=== PATIENT | female | born 1935 | race Caucasian/White ===

== ENCOUNTER 2018-01-31 10:30 | Outpatient (RCR) | payer MEDICARE, OTHER, SELFPAY ==
--- NOTE | 2018-01-24 15:07 | PT.OTN ---
On January 24, 2018 our therapy services consisting of Speech, Occupational, and Physical therapy transitioned from [employer] electronic documentation system to a new [employer] electronic system. All documentation prior to January 24 can be found under [employer] saved data. From January 24 forward, all medical record documentation will be in [employer] 6.1.
--- NOTE | 2018-01-24 16:30 | PT.OTN ---
Physical Therapy Treatment Note PT-OP-C Subjective Start: 01/24/18 16:13 Freq: Status: Active Protocol: Activity Type Activity Date Activity User E-Sign Co-Sign Detail Recorded Client Recorded Date Recorded By Document 01/24/18 16:13 [facility] [email or web address] 01/24/18 16:29 [facility] 01/24/18 16:13 OP-PT Subjective [Patient Comments] -Patient Comments Tae's is present for her treatment today due to her dementia. He reports she is doing much better with her walking and he feels her balance is much improved. She has been also able to ambulate on uneven surfaces with greater ease -Patient Reported Progress Improving PT-OP-Q Treatments Start: 01/24/18 16:13 Freq: Status: Active Protocol: Activity Type Activity Date Activity User E-Sign Co-Sign Detail Recorded Client Recorded Date Recorded By Document 01/24/18 16:13 [facility] [email or web address] 01/24/18 16:29 [facility] 01/24/18 16:13 Therapeutic Exercises [Standing Exercises] 4 -Standing Exercise Name standing rows -Side bilateral -Resistance level 1 theraband -Reps/Minutes 3 sets of 10 reps 3 -Standing Exercise Name standing toe raises -Side bilateral -Reps/Minutes 20 2 -Standing Exercise Name standing marches -Side bilateral -Reps/Minutes 20 1 -Standing Exercise Name standing calf raises -Side bilateral -Reps/Minutes 20 Gait Training [Gait Activity] 2 -Description heel toe gait 1 -Description gait with head turns and change of directions -Comments focus on posture and ablility to change directions Neuro Re-Education Treatment [Balance Activities] 4 -Details balance board standing weight shifts forward /back, side/ side 3 -Details standing single leg balance eyes open 2 -Details tandem stance eyes open/eyes closed -Surface firm and foam 1 -Details standing balance feet together eyes open/eyes closed, added head turns -Surface firm and foam Self-Care/Home Management Treatment [Education] -Patient Education Home Exercise Program -Caregiver Education long term care administrator info on adding in theraband for postural exercises PT-OP-T Assessment and Plan Start: 01/24/18 16:13 Freq: Status: Active Protocol: Activity Type Activity Date Activity User E-Sign Co-Sign Detail Recorded Client Recorded Date Recorded By Document 01/24/18 16:13 [facility] [email or web address] 01/24/18 16:29 [facility] 01/24/18 16:13 Physical Therapy Assessment [Impairments] -Impairments Balance Gait [Assessment Summary] -Assessment Tae is making steady progress with PT and her balance is showing improvement. She is able to balance single let stance for greater than 10 seconds now B. Her pain is not as wide and her feet are no longer turned out. I want to work on posture with her as she tends to ambulate with a forward position Physical Therapy Plan [Frequency and Duration] -Frequency of Treatment 1x/Week [Therapeutic Interventions] -Therapeutic Interventions Balance Training Gait Training Home Exercise Program Neuromuscular Re-education Therapeutic Exercises [Next Visit Focus/Plan] -Next Visit Plan focus on postural exercises and continue focusing on balance and dynamic gait activities Current Diagnoses Other abnormalities of gait and mobility (01/24/18)
--- NOTE | 2018-01-31 11:29 | PT.OTN ---
Current Diagnoses Other abnormalities of gait and mobility (01/31/18) Physical Therapy Treatment Note PT-OP-A Visit Information Start: 01/31/18 11:26 Freq: Status: Active Protocol: Activity Type Activity Date Activity User E-Sign Co-Sign Detail Recorded Client Recorded Date Recorded By Document 01/31/18 11:26 [facility] [email or web address] 01/31/18 11:28 [facility] 01/31/18 11:26 Out-Patient Physical Therapy Visit Information [Visit Information] -Visit Type Treatment Note -Visit Start Time 10:30 -Visit Stop Time 11:15 -Total Visit Minutes 45 -Visit Number 4 -Number of SENIOR CLINICAL RESEARCH SCIENTIST Visits 0 PT-OP-C Subjective Start: 01/24/18 16:13 Freq: Status: Active Protocol: Activity Type Activity Date Activity User E-Sign Co-Sign Detail Recorded Client Recorded Date Recorded By Document 01/31/18 11:26 [facility] [email or web address] 01/31/18 11:28 [facility] 01/31/18 11:26 OP-PT Subjective [Patient Comments] -Patient Comments THe patient reports she has had no loss of balance and has been working on her home balance program. Her comments that her gait continues to improve PT-OP-Q Treatments Start: 01/24/18 16:13 Freq: Status: Active Protocol: Activity Type Activity Date Activity User E-Sign Co-Sign Detail Recorded Client Recorded Date Recorded By Document 01/31/18 11:17 [facility] [email or web address] 01/31/18 11:26 [facility] 01/31/18 11:17 Gym Equipment [Sport Cord] 1 -Exercise Details standing marching with resistance -Cord/Resistance level 1 -Reps/Duration 2 minutes Therapeutic Exercises [Standing Exercises] 4 -Standing Exercise Name standing rows and lat pull down -Resistance level 1 theraband -Reps/Minutes 3 sets of 10 reps each 3 -Standing Exercise Name standing toe raises -Side bilateral -Reps/Minutes 20 2 -Standing Exercise Name standing marches -Side bilateral -Reps/Minutes 20 1 -Standing Exercise Name standing calf raises -Side bilateral -Reps/Minutes 20 Gait Training [Gait Activity] 3 -Description walking over green hurdles -Treatment Focus working on 1 legged balance exercises 2 -Description heel toe gait -Device Used in parallel bars -Distance/Duration 2 min -Treatment Focus narrow base of support stability exercise 1 -Description gait with head turns and change of directions -Comments focus on posture and ablility to change directions Neuro Re-Education Treatment [Balance Activities] 4 -Details balance board standing weight shifts forward /back, side/ side 3 -Details standing single leg balance eyes open 2 -Details tandem stance eyes open/eyes closed -Surface firm and foam 1 -Details standing balance feet together eyes open/eyes closed, added head turns -Surface firm and foam PT-OP-T Assessment and Plan Start: 01/24/18 16:13 Freq: Status: Active Protocol: Activity Type Activity Date Activity User E-Sign Co-Sign Detail Recorded Client Recorded Date Recorded By Document 01/31/18 11:17 [facility] [email or web address] 01/31/18 11:26 [facility] 01/31/18 11:17 Physical Therapy Assessment [Rehab Potential] -Rehabilitation Potential Excellent [Impairments] -Impairments Balance Gait [Assessment Summary] -Assessment Tae was able to balance today in SLS without hand support for 15 seconds, she is standing in tandem with ability to bring hands up over her head. Continue working on posture and dynamic balance activities. Physical Therapy Plan [Frequency and Duration] -Frequency of Treatment 1x/Week [Therapeutic Interventions] -Therapeutic Interventions Balance Training Gait Training Home Exercise Program Neuromuscular Re-education Therapeutic Exercises [Next Visit Focus/Plan] -Next Visit Plan focus on postural exercises and continue focusing on balance and dynamic gait activities
--- NOTE | 2018-04-18 13:30 | PT.OPDS ---
Current Diagnoses Other abnormalities of gait and mobility (01/31/18) Provider Visit Care Team Role Provider Type Doyle Byrd MD Attending Provider Physician Family Provider Primary Care Provider Specialty: Family Practice Address: [address] [place] [address], [facility] Email: Visit Number Visit Number 4 Discharge Summary PT-OP-C Subjective Start: 01/24/18 16:13 Freq: Status: Active Protocol: Document 01/31/18 11:26 [facility] (Rec: 01/31/18 11:28 [facility] [email or web address]) OP-PT Subjective Patient Comments Patient Comments THe patient reports she has had no loss of balance and has been working on her home balance program. Her comments that her gait continues to improve PT-OP-T Assessment and Plan Start: 01/24/18 16:13 Freq: Status: Active Protocol: Document 04/18/18 13:28 [facility] (Rec: 04/18/18 13:30 [facility] [email or web address]) Physical Therapy Assessment Assessment Summary Assessment Jaleel has not been sieen since 01/30/18. As of her last visit she was doing much better overall. Her reported she was walking with improved speed and had decreased log turner or wide base of support. She was doing all her exercises at home with her . She will be discharged to a Independent home program at this time. Physical Therapy Plan Discharge Physical Therapy Discharge Reasons No Longer Attending PT Discharge Comments Good overall progress with PT
== END 2018-06-14 10:46 ==
LOC: PHYS 10:30
PROVIDERS: Family Provider Family Medicine; PCP Family Medicine; Visit Provider Family Medicine
DX: R26.89 Other abnormalities of gait and mobility (principal)
CPT/HCPCS: 97110; 97112; 97116

== ENCOUNTER → 2018-03-17 14:53 | Outpatient (CLI) | payer MEDICARE, OTHER, SELFPAY ==
--- NOTE | 2018-03-17 | DI.MG.S_ITS ---
BILATERAL DIGITAL SCREENING MAMMOGRAM 3D/2D WITH CAD: 03/17/2018 CLINICAL: Routine screening. Comparison is made to exams dated: 01/18/2017 mammogram, 01/14/2016 mammogram, and 01/10/2015 mammogram - [facility]. There are scattered fibroglandular elements in both breasts. Current study was also evaluated with a Computer Aided Detection (CAD) system. There are benign calcifications in the right breast. No significant masses, calcifications, or other findings are seen in either breast. There has been no significant interval change. IMPRESSION: BENIGN There is no mammographic evidence of malignancy. A 1 year screening mammogram is recommended. This exam was interpreted at Station ID: [id number]. NOTE: For mammograms, a report in lay terms will be sent to the patient. Approximately 15% of breast malignancies will not be visualized mammographically. In the management of a palpable breast mass, a negative mammogram must not discourage biopsy of a clinically suspicious lesion. Electronically Signed By: Duncan grossman/abhijit:03/17/2018 16:03:28 letter sent: Normal Exam ACR BI-RADS Category 2: Benign Finding(s) 3342F
== END ==
PROVIDERS: Family Provider Family Medicine; PCP Family Medicine; Visit Provider Family Medicine
DX: Z12.31 Encounter for screening mammogram for malignant neoplasm of breast (principal)
CPT/HCPCS: 77063; 77067

== ENCOUNTER → 2018-03-21 07:48 | Outpatient (CLI) | payer MEDICARE, OTHER, SELFPAY ==
[2018-03-21 09:09] LABS: Add Manual Diff / Slide Review NO; Basophils Percent Auto 1.1 % (0-2); Eosinophils Percent Auto 1.9 % (2-4); Hematocrit 43.1 % (36-46); Hemoglobin 14.4 g/dL (12.0-16.0); Lymphocytes Percent Auto 29.9 % (25-40); Mean Corpuscular HGB Conc 33.3 % (30-36); Mean Corpuscular Hemoglobin 30.8 PG (26-34); Mean Corpuscular Volume 92.4 fL (80-100); Monocytes Percent Auto 7.1 % (3-14); Neutrophils Absolute Auto 2900 /uL (3000-5900); Platelet Count 222 X10^3/uL (150-400); Red Blood Cell Count 4.67 X10^6/uL (4.0-5.2); White Blood Cell Count 4.8 X10^3/uL (4.5-11.0)
[2018-03-21 09:44] LABS: Alanine Aminotransferase 21 IU/L (9-52); Albumin 4.1 g/dL (3.5-5.0); Albumin Globulin Ratio 1.2 (1.0-2.8); Alkaline Phosphatase 77 U/L (38-126); Aspartate Aminotransferase 26 IU/L (14-36); BUN Creatinine Ratio 28.6 (6-22); Bilirubin Total 0.5 mg/dL (0.2-1.3); Blood Urea Nitrogen 20 mg/dL (7-17); Calcium 8.9 mg/dL (8.4-10.2); Carbon Dioxide 31 mmol/L (22-32); Chloride 102 mmol/L (98-107); Cholesterol 187 mg/dL (140-199); Estimated Glomerular Filt Rate > 60.0 mL/min (>60); Globulin 3.4 g/dL (1.7-4.1); Glucose 86 mg/dL (80-110); HDL Cholesterol 58 mg/dL (40-60); HEMOLYSIS 35 (0-50); LDL Cholesterol Calculated 103 mg/dL (<100); Potassium 3.9 mmol/L (3.4-5.1); Sodium 140 mmol/L (137-145); Total Protein 7.5 g/dL (6.3-8.2); Triglycerides 131 mg/dL (35-150)
== END ==
PROVIDERS: PCP Internal Medicine; Visit Provider Internal Medicine
DX: F32.9 Major depressive disorder, single episode, unspecified (principal); E78.5 Hyperlipidemia, unspecified
CPT/HCPCS: 36415; 80053; 80061; 84443; 85025

== ENCOUNTER → 2019-03-12 07:47 | Outpatient (CLI) | payer MEDICARE, OTHER, SELFPAY ==
[2019-03-12 08:21] LABS: Hematocrit 41.8 % (36-46); Hemoglobin 13.7 g/dL (12.0-16.0); Mean Corpuscular HGB Conc 32.9 % (30-36); Mean Corpuscular Hemoglobin 30.6 PG (26-34); Mean Corpuscular Volume 93.2 fL (80-100); Platelet Count 187 X10^3/uL (150-400); Red Blood Cell Count 4.49 X10^6/uL (4.0-5.2); Red Cell Distribution Width 13.6 % (11.6-14.8); White Blood Cell Count 5.8 X10^3/uL (4.5-11.0)
[2019-03-12 08:38] LABS: Alanine Aminotransferase 21 IU/L (9-52); Albumin 4.1 g/dL (3.5-5.0); Albumin Globulin Ratio 1.4 (1.0-2.8); Alkaline Phosphatase 74 U/L (38-126); Aspartate Aminotransferase 27 IU/L (14-36); BUN Creatinine Ratio 27.5 (6-22); Bilirubin Total 0.3 mg/dL (0.2-1.3); Blood Urea Nitrogen 22 mg/dL (7-17); Calcium 9.4 mg/dL (8.4-10.2); Carbon Dioxide 31 mmol/L (22-32); Chloride 104 mmol/L (98-107); Estimated Glomerular Filt Rate > 60.0 mL/min (>60); Globulin 2.9 g/dL (1.7-4.1); Glucose 86 mg/dL (80-110); HEMOLYSIS < 15 (0-50); Sodium 141 mmol/L (137-145)
[2019-03-16 15:39] LABS: Cholesterol 194 mg/dL (140-199); HDL Cholesterol 59 mg/dL (40-60); LDL Cholesterol Calculated 116 mg/dL (<100); Triglycerides 93 mg/dL (35-150)
== END ==
PROVIDERS: PCP Student in an Organized Health Care Education/Training Program; Visit Provider Student in an Organized Health Care Education/Training Program
DX: E78.2 Mixed hyperlipidemia (principal); F02.80 Dementia in other diseases classified elsewhere, unspecified severity, without behavioral disturbance, psychotic disturbance, mood disturbance, and anxiety; G30.9 Alzheimer's disease, unspecified; G89.29 Other chronic pain; H81.09 Meniere's disease, unspecified ear; R10.9 Unspecified abdominal pain
CPT/HCPCS: 36415; 80053; 80061; 85027

== ENCOUNTER → 2019-03-20 09:55 | Outpatient (CLI) | payer MEDICARE, OTHER, SELFPAY ==
--- NOTE | 2019-03-20 | DI.MG.S_ITS ---
BILATERAL DIGITAL SCREENING MAMMOGRAM 3D/2D WITH CAD: 03/20/2019 CLINICAL: Routine screening. Comparison is made to exams dated: 03/17/2018 mammogram, 01/18/2017 mammogram, and 01/14/2016 mammogram - [facility]. There are scattered fibroglandular elements in both breasts. Current study was also evaluated with a Computer Aided Detection (CAD) system. No significant masses, calcifications, or other findings are seen in either breast. IMPRESSION: NEGATIVE There is no mammographic evidence of malignancy. A 1 year screening mammogram is recommended. This exam was interpreted at Station ID: [id number]. NOTE: For mammograms, a report in lay terms will be sent to the patient. Approximately 15% of breast malignancies will not be visualized mammographically. In the management of a palpable breast mass, a negative mammogram must not discourage biopsy of a clinically suspicious lesion. Electronically Signed By: Tara mays/abhijit:03/20/2019 11:50:11 letter sent: Normal Exam ACR BI-RADS Category 1: Negative 3341F
== END ==
PROVIDERS: PCP Student in an Organized Health Care Education/Training Program; Visit Provider Student in an Organized Health Care Education/Training Program
DX: Z12.31 Encounter for screening mammogram for malignant neoplasm of breast (principal); Z13.820 Encounter for screening for osteoporosis; Z78.0 Asymptomatic menopausal state; M85.88 Other specified disorders of bone density and structure, other site
CPT/HCPCS: 77063; 77067; 77080

== ENCOUNTER → 2019-07-12 07:45 | Outpatient (CLI) | payer MEDICARE, OTHER, SELFPAY ==
--- NOTE | 2019-07-12 07:47 | DI.US.S_ITS ---
PROCEDURE: US ARTERIAL DUPLEX LE LT INDICATIONS: FOLLOW UP DIMINISHED ANKLE BRACHIAL INDEX TECHNIQUE: Color and pulse Doppler interrogation was performed of the left lower extremity arterial system, with image documentation. COMPARISON: None. FINDINGS: Common femoral artery: 178 cm/sec, with biphasic flow. Deep femoral artery: 102 cm/sec, with triphasic flow. Proximal superficial femoral artery: 127 cm/sec, with biphasic flow. Mid superficial femoral artery: 123 cm/sec, with biphasic flow. Distal superficial femoral artery: 115 cm/sec, with biphasic flow. Popliteal artery: 65 cm/sec, with biphasic flow. Posterior tibial artery: 58, 62, 55 cm/sec, with biphasic flow. Anterior tibial artery/dorsalis pedis: 63, 62, 64, 65 cm/sec, with biphasic flow. Brown-scale imaging description: Widely patent vessels, at least 2 vessel runoff. IMPRESSION: 1. No evidence of inflow disease. Widely patent left lower extremity arterial vessels with at least two-vessel runoff. Dictated by: Gopal Gay M.D. on 07/13/2019 at 17:50 Approved by: Gopal Gya M.D. on 07/13/2019 at 17:52
== END ==
PROVIDERS: PCP Student in an Organized Health Care Education/Training Program; Visit Provider Student in an Organized Health Care Education/Training Program
DX: I73.9 Peripheral vascular disease, unspecified (principal)
CPT/HCPCS: 93926

== ENCOUNTER → 2019-08-27 09:57 | Outpatient (CLI) | payer MEDICARE, OTHER, SELFPAY | PROVIDERS: PCP Student in an Organized Health Care Education/Training Program | DX: R35.0 Frequency of micturition (principal) | CPT/HCPCS: 87086 ==

== ENCOUNTER 2019-10-19 02:32 | Emergency (ER) | payer MEDICARE, OTHER, SELFPAY ==
[2019-10-19 02:42] VITALS: BP 108/61; PULSE 60; RESP 15; TEMP 36.8; O2SAT 93; BMI 23.0
--- NOTE | 2019-10-19 03:59 | PC.NURSE ---
DR Tesfaye ambulated her,her was in the room also.Her gait was steady,her stated she appeared pain free and in her normal state of health.
--- NOTE | 2019-10-19 04:03 | ED_ITS ---
HPI - Back Pain/Injury General Chief Complaint: Back Pain/Injury Stated Complaint: Pain and weakness Time Seen by Provider: 10/19/19 03:52 Source: family and EMS History of Present Illness HPI Narrative: 84-year-old woman with a history of Alzheimer's type dementia presents via EMS after awaking this evening around 1 in the morning with increased agitation and acting out and behavior that suggested back pain. Her attempted to get her out of bed and due to pain this was challenging. He did get her some Tylenol and was trying to help her down the stairs but she was having difficulty walking. At that point he called 911 for help with transporting her to the emergency room. By the time she arrives in the emergency room she is close to her baseline, having absolutely no pain and cooperating with exam. Related Data Home Medications Medication Instructions Recorded Confirmed CA PANTOTHENATE/FOLIC ACID/VIT 1 tab PO Q DAY #0 05/11/11 09/28/19 (MULTIVITAMIN) Calcium Carbonate/Vitamin D 1 cap PO QDAY #0 05/11/11 09/28/19 (#CALCIUM) Fish Oil 1,000 mg PO QDAY #0 10/24/12 09/28/19 CHOLECALCIFEROL (VITAMIN D) 2,000 units PO QDAY #0 tab 06/13/13 09/28/19 ginkgo biloba 60 mg PO BID #0 06/11/16 09/28/19 Previous Rx's Medication Instructions Recorded citalopram 40 mg tablet 40 mg PO Q DAY #90 tab 08/24/18 citalopram 10 mg tablet 10 mg PO QDAY #90 tab 11/25/18 atorvastatin 20 mg tablet 20 mg PO HS #90 tab 01/03/19 tolterodine 4 mg capsule,extended 4 mg PO QDAY #90 tab 05/15/19 release 24 hr donepezil 10 mg tablet 10 mg PO QDAY #90 tab 08/09/19 estradiol 10 mcg vaginal tablet See Rx Instructions .ROUTE 08/09/19 .COMPLEX #14 tab memantine 10 mg tablet 5 mg PO BID #90 tab 08/09/19 tolterodine 4 mg capsule,extended 4 mg PO DAILY #30 cap 08/30/19 release 24 hr Allergies Allergy/AdvReac Type Severity Reaction Status Date / Time No Known Drug Allergies Allergy Verified 09/28/19 08:08 Review of Systems Review of Systems Narrative: Denies ? fever ? cough ? cold ? chills ? chest pain ? dyspnea ? orthopnea ? wheezing ? abdominal pain ? change to bowel or bladder habits ? nausea vomiting ? skin changes ? rashes Patient History Medical History Alzheimer's type dementia (Chronic 2013) Closed fracture of left distal radius (Resolved 03/15/14) Cognitive dysfunction (Chronic 2009) Colon polyps (Resolved) Depression (Chronic) Gastritis (Chronic) Heart murmur (Chronic) Hyperlipidemia (Chronic) IBS (irritable bowel syndrome) (Chronic) Meniere's disease (Chronic) Urinary incontinence, mixed (Chronic) Surgical History History of bilateral salpingo-oophorectomy (Resolved) History of surgery on arm (Resolved 03/16/14) Normal colonoscopy (Resolved 2012) Status post appendectomy (Resolved 2003) Status post colectomy (Resolved 2003) Status post epidural steroid injection (Resolved 03/06/10) Family History Father Colorectal cancer Mother Dementia Social History Smoking Status: Never smoker Smoking Status: Never smoker Exam Narrative Exam Narrative: General: Frail, in no acute distress. Able to cooperate with exam. Well-nourished well-developed HEENT: Moist mucous membranes, normal sclera with reactive pupils, Neck: No JVD, supple Respiratory: Lungs are clear to auscultation, no wheezing no rales no rhonchi. Full and symmetrical air movement Cardiac: Regular rate and rhythm no murmurs no bruits Abdomen: Soft nontender good bowel tones, no flank pain Skin: Warm and dry, no rashes Neurologic: Grossly neurologically intact with no obvious asymmetries or abnormalities. She is able to get out of bed and walk with a slightly wide- based shuffling walk with no pain behaviors or complaints Extremities: No trauma, well perfused Psych: Cooperative, appropriate insight and affect Initial Vital Signs Initial Vital Signs: Vital Signs Temperature 98.3 F 10/19/19 02:42 Pulse Rate 60 10/19/19 02:42 Respiratory Rate 15 10/19/19 02:42 Blood Pressure 108/61 10/19/19 02:42 Pulse Oximetry 93 10/19/19 02:42 Course Vital Signs Vital signs: Vital Signs - 8 hr 10/19/19 02:42 Temperature 98.3 F Pulse Rate 60 Respiratory Rate 15 Blood Pressure 108/61 Pulse Oximetry 93 MDM - Back Pain/Injury MDM Narrative Medical decision making narrative: Battling presentation in an 84-year-old woman with progressive Alzheimer's type dementia. I'm wondering if this was simply an episode of sundowning where she woke confused disoriented and perhaps experiencing some pain. The Tylenol has obviously been effective. There's no evidence of infection, trauma, respiratory or cardiac distress at this time. We shared decision making her and I agreed that additional workup at this time was probably not warranted and it was safe to be discharged home. I did encourage them to return to the emergency department if she develops additional signs or symptoms suggesting pain or infection. I suggested that they follow-up with her primary care physician. I believe she is safe for home discharge at this time Discharge Plan Departure Patient Disposition: Home Clinical Impression: Agitation Alzheimer's type dementia Qualifiers: Alzheimer's disease onset: unspecified onset Dementia behavioral disturbance: without behavioral disturbance Qualified Code(s): G30.9 - Alzheimer's disease, unspecified Activity Restrictions/Additional Instructions: Thank you for coming in today. I am reassured that you seem to be close to her baseline by the time you have arrived in the emergency department. It seems that the Tylenol that you had prior to arrival is helping with whatever was causing the pain that awoke you from sleep. After examination in the emergency department we decided not to do any additional imaging studies or testing. I think it is safe for you to go home, get a bit of sleep and see how your feeling in the morning. If you have recurrence pain, develop a fever, have any other localizing symptoms or new findings it would be very appropriate to follow-up with your primary care physician or return to the emergency room for a more complete evaluation. I hope that you feel better Prescriptions: No Action CA PANTOTHENATE/FOLIC ACID/VIT (MULTIVITAMIN) 1 tab PO Q DAY Qty: 0 RF: 0 Calcium Carbonate/Vitamin D (#CALCIUM) 1 cap PO QDAY Qty: 0 RF: 0 Fish Oil 1,000 mg PO QDAY Qty: 0 RF: 0 CHOLECALCIFEROL (VITAMIN D) 2,000 units PO QDAY Qty: 0 RF: 0 ginkgo biloba 60 MG capsule 60 mg PO BID Qty: 0 RF: 0 citalopram 40 mg tablet 40 mg PO Q DAY Qty: 90 RF: 3 citalopram 10 mg tablet 10 mg PO QDAY Qty: 90 RF: 3 atorvastatin [Lipitor] 20 mg tablet 20 mg PO HS Qty: 90 RF: 3 tolterodine [Detrol LA] 4 mg capsule,extended release 24hr 4 mg PO QDAY Qty: 90 RF: 1 estradiol 10 mcg tablet See Rx Instructions .ROUTE .COMPLEX Qty: 14 RF: 0 memantine [Namenda] 10 mg tablet 5 mg PO BID Qty: 90 RF: 3 donepezil [Aricept] 10 mg tablet 10 mg PO QDAY Qty: 90 RF: 3 tolterodine [Detrol LA] 4 mg capsule,extended release 24hr 4 mg PO DAILY Qty: 30 RF: 3 Referrals: Kolby Ayala, [Primary Care Provider] -
[2019-10-19 04:21] VITALS: BP 105/76; PULSE 64; RESP 18; O2SAT 96
== END 2019-10-19 04:23 | disposition home or self-care (01) ==
PROVIDERS: Emergency Provider Emergency Medicine; PCP Family Medicine
DX: R45.1 Restlessness and agitation (principal); G30.9 Alzheimer's disease, unspecified
CPT/HCPCS: 99281

== ENCOUNTER → 2020-01-25 15:50 | Outpatient (CLI) | payer MEDICARE, OTHER, SELFPAY ==
[2020-01-25 16:40] LABS: Add Manual Diff / Slide Review NO; Basophils Absolute Auto 0 /uL (0-100); Basophils Percent Auto 0.9 % (0-2); Eosinophils Absolute Auto 0 /uL (0-450); Eosinophils Percent Auto 0.7 % (2-4); Hematocrit 43.2 % (36-46); Hemoglobin 14.7 g/dL (12.0-16.0); Lymphocytes Absolute Auto 1500 /uL (1100-4500); Lymphocytes Percent Auto 28.2 % (25-40); Mean Corpuscular HGB Conc 33.9 % (30-36); Mean Corpuscular Hemoglobin 31.5 PG (26-34); Mean Corpuscular Volume 92.8 fL (80-100); Monocytes Absolute Auto 400 /uL (0-900); Monocytes Percent Auto 8.5 % (3-14); Neutrophils Absolute Auto 3200 /uL (1500-7000); Neutrophils Percent Auto 61.7 % (50-75); Platelet Count 197 X10^3/uL (150-400); Red Blood Cell Count 4.66 X10^6/uL (4.0-5.2); Red Cell Distribution Width 13.4 % (11.6-14.8); White Blood Cell Count 5.2 X10^3/uL (4.5-11.0)
[2020-01-25 16:50] LABS: Alanine Aminotransferase 21 IU/L (<35); Albumin 4.5 g/dL (3.5-5.0); Albumin Globulin Ratio 1.3 (1.0-2.8); Alkaline Phosphatase 71 U/L (38-126); Aspartate Aminotransferase 33 IU/L (14-36); Bilirubin Total 0.2 mg/dL (0.2-1.3); Blood Urea Nitrogen 22 mg/dL (7-17); Carbon Dioxide 33 mmol/L (22-32); Chloride 99 mmol/L (98-107); Estimated Glomerular Filt Rate > 60.0 mL/min (>60); Globulin 3.4 g/dL (1.7-4.1); Glucose 87 mg/dL (80-110); HEMOLYSIS < 15 (0-50); Potassium 4.3 mmol/L (3.4-5.1); Sodium 136 mmol/L (137-145); Total Protein 7.9 g/dL (6.3-8.2)
[2020-01-25 17:02] LABS: Hemoglobin A1C% w Est Avg Glu 5.7 % (4.0-6.0)
[2020-01-25 17:36] LABS: Thyroid Stimulating Hormone 2.77 uIU/mL (0.47-4.68)
[2020-01-28 08:33] LABS: RBC Urine None Seen (0-5/HPF)
[2020-01-28 08:44] LABS: Bilirubin Urine UA NEGATIVE (NEGATIVE); Color Urine UA YELLOW; Glucose Urine UA NEGATIVE (Negative); Ketones Urine UA NEGATIVE (NEGATIVE); Leukocyte Esterase Urine UA 3+ (NEGATIVE); Nitrite Urine UA NEGATIVE (Negative); Occult Blood Urine UA NEGATIVE (Negative); Protein Urine UA NEGATIVE (Negative); Specific Gravity Urine UA 1.015 (1.000-1.035); Urobilinogen Urine UA 0.2 E.U./dL (0.2)
[2020-01-28 08:52] LABS: Appearance Urine UA Slightly Cloudy
[2020-01-28 09:16] LABS: Bacteria Urine Moderate (10-30); Squamous Epithelial Cell Urine 10-30 /HPF (0-5/HPF); WBC Urine 30-100/HPF (0-5/HPF)
== END ==
PROVIDERS: PCP Family Medicine; Referring Provider Family Medicine; Visit Provider Family Medicine
DX: G30.9 Alzheimer's disease, unspecified (principal); F02.80 Dementia in other diseases classified elsewhere, unspecified severity, without behavioral disturbance, psychotic disturbance, mood disturbance, and anxiety
CPT/HCPCS: 36415; 80053; 81001; 83036; 84443; 85025

== ENCOUNTER → 2020-02-20 14:33 | Outpatient (ROUT) | payer MEDICARE, OTHER, SELFPAY ==
[2020-02-20 14:34] LABS: Bacteria Urine None Seen; RBC Urine None Seen (0-5/HPF); WBC Urine None Seen (0-5/HPF)
[2020-02-20 14:56] LABS: Appearance Urine UA CLEAR; Bilirubin Urine UA NEGATIVE (NEGATIVE); Color Urine UA YELLOW; Glucose Urine UA NEGATIVE (Negative); Ketones Urine UA NEGATIVE (NEGATIVE); Leukocyte Esterase Urine UA NEGATIVE (NEGATIVE); Nitrite Urine UA NEGATIVE (Negative); Occult Blood Urine UA NEGATIVE (Negative); Protein Urine UA NEGATIVE (Negative); Specific Gravity Urine UA <=1.005 (1.000-1.035); Urobilinogen Urine UA 0.2 E.U./dL (0.2)
[2020-02-20 14:57] LABS: pH Urine UA 6.5 (4.5-8.0)
[2020-02-20 15:03] LABS: Culture Indicated Urine Cult Not Indicated; Urine Comments Microscopic Normal
== END ==
PROVIDERS: PCP Family Medicine; Visit Provider Family Medicine
DX: N39.0 Urinary tract infection, site not specified (principal)
CPT/HCPCS: 81001

== ENCOUNTER → 2020-04-11 08:40 | Outpatient (CLI) | payer MEDICARE, OTHER, SELFPAY ==
[2020-04-11 11:03] LABS: Cholesterol 309 mg/dL (140-199); HDL Cholesterol 68 mg/dL (40-60); LDL Cholesterol Calculated 209 mg/dL (<100); Triglycerides 159 mg/dL (35-150)
== END ==
PROVIDERS: PCP Family Medicine; Referring Provider Family Medicine; Visit Provider Family Medicine
DX: E78.2 Mixed hyperlipidemia (principal)
CPT/HCPCS: 36415; 80061

== ENCOUNTER → 2020-04-16 10:07 | Outpatient (CLI) | payer MEDICARE, OTHER, SELFPAY ==
--- NOTE | 2020-04-16 | DI.MG.S_ITS ---
BILATERAL DIGITAL SCREENING MAMMOGRAM 3D/2D WITH CAD: 04/16/2020 CLINICAL: Routine screening. Comparison is made to exams dated: 03/20/2019 mammogram, 03/17/2018 mammogram, and 01/18/2017 mammogram - [facility]. There are scattered fibroglandular elements in both breasts. Current study was also evaluated with a Computer Aided Detection (CAD) system. No significant masses, calcifications, or other findings are seen in either breast. There has been no significant interval change. IMPRESSION: NEGATIVE There is no mammographic evidence of malignancy. A 1 year screening mammogram is recommended. This exam was interpreted at Station ID: [id number]. NOTE: For mammograms, a report in lay terms will be sent to the patient. Approximately 15% of breast malignancies will not be visualized mammographically. In the management of a palpable breast mass, a negative mammogram must not discourage biopsy of a clinically suspicious lesion. Electronically Signed By: Erwin valle/abhijit:04/16/2020 12:48:14 letter sent: Normal Exam ACR BI-RADS Category 1: Negative 3341F
== END ==
PROVIDERS: PCP Family Medicine; Referring Provider Family Medicine; Visit Provider Family Medicine
DX: Z12.31 Encounter for screening mammogram for malignant neoplasm of breast (principal)
CPT/HCPCS: 77063; 77067

== ENCOUNTER → 2020-04-28 08:15 | Outpatient (CLI) | payer MEDICARE, OTHER, SELFPAY ==
[2020-04-28 10:22] LABS: Add Manual Diff / Slide Review NO; Basophils Absolute Auto 100 /uL (0-100); Basophils Percent Auto 1.2 % (0-2); Eosinophils Absolute Auto 0 /uL (0-450); Hematocrit 42.9 % (36-46); Hemoglobin 14.3 g/dL (12.0-16.0); Lymphocytes Absolute Auto 1300 /uL (1100-4500); Lymphocytes Percent Auto 30.8 % (25-40); Mean Corpuscular HGB Conc 33.3 % (30-36); Mean Corpuscular Hemoglobin 30.8 PG (26-34); Mean Corpuscular Volume 92.5 fL (80-100); Monocytes Absolute Auto 300 /uL (0-900); Monocytes Percent Auto 7.5 % (3-14); Neutrophils Absolute Auto 2500 /uL (1500-7000); Neutrophils Percent Auto 59.5 % (50-75); Platelet Count 177 X10^3/uL (150-400); Red Blood Cell Count 4.64 X10^6/uL (4.0-5.2); Red Cell Distribution Width 13.6 % (11.6-14.8); White Blood Cell Count 4.2 X10^3/uL (4.5-11.0)
[2020-04-28 10:40] LABS: Alanine Aminotransferase 24 IU/L (<35); Albumin 4.4 g/dL (3.5-5.0); Albumin Globulin Ratio 1.4 (1.0-2.8); Alkaline Phosphatase 74 U/L (38-126); Aspartate Aminotransferase 37 IU/L (14-36); BUN Creatinine Ratio 25.9 (6-22); Bilirubin Total 0.5 mg/dL (0.2-1.3); Blood Urea Nitrogen 22 mg/dL (7-17); Calcium 10.4 mg/dL (8.4-10.2); Carbon Dioxide 33 mmol/L (22-32); Chloride 102 mmol/L (98-107); Cholesterol 207 mg/dL (140-199); Estimated Glomerular Filt Rate > 60.0 mL/min (>60); Globulin 3.1 g/dL (1.7-4.1); Glucose 84 mg/dL (80-110); HDL Cholesterol 63 mg/dL (40-60); HEMOLYSIS < 15 (0-50); LDL Cholesterol Calculated 122 mg/dL (<100); Potassium 4.4 mmol/L (3.4-5.1); Sodium 139 mmol/L (137-145); Total Protein 7.5 g/dL (6.3-8.2); Triglycerides 110 mg/dL (35-150)
== END ==
PROVIDERS: PCP Family Medicine; Referring Provider Psychiatry & Neurology Neurology; Visit Provider Psychiatry & Neurology Neurology
DX: Z51.81 Encounter for therapeutic drug level monitoring (principal); E78.5 Hyperlipidemia, unspecified
CPT/HCPCS: 36415; 80053; 80061; 85025

== ENCOUNTER → 2020-05-19 09:11 | Outpatient (CLI) | payer MEDICARE, OTHER, SELFPAY ==
--- NOTE | 2020-05-19 | DI.MRI.S_ITS ---
PROCEDURE: MR HEAD/BRAIN WO CON INDICATIONS: ALZHEIMERS, ATAXIA TECHNIQUE: Non-contrast axial T1 spin echo, axial T2 fast spin echo, sagittal and axial FLAIR, coronal T2 fast spin echo, axial gradient echo, axial diffusion and ADC through the brain. COMPARISON: [facility], MR, BRAIN WITHOUT CONTRAST, 04/11/2009, 8:24. FINDINGS: Image quality: Excellent. CSF spaces: Ventricles appear symmetric in size and shape. Basal cisterns are patent. No extra-axial fluid collections. Brain: No intracranial bleeds or mass effects. There is cerebral volume loss for age. There are periventricular and deep white matter chronic small vessel ischemic changes. Brainstem appears normal. Diffusion-weighted images show no acute ischemic insults. No chronic ischemic insults. Normal intravascular flow voids are present. Skull and face: Calvarial bone marrow is normal in signal. Orbits are normal. Sinuses: Sinuses and mastoids are clear. IMPRESSION: Diffuse small white matter changes, probably represent chronic microvascular ischemic disease, versus statistically less likely demyelination or other infectious, inflammatory, neurodegenerative etiology, technically nonspecific. These findings appear progressed since 04/11/09. Dictated by: Karan Tucker M.D. on 05/19/2020 at 13:17 Approved by: Karan Tucker M.D. on 05/19/2020 at 13:19
== END ==
PROVIDERS: PCP Family Medicine; Referring Provider Psychiatry & Neurology Neurology; Visit Provider Psychiatry & Neurology Neurology
DX: G30.9 Alzheimer's disease, unspecified (principal); R27.0 Ataxia, unspecified
CPT/HCPCS: 70551

== ENCOUNTER → 2020-09-22 07:56 | Outpatient (CLI) | payer MEDICARE, OTHER, SELFPAY ==
--- NOTE | 2020-09-22 07:57 | DI.ECHO.S_ITS ---
[facility] +---------+ : : [address] : [place] : : : : [id number] : : : : Phone: [phone]---------+ Echocardiogram Report + + :Name: SISSY SANTIAGO Study Date: 09/22/2020 Height: 63 in : :[facility] Weight: 120 lb : : Gender: Female BSA: 1.6 m2 : :: 1935 Age: 85 yrs BP: 130/84 mmHg: :Reason For Study: CHANGE IN COGNITION AND PROGRESSIVE FATIGUE : :Ordering Physician: KWAME, : :TIANNA Performed By: Nieves Trimble : :Referring: TIANNA PUENTE : + + Interpretation Summary The ejection fraction is estimated to be 55-60%. There is mild mitral regurgitation. There is mild aortic regurgitation. There is mild tricuspid regurgitation. The right ventricular systolic pressure is estimated to be at least 29 mmHg based on an estimated right atrial pressure of 3 mm Hg. Procedure: A two-dimensional transthoracic echocardiogram with color flow and Doppler was performed. The study quality was technically adequate. There is no prior echocardiogram noted for this patient. The patient was in sinus bradycardia with heart rates between 55-64 bpm during the exam. Left Ventricle: The left ventricle is normal in size and wall thickness. The ejection fraction is estimated to be 55-60%. Left ventricular wall motion is normal. Diastolic parameters suggest a pseudonormalization pattern, consistent with probable elevated filling pressures. Right Ventricle: The right ventricle is normal in size and function. Atria: The left atrium is mildly dilated. Right atrial size is normal. There is no Doppler evidence for an interatrial shunt. Mitral Valve: The mitral valve is normal in structure and function. There is mild mitral regurgitation. Aortic Valve: The aortic valve is trileaflet. The aortic valve opens well. There is no aortic valve stenosis. There is mild aortic regurgitation. Tricuspid Valve: The tricuspid valve is normal in structure and function. There is mild tricuspid regurgitation. The right ventricular systolic pressure is estimated to be at least 29 mmHg based on an estimated right atrial pressure of 3 mm Hg. Pulmonic Valve: The pulmonic valve is not well visualized. There is mild pulmonic regurgitation. Great Vessels: The aortic root is normal size. The ascending aorta is mildly enlarged. The IVC is of normal diameter and collapses greater than 50% with a sniff. This suggests a low right atrial pressure of 3 mm Hg. Pericardium/ Pleura There is no pericardial effusion. There is no pleural effusion. MMode/2D Measurements & Calculations LVIDd: 4.0 cm LVOT diam: 1.9 cm LVIDs: 2.9 cm Ao root diam: 3.2 cm FS: 27.0 % asc Aorta Diam: 3.9 cm EPSS: 0.34 cm IVSd: 0.85 cm LVPWd: 0.91 cm LV duarte. diameter/BSA (cm/m^2): 2.6 LV sys. diameter/BSA (cm/m^2): 1.9 LA A2 area: 19.0 cm2 RA long axis: 4.7 cm LA A4 area: 18.0 cm2 RA area: 11.9 cm2 LA length (vol): 4.8 cm RA vol: 25.3 ml LA vol: 59.7 ml RA : 16.3 ml/m2 LA vol index: 38.4 ml/m2 IVC diam: 1.1 cm RVD1 (basal): 2.6 cm TAPSE: 1.8 cm Doppler Measurements & Calculations Ao V2 max: 141.6 cm/sec LVOT Max Marcell: 136.8 cm/sec Ao V2 mean: 91.4 cm/sec LV V1 max P.5 mmHg Ao max P.0 mmHg LV V1 VTI: 31.6 cm Ao mean P.8 mmHg JACKIE(I,D): 3.0 cm2 Ao V2 VTI: 29.6 cm JACKIE(V,D): 2.7 cm2 sev ratio: 1.1 JACKIE indexed to BSA (cm^2/m^2): 1.9 AI P1/2t: 708.1 msec AI dec slope: 191.2 cm/sec2 MV E max marcell: 75.5 cm/sec TR max marcell: 255.3 cm/sec MV A max marcell: 91.2 cm/sec TR max P.2 mmHg MV E/A: 0.83 PA V2 max: 55.2 cm/sec Med Peak E' Marcell: 5.4 cm/sec PA V2 mean: 35.3 cm/sec E/E' med: 14.1 PA mean P.59 mmHg Lat Peak E' Marcell: 5.4 cm/sec PA pr(Accel): 13.9 mmHg E/E' lat: 14.0 E/e' average: 14.0 MV dec time: 0.18 sec SVLVOT): 88.2 ml Reading Physician:02:28 PM
== END ==
PROVIDERS: PCP Family Medicine; Referring Provider Family Medicine; Visit Provider Family Medicine
DX: I08.3 Combined rheumatic disorders of mitral, aortic and tricuspid valves (principal); I77.89 Other specified disorders of arteries and arterioles; R53.83 Other fatigue; G30.9 Alzheimer's disease, unspecified; F02.80 Dementia in other diseases classified elsewhere, unspecified severity, without behavioral disturbance, psychotic disturbance, mood disturbance, and anxiety; E78.2 Mixed hyperlipidemia
CPT/HCPCS: 93306

== ENCOUNTER → 2020-10-30 07:22 | Outpatient (CLI) | payer MEDICARE, OTHER, SELFPAY ==
[2020-10-30 08:35] LABS: Alanine Aminotransferase 22 IU/L (<35); Albumin Globulin Ratio 1.3 (1.0-2.8); Alkaline Phosphatase 73 U/L (38-126); Aspartate Aminotransferase 30 IU/L (14-36); BUN Creatinine Ratio 25.3 (6-22); Bilirubin Total 0.3 mg/dL (0.2-1.3); Blood Urea Nitrogen 21 mg/dL (7-17); Calcium 9.8 mg/dL (8.4-10.2); Carbon Dioxide 34 mmol/L (22-32); Chloride 101 mmol/L (98-107); Cholesterol 185 mg/dL (140-199); Estimated Glomerular Filt Rate > 60.0 mL/min (>60); Glucose 88 mg/dL (80-110); HDL Cholesterol 72 mg/dL (40-60); HEMOLYSIS < 15 (0-50); LDL Cholesterol Calculated 98 mg/dL (<100); Potassium 4.1 mmol/L (3.4-5.1); Sodium 137 mmol/L (137-145); Triglycerides 77 mg/dL (35-150)
== END ==
PROVIDERS: PCP Family Medicine; Referring Provider Family Medicine; Visit Provider Family Medicine
DX: E78.2 Mixed hyperlipidemia (principal); M81.0 Age-related osteoporosis without current pathological fracture
CPT/HCPCS: 36415; 80053; 80061

== ENCOUNTER 2020-11-28 06:39 | Inpatient (IN) | payer MEDICARE, OTHER, SELFPAY ==
[2020-11-28] VITALS (18 sets, daily range): BP systolic 111–147; BP diastolic 56–79; PULSE 66–84; RESP 15–18; TEMP 36.6–37.3; O2SAT 86–100; BMI 31.1
--- NOTE | 2020-11-28 06:47 | ED_ITS ---
HPI - General Adult <Sania Tesfaye MD - Last Filed: 12/01/20 02:17> General Chief complaint: Weakness Stated complaint: Fever Time Seen by Provider: 11/28/20 06:41 History of Present Illness HPI narrative: 85-year-old woman with a history of dementia and hyperlipidemia presents with global weakness. Her notes that she had her 2nd COVID vaccination yesterday. She was needing assistance going to the bathroom in the middle of the night and the 2nd time she got up in the middle of the night she was unable to stand and her was unable to get her completely to the bathroom. Aside from the COVID vaccine yesterday she has not had fevers, cough, chest pain, dyspnea, lower extremity edema, UTI symptoms, abdominal pain, diarrhea or constipation. On presentation she is globally weak but able to move all extremities. helps considerably with history. Related Data Home Medications Medication Instructions Recorded Confirmed CA PANTOTHENATE/FOLIC ACID/VIT 1 tab PO Q DAY #0 05/11/11 11/28/20 (MULTIVITAMIN) Calcium Carbonate/Vitamin D 1 cap PO QDAY #0 05/11/11 11/28/20 (#CALCIUM) Fish Oil 1,000 mg PO QDAY #0 10/24/12 11/28/20 CHOLECALCIFEROL (VITAMIN D) 2,000 units PO QDAY #0 tab 06/13/13 11/28/20 ginkgo biloba 60 mg PO BID #0 06/11/16 11/28/20 Previous Rx's Medication Instructions Recorded tolterodine 4 mg capsule,extended 4 mg PO DAILY #30 cap 04/14/20 release 24 hr atorvastatin 20 mg tablet 20 mg PO BEDTIME #90 tab 05/01/20 donepezil 10 mg tablet 10 mg PO QDAY #90 tab 07/18/20 memantine 10 mg tablet 5 mg PO BID #90 tab 07/18/20 estradiol 10 mcg vaginal tablet See Rx Instructions .ROUTE 08/18/20 .COMPLEX #36 tab citalopram 40 mg tablet 40 mg PO Q DAY #90 tab MDD 40MG 10/17/20 Allergies Allergy/AdvReac Type Severity Reaction Status Date / Time No Known Drug Allergies Allergy Verified 04/28/20 10:34 Review of Systems <Sania Tesfaye MD - Last Filed: 12/01/20 02:17> Review of Systems ROS Unobtainable: All systems reviewed & are unremarkable except as noted in HPI and below Patient History <Sania Tesfaye MD - Last Filed: 12/01/20 02:17> Medical History (Updated 11/28/20 @ 10:22 by Deven Alan DO) Alzheimer's type dementia (2013) Closed fracture of left distal radius (03/15/14) Cognitive dysfunction (2009) Colon polyps Depression Gastritis Heart murmur Hyperlipidemia IBS (irritable bowel syndrome) Meniere's disease Urinary incontinence, mixed Surgical History History of bilateral salpingo-oophorectomy History of surgery on arm (03/16/14) Normal colonoscopy (2012) Status post appendectomy (2003) Status post colectomy (2003) Status post epidural steroid injection (03/06/10) Family History Father Colorectal cancer Mother Dementia Social History household members: spouse Smoking Status: Never smoker alcohol intake: never Smoking Status: Never smoker Exam <Sania Tesfaye MD - Last Filed: 12/01/20 02:17> Initial Vital Signs Initial Vital Signs: Vital Signs Temperature 98.9 F 11/28/20 06:47 Pulse Rate 84 11/28/20 06:47 Respiratory Rate 18 11/28/20 06:47 Blood Pressure 113/58 L 11/28/20 06:47 Pulse Oximetry 93 11/28/20 06:47 <Deven Alan DO - Last Filed: 11/28/20 10:36> Initial Vital Signs Initial Vital Signs: Vital Signs Temperature 98.9 F 11/28/20 06:47 Pulse Rate 84 11/28/20 06:47 Respiratory Rate 18 11/28/20 06:47 Blood Pressure 113/58 L 11/28/20 06:47 Pulse Oximetry 93 11/28/20 06:47 Course <Sania Tesfyae MD - Last Filed: 12/01/20 02:17> Orders Ordered: Discontinued Medications Acetaminophen (Acetaminophen 325 Mg Tablet) 975 mg PO NOW ONE Stop: 11/28/20 06:50 Last Admin: 11/28/20 07:39 Dose: 975 mg Documented by: OWEN Acetaminophen (Acetaminophen 325 Mg Tablet) 650 mg PO Q6HR PRN PRN Reason: Fever/Mild Pain (1-3) Last Admin: 11/28/20 17:27 Dose: 650 mg Documented by: RUBIA Atorvastatin Calcium (Atorvastatin 20 Mg Tablet) 20 mg PO BEDTIME [facility] Last Admin: 11/29/20 20:51 Dose: 20 mg Documented by: ISRAEL Bisacodyl (Bisacodyl 5 Mg Tablet) 10 mg PO DAILY PRN PRN Reason: Constipation Calcium Carbonate (Calcium Carbonate 500 Mg Tab) 1,000 mg PO Q4HR PRN PRN Reason: Dyspepsia Citalopram Hydrobromide (Citalopram 10 Mg Tablet) 40 mg PO DAILY [facility] Last Admin: 11/30/20 09:09 Dose: 40 mg Documented by: Admin: 11/29/20 08:05 Dose: 40 mg Documented by: MAUREEN Docusate Sodium (Docusate 100 Mg Capsule) 100 mg PO BID [facility] Last Admin: 11/30/20 09:08 Dose: 100 mg Documented by: Admin: 11/29/20 20:51 Dose: 100 mg Documented by: Admin: 11/29/20 08:05 Dose: 100 mg Documented by: Admin: 11/28/20 20:59 Dose: 100 mg Documented by: RUBIA Donepezil HCl (Donepezil 5 Mg Tablet) 10 mg PO DAILY [facility] Last Admin: 11/30/20 09:08 Dose: 10 mg Documented by: Admin: 11/29/20 08:05 Dose: 10 mg Documented by: Admin: 11/29/20 03:59 Dose: Not Given Documented by: ROLO Heparin Sodium (Porcine) (Heparin 5,000 Unit/Ml Vial) 5,000 unit SUBCUT BID [facility] Last Admin: 11/30/20 09:08 Dose: 5,000 unit Documented by: Admin: 11/29/20 20:51 Dose: 5,000 unit Documented by: Admin: 11/29/20 08:06 Dose: 5,000 unit Documented by: Admin: 11/28/20 20:59 Dose: 5,000 unit Documented by: RUBIA Ceftriaxone Sodium/Dextrose (Rocephin) 1 gm in 50 mls @ 100 mls/hr IV NOW ONE Stop: 11/28/20 10:45 Last Infusion: 11/28/20 10:39 Dose: 100 mls/hr Documented by: Admin: 11/28/20 10:31 Dose: 100 mls/hr Documented by: KUMAR Sodium Chloride (Normal Saline 0.9%) 1,000 mls @ 75 mls/hr IV CONT [facility] Last Infusion: 11/30/20 06:18 Dose: 75 mls/hr Documented by: Admin: 11/29/20 18:30 Dose: 75 mls/hr Documented by: Infusion: 11/29/20 18:30 Dose: 75 mls/hr Documented by: Admin: 11/29/20 02:41 Dose: 75 mls/hr Documented by: Infusion: 11/29/20 00:26 Dose: 75 mls/hr Documented by: Admin: 11/28/20 11:06 Dose: 75 mls/hr Documented by: CALLY Ceftriaxone Sodium/Dextrose (Rocephin) 2 gm in 50 mls @ 100 mls/hr IV Q24H [facility] Ceftriaxone Sodium/Dextrose (Rocephin) 2 gm in 50 mls @ 100 mls/hr IV Q24H [facility] Last Admin: 11/30/20 09:18 Dose: Not Given Documented by: Infusion: 11/29/20 11:00 Dose: 0 mls/hr Documented by: Admin: 11/29/20 09:58 Dose: 100 mls/hr Documented by: WILL Memantine (Memantine Hcl 5 Mg Tablet) 5 mg PO BID [facility] Last Admin: 11/30/20 09:09 Dose: 5 mg Documented by: Admin: 11/29/20 20:51 Dose: 5 mg Documented by: Admin: 11/29/20 08:06 Dose: 5 mg Documented by: MAUREEN Naloxone HCl (Naloxone 0.4 Mg/Ml Vial) 0.2 mg IV Q2MIN PRN PRN Reason: Opiate Reversal Promethazine HCl (Promethazine 12.5 Mg Supp) 12.5 mg AR Q6HR PRN PRN Reason: Nausea And Vomiting Vital Signs Vital signs: Vital Signs - 8 hr 11/28/20 06:47 11/28/20 07:12 11/28/20 07:19 Temperature 98.9 F Pulse Rate 84 80 78 Respiratory Rate 18 Blood Pressure 113/58 L 111/58 L Pulse Oximetry 93 96 97 11/28/20 07:30 11/28/20 07:57 11/28/20 08:00 Temperature Pulse Rate 76 Respiratory Rate 18 Blood Pressure 114/56 L 115/56 L Pulse Oximetry 97 96 11/28/20 08:05 11/28/20 08:30 11/28/20 08:54 Temperature 98.0 F Pulse Rate 78 71 Respiratory Rate Blood Pressure 120/59 L Pulse Oximetry 86 L 94 11/28/20 09:02 11/28/20 09:04 Temperature Pulse Rate 72 70 Respiratory Rate 16 Blood Pressure 121/60 Pulse Oximetry 94 95 <Deven Alan DO - Last Filed: 11/28/20 10:36> Orders Ordered: Discontinued Medications Acetaminophen (Acetaminophen 325 Mg Tablet) 975 mg PO NOW ONE Stop: 11/28/20 06:50 Last Admin: 11/28/20 07:39 Dose: 975 mg Documented by: OWEN Acetaminophen (Acetaminophen 325 Mg Tablet) 650 mg PO Q6HR PRN PRN Reason: Fever/Mild Pain (1-3) Last Admin: 11/28/20 17:27 Dose: 650 mg Documented by: RUBIA Atorvastatin Calcium (Atorvastatin 20 Mg Tablet) 20 mg PO BEDTIME [facility] Last Admin: 11/29/20 20:51 Dose: 20 mg Documented by: ISRAEL Bisacodyl (Bisacodyl 5 Mg Tablet) 10 mg PO DAILY PRN PRN Reason: Constipation Calcium Carbonate (Calcium Carbonate 500 Mg Tab) 1,000 mg PO Q4HR PRN PRN Reason: Dyspepsia Citalopram Hydrobromide (Citalopram 10 Mg Tablet) 40 mg PO DAILY [facility] Last Admin: 11/30/20 09:09 Dose: 40 mg Documented by: Admin: 11/29/20 08:05 Dose: 40 mg Documented by: MAUREEN Docusate Sodium (Docusate 100 Mg Capsule) 100 mg PO BID [facility] Last Admin: 11/30/20 09:08 Dose: 100 mg Documented by: Admin: 11/29/20 20:51 Dose: 100 mg Documented by: Admin: 11/29/20 08:05 Dose: 100 mg Documented by: Admin: 11/28/20 20:59 Dose: 100 mg Documented by: RUBIA Donepezil HCl (Donepezil 5 Mg Tablet) 10 mg PO DAILY [facility] Last Admin: 11/30/20 09:08 Dose: 10 mg Documented by: Admin: 11/29/20 08:05 Dose: 10 mg Documented by: Admin: 11/29/20 03:59 Dose: Not Given Documented by: ROLO Heparin Sodium (Porcine) (Heparin 5,000 Unit/Ml Vial) 5,000 unit SUBCUT BID [facility] Last Admin: 11/30/20 09:08 Dose: 5,000 unit Documented by: Admin: 11/29/20 20:51 Dose: 5,000 unit Documented by: Admin: 11/29/20 08:06 Dose: 5,000 unit Documented by: Admin: 11/28/20 20:59 Dose: 5,000 unit Documented by: RUBIA Ceftriaxone Sodium/Dextrose (Rocephin) 1 gm in 50 mls @ 100 mls/hr IV NOW ONE Stop: 11/28/20 10:45 Last Infusion: 11/28/20 10:39 Dose: 100 mls/hr Documented by: Admin: 11/28/20 10:31 Dose: 100 mls/hr Documented by: KUMAR Sodium Chloride (Normal Saline 0.9%) 1,000 mls @ 75 mls/hr IV CONT [facility] Last Infusion: 11/30/20 06:18 Dose: 75 mls/hr Documented by: Admin: 11/29/20 18:30 Dose: 75 mls/hr Documented by: Infusion: 11/29/20 18:30 Dose: 75 mls/hr Documented by: Admin: 11/29/20 02:41 Dose: 75 mls/hr Documented by: Infusion: 11/29/20 00:26 Dose: 75 mls/hr Documented by: Admin: 11/28/20 11:06 Dose: 75 mls/hr Documented by: CALLY Ceftriaxone Sodium/Dextrose (Rocephin) 2 gm in 50 mls @ 100 mls/hr IV Q24H [facility] Ceftriaxone Sodium/Dextrose (Rocephin) 2 gm in 50 mls @ 100 mls/hr IV Q24H [facility] Last Admin: 11/30/20 09:18 Dose: Not Given Documented by: Infusion: 11/29/20 11:00 Dose: 0 mls/hr Documented by: Admin: 11/29/20 09:58 Dose: 100 mls/hr Documented by: WILL Memantine (Memantine Hcl 5 Mg Tablet) 5 mg PO BID [facility] Last Admin: 11/30/20 09:09 Dose: 5 mg Documented by: Admin: 11/29/20 20:51 Dose: 5 mg Documented by: Admin: 11/29/20 08:06 Dose: 5 mg Documented by: MAUREEN Naloxone HCl (Naloxone 0.4 Mg/Ml Vial) 0.2 mg IV Q2MIN PRN PRN Reason: Opiate Reversal Promethazine HCl (Promethazine 12.5 Mg Supp) 12.5 mg AR Q6HR PRN PRN Reason: Nausea And Vomiting Vital Signs Vital signs: Vital Signs - 8 hr 11/28/20 06:47 11/28/20 07:12 11/28/20 07:19 Temperature 98.9 F Pulse Rate 84 80 78 Respiratory Rate 18 Blood Pressure 113/58 L 111/58 L Pulse Oximetry 93 96 97 11/28/20 07:30 11/28/20 07:57 11/28/20 08:00 Temperature Pulse Rate 76 Respiratory Rate 18 Blood Pressure 114/56 L 115/56 L Pulse Oximetry 97 96 11/28/20 08:05 11/28/20 08:30 11/28/20 08:54 Temperature 98.0 F Pulse Rate 78 71 Respiratory Rate Blood Pressure 120/59 L Pulse Oximetry 86 L 94 11/28/20 09:02 11/28/20 09:04 Temperature Pulse Rate 72 70 Respiratory Rate 16 Blood Pressure 121/60 Pulse Oximetry 94 95 Medical Decision Making <Sania Tesfaye MD - Last Filed: 12/01/20 02:17> Lab Data Result diagrams: 11/30/20 06:05 11/30/20 06:05 Labs: Lab Results 11/28/20 11/28/20 11/28/20 Range/Units 07:30 07:30 07:30 WBC 7.3 (4.5-11.0) X10^3/uL RBC 4.46 (4.0-5.2) X10^6/uL Hgb 13.7 (12.0-16.0) g/dL Hct 40.8 (36-46) % MCV 91.5 (80-100) fL MCH 30.8 (26-34) PG MCHC 33.7 (30-36) % RDW 13.8 (11.6-14.8) % Plt Count 154 (150-400) X10^3/uL Neut % (Auto) 87.8 H (50-75) % Lymph % (Auto) 5.2 L (25-40) % Dillon % (Auto) 6.3 (3-14) % Eos % (Auto) 0.3 L (2-4) % Baso % (Auto) 0.4 (0-2) % Neut # (Auto) 6400 (0010-1046) /uL Lymph # (Auto) 400 L (4543-9435) /uL Dillon # (Auto) 500 (0-900) /uL Eos # (Auto) 0 (0-450) /uL Baso # (Auto) 0 (0-100) /uL Sodium 134 L (137-145) mmol/L Potassium 4.2 (3.4-5.1) mmol/L Chloride 101 (98-107) mmol/L Carbon Dioxide 33 H (22-32) mmol/L BUN 23 H (7-17) mg/dL Creatinine 0.99 (0.52-1.04) mg/dL Estimated GFR 53.3 L (>60) mL/min BUN/Creatinine Ratio 23.2 H (6-22) Glucose 126 H (80-110) mg/dL Calcium 9.5 (8.4-10.2) mg/dL Total Bilirubin 0.4 (0.2-1.3) mg/dL AST 35 (14-36) IU/L ALT 27 (<35) IU/L Alkaline Phosphatase 71 (38-126) U/L Troponin I < 0.012 (0.01-0.034) ng/mL NT-Pro-B Natriuret Pep 215 (<450) pg/mL Total Protein 7.1 (6.3-8.2) g/dL Albumin 4.2 (3.5-5.0) g/dL Globulin 2.9 (1.7-4.1) g/dL Albumin/Globulin Ratio 1.4 (1.0-2.8) Urine Color Urine Appearance Urine pH (4.5-8.0) Ur Specific [place] (1.000-1.035) Urine Protein (Negative) Urine Glucose (UA) (Negative) g/dL Urine Ketones (NEGATIVE) Urine Occult Blood (Negative) Urine Nitrate (Negative) Urine Bilirubin (NEGATIVE) Urine Urobilinogen (0.2) E.U./dL Ur Leukocyte Esterase (NEGATIVE) Urine RBC (0-5/HPF) Urine WBC (0-5/HPF) Ur Squamous Epith Cells (0-5/HPF) Amorphous Sediment Urine Bacteria (None) Ur Culture Indicated? SARS-CoV-2 (PCR) (Negative) 11/28/20 11/28/20 Range/Units 08:11 09:49 WBC (4.5-11.0) X10^3/uL RBC (4.0-5.2) X10^6/uL Hgb (12.0-16.0) g/dL Hct (36-46) % MCV (80-100) fL MCH (26-34) PG MCHC (30-36) % RDW (11.6-14.8) % Plt Count (150-400) X10^3/uL Neut % (Auto) (50-75) % Lymph % (Auto) (25-40) % Dillon % (Auto) (3-14) % Eos % (Auto) (2-4) % Baso % (Auto) (0-2) % Neut # (Auto) (1971-7505) /uL Lymph # (Auto) (6701-0612) /uL Dillon # (Auto) (0-900) /uL Eos # (Auto) (0-450) /uL Baso # (Auto) (0-100) /uL Sodium (137-145) mmol/L Potassium (3.4-5.1) mmol/L Chloride (98-107) mmol/L Carbon Dioxide (22-32) mmol/L BUN (7-17) mg/dL Creatinine (0.52-1.04) mg/dL Estimated GFR (>60) mL/min BUN/Creatinine Ratio (6-22) Glucose (80-110) mg/dL Calcium (8.4-10.2) mg/dL Total Bilirubin (0.2-1.3) mg/dL AST (14-36) IU/L ALT (<35) IU/L Alkaline Phosphatase (38-126) U/L Troponin I (0.01-0.034) ng/mL NT-Pro-B Natriuret Pep (<450) pg/mL Total Protein (6.3-8.2) g/dL Albumin (3.5-5.0) g/dL Globulin (1.7-4.1) g/dL Albumin/Globulin Ratio (1.0-2.8) Urine Color Yellow Urine Appearance Clear Urine pH 7.5 (4.5-8.0) Ur Specific [place] 1.015 (1.000-1.035) Urine Protein Negative (Negative) Urine Glucose (UA) Negative (Negative) g/dL Urine Ketones Negative (NEGATIVE) Urine Occult Blood Trace-lysed (Negative) Urine Nitrate Negative (Negative) Urine Bilirubin Negative (NEGATIVE) Urine Urobilinogen 0.2 (0.2) E.U./dL Ur Leukocyte Esterase Negative (NEGATIVE) Urine RBC 0-1/hpf (0-5/HPF) Urine WBC 0-1/hpf (0-5/HPF) Ur Squamous Epith Cells None seen D (0-5/HPF) Amorphous Sediment 2+ Urine Bacteria Many (>30) H (None) Ur Culture Indicated? Cult not indicated SARS-CoV-2 (PCR) Negative (Negative) <Deven Alan DO - Last Filed: 11/28/20 10:36> Lab Data Lab results reviewed: Yes I reviewed the patient's lab results. Labs: Lab Results 11/28/20 11/28/20 11/28/20 Range/Units 07:30 07:30 07:30 WBC 7.3 (4.5-11.0) X10^3/uL RBC 4.46 (4.0-5.2) X10^6/uL Hgb 13.7 (12.0-16.0) g/dL Hct 40.8 (36-46) % MCV 91.5 (80-100) fL MCH 30.8 (26-34) PG MCHC 33.7 (30-36) % RDW 13.8 (11.6-14.8) % Plt Count 154 (150-400) X10^3/uL Neut % (Auto) 87.8 H (50-75) % Lymph % (Auto) 5.2 L (25-40) % Dillon % (Auto) 6.3 (3-14) % Eos % (Auto) 0.3 L (2-4) % Baso % (Auto) 0.4 (0-2) % Neut # (Auto) 6400 (8072-2972) /uL Lymph # (Auto) 400 L (8418-0038) /uL Dillon # (Auto) 500 (0-900) /uL Eos # (Auto) 0 (0-450) /uL Baso # (Auto) 0 (0-100) /uL Sodium 134 L (137-145) mmol/L Potassium 4.2 (3.4-5.1) mmol/L Chloride 101 (98-107) mmol/L Carbon Dioxide 33 H (22-32) mmol/L BUN 23 H (7-17) mg/dL Creatinine 0.99 (0.52-1.04) mg/dL Estimated GFR 53.3 L (>60) mL/min BUN/Creatinine Ratio 23.2 H (6-22) Glucose 126 H (80-110) mg/dL Calcium 9.5 (8.4-10.2) mg/dL Total Bilirubin 0.4 (0.2-1.3) mg/dL AST 35 (14-36) IU/L ALT 27 (<35) IU/L Alkaline Phosphatase 71 (38-126) U/L Troponin I < 0.012 (0.01-0.034) ng/mL NT-Pro-B Natriuret Pep 215 (<450) pg/mL Total Protein 7.1 (6.3-8.2) g/dL Albumin 4.2 (3.5-5.0) g/dL Globulin 2.9 (1.7-4.1) g/dL Albumin/Globulin Ratio 1.4 (1.0-2.8) Urine Color Urine Appearance Urine pH (4.5-8.0) Ur Specific [place] (1.000-1.035) Urine Protein (Negative) Urine Glucose (UA) (Negative) g/dL Urine Ketones (NEGATIVE) Urine Occult Blood (Negative) Urine Nitrate (Negative) Urine Bilirubin (NEGATIVE) Urine Urobilinogen (0.2) E.U./dL Ur Leukocyte Esterase (NEGATIVE) Urine RBC (0-5/HPF) Urine WBC (0-5/HPF) Ur Squamous Epith Cells (0-5/HPF) Amorphous Sediment Urine Bacteria (None) Ur Culture Indicated? SARS-CoV-2 (PCR) (Negative) 11/28/20 11/28/20 Range/Units 08:11 09:49 WBC (4.5-11.0) X10^3/uL RBC (4.0-5.2) X10^6/uL Hgb (12.0-16.0) g/dL Hct (36-46) % MCV (80-100) fL MCH (26-34) PG MCHC (30-36) % RDW (11.6-14.8) % Plt Count (150-400) X10^3/uL Neut % (Auto) (50-75) % Lymph % (Auto) (25-40) % [place] % (Auto) (3-14) % Eos % (Auto) (2-4) % Baso % (Auto) (0-2) % Neut # (Auto) (1120-2615) /uL Lymph # (Auto) (6115-3611) /uL Dillon # (Auto) (0-900) /uL Eos # (Auto) (0-450) /uL Baso # (Auto) (0-100) /uL Sodium (137-145) mmol/L Potassium (3.4-5.1) mmol/L Chloride (98-107) mmol/L Carbon Dioxide (22-32) mmol/L BUN (7-17) mg/dL Creatinine (0.52-1.04) mg/dL Estimated GFR (>60) mL/min BUN/Creatinine Ratio (6-22) Glucose (80-110) mg/dL Calcium (8.4-10.2) mg/dL Total Bilirubin (0.2-1.3) mg/dL AST (14-36) IU/L ALT (<35) IU/L Alkaline Phosphatase (38-126) U/L Troponin I (0.01-0.034) ng/mL NT-Pro-B Natriuret Pep (<450) pg/mL Total Protein (6.3-8.2) g/dL Albumin (3.5-5.0) g/dL Globulin (1.7-4.1) g/dL Albumin/Globulin Ratio (1.0-2.8) Urine Color Yellow Urine Appearance Clear Urine pH 7.5 (4.5-8.0) Ur Specific [place] 1.015 (1.000-1.035) Urine Protein Negative (Negative) Urine Glucose (UA) Negative (Negative) g/dL Urine Ketones Negative (NEGATIVE) Urine Occult Blood Trace-lysed (Negative) Urine Nitrate Negative (Negative) Urine Bilirubin Negative (NEGATIVE) Urine Urobilinogen 0.2 (0.2) E.U./dL Ur Leukocyte Esterase Negative (NEGATIVE) Urine RBC 0-1/hpf (0-5/HPF) Urine WBC 0-1/hpf (0-5/HPF) Ur Squamous Epith Cells None seen D (0-5/HPF) Amorphous Sediment 2+ Urine Bacteria Many (>30) H (None) Ur Culture Indicated? Cult not indicated SARS-CoV-2 (PCR) Negative (Negative) Imaging Data Chest x-ray: Radiologist's Impression: [address] [id number] ReportSigned Patient: Tae Izaguirre LMR#: [id number]: 5Acct:[id number]/Sex: 85 / FDate of Service: 11/28/20Loc: EDAccession Number: [id number] Procedure: XR chest 1V Ordering Provider: Sania Tesfaye MD PROCEDURE: XR CHEST 1V INDICATIONS: Global weakness, near-syncope TECHNIQUE: One view of the chest was acquired. COMPARISON: [facility], CT, ABDOMEN/PELVIS WITH CONTRAST, 05/06/2017, 0:46. [facility], CR, CHEST 2 VIEW, 12/21/2016, 12:21. [facility], CR, CHEST 1 VIEW, 01/20/2016, 10:00. FINDINGS: Surgical changes and devices: None. Lungs and pleura: Minimal perihilar patchy opacity. Low lung volumes. No pl eural effusions or pneumothorax. Mediastinum: Mediastinal contours appear normal. Heart size is prominent. Bones and chest wall: No suspicious bony lesions. Overlying soft tissues appear unremarkable. IMPRESSION: Minimal perihilar patchy opacity. This could be seen in atypical infection versus pulmonary edema. Cardiomegaly. This report is concordant with the overnight preliminary interpretation. Dictated by: Chadwick Ortega M.D. on 11/28/2020 at 8:04 Approved by: Chadwick Ortega M.D. on 11/28/2020 at 8:07 CT scan - head: Radiologist's Impression: [address] [id number] Scan ReportSigned Patient: Tae Izaguirre LMR#: [id number]: 5Acct:[id number]/Sex: 85 / FDate of Service: 11/28/20Loc: EDAccession Number: [id number] Procedure: CT head/brain wo con Ordering Provider: Deven Alan D.O. PROCEDURE: CT HEAD/BRAIN WO CON INDICATIONS: Altered mental status, weakness, balance issues TECHNIQUE: Noncontrast 4.5 mm thick angled axial sections acquired from the foramen magnum to the vertex, with coronal and sagittal reformats. For radiation dose reduction, the following was used: automated exposure control, adjustment of mA and/or kV according to patient size. COMPARISON: [facility], CT, HEAD WITHOUT CONTRAST, 01/12/2017, 9:12. FINDINGS: Image quality: Excellent. CSF spaces: Basal cisterns are patent. No extra-axial fluid collections. The ventricles are symmetric in size and shape. Brain: No intracranial bleeds or masses. There is cerebral volume loss for age, with resultant ventricular and sulcal prominence. There are periventricular and deep white matter chronic small vessel ischemic changes. There is intracranial internal carotid artery atherosclerosis. Skull and face: Calvarium and visualized facial bones appear intact, without suspicious lesions. Sinuses: Visualized sinuses and mastoids are clear. IMPRESSION: 1. No CT evidence of acute intracranial pathology. 2. Diffuse atrophy and moderate white matter chronic small vessel ischemic changes not significantly changed from prior study. Dictated by: Erick Colin M.D. on 11/28/2020 at 9:30 Approved by: Erick Colin M.D. on 11/28/2020 at 9:31 ECG Data Attestation: I personally reviewed and interpreted this ECG as follows: Prior ECG tracings: not available for review Interpretation: Sinus rhythm Ventricular rate is 77 Normal axis Normal QRS Normal QTC No ST T wave changes MDM Narrative Medical decision making narrative: Dr. Alan: Received turned over from night provider. Reviewed patient's history and physical performed my own independent examination. Patient is unable to provide any information. She did receive her COVID vaccine yesterday. Her labs are reassuring except that she does have bacteria in her catheterized urine. Urine culture was ordered. The patient was unable to stand at bedside. Her head CT shows no acute pathology. Will start on antibiotics. Given her age, her altered mental status, potential urinary tract infection, weakness, feel admission to the hospital is necessary in due to concern for safety at home. Discussed the case with Dr. Michel with Medicine who will admit for further evaluation treatment. Discussed this with the patient's who expressed understanding and agreement. Discharge Plan Departure Patient Disposition: Admitted as Observation Clinical Impression: Weakness, Acute UTI Admit Date/Time: 11/28/20 10:32 Admit Provider: Joni Michel
--- NOTE | 2020-11-28 06:50 | DI.RAD.S_ITS ---
PROCEDURE: XR CHEST 1V INDICATIONS: Global weakness, near-syncope TECHNIQUE: One view of the chest was acquired. COMPARISON: [facility], CT, ABDOMEN/PELVIS WITH CONTRAST, 05/06/2017, 0:46. [facility], CR, CHEST 2 VIEW, 12/21/2016, 12:21. [facility], CR, CHEST 1 VIEW, 01/20/2016, 10:00. FINDINGS: Surgical changes and devices: None. Lungs and pleura: Minimal perihilar patchy opacity. Low lung volumes. No pleural effusions or pneumothorax. Mediastinum: Mediastinal contours appear normal. Heart size is prominent. Bones and chest wall: No suspicious bony lesions. Overlying soft tissues appear unremarkable. IMPRESSION: Minimal perihilar patchy opacity. This could be seen in atypical infection versus pulmonary edema. Cardiomegaly. This report is concordant with the overnight preliminary interpretation. Dictated by: Chadwick Ortega M.D. on 11/28/2020 at 8:04 Approved by: Chadwick Ortega M.D. on 11/28/2020 at 8:07
[2020-11-28 07:39] LABS: Add Manual Diff / Slide Review NO; Basophils Absolute Auto 0 /uL (0-100); Basophils Percent Auto 0.4 % (0-2); Eosinophils Absolute Auto 0 /uL (0-450); Eosinophils Percent Auto 0.3 % (2-4); Hematocrit 40.8 % (36-46); Hemoglobin 13.7 g/dL (12.0-16.0); Lymphocytes Absolute Auto 400 /uL (1100-4500); Lymphocytes Percent Auto 5.2 % (25-40); Mean Corpuscular HGB Conc 33.7 % (30-36); Mean Corpuscular Hemoglobin 30.8 PG (26-34); Mean Corpuscular Volume 91.5 fL (80-100); Monocytes Absolute Auto 500 /uL (0-900); Monocytes Percent Auto 6.3 % (3-14); Neutrophils Absolute Auto 6400 /uL (1500-7000); Neutrophils Percent Auto 87.8 % (50-75); Platelet Count 154 X10^3/uL (150-400); Red Blood Cell Count 4.46 X10^6/uL (4.0-5.2); Red Cell Distribution Width 13.8 % (11.6-14.8); White Blood Cell Count 7.3 X10^3/uL (4.5-11.0)
[2020-11-28] MEDS: ACETAMINOPHEN 325 MG TABLET 975 MG PO (07:39)
[2020-11-28 07:50] LABS: Alanine Aminotransferase 27 IU/L (<35); Albumin 4.2 g/dL (3.5-5.0); Albumin Globulin Ratio 1.4 (1.0-2.8); Alkaline Phosphatase 71 U/L (38-126); Aspartate Aminotransferase 35 IU/L (14-36); BUN Creatinine Ratio 23.2 (6-22); Bilirubin Total 0.4 mg/dL (0.2-1.3); Blood Urea Nitrogen 23 mg/dL (7-17); Calcium 9.5 mg/dL (8.4-10.2); Carbon Dioxide 33 mmol/L (22-32); Chloride 101 mmol/L (98-107); Estimated Glomerular Filt Rate 53.3 mL/min (>60); Globulin 2.9 g/dL (1.7-4.1); Glucose 126 mg/dL (80-110); HEMOLYSIS < 15 (0-50); Potassium 4.2 mmol/L (3.4-5.1); Sodium 134 mmol/L (137-145); Total Protein 7.1 g/dL (6.3-8.2)
[2020-11-28 08:02] LABS: NT-proBNP (BNP-Adult 18+) 215 pg/mL (<450); Troponin I < 0.012 ng/mL (0.01-0.034)
[2020-11-28 08:20] LABS: Appearance Urine UA CLEAR; Bilirubin Urine UA NEGATIVE (NEGATIVE); Color Urine UA YELLOW; Glucose Urine UA NEGATIVE (Negative); Ketones Urine UA NEGATIVE (NEGATIVE); Leukocyte Esterase Urine UA NEGATIVE (NEGATIVE); Nitrite Urine UA NEGATIVE (Negative); Occult Blood Urine UA TRACE-LYSED (Negative); Protein Urine UA NEGATIVE (Negative); Specific Gravity Urine UA 1.015 (1.000-1.035); Urobilinogen Urine UA 0.2 E.U./dL (0.2)
[2020-11-28 08:24] LABS: pH Urine UA 7.5 (4.5-8.0)
[2020-11-28 08:28] LABS: Amorphous Sediment Urine 2+; Bacteria Urine Many (>30); Culture Indicated Urine Cult Not Indicated; RBC Urine 0-1/HPF (0-5/HPF); Squamous Epithelial Cell Urine None Seen (0-5/HPF); WBC Urine 0-1/HPF (0-5/HPF)
--- NOTE | 2020-11-28 09:21 | DI.CT.S_ITS ---
PROCEDURE: CT HEAD/BRAIN WO CON INDICATIONS: Altered mental status, weakness, balance issues TECHNIQUE: Noncontrast 4.5 mm thick angled axial sections acquired from the foramen magnum to the vertex, with coronal and sagittal reformats. For radiation dose reduction, the following was used: automated exposure control, adjustment of mA and/or kV according to patient size. COMPARISON: [facility], CT, HEAD WITHOUT CONTRAST, 01/12/2017, 9:12. FINDINGS: Image quality: Excellent. CSF spaces: Basal cisterns are patent. No extra-axial fluid collections. The ventricles are symmetric in size and shape. Brain: No intracranial bleeds or masses. There is cerebral volume loss for age, with resultant ventricular and sulcal prominence. There are periventricular and deep white matter chronic small vessel ischemic changes. There is intracranial internal carotid artery atherosclerosis. Skull and face: Calvarium and visualized facial bones appear intact, without suspicious lesions. Sinuses: Visualized sinuses and mastoids are clear. IMPRESSION: 1. No CT evidence of acute intracranial pathology. 2. Diffuse atrophy and moderate white matter chronic small vessel ischemic changes not significantly changed from prior study. Dictated by: Erick Colin M.D. on 11/28/2020 at 9:30 Approved by: Erick Colin M.D. on 11/28/2020 at 9:31
--- NOTE | 2020-11-28 09:36 | PC.NURSE ---
Patient was able to stand at bedside with walker and assistance sitting up, couldnt walk safely. 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 I got her safely back into bed and updated nursing staff.
[2020-11-28 10:07] LABS: COVID19 -Nasal RAPID Negative (Negative)
[2020-11-28] MEDS: CEFTRIAXONE 1 GM/50 ML FROZ.PIGGY IV (10:31)
[2020-11-28] MEDS: SODIUM CHLORIDE 0.9% 1,000 ML 75 ML IV (11:06)
--- NOTE | 2020-11-28 15:14 | PT.IIE ---
Current Diagnoses Urinary tract infection, site not specified (11/28/20) Other symptoms and signs involving the musculoskeletal system (11/28/20) Frequency of micturition (11/28/20) Weakness (11/28/20) Surgical History (Last Reviewed 11/28/20 @ 06:49 by Sania Tesfaye MD) History of bilateral salpingo-oophorectomy History of surgery on arm (03/16/14) Normal colonoscopy (2012) Status post appendectomy (2003) Status post colectomy (2003) Status post epidural steroid injection (03/06/10) Medical History (Last Reviewed 11/28/20 @ 06:49 by Sania Tesfaye MD) Alzheimer's type dementia (2013) Closed fracture of left distal radius (03/15/14) Cognitive dysfunction (2009) Colon polyps Depression Gastritis Heart murmur Hyperlipidemia IBS (irritable bowel syndrome) Meniere's disease Urinary incontinence, mixed Physical Therapy Inpatient Evaluation/Re-Eval M1 PT/OT-IP Prior Functional Status Start: 11/28/20 13:28 Freq: NEEDED Status: Active Protocol: Document 11/28/20 14:51 (Rec: 11/28/20 15:14 [id number]) Medical Review Prior Functional Status Medical History Reviewed Yes Diet/Fluid Consistency Regular Communication dementia at baseline. stated pt can follow 1 step command and only able to recognize him only but not other family members. Mobility and Gait IND within home without AD. Pt does furniture cruise sometimes. Activities of Daily Living and IADL's able to get to bathroom without assistance. Pt has a CG comes in 3-4 mornings a week for meal preparation and showering pt. Otherwise, assists her. Prior Functional Level (Other details) 2 falls within the past 4 months Social History Household Members spouse,caregiver Living Arrangements House Number of Floors (Floors) Two Floors Number of Stairs To Enter/Railing? 1 [place]. Pt and spouse live on second floor. 14STE with R rail up, landing in between. Pt normally can get to 2nd floor independently with step to/ step over pattern. Home Environment Standard Height Toilet,Walk in Shower Home Equipment Straight Cane,Hand Held Shower ,Grab Bars In Shower Employment Status Retired Additional Social History Comment Pt lives with at home. Son and dtr in law live in [place] who usually come to visit every month. M2 PT-IP Current Condition Start: 11/28/20 13:28 Freq: NEEDED Status: Active Protocol: Document 11/28/20 14:51 HH (Rec: 11/28/20 15:14 [id number]) Physical Therapy Current Condition Current Condition Evaluation Date 11/28/20 Treatment Diagnosis UTI, confusion, generalized weakness s/p 2nd COVID vaccination shot Onset Date 11/27/20 Weight Bearing Status Weight Bearing Status Full Weight Bearing M3 PT-IP Subjective Start: 11/28/20 13:28 Freq: NEEDED Status: Active Protocol: Document 11/28/20 14:51 HH (Rec: 11/28/20 15:14 [id number]) Subjective Physical Therapy Visit Type Type Initial Evaluation Visit Start Time 14:15 Visit Stop Time 14:41 Total Visit Minutes 21 Notes at bedside Number of SPECIAL AGENT IN CHARGE Visits 0 Physical Therapy Visit Comments Patient Comments Pt was asked if shes doing okay today. She stated fair Patient Goals unable to assess Therapy Pain Assessment Pain Present Pain Present Denied Pain M4 PT-IP Mobility and Gait Start: 11/28/20 13:28 Freq: NEEDED Status: Active Protocol: Document 11/28/20 14:51 HH (Rec: 11/28/20 15:14 [id number]) PT-Bed Mobility Assessment Supine to Sit Supine to Sit Minimal Assistance,1 Person Assistance,Head of Bed Elevated,Bedrails Scooting Scooting to Edge of Bed Moderate Assistance PT-Transfer Assessment Sit to and From Stand Sit to and from Stand Moderate Assistance,1 Person Assistance,Use of Upper Extremities Equipment Transfer Assistive Device Front Wheeled Walker Orthotic/Prosthetic Devices or Brace: No Transfers Transfer Destination Bed,Chair Transfer Technique Stand Pivot Transfer Ability Level of Assist Maximum Assistance,1 Person Assistance,Use of Upper Extremities Comments Mobility Comments Pt was in bed upon PT arrival. at bedside assisted in answering questions regarding PLOF and home setup. Pt was very confused and unable to answer questions appropriately. She was also very sleepy and needed constant verbal stimulus to keep her awake. She was then agreed to get up. She needed 1 BOAT DECKHAND to pull from supine to long followed by mod A to scoot towards R side EOB while pt was pulling through bed rail. Pt needed step by step command and mod A for sit to stand with FWW. She then needed max A to use walker continuously, along with steps sequence and directional guidance. Pt often wanted to reach for wall support and disregard her walker. She needed constant reorientation for her current task and she was able to walk to sink counter. She did fall asleep while standing but was able to be reoriented and continue to walk towards bedside chair with max A. Pt was safely transferred with max A cues and she sat there comfortably afterwards. Call light placed within reach. Rec RN to activite chair alarm. Gait Assessment Gait Gait Assistance Required: Maximum Assistance,1 Person Assist Distance (Feet) 15 Able to Maintain Weight Bearing Status Yes During Gait Assistive Devices Assistive Device Gait Belt,Front Wheeled Walker Orthotic/Prosthetic Devices or Brace: No Gait Deviations General Gait Pattern Decreased Stride Length, Decreased Feet Clearance, Festinating,Flexed Trunk,Step- to Gait Factors Limiting Gait Function Factors Limiting Gait Function Decreased Activity Tolerance, Decreased Strength,Limited Range of Motion,Pain,Poor Balance,Poor Safety Awareness, Respiratory Distress Comments Gait Comments see mobility comments. Stair Climbing Assessment Comments Stair Climbing Comments unable to assess PT-Balance Assessment Sitting Balance and Reactions Static Sitting Balance Ability Good Dynamic Sitting Balance Ability Good Standing Balance and Reactions Static Standing Balance Ability Poor Dynamic Standing Balance Ability Poor Device Used FWW M5 PT-IP Objective Assessments Start: 11/28/20 13:28 Freq: NEEDED Status: Active Protocol: Document 11/28/20 14:51 (Rec: 11/28/20 15:14 [id number]) Orientation Orientation/Cognition Level of Alertness Confusional State Orientation Name Language Function Ability Word Finding Difficulties,Hard of Hearing Safety Awareness Understands Safety Issues, Decreased Safety Awareness Memory Description Short Term Impaired,Senior Care Impaired Comments see mobility comments. pt can only follow 1 step command and needs constant reorientation for her current motor task. Gross Range of Motion Upper Extremity ROM Assessment Within Functional Limits Lower Extremity ROM Assessment Within Functional Limits Strength Upper Extremity Strength Assessment Within Functional Limits Lower Extremity Strength Assessment Within Functional Limits Coordination Assessment Gross Coordination Gross Coordination WNL M6 PT-IP Treatment Start: 11/28/20 13:28 Freq: NEEDED Status: Active Protocol: Document 11/28/20 14:51 (Rec: 11/28/20 15:14 [id number]) Physical Therapy Treatment Education Education Provided Safety M7 PT-IP Assessment and Plan Start: 11/28/20 13:28 Freq: NEEDED Status: Active Protocol: Document 11/28/20 14:51 HH (Rec: 11/28/20 15:14 [id number]) PT Summary Assessment and Plan Potential Rehabilitation Potential Good Status of Condition at Evaluation Evolving Summary Impairments Pain,ROM,Strength,Balance, Cognition,Bed Mobility, Transfers,Gait,Activity Tolerance Assessment Summary This is a 85yo female admitted to d/t UTI, confusion and generalized weakness s/p her 2nd COVID vaccination. Pt has dementia at baseline and was able to follow simple command from . She was able to amb and use bathroom at home without AD but she does have a CG 3-4 times a week to assist her in bathing and meal preparation. Upon assessment, pt was very confused and significant weakness. Pt needed max A for amb with FWW and constant reorientation for her current motor task. At this point, pt needs extensive care for her current needs therefore skilled rehab would be ideal for her. However, pt might benefit from home health with and CG assistance once she is medically stable. Goals Bed Mobility Goal Contact Guard Assistance Transfer Goal Contact Guard Assistance,Front Wheeled Walker Gait Goal Contact Guard Assistance,Front Wheel Walker Gait Distance 50 Days to Meet Goals 5 Frequency of Treatment Frequency Of Treatment Once a Day Treatment Plan Physical Therapy Treatment Plan Bed Mobility Training,Transfer Training,Gait Training, Therapeutic Exercise,Balance Retraining,Discharge Planning Other Recommendations and Next Treatment mobility as noe Focus Recommendations To Nursing Amount of Assist Needed 1 Person Assist Discharge Recommendations PT Discharge Recommendations Home with 18/04 Assist Available,Home Health,SNF Rehab Equipment Needed for Home Before FWW, BSC, shower chair if DC Discharge home Transportation Needs at Discharge Private Vehicle,Wheelchair/ Cabulance
--- NOTE | 2020-11-28 16:16 | PC.NURSE ---
Addendum entered by Nemo Rodriguez R.N. 11/28/20 22:57: Pt wakens and becomes restless. Took own scd's off. Offered toileting and two staff members assisted pt to commode for void. Requires a great deal of verbal cueing to use walker and return to bed. Offered sips water when awake and upright in bed. Pt remains globally confused. Addendum entered by Nemo Rodriguez R.N. 11/28/20 18:36: Pt's spouse leaves for the evening. Pt expresses disapproval. Is easily consoled and redirected by staff. Pt assisted into bed with two staff members. Pt says, ow, ow, ow with all movement, but unable to state specific complaint. Administered tylenol as per emar for generalized discomfort. Dr. Michel in to see patient and pt does not participate in conversation with MD. Spouse's phone number provided to MD. 22 gauge iv started in pt's right wrist without difficulty. IV fluids resumed. Bed alarm in place. Addendum entered by Nemo Rodriguez R.N. 11/28/20 16:40: Pt's iv to right ac leaking blood with infusion. Attempted to change dressing and troubleshoot leak, but pt does not follow commands well to remain still and keep right arm straight. Lost site. Will reapproach pt and attempt iv restart. Covered pt in warm blankets as pt c/o feeling cold and pulling existing blankets up around shoulders. Has legs BL pulled up to core and when this machine sign writer attempts to straighten pt's legs pt declares, Ouch. Spouse quickly attends and asks pt if in pain and pt denies. Spouse touches pt's legs and pt denies any pain. Pt is oriented to person and date of only. Original Note: Pt is up in recliner with chair alarm in place. Pt's spouse is present, attentive and involved in pt's care. Spouse orders pt's evening meal.
[2020-11-28] MEDS: ACETAMINOPHEN 325 MG TABLET 650 MG PO (17:27)
--- NOTE | 2020-11-28 19:24 | PM.EVENT ---
Event Note Date Patient Seen: 11/28/20 Time Patient Seen: 19:25 Event Note: Full H&P to follow Patient is a 85-year-old female who presented to the ED with altered mental status, fever, myalgias 1 day after her 2nd COVID vaccination. In the ED she was afebrile vital signs were stable. CBC Chem panel essentially unremarkable. Urinalysis was remarkable for bacteriuria but was otherwise benign. She was therefore admitted to the hospital for concern for post vaccination reaction plus or minus UTI. Plan Inpatient admit IV fluids Blood and urine cultures Empiric antibiotics with Rocephin
--- NOTE | 2020-11-28 19:30 | P.PN_ITS ---
Subjective Subjective Date Patient Seen: 11/28/20 Time Patient Seen: 19:30 Interval history: Patient is a 85-year-old female who presented to the ED with altered mental status, fever, myalgias 1 day after her 2nd COVID vaccination. In the ED she was afebrile vital signs were stable. CBC Chem panel essentially unremarkable. Urinalysis was remarkable for bacteriuria but was otherwise benign. She was therefore admitted to the hospital for concern for post vacci nation reaction plus or minus UTI. Exam Vital Signs (past 8 hours): - 11/28/20 14:34 11/28/20 15:00 11/28/20 18:00 Temperature 97.8 F Pulse Rate 78 Respiratory Rate 16 Blood Pressure 147/79 H Pulse Oximetry 100 96 96 Oxygen Delivery Method Room Air Oxygen Flow Rate 0 Objective Labs Result Diagrams: 11/28/20 07:30 11/28/20 07:30 Labs: Laboratory Results - last 24 hr 11/28/20 11/28/20 11/28/20 07:30 07:30 07:30 WBC 7.3 RBC 4.46 Hgb 13.7 Hct 40.8 MCV 91.5 MCH 30.8 MCHC 33.7 RDW 13.8 Plt Count 154 Neut % (Auto) 87.8 H Lymph % (Auto) 5.2 L [place] % (Auto) 6.3 Eos % (Auto) 0.3 L Baso % (Auto) 0.4 Neut # (Auto) 6400 Lymph # (Auto) 400 L [place] # (Auto) 500 Eos # (Auto) 0 Baso # (Auto) 0 Sodium 134 L Potassium 4.2 Chloride 101 Carbon Dioxide 33 H BUN 23 H Creatinine 0.99 Estimated GFR 53.3 L BUN/Creatinine Ratio 23.2 H Glucose 126 H Calcium 9.5 Total Bilirubin 0.4 AST 35 ALT 27 Alkaline Phosphatase 71 Troponin I < 0.012 NT-Pro-B Natriuret Pep 215 Total Protein 7.1 Albumin 4.2 Globulin 2.9 Albumin/Globulin Ratio 1.4 Urine Color Urine Appearance Urine pH Ur Specific [place] Urine Protein Urine Glucose (UA) Urine Ketones Urine Occult Blood Urine Nitrate Urine Bilirubin Urine Urobilinogen Ur Leukocyte Esterase Urine RBC Urine WBC Ur Squamous Epith Cells Amorphous Sediment Urine Bacteria Ur Culture Indicated? SARS-CoV-2 (PCR) 11/28/20 11/28/20 08:11 09:49 WBC RBC Hgb Hct MCV MCH MCHC RDW Plt Count Neut % (Auto) Lymph % (Auto) [place] % (Auto) Eos % (Auto) Baso % (Auto) Neut # (Auto) Lymph # (Auto) [place] # (Auto) Eos # (Auto) Baso # (Auto) Sodium Potassium Chloride Carbon Dioxide BUN Creatinine Estimated GFR BUN/Creatinine Ratio Glucose Calcium Total Bilirubin AST ALT Alkaline Phosphatase Troponin I NT-Pro-B Natriuret Pep Total Protein Albumin Globulin Albumin/Globulin Ratio Urine Color Yellow Urine Appearance Clear Urine pH 7.5 Ur Specific [place] 1.015 Urine Protein Negative Urine Glucose (UA) Negative Urine Ketones Negative Urine Occult Blood Trace-lysed Urine Nitrate Negative Urine Bilirubin Negative Urine Urobilinogen 0.2 Ur Leukocyte Esterase Negative Urine RBC 0-1/hpf Urine WBC 0-1/hpf Ur Squamous Epith Cells None seen D Amorphous Sediment 2+ Urine Bacteria Many (>30) H Ur Culture Indicated? Cult not indicated SARS-CoV-2 (PCR) Negative PFSH Medical History (Updated 11/28/20 @ 10:22 by Deven Alan DO) Alzheimer's type dementia (2013) Closed fracture of left distal radius (03/15/14) Cognitive dysfunction (2009) Colon polyps Depression Gastritis Heart murmur Hyperlipidemia IBS (irritable bowel syndrome) Meniere's disease Urinary incontinence, mixed Surgical History History of bilateral salpingo-oophorectomy History of surgery on arm (03/16/14) Normal colonoscopy (2012) Status post appendectomy (2003) Status post colectomy (2003) Status post epidural steroid injection (03/06/10) Family History Father Colorectal cancer Mother Dementia Social History household members: spouse and caregiver Smoking Status: Never smoker alcohol intake: never
--- NOTE | 2020-11-28 19:38 | P.HP_ITS ---
History of Present Illness History of Present Illness Date Patient Seen: 11/28/20 Chief complaint: Fever Narrative: Patient is an 85-year-old female dementia who presented on admission 1 day after receiving her 2nd COVID vaccination with a history of weakness and increase mental status change and was found in the ED to have bacteriuria. She is being admitted to the hospital for sepsis secondary to presumed UTI Patient History Medical History (Updated 11/28/20 @ 10:22 by Deven Alan DO) Alzheimer's type dementia (2013) Closed fracture of left distal radius (03/15/14) Cognitive dysfunction (2009) Colon polyps Depression Gastritis Heart murmur Hyperlipidemia IBS (irritable bowel syndrome) Meniere's disease Urinary incontinence, mixed Surgical History History of bilateral salpingo-oophorectomy History of surgery on arm (03/16/14) Normal colonoscopy (2012) Status post appendectomy (2003) Status post colectomy (2003) Status post epidural steroid injection (03/06/10) Family & Social History Family History Father Colorectal cancer Mother Dementia Social History: household members spouse,caregiver Prior Living Arrangements House Safety & Behavioral: Feels Safe in Current Yes Environment Tobacco & Substance use: Smoking Status Never smoker alcohol intake never Substance Use Type does not use Meds Home Medications and Allergies Home Medications Medication Instructions Recorded Confirmed Type CA PANTOTHENATE/FOLIC ACID/VIT 1 tab PO Q DAY #0 05/11/11 11/28/20 History (MULTIVITAMIN) Calcium Carbonate/Vitamin D 1 cap PO QDAY #0 05/11/11 11/28/20 History (#CALCIUM) Fish Oil 1,000 mg PO QDAY #0 10/24/12 11/28/20 History CHOLECALCIFEROL (VITAMIN D) 2,000 units PO QDAY #0 tab 06/13/13 11/28/20 History ginkgo biloba 60 mg PO BID #0 06/11/16 11/28/20 History tolterodine 4 mg capsule,extended 4 mg PO DAILY #30 cap 04/14/20 11/28/20 Rx release 24 hr atorvastatin 20 mg tablet 20 mg PO BEDTIME #90 tab 05/01/20 11/28/20 Rx donepezil 10 mg tablet 10 mg PO QDAY #90 tab 07/18/20 11/28/20 Rx memantine 10 mg tablet 5 mg PO BID #90 tab 07/18/20 11/28/20 Rx estradiol 10 mcg vaginal tablet See Rx Instructions .ROUTE 08/18/20 11/28/20 Rx .COMPLEX #36 tab citalopram 40 mg tablet 40 mg PO Q DAY #90 tab MDD 40MG 10/17/20 11/28/20 Rx Allergies Allergy/AdvReac Type Severity Reaction Status Date / Time No Known Drug Allergies Allergy Verified 04/28/20 10:34 Review of Systems Review of Systems ROS: Yes unobtainable due to mental status Exam Vital Signs (past 8 hours): - 11/28/20 14:34 11/28/20 15:00 11/28/20 18:00 Temperature 97.8 F Pulse Rate 78 Respiratory Rate 16 Blood Pressure 147/79 H Pulse Oximetry 100 96 96 Oxygen Delivery Method Room Air Oxygen Flow Rate 0 Narrative Exam Narrative: Patient laying in bed. NAD HEENT: Normocephalic atraumatic. extraocular movement intact. pupils equal round reactive. Funduscopic exam not done. Sclera and conjunctiva clear. Oropharynx clear. Neck: Supple without thyromegaly bruits or jugular venous distention Thorax: Symmetrical with good lateral expansion Respiratory: Lungs clear to auscultation on anterior exam Cardiovascular: Regular rhythm. S1S2 normal. There were no lifts he has rubs gallops murmurs present. GI: Benign, bowel sounds present : No Nova present Skin: Atrophic Neuro: Cranial nerves 2-12 grossly intact. Motor intact and equal active. Sensory modality a crude touch intact. Psychological: Awake alert follows commands. She was disorder and to place year month her age where she lives. Her mentation was slowed as it took a while for her to answer questions Objective Labs Result Diagrams: 11/30/20 06:05 11/30/20 06:05 Labs: Laboratory Results - last 24 hr 11/28/20 11/28/20 11/28/20 07:30 07:30 07:30 WBC 7.3 RBC 4.46 Hgb 13.7 Hct 40.8 MCV 91.5 MCH 30.8 MCHC 33.7 RDW 13.8 Plt Count 154 Neut % (Auto) 87.8 H Lymph % (Auto) 5.[address] [place] % (Auto) 6.3 Eos % (Auto) 0.3 L Baso % (Auto) 0.4 Neut # (Auto) 6400 Lymph # (Auto) [address] [place] # (Auto) 500 Eos # (Auto) 0 Baso # (Auto) 0 Sodium 134 L Potassium 4.2 Chloride 101 Carbon Dioxide 33 H BUN 23 H Creatinine 0.99 Estimated GFR 53.3 L BUN/Creatinine Ratio 23.2 H Glucose 126 H Calcium 9.5 Total Bilirubin 0.4 AST 35 ALT 27 Alkaline Phosphatase 71 Troponin I < 0.012 NT-Pro-B Natriuret Pep 215 Total Protein 7.1 Albumin 4.2 Globulin 2.9 Albumin/Globulin Ratio 1.4 Urine Color Urine Appearance Urine pH Ur Specific [place] Urine Protein Urine Glucose (UA) Urine Ketones Urine Occult Blood Urine Nitrate Urine Bilirubin Urine Urobilinogen Ur Leukocyte Esterase Urine RBC Urine WBC Ur Squamous Epith Cells Amorphous Sediment Urine Bacteria Ur Culture Indicated? SARS-CoV-2 (PCR) 11/28/20 11/28/20 08:11 09:49 WBC RBC Hgb Hct MCV MCH MCHC RDW Plt Count Neut % (Auto) Lymph % (Auto) [place] % (Auto) Eos % (Auto) Baso % (Auto) Neut # (Auto) Lymph # (Auto) [place] # (Auto) Eos # (Auto) Baso # (Auto) Sodium Potassium Chloride Carbon Dioxide BUN Creatinine Estimated GFR BUN/Creatinine Ratio Glucose Calcium Total Bilirubin AST ALT Alkaline Phosphatase Troponin I NT-Pro-B Natriuret Pep Total Protein Albumin Globulin Albumin/Globulin Ratio Urine Color Yellow Urine Appearance Clear Urine pH 7.5 Ur Specific [place] 1.015 Urine Protein Negative Urine Glucose (UA) Negative Urine Ketones Negative Urine Occult Blood Trace-lysed Urine Nitrate Negative Urine Bilirubin Negative Urine Urobilinogen 0.2 Ur Leukocyte Esterase Negative Urine RBC 0-1/hpf Urine WBC 0-1/hpf Ur Squamous Epith Cells None seen D Amorphous Sediment 2+ Urine Bacteria Many (>30) H Ur Culture Indicated? Cult not indicated SARS-CoV-2 (PCR) Negative PROCEDURE: XR CHEST 1V FINDINGS: Surgical changes and devices: None. Lungs and pleura: Minimal perihilar patchy opacity. Low lung volumes. No pleural effusions or pneumothorax. Mediastinum: Mediastinal contours appear normal. Heart size is prominent. Bones and chest wall: No suspicious bony lesions. Overlying soft tissues appear unremarkable. IMPRESSION: Minimal perihilar patchy opacity. This could be seen in atypical infection versus pulmonary edema. Cardiomegaly. This report is concordant with the overnight preliminary interpretation. Dictated by: Chadwick Ortega M.D. on 11/28/2020 at 8:04 Approved by: Chadwick Ortega M.D. on 11/28/2020 at 8:07 PROCEDURE: CT HEAD/BRAIN WO CON COMPARISON: [facility], CT, HEAD WITHOUT CONTRAST, 01/12/2017, 9:12. FINDINGS: Image quality: Excellent. CSF spaces: Basal cisterns are patent. No extra-axial fluid collections. The ventricles are symmetric in size and shape. Brain: No intracranial bleeds or masses. There is cerebral volume loss for age, with resultant ventricular and sulcal prominence. There are periventricular and deep white matter chronic small vessel ischemic changes. There is intracranial internal carotid artery atherosclerosis. Skull and face: Calvarium and visualized facial bones appear intact, without suspicious lesions. Sinuses: Visualized sinuses and mastoids are clear. IMPRESSION: 1. No CT evidence of acute intracranial pathology. 2. Diffuse atrophy and moderate white matter chronic small vessel ischemic changes not significantly changed from prior study. Dictated by: Erick Colin M.D. on 11/28/2020 at 9:30 Approved by: Erick Colin M.D. on 11/28/2020 at 9:31 ECG Data Attestation: I personally reviewed and interpreted this ECG as follows: Prior ECG tracings: not available for review Interpretation: Sinus rhythm normal axis no acute ST T wave changes Assessment & Plan Assessment & Plan narrative: Patient is an 85-year-old female dementia who presented on admission 1 day after receiving her 2nd COVID vaccination with a history of weakness and increase mental status change and was found in the ED to have bacteriuria 1. Sepsis Patient with altered mental status and and weakness with urinalysis with greater than 30 bacteria per high-power field. This felt that the sepsis is most likely related to the urinary tract infection in light of her positive urine for bacteriuria 2. Presumed UTI This is based on her urinalysis with 30 bacteria per high-power field. Urine and blood cultures remain have been ordered The patient will be on Rocephin IV empirically for the possibility of the infection. Follow blood and urine cultures 3. Questionable adverse reaction to COVID-19 vaccination Because of the timing of symptoms and her COVID-19 vaccination must consider an adverse reaction to this. 3. Dementia Per , she has not had any problems with agitation or delirium. She will be maintained on her Namenda and Aricept. 4. Debility Because of her weakness will have PT OT see
[2020-11-28] MEDS: DOCUSATE 100 MG CAPSULE PO (20:59)
[2020-11-28] MEDS: HEPARIN 5,000 UNIT/ML VIAL 5000 UNIT SUBCUT (20:59)
[2020-11-29] VITALS (9 sets, daily range): BP systolic 121–147; BP diastolic 58–89; PULSE 62–70; RESP 16–23; TEMP 36.3–37.1; O2SAT 94–95
[2020-11-29] MEDS: SODIUM CHLORIDE 0.9% 1,000 ML 75 ML IV ×2 (02:41→18:30)
--- NOTE | 2020-11-29 02:45 | PC.NURSE ---
pt sleeping comfortable in bed. SCDs off because pt removed them herself previous shift. pt allowed to sleep, Nurse spoke with Linus and was told ok to hold meds if pt is sleeping, 0100 order for Donepezil held per provider Linus request.
[2020-11-29 06:35] LABS: Add Manual Diff / Slide Review NO; Basophils Absolute Auto 0 /uL (0-100); Eosinophils Absolute Auto 0 /uL (0-450); Eosinophils Percent Auto 1.2 % (2-4); Hematocrit 37.8 % (36-46); Hemoglobin 12.7 g/dL (12.0-16.0); Lymphocytes Absolute Auto 1000 /uL (1100-4500); Lymphocytes Percent Auto 25.4 % (25-40); Mean Corpuscular HGB Conc 33.5 % (30-36); Mean Corpuscular Hemoglobin 30.6 PG (26-34); Mean Corpuscular Volume 91.3 fL (80-100); Monocytes Absolute Auto 500 /uL (0-900); Monocytes Percent Auto 12.3 % (3-14); Neutrophils Absolute Auto 2400 /uL (1500-7000); Neutrophils Percent Auto 60.1 % (50-75); Platelet Count 154 X10^3/uL (150-400); Red Blood Cell Count 4.13 X10^6/uL (4.0-5.2); Red Cell Distribution Width 14.1 % (11.6-14.8)
[2020-11-29 06:48] LABS: Alanine Aminotransferase 55 IU/L (<35); Albumin 3.3 g/dL (3.5-5.0); Albumin Globulin Ratio 1.2 (1.0-2.8); Alkaline Phosphatase 58 U/L (38-126); Aspartate Aminotransferase 123 IU/L (14-36); BUN Creatinine Ratio 27.9 (6-22); Bilirubin Total 0.1 mg/dL (0.2-1.3); Blood Urea Nitrogen 17 mg/dL (7-17); Calcium 8.4 mg/dL (8.4-10.2); Carbon Dioxide 28 mmol/L (22-32); Chloride 108 mmol/L (98-107); Estimated Glomerular Filt Rate > 60.0 mL/min (>60); Globulin 2.8 g/dL (1.7-4.1); Glucose 97 mg/dL (80-110); HEMOLYSIS 25 (0-50); Potassium 3.8 mmol/L (3.4-5.1); Sodium 136 mmol/L (137-145); Total Protein 6.1 g/dL (6.3-8.2)
[2020-11-29 06:51] LABS: Lactate (Lactic Acid) 0.6 mmol/L (0.7-2.1)
[2020-11-29] MEDS: CITALOPRAM 10 MG TABLET 40 MG PO (08:05)
[2020-11-29] MEDS: DONEPEZIL 5 MG TABLET 10 MG PO (08:05)
[2020-11-29] MEDS: DOCUSATE 100 MG CAPSULE PO ×2 (08:05→20:51)
[2020-11-29] MEDS: HEPARIN 5,000 UNIT/ML VIAL 5000 UNIT SUBCUT ×2 (08:06→20:51)
[2020-11-29] MEDS: MEMANTINE HCL 5 MG TABLET PO ×2 (08:06→20:51)
[2020-11-29] MEDS: CEFTRIAXONE 2 GM/50 ML FROZ.PIGGY IV (09:58)
--- NOTE | 2020-11-29 12:17 | CM.DANOTE ---
Discharge Planning/Care Management DCP: assessment: case received, EMR reviewed and met with pt and her Josue. Introduced self and role. Pt is found up in reclining bedside chair, daysi. Pt is an 85 year old female who admitted yesterday to care of hospitalist team. PCP: Kolby Ayala Payer: Medicare and [employer] Pt is admitted for probable covid vaccine #2 (Moderna) reaction with question also of UTI. Pt carries a diagnosis of Alzheimer's dementia. At this time her says she is not at her baseline in terms for functional abilities and cognition. Pt is cared for by her and needs ongoing close supervision and assist. Josue reports that he has a private caregiver coming in 3-4 mornings a week to assist with meal prep, housekeeping, showers and prn assist. They have never used home health but are open to consideration. Josue says that a custodial is not an option for her and that he is very able to care for her as long as she can get up and walk again. She uses no AD at baseline. He says he has been trying to help her use a cane but she has not been able to manage this. PT and OT are seeing pt today. P: At this point: preference from Josue is home setting. Would encourage HH services..PT/OT/DIETETIC AIDE to see about any support services pt and her may benefit from and to offer help in longer term planning. Josue says they do have some family support: son lives in [place]. daughter Terri Welsh lives in [facility]. He also says current caregiver does not have any extra time available if more care giving is needed. Will make sure Josue has the 2020 [employer] Resource Guide prior to d/c. Will be checking in again tomorrow. Admission status: currently in review: per HANY Roe. ' CM Discharge Assessment Start: 11/29/20 12:15 Freq: Status: Active Protocol: Document 11/29/20 12:15 ITV (Rec: 11/29/20 12:17 ITV [id number]) Discharge Planning Assessment Advance Directives? Yes History Provided By Family Member,Medical Record Prior Living Arrangements House Household Members spouse Independent with ADL's No Is patient alert and oriented? No Patient/Family Preference Home Comment Review Status In Process
--- NOTE | 2020-11-29 12:57 | P.PN_ITS ---
Subjective Subjective Date Patient Seen: 11/29/20 Time Patient Seen: 12:57 Interval history: is at bedside. States that the patient still remained confused. She has had no agitation. There has been no complaints of nausea vomiting, abdominal pain, shortness of breath, chest pain. did state that she had complained of some right hip pain. When asked about hip pain the patient denied any pain Exam Vital Signs (past 8 hours): - 11/29/20 05:30 11/29/20 07:43 11/29/20 10:00 Temperature 98.0 F 97.3 F L Pulse Rate 67 62 Respiratory Rate 18 16 Blood Pressure 147/78 H 135/74 Pulse Oximetry 95 95 11/29/20 11:28 Temperature 97.6 F Pulse Rate 70 Respiratory Rate 16 Blood Pressure 138/78 Pulse Oximetry 94 Oxygen Delivery Method Room Air Oxygen Flow Rate 0 Narrative Exam Narrative: Constitutional: Patient laying in bed. NAD HEENT: Normocephalic atraumatic. extraocular movement intact. pupils equal round reactive. Funduscopic exam not done. Sclera and conjunctiva clear. Oropharynx clear. Neck: Supple without thyromegaly bruits or jugular venous distention Thorax: Symmetrical with good lateral expansion Respiratory: Lungs clear to auscultation on anterior exam Cardiovascular: Regular rhythm. S1S2 normal. There were no lifts he has rubs gallops murmurs present. GI: Benign, bowel sounds present : No Nova present Skin: Atrophic Neuro: Cranial nerves 2-12 grossly intact. Motor intact and equal active. Sensory modality a crude touch intact. Psychological: Awake alert follows commands. When asked to name the person in the chair she was able to do so. She stated that person was Josue. That was correct she was then asked to say how that person was related to her and she said she did not know. She was also unable to give the year, month, where she lives, or that she was in the hospital Objective Labs Result Diagrams: 11/29/20 06:11 11/29/20 06:11 Labs: Laboratory Results - last 24 hr 11/29/20 11/29/20 11/29/20 06:11 06:11 06:11 WBC 4.0 L RBC 4.13 Hgb 12.7 Hct 37.8 MCV 91.3 MCH 30.6 MCHC 33.5 RDW 14.1 Plt Count 154 Neut % (Auto) 60.1 D Lymph % (Auto) 25.4 D [place] % (Auto) 12.3 Eos % (Auto) 1.2 L Baso % (Auto) 1.0 Neut # (Auto) 2400 Lymph # (Auto) 1000 L [place] # (Auto) 500 Eos # (Auto) 0 Baso # (Auto) 0 Sodium 136 L Potassium 3.8 Chloride 108 H Carbon Dioxide 28 BUN 17 Creatinine 0.61 Estimated GFR > 60.0 BUN/Creatinine Ratio 27.9 H Glucose 97 Lactate 0.6 L Calcium 8.4 Total Bilirubin 0.1 L AST 123 H ALT 55 H Alkaline Phosphatase 58 Total Protein 6.1 L Albumin 3.3 L Globulin 2.8 Albumin/Globulin Ratio 1.2 ON LICENSE OF [facility] Medical History (Updated 11/28/20 @ 10:22 by Deven Alan DO) Alzheimer's type dementia (2013) Closed fracture of left distal radius (03/15/14) Cognitive dysfunction (2009) Colon polyps Depression Gastritis Heart murmur Hyperlipidemia IBS (irritable bowel syndrome) Meniere's disease Urinary incontinence, mixed Surgical History History of bilateral salpingo-oophorectomy History of surgery on arm (03/16/14) Normal colonoscopy (2012) Status post appendectomy (2003) Status post colectomy (2003) Status post epidural steroid injection (03/06/10) Family History Father Colorectal cancer Mother Dementia Social History household members: spouse Smoking Status: Never smoker alcohol intake: never Assessment & Plan Assessment & Plan narrative: Patient is an 85-year-old female dementia who presented on admission 1 day after receiving her 2nd COVID vaccination with a history of weakness and increase mental status change and was found in the ED to have bacteriuria 1. Sepsis Patient with altered mental status and and weakness with urinalysis with greater than 30 bacteria per high-power field. This felt that the sepsis is most likely related to the urinary tract infection in light of her positive urine for bacteriuria 2. Presumed UTI This is based on her urinalysis with 30 bacteria per high-power field. Urine and blood cultures remain no growth to date The patient is on Rocephin IV empirically for the possibility of the infection. Follow blood and urine cultures 3. Questionable adverse reaction to COVID-19 vaccination Because of the timing of symptoms and her COVID-19 vaccination must consider an adverse reaction to this. 3. Dementia She is on any dementia medications During the hospitalization she has not had any problems with agitation or delirium. 4. Debility Because of her weakness will have PT OT see COVID-19 COVID-19 status: Negative Result date/Date tested (Pos, Neg/Pending): 11/28/20
--- NOTE | 2020-11-29 14:15 | OT.IP.EVAL ---
Current Diagnoses Urinary tract infection, site not specified (11/28/20) Other symptoms and signs involving the musculoskeletal system (11/28/20) Frequency of micturition (11/28/20) Weakness (11/28/20) Past Medical History (Last Reviewed 11/28/20 @ 06:49 by Sania Tesfaye MD) Alzheimer's type dementia (2013) Closed fracture of left distal radius (03/15/14) Cognitive dysfunction (2009) Colon polyps Depression Gastritis Heart murmur Hyperlipidemia IBS (irritable bowel syndrome) Meniere's disease Urinary incontinence, mixed Surgical History (Last Reviewed 11/28/20 @ 06:49 by Sania Tesfaye MD) History of bilateral salpingo-oophorectomy History of surgery on arm (03/16/14) Normal colonoscopy (2012) Status post appendectomy (2003) Status post colectomy (2003) Status post epidural steroid injection (03/06/10) Occupational Therapy Inpatient Evaluation/Re-Eval M1 PT/OT-IP Prior Functional Status Start: 11/28/20 13:28 Freq: NEEDED Status: Active Protocol: Document 11/29/20 14:23 CGR (Rec: 11/29/20 14:35 CGR [id number]) Medical Review Prior Functional Status Medical History Reviewed Yes Diet/Fluid Consistency Regular Communication dementia at baseline. stated pt can follow 1 step command and only able to recognize him only but not other family members. Mobility and Gait IND within home without AD. Pt does furniture cruise sometimes. Activities of Daily Living and IADL's able to get to bathroom without assistance. Pt has a CG comes in 3-4 mornings a week for meal preparation and showering pt. Otherwise, assists her. Pt is able to perform most dressing without assist but needs cues to perform other ADLs. Prior Functional Level (Other details) 2 falls within the past 4 months Social History Household Members spouse Living Arrangements House Number of Floors (Floors) Two Floors Number of Stairs To Enter/Railing? Pt has 1 step to enter then 14 steps with R railing assending to second floor with landing. Home Environment Standard Height Toilet,Walk in Shower Home Equipment Straight Cane,Grab Bars Near Toilet,Grab Bars In Shower Employment Status Retired Additional Social History Comment Pt has a small animal caretaker that comes in for 3 hours 3-4 times a week for meal prep, showering pt, and assist with exercises. Pt follows 1 step commands and only recognizes her . M2 OT-IP Current Condition Start: 11/29/20 14:23 Freq: Status: Active Protocol: Document 11/29/20 14:23 CGR (Rec: 11/29/20 14:35 CGR [id number]) Occupational Therapy Current Condition Current Condition Evaluation Date 11/29/20 Treatment Diagnosis dementia, global weakness, UTI Diagnosis Onset Date 11/28/20 M3 OT- IP Subjective and Pain Start: 11/29/20 14:23 Freq: Status: Active Protocol: Document 11/29/20 14:23 CGR (Rec: 11/29/20 14:35 CGR [id number]) OT- Subjective Occupational Therapy Visit Type Type Initial Evaluation Visit Start Time 13:57 Visit Stop Time 14:15 Total Visit Minutes 18 Notes Co-treat with PT OT Pain Assessment Pain When Pain Assessed At Rest Pain Present Pain Present Denied Pain M4 OT- IP ADL's Start: 11/29/20 14:23 Freq: Status: Active Protocol: Document 11/29/20 14:23 CGR (Rec: 11/29/20 14:35 CGR [id number]) OT [id number] Comments OT Self-Feeding Comments Not meal time OT ADL-Grooming Comments OT Grooming Comments Not performed OT ADL-Oral Care Comments Oral Care Comments Not performed OT ADL-Dressing Comments OT Dressing Comments Not performed OT ADL-Toileting General Evaluation Toileting Ability Maximum Assistance Areas Needing Assistance Manage Clothing,Perform Perineal Hygiene Comments OT Toileting Comments Pt sat on toilet for urination but needed vc then assist for pulling down briefs. Pt needed assist with pericare and with pulling brief up. OT ADL-Bathing Comments OT Bathing Comments Not performed M5 OT- IP IADL's Start: 11/29/20 14:23 Freq: Status: Active Protocol: Document 11/29/20 14:23 CGR (Rec: 11/29/20 14:35 CGR [id number]) OT-Instrumental Activities of Daily Living Deficits IADL Deficits Identified Deficits Home Safety Awareness Awareness of Need for Assistance at Home Decreased Awareness Ability to Problem Solve Emergency Unable to Problem Solve Situations Medication Management Medication Management Caregiver Administers Money Management Money Management Caregiver Provides Assistance Meal Preparation Meal Preparation Caregiver Provides Assist Urologist Md Urologist Md Caregiver Provides Assist Driving Driving Comments Pt does not drive M6 OT- IP Functional Cognition Start: 11/29/20 14:23 Freq: Status: Active Protocol: Document 11/29/20 14:23 CGR (Rec: 11/29/20 14:35 R [id number]) Cognitive Factors Limiting Selfcare Function Cognitive Ability Level of Alertness Alert Patient Orientation Name,Place Attention Span Ability Unable to Focus,Unable to Sustain Attention Ability to Follow Commands Able to Follow One Step Commands with Increased Time, Able to Follow One Step Commands with Repetition Cognitive Comments Cognitive Assessment Comments Pt with advanced dementia at baseline. OT- Vision and Hearing OT- Hearing Assessment OT- Hearing Assessment WFL OT- Vision Assessment Visual Acuity WFL Visual Attentiveness WFL Occular Pursuits WFL Visual Convergence Impaired Vision Assessment Comments Pt has reading glasses but no longer reads. Pt without smooth persuits. M7 OT- IP Mobility and Balance Start: 11/29/20 14:23 Freq: Status: Active Protocol: Document 11/29/20 14:23 CGR (Rec: 11/29/20 14:35 R [id number]) OT-Transfer Assessment Sit to and From Stand Sit to and from Stand Minimal Assistance Transfers Transfer Ability Minimal Assistance Technique Transfer Destination Chair,Toilet Transfer Technique Stand Step Pivot Devices Transfer Assistive Devices Gait Belt Comments Mobility Comments Initially pt ambulated with walker but then trialed without walker. Pt ambulated with hand held assist into the bathroom and back to chair. OT- Balance Assessment Sitting Balance and Reactions Static Sitting Balance Ability Good Dynamic Sitting Balance Ability Fair M8 OT- IP Objective Assessments Start: 11/29/20 14:23 Freq: Status: Active Protocol: Document 11/29/20 14:23 CGR (Rec: 11/29/20 14:35 R [id number]) OT Gross Range of Motion Upper Extremity Range of Motion Assessment Within Functional Limits OT Strength Upper Extremity Strength Assessment Within Functional Limits Comments Strength Comments grossly 4-/5 OT- Coordination Assessment Upper Extremity Finger to Nose Test Within Functional Limits Finger Tapping Test Within Functional Limits OT-Muscle Tone Assessment Muscle Tone WNL Yes OT Sensation Assessment Edema Edema Absent M9 OT- IP Assessment and Plan Start: 11/29/20 14:23 Freq: Status: Active Protocol: Document 11/29/20 14:23 CGR (Rec: 11/29/20 14:35 CGR [id number]) OT Summary Assessment and Plan Potential Rehabilitation Potential Good Analytic Complexity at Evaluation Low Summary OT Impairments Balance,Functional Cognition, Functional Mobility,Grooming, Dressing,Toileting,Bathing, Toilet Transfers,Shower Transfers,Activity Tolerance Progress Towards Goals Slow Progress due to Medical Issues,Slow Progress due to Cognition Assessment Summary Pt presents as a low complexity evaluation s/p admit fro global weakness. Pt with UTI and just received second covid vaccine. Pt needs to be able to manage stairs prior to discharge home and currently is requiring more assist for mobility and ADLs. Pt is likely to do best in her home environment and her is able to assist with all of her needs if she is mobile. Plan is for discharge home with husbands assist. Goals Grooming Goal Independent Dressing Goal Independent Toileting Goal Independent Bathing Goal Minimal Assistance Toilet Transfer Goal Independent Shower Transfer Goal Minimal Assistance Days to Meet Goals 5 Frequency of Treatment Frequency Of Treatment Once a Day Treatment Plan OT Treatment Plan ADL Training,Functional Cognition Training,Functional Mobility,Patient/Family Education,Discharge Planning Other Treatment Recommendations and Next shower, LB ADLs Treatment Focus Discharge Recommendations OT Discharge Recommendations Home with 18/04 Assist Available Other Discharge Recommendations Pt is likely to do best discharging to her home environment with her husbands assist. Home Equipment Needs TBD Transportation Needs at Discharge Private Vehicle
--- NOTE | 2020-11-29 14:18 | PT.IPTN ---
Current Diagnoses Urinary tract infection, site not specified (11/28/20) Other symptoms and signs involving the musculoskeletal system (11/28/20) Frequency of micturition (11/28/20) Weakness (11/28/20) Physical Therapy Treatment Note M2 PT-IP Current Condition Start: 11/28/20 13:28 Freq: NEEDED Status: Active Protocol: Document 11/28/20 14:51 HH (Rec: 11/28/20 15:14 HH [id number]) Physical Therapy Current Condition Current Condition Evaluation Date 11/28/20 Treatment Diagnosis UTI, confusion, generalized weakness s/p 2nd COVID vaccination shot Onset Date 11/27/20 Weight Bearing Status Weight Bearing Status Full Weight Bearing M3 PT-IP Subjective Start: 11/28/20 13:28 Freq: NEEDED Status: Active Protocol: Document 11/29/20 13:46 CLB (Rec: 11/29/20 15:09 CLB [id number]) Subjective Physical Therapy Visit Type Type Treatment Note Visit Start Time 13:46 Visit Stop Time 14:18 Total Visit Minutes 32 Notes at bedside Physical Therapy Visit Comments Patient Comments Pt able to state her full name and birthdate. Therapy Pain Assessment Pain Present Pain Present Denied Pain M4 PT-IP Mobility and Gait Start: 11/28/20 13:28 Freq: NEEDED Status: Active Protocol: Document 11/29/20 13:46 CLB (Rec: 11/29/20 15:09 CLB [id number]) PT-Transfer Assessment Sit to and From Stand Sit to and from Stand Minimal Assistance,1 Person Assistance,Use of Upper Extremities Equipment Transfer Assistive Device Gait Belt,Front Wheeled Walker Orthotic/Prosthetic Devices or Brace: No Transfers Transfer Destination Chair,Toilet Transfer Technique Stand Pivot Transfer Ability Level of Assist Minimal Assistance,1 Person Assistance,Use of Upper Extremities Comments Mobility Comments Pt stood from chair Min A and ambulated with FWW ~10ft with chair follow. Pt then sat in chair with good reach back for arms of chair. After resting pt stood from chair Min A with SCISSORS GRINDER and ambulated Min A x2 ~ 20ft w/SCISSORS GRINDER. Pt then sat in chair before standing to ambulate Min A x1 with SCISSORS GRINDER, pt ambulated into BR but required cues for positioning safely in front of toilet and pulling down brief, OT assisted pt with toilet care. Pt returned to chair. Pt left reclined in chair with all needs within reach and present/ Gait Assessment Gait Gait Assistance Required: Minimum Assistance,1 Person Assist,2 Person Assist Distance (Feet) 30 Assistive Devices Assistive Device Gait Belt,Front Wheeled Walker Gait Deviations General Gait Pattern Decreased Stride Length, Decreased Feet Clearance, Flexed Trunk,Wide Based Gait Factors Limiting Gait Function Factors Limiting Gait Function Decreased Activity Tolerance, Decreased Strength,Limited Range of Motion,Pain,Poor Balance,Poor Safety Awareness Comments Gait Comments Pt ambulates best with SCISSORS GRINDER/Min A. Pt has flexed trunk and uses wide shuffled steps. Stair Climbing Assessment Comments Stair Climbing Comments unable to assess M5 PT-IP Objective Assessments Start: 11/28/20 13:28 Freq: NEEDED Status: Active Protocol: Document 11/28/20 14:51 HH (Rec: 11/28/20 15:14 HH [id number]) Orientation Orientation/Cognition Level of Alertness Confusional State Orientation Name Language Function Ability Word Finding Difficulties,Hard of Hearing Safety Awareness Understands Safety Issues, Decreased Safety Awareness Memory Description Short Term Impaired,Group Home Impaired Comments see mobility comments. pt can only follow 1 step command and needs constant reorientation for her current motor task. Gross Range of Motion Upper Extremity ROM Assessment Within Functional Limits Lower Extremity ROM Assessment Within Functional Limits Strength Upper Extremity Strength Assessment Within Functional Limits Lower Extremity Strength Assessment Within Functional Limits Coordination Assessment Gross Coordination Gross Coordination WNL M6 PT-IP Treatment Start: 11/28/20 13:28 Freq: NEEDED Status: Active Protocol: Document 11/29/20 13:46 CLB (Rec: 11/29/20 15:09 CLB [id number]) Physical Therapy Treatment Exercises Exercises Seated Knee Flexion/Extension M7 PT-IP Assessment and Plan Start: 11/28/20 13:28 Freq: NEEDED Status: Active Protocol: Document 11/29/20 13:46 CLB (Rec: 11/29/20 15:09 CLB [id number]) PT Summary Assessment and Plan Potential Rehabilitation Potential Good Status of Condition at Evaluation Evolving Summary Impairments Pain,ROM,Strength,Balance, Cognition,Bed Mobility, Transfers,Gait,Activity Tolerance Assessment Summary Pt improving with mobility. Pt able to stand from chair Min A and ambulate ~30ft with Min A of one person. Pt follows one step commands given by therapist. Pt will need to climb stairs to assure safety at home. Pt has 14 steps to get to second level in home. Depending on progress pt may need SNF rehab before returning home. Goals Bed Mobility Goal Contact Guard Assistance Transfer Goal Contact Guard Assistance,Front Wheeled Walker Gait Goal Contact Guard Assistance,Front Wheel Walker Gait Distance 50 Days to Meet Goals 5 Frequency of Treatment Frequency Of Treatment Once a Day Treatment Plan Physical Therapy Treatment Plan Bed Mobility Training,Transfer Training,Gait Training, Therapeutic Exercise,Balance Retraining,Discharge Planning Other Recommendations and Next Treatment ambulation, stair training if Focus able. Recommendations To Nursing Amount of Assist Needed 1 Person Assist Discharge Recommendations PT Discharge Recommendations Home with 24/ Assist Available,Home Health,SNF Rehab Equipment Needed for Home Before FWW, BSC, shower chair if DC Discharge home Transportation Needs at Discharge Private Vehicle,Wheelchair/ Cabulance
[2020-11-29] MEDS: ATORVASTATIN 20 MG TABLET PO (20:51)
[2020-11-30 04:13] VITALS: BP 145/84; PULSE 72; RESP 16; TEMP 35.9
[2020-11-30 04:54] VITALS: O2SAT 94
--- NOTE | 2020-11-30 06:24 | PC.NURSE ---
pt is confused and pulled out her line around 0330 this morning, per hospitalist ok to d/c fluids. pt was able to drink about 300cc of water in the night and vitals are stable.
[2020-11-30 06:40] LABS: Add Manual Diff / Slide Review NO; Basophils Absolute Auto 100 /uL (0-100); Basophils Percent Auto 1.3 % (0-2); Eosinophils Absolute Auto 100 /uL (0-450); Eosinophils Percent Auto 1.8 % (2-4); Hematocrit 38.3 % (36-46); Hemoglobin 12.8 g/dL (12.0-16.0); Lymphocytes Absolute Auto 1500 /uL (1100-4500); Lymphocytes Percent Auto 30.4 % (25-40); Mean Corpuscular HGB Conc 33.3 % (30-36); Mean Corpuscular Hemoglobin 30.4 PG (26-34); Mean Corpuscular Volume 91.1 fL (80-100); Monocytes Absolute Auto 600 /uL (0-900); Monocytes Percent Auto 12.4 % (3-14); Neutrophils Absolute Auto 2600 /uL (1500-7000); Neutrophils Percent Auto 54.1 % (50-75); Platelet Count 159 X10^3/uL (150-400); Red Blood Cell Count 4.21 X10^6/uL (4.0-5.2); Red Cell Distribution Width 14.2 % (11.6-14.8); White Blood Cell Count 4.8 X10^3/uL (4.5-11.0)
[2020-11-30 06:42] LABS: Alanine Aminotransferase 82 IU/L (<35); Albumin 3.5 g/dL (3.5-5.0); Albumin Globulin Ratio 1.3 (1.0-2.8); Alkaline Phosphatase 66 U/L (38-126); Aspartate Aminotransferase 132 IU/L (14-36); Blood Urea Nitrogen 11 mg/dL (7-17); Calcium 8.8 mg/dL (8.4-10.2); Carbon Dioxide 31 mmol/L (22-32); Chloride 106 mmol/L (98-107); Estimated Glomerular Filt Rate > 60.0 mL/min (>60); Globulin 2.8 g/dL (1.7-4.1); Glucose 95 mg/dL (80-110); HEMOLYSIS < 15 (0-50); Potassium 3.5 mmol/L (3.4-5.1); Sodium 139 mmol/L (137-145); Total Protein 6.3 g/dL (6.3-8.2)
[2020-11-30 07:04] LABS: Bilirubin Total < 0.1 mg/dL (0.2-1.3)
[2020-11-30 07:33] VITALS: BP 166/83; PULSE 72; RESP 16; TEMP 36.6; O2SAT 96
[2020-11-30 08:00] VITALS: O2SAT 96
[2020-11-30] MEDS: HEPARIN 5,000 UNIT/ML VIAL 5000 UNIT SUBCUT (09:08)
[2020-11-30] MEDS: DOCUSATE 100 MG CAPSULE PO (09:08)
[2020-11-30] MEDS: DONEPEZIL 5 MG TABLET 10 MG PO (09:08)
[2020-11-30] MEDS: CITALOPRAM 10 MG TABLET 40 MG PO (09:09)
[2020-11-30] MEDS: MEMANTINE HCL 5 MG TABLET PO (09:09)
--- NOTE | 2020-11-30 10:18 | OT.IP.TRT ---
Current Diagnoses Urinary tract infection, site not specified (11/28/20) Other symptoms and signs involving the musculoskeletal system (11/28/20) Frequency of micturition (11/28/20) Weakness (11/28/20) Occupational Therapy Treatment Note M2 OT-IP Current Condition Start: 11/29/20 14:23 Freq: Status: Active Protocol: Document 11/29/20 14:23 CGR (Rec: 11/29/20 14:35 CGR [id number]) Occupational Therapy Current Condition Current Condition Evaluation Date 11/29/20 Treatment Diagnosis dementia, global weakness, UTI Diagnosis Onset Date 11/28/20 M3 OT- IP Subjective and Pain Start: 11/29/20 14:23 Freq: Status: Active Protocol: Document 11/30/20 11:14 CGR (Rec: 11/30/20 11:24 CGR [id number]) OT- Subjective Occupational Therapy Visit Type Type Progress Note Visit Start Time 09:55 Visit Stop Time 10:18 Total Visit Minutes 23 Occupational Therapy Visit Comments Patient Comments I am cold OT Pain Assessment Pain When Pain Assessed At Rest Pain Present Pain Present Denied Pain M4 OT- IP ADL's Start: 11/29/20 14:23 Freq: Status: Active Protocol: Document 11/30/20 11:14 CGR (Rec: 11/30/20 11:24 CGR [id number]) OT EON-Fgcs-[id number] General Evaluation Self-Feeding Ability Moderate Assistance Areas Needing Assistance Loading Utensil Comments OT Self-Feeding Comments Pt eating pudding when OT entered. Pt states she is hungry but does not initiate feeding self with pudding on tray. Nusing was in the room assisting with feeding when OT entered. Pt was able to get spoon to mouth once spoon was loaded and put into her hand. OT ADL-Grooming Comments OT Grooming Comments not performed OT ADL-Oral Care Comments Oral Care Comments not performed OT ADL-Dressing General Eval Upper Body Dressing Ability Maximum Assistance Lower Body Dressing Ability Contact Guard Assistance, Moderate Assistance Areas Needing Assistance Underpants/Brief,Socks Comments OT Dressing Comments Pt donned clean gown with max a and needed mod a for threading feet through brief but she was able to don socks with CGA. Pt needs verbal cues to perform each action. OT ADL-Toileting Comments OT Toileting Comments not performed OT ADL-Bathing Bathing Type Bathing Type Shower General Evaluation Bathing Ability Moderate Assistance,Maximal Assistance Areas Needing Assistance Retrieving/Setting Up Items Devices Bathing Equipment Hand Held Shower Sprayer, Shower Chair with Arms,Grab Bars Comments OT Bathing Comments Pt was able to bathe all areas of her body with VC to perform each task. M5 OT- IP IADL's Start: 11/29/20 14:23 Freq: Status: Active Protocol: Document 11/29/20 14:23 CGR (Rec: 11/29/20 14:35 CGR [id number]) OT-Instrumental Activities of Daily Living Deficits IADL Deficits Identified Deficits Home Safety Awareness Awareness of Need for Assistance at Home Decreased Awareness Ability to Problem Solve Emergency Unable to Problem Solve Situations Medication Management Medication Management Caregiver Administers Money Management Money Management Caregiver Provides Assistance Meal Preparation Meal Preparation Caregiver Provides Assist Computer Security Specialist Computer Security Specialist Caregiver Provides Assist Driving Driving Comments Pt does not drive M6 OT- IP Functional Cognition Start: 11/29/20 14:23 Freq: Status: Active Protocol: Document 11/29/20 14:23 CGR (Rec: 11/29/20 14:35 CGR [id number]) Cognitive Factors Limiting Selfcare Function Cognitive Ability Level of Alertness Alert Patient Orientation Name,Place Attention Span Ability Unable to Focus,Unable to Sustain Attention Ability to Follow Commands Able to Follow One Step Commands with Increased Time, Able to Follow One Step Commands with Repetition Cognitive Comments Cognitive Assessment Comments Pt with advanced dementia at baseline. OT- Vision and Hearing OT- Hearing Assessment OT- Hearing Assessment WFL OT- Vision Assessment Visual Acuity WFL Visual Attentiveness WFL Occular Pursuits WFL Visual Convergence Impaired Vision Assessment Comments Pt has reading glasses but no longer reads. Pt without smooth persuits. M7 OT- IP Mobility and Balance Start: 11/29/20 14:23 Freq: Status: Active Protocol: Document 11/30/20 11:14 CGR (Rec: 11/30/20 11:24 CGR [id number]) OT-Transfer Assessment Sit to and From Stand Sit to and from Stand Contact Guard Assistance, Minimal Assistance Transfers Transfer Ability Contact Guard Assistance, Minimal Assistance Technique Transfer Destination Chair,Shower Stall Transfer Technique Stand Step Pivot Devices Transfer Assistive Devices Gait Belt Comments Mobility Comments All mobility with hand held assist. OT- Balance Assessment Sitting Balance and Reactions Static Sitting Balance Ability Good Dynamic Sitting Balance Ability Fair M8 OT- IP Objective Assessments Start: 11/29/20 14:23 Freq: Status: Active Protocol: Document 11/29/20 14:23 CGR (Rec: 11/29/20 14:35 CGR [id number]) OT Gross Range of Motion Upper Extremity Range of Motion Assessment Within Functional Limits OT Strength Upper Extremity Strength Assessment Within Functional Limits Comments Strength Comments grossly 4-/5 OT- Coordination Assessment Upper Extremity Finger to Nose Test Within Functional Limits Finger Tapping Test Within Functional Limits OT-Muscle Tone Assessment Muscle Tone WNL Yes OT Sensation Assessment Edema Edema Absent M9 OT- IP Assessment and Plan Start: 11/29/20 14:23 Freq: Status: Active Protocol: Document 11/30/20 11:14 CGR (Rec: 11/30/20 11:24 CGR [id number]) OT Summary Assessment and Plan Potential Rehabilitation Potential Good Analytic Complexity at Evaluation Low Summary OT Impairments Balance,Functional Cognition, Functional Mobility,Grooming, Dressing,Toileting,Bathing, Toilet Transfers,Shower Transfers,Activity Tolerance Progress Towards Goals Slow Progress due to Medical Issues,Slow Progress due to Cognition Assessment Summary Pt presents as a low complexity evaluation s/p admit for global weakness. Pt with UTI and just received second covid vaccine. Pt needs to be able to manage stairs prior to discharge home. Pt appears to be at or close to her baseline at this time. Pt is likely to do best in her home environment and her is able to assist with all of her needs if she is mobile. Plan is for discharge home with husbands assist. Goals Grooming Goal Independent Dressing Goal Independent Toileting Goal Independent Bathing Goal Minimal Assistance Toilet Transfer Goal Independent Shower Transfer Goal Minimal Assistance Days to Meet Goals 5 Frequency of Treatment Frequency Of Treatment Once a Day Treatment Plan OT Treatment Plan ADL Training,Functional Cognition Training,Functional Mobility,Patient/Family Education,Discharge Planning Other Treatment Recommendations and Next shower, LB ADLs Treatment Focus Discharge Recommendations OT Discharge Recommendations Home with 18/04 Assist Available Other Discharge Recommendations Pt is likely to do best discharging to her home environment with her husbands assist. Home Equipment Needs none Transportation Needs at Discharge Private Vehicle
--- NOTE | 2020-11-30 11:32 | PT.IPTN ---
Current Diagnoses Urinary tract infection, site not specified (11/28/20) Other symptoms and signs involving the musculoskeletal system (11/28/20) Frequency of micturition (11/28/20) Weakness (11/28/20) Physical Therapy Treatment Note M2 PT-IP Current Condition Start: 11/28/20 13:28 Freq: NEEDED Status: Active Protocol: Document 11/28/20 14:51 HH (Rec: 11/28/20 15:14 HH [id number]) Physical Therapy Current Condition Current Condition Evaluation Date 11/28/20 Treatment Diagnosis UTI, confusion, generalized weakness s/p 2nd COVID vaccination shot Onset Date 11/27/20 Weight Bearing Status Weight Bearing Status Full Weight Bearing M3 PT-IP Subjective Start: 11/28/20 13:28 Freq: NEEDED Status: Active Protocol: Document 11/30/20 11:20 AW (Rec: 11/30/20 11:32 AW [id number]) Subjective Physical Therapy Visit Type Type Treatment Note Visit Start Time 11:03 Visit Stop Time 11:15 Total Visit Minutes 12 Number of RN MEDICAL SURGICAL Visits 0 Physical Therapy Visit Comments Patient Comments Pt states she is doing fair, not middling though. M4 PT-IP Mobility and Gait Start: 11/28/20 13:28 Freq: NEEDED Status: Active Protocol: Document 11/30/20 11:20 AW (Rec: 11/30/20 11:32 AW [id number]) PT-Transfer Assessment Sit to and From Stand Sit to and from Stand Minimal Assistance Equipment Transfer Assistive Device Gait Belt Orthotic/Prosthetic Devices or Brace: No Transfers Transfer Destination Chair Transfer Technique Stand Step Pivot Transfer Ability Level of Assist Minimal Assistance,1 Person Assistance,Use of Upper Extremities Comments Mobility Comments Pt stood from the chair min A x 1 and used INTERNET MARKETING MANAGER to initiate gait in the room. She was able to don a face mask with assist and then walked into the hallway with INTERNET MARKETING MANAGER/CGA. After ~20 feet, pt followed instruction to let go of handhold and ambulated CGA to the stairs on the piercy nurse station. After stair assessment, pt walked all the way back to her room CGA and transferred to her chair min A x 1 with cues to contact the chair arms prior to sitting. Pt was left with call light and all needs in reach. Chair alarm was armed for safety. Gait Assessment Gait Gait Assistance Required: Minimum Assistance,1 Person Assist Distance (Feet) 120 Assistive Devices Assistive Device None,Gait Belt Gait Deviations General Gait Pattern Decreased Stride Length, Decreased Feet Clearance, Flexed Trunk,Wide Based Gait Factors Limiting Gait Function Factors Limiting Gait Function Decreased Activity Tolerance, Decreased Strength,Limited Range of Motion,Pain,Poor Balance,Poor Safety Awareness Comments Gait Comments Pt ambulates best with INTERNET MARKETING MANAGER/Min A. Pt has flexed trunk and uses wide shuffled steps. No LOB observed. Stair Climbing Assessment Evaluation Level of Assist On Stairs Contact Guard Assistance, Minimal Assistance Devices Stair Climbing Assistive Devices Right Railing Technique/Endurance Stair Climbing Direction Ascend and Descend Stair Climbing Technique Step Over Step,Step to Step Number of Steps Climbed 13 Stair Climbing Set # Repetitions (reps) 1 Comments Stair Climbing Comments Pt descended 13 steps using L rail down min A x 1 step-to. She then ascended CGA using R rail up and step over step patterning. M5 PT-IP Objective Assessments Start: 11/28/20 13:28 Freq: NEEDED Status: Active Protocol: Document 11/28/20 14:51 HH (Rec: 11/28/20 15:14 HH [id number]) Orientation Orientation/Cognition Level of Alertness Confusional State Orientation Name Language Function Ability Word Finding Difficulties,Hard of Hearing Safety Awareness Understands Safety Issues, Decreased Safety Awareness Memory Description Short Term Impaired,Director Transportation Impaired Comments see mobility comments. pt can only follow 1 step command and needs constant reorientation for her current motor task. Gross Range of Motion Upper Extremity ROM Assessment Within Functional Limits Lower Extremity ROM Assessment Within Functional Limits Strength Upper Extremity Strength Assessment Within Functional Limits Lower Extremity Strength Assessment Within Functional Limits Coordination Assessment Gross Coordination Gross Coordination WNL M6 PT-IP Treatment Start: 11/28/20 13:28 Freq: NEEDED Status: Active Protocol: Document 11/30/20 11:20 AW (Rec: 11/30/20 11:32 AW [id number]) Physical Therapy Treatment Education Education Provided Safety M7 PT-IP Assessment and Plan Start: 11/28/20 13:28 Freq: NEEDED Status: Active Protocol: Document 11/30/20 11:20 AW (Rec: 11/30/20 11:32 AW [id number]) PT Summary Assessment and Plan Potential Rehabilitation Potential Good Status of Condition at Evaluation Stable Summary Impairments Pain,ROM,Strength,Balance, Cognition,Bed Mobility, Transfers,Gait,Activity Tolerance Progress Towards Goals Progressing Toward Goals Assessment Summary Pt tolerated significant increase in activity today, ambulating in the halls with INTERNET MARKETING MANAGER/min assist and completing a set of 13 steps with CGA/min assist. Pt has assist at home . In the context of advanced dementia, pt will likely be safest and progress best at home with 24/7 assist available and home health therapy to address strength and mobility deficits. Goals Bed Mobility Goal Contact Guard Assistance Transfer Goal Contact Guard Assistance,Front Wheeled Walker Gait Goal Contact Guard Assistance,Front Wheel Walker Gait Distance 50 Days to Meet Goals 5 Frequency of Treatment Frequency Of Treatment Once a Day Treatment Plan Physical Therapy Treatment Plan Bed Mobility Training,Transfer Training,Gait Training, Therapeutic Exercise,Balance Retraining,Discharge Planning Other Recommendations and Next Treatment ambulation, stair training if Focus able. Recommendations To Nursing Amount of Assist Needed 1 Person Assist Discharge Recommendations PT Discharge Recommendations Home with 24/7 Assist Available,Home Health Equipment Needed for Home Before BSC, shower chair if DC home Discharge Transportation Needs at Discharge Private Vehicle,Wheelchair/ Cabulance
--- NOTE | 2020-11-30 11:58 | CM.DPC ---
Addendum entered by Leslie Perez LPN 11/30/20 13:13: Spouse Josue arrived and d/c order was in place. Went over the HH again with Josue and gave his the updated Resource Book. Today he is less sure he needs HH. Is encouraged to accept this at least for a short time and he agrees. He does say that if something happens to him he has left specific instructions for his son on how to proceed (in the event he is suddenly hospitalized etc). He also has been in touch with [facility] and is familiar with [facility] caregiver agency as his private caregiver also works with them. P: home today. DC summary is faxed now to [facility] as well as these notes. Original Note: DCP: continued: Case discussed in Team Rounds with Dr. Loera stating pt was improving and he wished for update from PT once she had worked with pt on stairs. PT Roseline reports now that pt did well, is still a bit less that baseline but at a point where spouse can assist. HH is recommended. Had discussed HH with pt's spouse Josue yesterday and he was open to same. Vendor choice list: no preference: used vendor calendar as per protocol and referral given to [facility]: accepted. Face to Face document completed, HH orders for RN/OT/PT/DRAGGER obtained. DC is anticipated for today but no d/c orders are yet in place. Will follow prn. Checked in with pt, should was here earlier and is expected to return later.
[2020-11-30 12:18] VITALS: BP 164/86; PULSE 68; RESP 20; TEMP 36.9; O2SAT 96
--- NOTE | 2020-11-30 12:58 | P.DS_ITS ---
History of Present Illness History of Present Illness Chief complaint: Fever Narrative: Patient is an 85-year-old female dementia who presented on admission 1 day after receiving her 2nd COVID vaccination with a history of weakness and increase mental status change and was found in the ED to have bacteriuria. She was admitted to the hospital for sepsis secondary to presumed UTI Discharge Providers Provider Date of admission: 11/28/20 10:32 Discharge Date: 11/30/20 Primary care physician: Kolby Ayala DO Consults: 11/28/20 09:48 Consult to WIRE LOOP MACHINE OPERATOR - Manager Laundry Stat Comment: WIRE LOOP MACHINE OPERATOR Consult: Behavioral Health Assess 11/28/20 10:39 Consult to Discharge Planning Routine Comment: Consult to Occupational Therapy Evaluate & Treat Comment: Physician Instructions: Evaluate and treat Consult to Physical Therapy Evaluate & Treat Comment: Physician Instructions: Evaluate and Treat 11/30/20 11:37 Consult to Home Health Routine Comment: [facility] accepts the referral. Reason For Exam: HH RN/PT/OT/WIRE LOOP MACHINE OPERATOR at d/c Discharge provider: Joni Michel MD Summary Hospital Course Discharge Diagnosis: Sepsis/UTI Adverse reaction to COVID-19 vaccination Dementia Debility Hospital Course: Patient is an 85-year-old female dementia who presented on admission 1 day after receiving her 2nd COVID vaccination with a history of weakness and increase mental status change and was found in the ED to have bacteriuria 1. Sepsis Patient with altered mental status and and weakness with urinalysis with greater than 30 bacteria per high-power field. This felt that the sepsis is most likely related to the urinary tract infection in light of her positive urine for bacte riuria. However her urine culture returned no growth. It would therefore seem that sepsis was not present. During her hospitalization she remained afebrile and her white count remained unremarkable Because of her increased mental status change she did have CT of the head which revealed no acute pathology. 2. Presumed UTI This is based on her urinalysis with 30 bacteria per high-power field. Urine and blood cultures remain no growth to date The patient is on Rocephin IV empirically for the possibility of the infection. As her urine culture was no growth Rocephin was discontinued. Also her blood cultures have been no growth Follow blood and urine cultures 3. Questionable adverse reaction to COVID-19 vaccination Because of the timing of symptoms and her COVID-19 vaccination and her symptoms feel that this is most likely the case IG that she had adverse reaction to the COVID-19 vaccination. In this adverse reaction most likely explains her symptomatology. 3. Dementia She is on remained on her Namenda and Aricept during the hospitalization. She has did not have any problems with agitation or delirium. 4. Debility Because of her weakness will have PT OT saw the patient during admission. They advised home health PT OT and this has been set up Status at Discharge Cognitive/behavioral status at discharge: at baseline, confused and calm Functional status at discharge: uses cane/walker Overall status at discharge: patient is progressing back to baseline Time Spent with Patient Time spent: Greater than 30 minutes Exam Vital Signs (past 8 hours): - 11/30/20 07:33 11/30/20 08:00 11/30/20 12:18 Temperature 97.9 F 98.4 F Pulse Rate 72 68 Respiratory Rate 16 20 Blood Pressure 166/83 H 164/86 H Pulse Oximetry 96 96 96 Oxygen Delivery Method Room Air Oxygen Flow Rate 0 Narrative Exam Narrative: Constitutional: Patient laying in bed. NAD HEENT: Normocephalic atraumatic. extraocular movement intact. pupils equal round reactive. Funduscopic exam not done. Sclera and conjunctiva clear. Oropharynx clear. Neck: Supple without thyromegaly bruits or jugular venous distention Thorax: Symmetrical with good lateral expansion Respiratory: Lungs clear to auscultation on anterior exam Cardiovascular: Regular rhythm. S1S2 normal. There were no lifts he has rubs gallops murmurs present. GI: Benign, bowel sounds present : No Nova present Skin: Atrophic Neuro: Cranial nerves 2-12 grossly intact. Motor intact and equal active. S ensory modality a crude touch intact. Psychological: Awake alert follows commands. Mood is appropriate. She does have disorientation. However she is able to answer questions but is unable to answer place, time, year. Speech is fluent Objective Labs Result Diagrams: 11/30/20 06:05 11/30/20 06:05 Labs: Laboratory Results - last 24 hr 11/30/20 11/30/20 06:05 06:05 WBC 4.8 RBC 4.21 Hgb 12.8 Hct 38.3 MCV 91.1 MCH 30.4 MCHC 33.3 RDW 14.2 Plt Count 159 Neut % (Auto) 54.1 Lymph % (Auto) 30.4 [place] % (Auto) 12.4 Eos % (Auto) 1.8 L Baso % (Auto) 1.3 Neut # (Auto) 2600 Lymph # (Auto) 1500 [place] # (Auto) 600 Eos # (Auto) 100 Baso # (Auto) 100 Sodium 139 Potassium 3.5 Chloride 106 Carbon Dioxide 31 BUN 11 Creatinine 0.58 Estimated GFR > 60.0 BUN/Creatinine Ratio 19.0 Glucose 95 Calcium 8.8 Total Bilirubin < 0.1 L AST 132 H ALT 82 H Alkaline Phosphatase 66 Total Protein 6.3 Albumin 3.5 Globulin 2.8 Albumin/Globulin Ratio 1.3 PROCEDURE: XR CHEST 1V FINDINGS: Surgical changes and devices: None. Lungs and pleura: Minimal perihilar patchy opacity. Low lung volumes. No pleural effusions or pneumothorax. Mediastinum: Mediastinal contours appear normal. Heart size is prominent. Bones and chest wall: No suspicious bony lesions. Overlying soft tissues appear unremarkable. IMPRESSION: Minimal perihilar patchy opacity. This could be seen in atypical infection versus pulmonary edema. Cardiomegaly. This report is concordant with the overnight preliminary interpretation. Dictated by: Chadwick Ortega M.D. on 11/28/2020 at 8:04 Approved by: Chadwick Ortega M.D. on 11/28/2020 at 8:07 PROCEDURE: CT HEAD/BRAIN WO CON COMPARISON: [facility], CT, HEAD WITHOUT CONTRAST, 01/12/2017, 9:12. FINDINGS: Image quality: Excellent. CSF spaces: Basal cisterns are patent. No extra-axial fluid collections. The ventricles are symmetric in size and shape. Brain: No intracranial bleeds or masses. There is cerebral volume loss for age, with resultant ventricular and sulcal prominence. There are periventricular and deep white matter chronic small vessel ischemic changes. There is intracranial internal carotid artery atherosclerosis. Skull and face: Calvarium and visualized facial bones appear intact, without suspicious lesions. Sinuses: Visualized sinuses and mastoids are clear. IMPRESSION: 1. No CT evidence of acute intracranial pathology. 2. Diffuse atrophy and moderate white matter chronic small vessel ischemic changes not significantly changed from prior study. Dictated by: Erick Colin M.D. on 11/28/2020 at 9:30 Approved by: Erick Colin M.D. on 11/28/2020 at 9:31 ECG Data Attestation: I personally reviewed and interpreted this ECG as follows: Prior ECG tracings: not available for review Interpretation: Sinus rhythm normal axis no acute ST T wave changes [facility] Medical History (Updated 11/28/20 @ 10:22 by Deven Alan DO) Alzheimer's type dementia (2013) Closed fracture of left distal radius (03/15/14) Cognitive dysfunction (2009) Colon polyps Depression Gastritis Heart murmur Hyperlipidemia IBS (irritable bowel syndrome) Meniere's disease Urinary incontinence, mixed Surgical History History of bilateral salpingo-oophorectomy History of surgery on arm (03/16/14) Normal colonoscopy (2012) Status post appendectomy (2003) Status post colectomy (2003) Status post epidural steroid injection (03/06/10) Family History Father Colorectal cancer Mother Dementia Social History household members: spouse Smoking Status: Never smoker alcohol intake: never Discharge Plan Discharge Plan Patient Disposition: Home Discharge orders & Medications Prescriptions: Continued CA PANTOTHENATE/FOLIC ACID/VIT (MULTIVITAMIN) 1 tab PO Q DAY Qty: 0 RF: 0 Calcium Carbonate/Vitamin D (#CALCIUM) 1 cap PO QDAY Qty: 0 RF: 0 Fish Oil 1,000 mg PO QDAY Qty: 0 RF: 0 CHOLECALCIFEROL (VITAMIN D) 2,000 units PO QDAY Qty: 0 RF: 0 ginkgo biloba 60 MG capsule 60 mg PO BID Qty: 0 RF: 0 tolterodine [Detrol LA] 4 mg capsule,extended release 24hr 4 mg PO DAILY Qty: 30 RF: 11 atorvastatin 20 mg tablet 20 mg PO BEDTIME Qty: 90 RF: 3 memantine [Namenda] 10 mg tablet 5 mg PO BID Qty: 90 RF: 3 donepezil [Aricept] 10 mg tablet 10 mg PO QDAY Qty: 90 RF: 3 estradiol 10 mcg tablet See Rx Instructions .ROUTE .COMPLEX Qty: 36 RF: 2 citalopram 40 mg tablet 40 mg PO Q DAY MDD 40MG Qty: 90 RF: 3 Follow up/Referrals: Kolby Ayala, [Primary Care Provider] - Diet/Activity/Treatments Diet: Diet as Tolerated and Regular Visit Report/Discharge Packet Instructions: DI for Muscle Weakness Discharge Data Primary Care Provider: Kolby Ayala
--- NOTE | 2020-11-30 13:53 | PC.NURSE ---
Discharge education given to pt and spouse, discussed- home safety, medications, f/u appts, s/s of stroke, reasons to seek medical attention. Pt and expressed understanding. No IV in place. Dressed with assistance. All belongings sent with spouse to POV. Pt left via w/c accompanied by AGENCY LEGAL COUNSEL.
== END 2020-11-30 13:54 | disposition home or self-care (01) | DRG 948 ==
LOC: ED 10:22 → AC 14:23
PROVIDERS: Emergency Medicine; Nurse Practitioner Family; Admitting Provider Internal Medicine; Emergency Provider Emergency Medicine; PCP Family Medicine; Referring Provider Emergency Medicine; Visit Provider Internal Medicine
DX: R41.82 Altered mental status, unspecified (principal); T88.1XXA Other complications following immunization, not elsewhere classified, initial encounter; G30.9 Alzheimer's disease, unspecified; F02.80 Dementia in other diseases classified elsewhere, unspecified severity, without behavioral disturbance, psychotic disturbance, mood disturbance, and anxiety; R50.9 Fever, unspecified; M79.10 Myalgia, unspecified site; E78.5 Hyperlipidemia, unspecified; R53.1 Weakness; Z20.822 Contact with and (suspected) exposure to COVID-19
CPT/HCPCS: 36415; 70450; 71045; 80053; 81001; 83605; 83880; 84484; 85025; 87040; 87086; 87635; 93005; 96374; 97116; 97162; 97165; 97530; 97535; 99284; C9803; J0696; J1644

== ENCOUNTER → 2020-12-10 08:43 | Outpatient (CLI) | payer MEDICARE, OTHER, SELFPAY ==
[2020-11-28 10:50] VITALS: BMI 31.1
[2020-12-10 08:49] LABS: Bacteria Urine None Seen; RBC Urine None Seen (0-5/HPF)
[2020-12-10 10:25] LABS: Add Manual Diff / Slide Review NO; Basophils Absolute Auto 100 /uL (0-100); Basophils Percent Auto 0.9 % (0-2); Eosinophils Absolute Auto 100 /uL (0-450); Eosinophils Percent Auto 1.1 % (2-4); Hematocrit 42.8 % (36-46); Hemoglobin 14.3 g/dL (12.0-16.0); Lymphocytes Absolute Auto 1300 /uL (1100-4500); Lymphocytes Percent Auto 21.2 % (25-40); Mean Corpuscular HGB Conc 33.4 % (30-36); Mean Corpuscular Hemoglobin 30.6 PG (26-34); Mean Corpuscular Volume 91.4 fL (80-100); Monocytes Absolute Auto 500 /uL (0-900); Monocytes Percent Auto 7.5 % (3-14); Neutrophils Absolute Auto 4200 /uL (1500-7000); Neutrophils Percent Auto 69.3 % (50-75); Platelet Count 224 X10^3/uL (150-400); Red Blood Cell Count 4.68 X10^6/uL (4.0-5.2); White Blood Cell Count 6.1 X10^3/uL (4.5-11.0)
[2020-12-10 10:53] LABS: Alanine Aminotransferase 46 IU/L (<35); Albumin 4.4 g/dL (3.5-5.0); Albumin Globulin Ratio 1.4 (1.0-2.8); Alkaline Phosphatase 80 U/L (38-126); Aspartate Aminotransferase 32 IU/L (14-36); Bilirubin Total 0.3 mg/dL (0.2-1.3); Blood Urea Nitrogen 20 mg/dL (7-17); Calcium 10.4 mg/dL (8.4-10.2); Carbon Dioxide 34 mmol/L (22-32); Chloride 101 mmol/L (98-107); Estimated Glomerular Filt Rate 58.8 mL/min (>60); Globulin 3.2 g/dL (1.7-4.1); Glucose 90 mg/dL (80-110); HEMOLYSIS < 15 (0-50); Potassium 4.1 mmol/L (3.4-5.1); Sodium 137 mmol/L (137-145); Total Protein 7.6 g/dL (6.3-8.2)
[2020-12-10 11:15] LABS: Thyroid Stimulating Hormone 1.95 uIU/mL (0.47-4.68)
[2020-12-10 13:34] LABS: Appearance Urine UA CLEAR; Bilirubin Urine UA NEGATIVE (NEGATIVE); Color Urine UA YELLOW; Glucose Urine UA NEGATIVE (Negative); Ketones Urine UA NEGATIVE (NEGATIVE); Leukocyte Esterase Urine UA TRACE (NEGATIVE); Nitrite Urine UA NEGATIVE (Negative); Occult Blood Urine UA NEGATIVE (Negative); Protein Urine UA NEGATIVE (Negative); Urobilinogen Urine UA 0.2 E.U./dL (0.2)
[2020-12-10 13:46] LABS: Culture Indicated Urine Cult Not Indicated; Renal Epithelial Cells Urine 5-10/HPF (0-1/HPF); Squamous Epithelial Cell Urine 5-10 /HPF (0-5/HPF); WBC Urine 10-30/HPF (0-5/HPF)
== END ==
PROVIDERS: PCP Family Medicine; Referring Provider Family Medicine; Visit Provider Family Medicine
DX: G30.9 Alzheimer's disease, unspecified (principal); F02.80 Dementia in other diseases classified elsewhere, unspecified severity, without behavioral disturbance, psychotic disturbance, mood disturbance, and anxiety; E78.2 Mixed hyperlipidemia; N39.0 Urinary tract infection, site not specified
CPT/HCPCS: 36415; 80053; 81001; 84443; 85025

== ENCOUNTER 2021-03-23 20:37 | Emergency (ER) | payer MEDICARE, OTHER, SELFPAY ==
[2020-11-28 10:50] VITALS: BMI 31.1
[2021-03-23 20:40] VITALS: BP 108/63; PULSE 72; RESP 18; TEMP 36.5; O2SAT 93; BMI 23.6
--- NOTE | 2021-03-23 22:45 | DI.RAD.S_ITS ---
PROCEDURE: XR CHEST 1V INDICATIONS: chest pain TECHNIQUE: One view of the chest was acquired. COMPARISON: [facility], , CHEST 2 VIEW, 12/21/2016, 12:21. [facility], , XR CHEST 1V, 11/28/2020, 6:58. FINDINGS: Surgical changes and devices: None. Lungs and pleura: Probable small left pleural effusion. Left basilar opacity may be infiltrate, scar or atelectasis. No pneumothorax. Mediastinum: Mediastinal contours appear normal. Heart size is normal. Bones and chest wall: No suspicious bony lesions. Overlying soft tissues appear unremarkable. IMPRESSION: 1. Small left pleural effusion with left basilar infiltrate, scar or atelectasis. No significant discrepancy with the shift production supervisor radiology preliminary report. Dictated by: Esthela See M.D. on 03/24/2021 at 9:03 Approved by: Esthela See M.D. on 03/24/2021 at 9:04
--- NOTE | 2021-03-23 22:50 | DI.CT.S_ITS ---
PROCEDURE: CT HEAD/BRAIN WO CON INDICATIONS: altered mental status TECHNIQUE: Noncontrast 4.5 mm thick angled axial sections acquired from the foramen magnum to the vertex, with coronal and sagittal reformats. For radiation dose reduction, the following was used: automated exposure control, adjustment of mA and/or kV according to patient size. COMPARISON: [facility], CT, CT HEAD/BRAIN WO CON, 11/28/2020, 9:16. FINDINGS: Image quality: Excellent. CSF spaces: Basal cisterns are patent. No extra-axial fluid collections. The ventricles are symmetric in size and shape. Brain: No intracranial bleeds or masses. There is severe cerebral volume loss for age, with resultant ventricular and sulcal prominence. There are severe periventricular and deep white matter chronic small vessel ischemic changes. There is intracranial internal carotid artery atherosclerosis. Skull and face: Calvarium and visualized facial bones appear intact, without suspicious lesions. Sinuses: Visualized sinuses and mastoids are clear. IMPRESSION: 1. No acute intracranial abnormalities. 2. Cerebral volume loss and chronic microvascular ischemic changes. No significant discrepancy with the production shift supervisor radiology preliminary report. Dictated by: Esthela See M.D. on 03/24/2021 at 7:33 Approved by: Esthela See M.D. on 03/24/2021 at 7:34
[2021-03-23 23:08] VITALS: BP 110/54; PULSE 68; RESP 16; O2SAT 95
[2021-03-23 23:08] LABS: Basophils Absolute Auto 100 /uL (0-100); Basophils Percent Auto 0.7 % (0-2); Eosinophils Absolute Auto 100 /uL (0-450); Eosinophils Percent Auto 0.5 % (2-4); Hematocrit 39.2 % (36-46); Lymphocytes Absolute Auto 1300 /uL (1100-4500); Lymphocytes Percent Auto 13.1 % (25-40); Mean Corpuscular HGB Conc 33.2 % (30-36); Mean Corpuscular Hemoglobin 30.2 PG (26-34); Mean Corpuscular Volume 90.9 fL (80-100); Monocytes Absolute Auto 700 /uL (0-900); Monocytes Percent Auto 7.1 % (3-14); Neutrophils Absolute Auto 7900 /uL (1500-7000); Neutrophils Percent Auto 78.6 % (50-75); Platelet Count 168 X10^3/uL (150-400); Red Blood Cell Count 4.31 X10^6/uL (4.0-5.2); Red Cell Distribution Width 14.1 % (11.6-14.8)
[2021-03-23 23:09] LABS: Add Manual Diff / Slide Review SLIDE REVIEW
[2021-03-23 23:25] LABS: Alanine Aminotransferase 22 IU/L (<35); Albumin 3.7 g/dL (3.5-5.0); Albumin Globulin Ratio 1.2 (1.0-2.8); Alkaline Phosphatase 87 U/L (38-126); Aspartate Aminotransferase 30 IU/L (14-36); BUN Creatinine Ratio 28.3 (6-22); Bilirubin Total 0.3 mg/dL (0.2-1.3); Blood Urea Nitrogen 26 mg/dL (7-17); Calcium 9.2 mg/dL (8.4-10.2); Carbon Dioxide 27 mmol/L (22-32); Chloride 103 mmol/L (98-107); Creatine Kinase 45 U/L (30-135); Glucose 113 mg/dL (80-110); HEMOLYSIS 17 (0-50); Lipase 104 U/L (23-300); Potassium 4.2 mmol/L (3.4-5.1); Sodium 134 mmol/L (137-145); Total Protein 6.7 g/dL (6.3-8.2)
[2021-03-23 23:35] LABS: RBC Morphology Normal Morphology
[2021-03-23 23:37] LABS: Troponin I < 0.012 ng/mL (0.01-0.034)
--- NOTE | 2021-03-24 00:05 | ED.GENADULT ---
HPI - General Adult General Chief complaint: Weakness Stated complaint: Weakness Time Seen by Provider: 03/23/21 21:11 Source: EMS Mode of arrival: EMS Limitations: altered mental status History of Present Illness HPI narrative: Patient is a 85-year-old female with a history of Alzheimer's disease. She is here with her for evaluation of weakness. The patient's states that with some assistance she normally can walk without much problems. He states that this evening she went into the restroom to brush her teeth. When she came out she stated that she wanted to go to bed. He states that then he tried to help her go up the stairs but she could not make for step. He stated that then she was having problems getting around he actually had to set her down on the ground. She did not fall. That is when he called EMS. The patient is unable to provide any HPI secondary to her history of dementia. She also reports no symptoms. Related Data Home Medications Medication Instructions Recorded Confirmed CA PANTOTHENATE/FOLIC ACID/VIT 1 tab PO Q DAY #0 05/11/11 11/28/20 (MULTIVITAMIN) Calcium Carbonate/Vitamin D 1 cap PO QDAY #0 05/11/11 11/28/20 (#CALCIUM) Fish Oil 1,000 mg PO QDAY #0 10/24/12 11/28/20 CHOLECALCIFEROL (VITAMIN D) 2,000 units PO QDAY #0 tab 06/13/13 11/28/20 ginkgo biloba 60 mg capsule 60 mg PO BID #0 06/11/16 11/28/20 Previous Rx's Medication Instructions Recorded tolterodine 4 mg capsule,extended 4 mg PO DAILY #30 cap 04/14/20 release 24 hr (Detrol LA) atorvastatin 20 mg tablet 20 mg PO BEDTIME #90 tab 05/01/20 donepezil 10 mg tablet (Aricept) 10 mg PO QDAY #90 tab 07/18/20 memantine 10 mg tablet (Namenda) 5 mg PO BID #90 tab 07/18/20 estradiol 10 mcg vaginal tablet See Rx Instructions .ROUTE 08/18/20 .COMPLEX #36 tab citalopram 40 mg tablet 40 mg PO Q DAY #90 tab MDD 40MG 10/17/20 Allergies Allergy/AdvReac Type Severity Reaction Status Date / Time No Known Drug Allergies Allergy Verified 04/28/20 10:34 Review of Systems Review of Systems Narrative: Patient reports no symptoms but this is limited secondary to her history of dementia. Patient History Medical History Alzheimer's type dementia (2013) Closed fracture of left distal radius (03/15/14) Cognitive dysfunction (2009) Colon polyps Depression Gastritis Heart murmur Hyperlipidemia IBS (irritable bowel syndrome) Meniere's disease Urinary incontinence, mixed Surgical History History of bilateral salpingo-oophorectomy History of surgery on arm (03/16/14) Normal colonoscopy (2012) Status post appendectomy (2003) Status post colectomy (2003) Status post epidural steroid injection (03/06/10) Family History Father Colorectal cancer Mother Dementia Social History household members: spouse Smoking Status: Never smoker alcohol intake: never Smoking Status: Never smoker Substance Use Type: does not use Exam Initial Vital Signs Initial Vital Signs: Vital Signs Temperature 97.7 F 03/23/21 20:40 Pulse Rate 72 03/23/21 20:40 Respiratory Rate 18 03/23/21 20:40 Blood Pressure 108/63 03/23/21 20:40 Pulse Oximetry 93 03/23/21 20:40 Const General: cooperative and healthy appearing [facility] Head: normal to inspection and normocephalic Resp Auscultation: clear to auscultation bilaterally Cardio Rate: regular rate Skin General: no rashes or lesions noted Neuro General: patient alert and patient awake Extrem General: capillary refill normal Psych Appearance: grossly normal and well kempt Course Orders Ordered: ED Orders 03/23/21 22:45 XR chest 1V Stat EKG-12 Lead Stat 03/23/21 22:50 CT head/brain wo con Stat 03/23/21 22:55 Complete Blood Count AUTO DIFF Stat Comprehensive Metabolic Panel Stat Lipase Stat Troponin & CK Cardiac Panel Stat Vital Signs Vital signs: Vital Signs - 8 hr 03/23/21 20:40 03/23/21 23:08 03/24/21 00:35 Temperature 97.7 F Pulse Rate 72 68 72 Respiratory Rate 18 16 16 Blood Pressure 108/63 110/54 L 153/67 H Pulse Oximetry 93 95 95 Medical Decision Making Medical Records Medical records reviewed: Yes I reviewed the patient's medical records. Lab Data Lab results reviewed: Yes I reviewed the patient's lab results. Result diagrams: 03/23/21 22:55 03/23/21 22:55 Labs: Lab Results 03/23/21 03/23/21 Range/Units 22:55 22:55 WBC 10.0 (4.5-11.0) X10^3/uL RBC 4.31 (4.0-5.2) X10^6/uL Hgb 13.0 (12.0-16.0) g/dL Hct 39.2 (36-46) % MCV 90.9 (80-100) fL MCH 30.2 (26-34) PG MCHC 33.2 (30-36) % RDW 14.1 (11.6-14.8) % Plt Count 168 (150-400) X10^3/uL Neut % (Auto) 78.6 H (50-75) % Lymph % (Auto) 13.1 L (25-40) % [place] % (Auto) 7.1 (3-14) % Eos % (Auto) 0.5 L (2-4) % Baso % (Auto) 0.7 (0-2) % Neut # (Auto) 7900 H (0316-2778) /uL Lymph # (Auto) 1300 (6496-4217) /uL [place] # (Auto) 700 (0-900) /uL Eos # (Auto) 100 (0-450) /uL Baso # (Auto) 100 (0-100) /uL Plt Morphology Comment - RBC Morphology Normal morphology Sodium 134 L (137-145) mmol/L Potassium 4.2 (3.4-5.1) mmol/L Chloride 103 (98-107) mmol/L Carbon Dioxide 27 (22-32) mmol/L BUN 26 H (7-17) mg/dL Creatinine 0.92 (0.52-1.04) mg/dL Estimated GFR 58.0 L (>60) mL/min BUN/Creatinine Ratio 28.3 H (6-22) Glucose 113 H (80-110) mg/dL Calcium 9.2 (8.4-10.2) mg/dL Total Bilirubin 0.3 (0.2-1.3) mg/dL AST 30 (14-36) IU/L ALT 22 (<35) IU/L Alkaline Phosphatase 87 (38-126) U/L Total Creatine Kinase 45 (30-135) U/L CK-MB (CK-2) TNP CK-MB (CK-2) Rel Index TNP Troponin I < 0.012 (0.01-0.034) ng/mL Total Protein 6.7 (6.3-8.2) g/dL Albumin 3.7 (3.5-5.0) g/dL Globulin 3.0 (1.7-4.1) g/dL Albumin/Globulin Ratio 1.2 (1.0-2.8) Lipase 104 (23-300) U/L Imaging Data Chest x-ray: Radiologist's Impression: Left basilar infiltrate A tiny left pleural effusion is questioned CT scan - head: Radiologist's Impression: No acute disease ECG Data Interpretation: Sinus rhythm Ventricular rate is 68 Normal axis Normal QRS Normal QTC No ST T wave changes MDM Narrative Medical decision making narrative: Patient is at baseline mental status per her who is at bedside. Head CT is unremarkable. I do have low suspicion for pneumonia despite the finding on the chest x-ray. Patient was able to walk at baseline to the bathroom here in the emergency department. I feel that we can hold on further workup for now. was given return precautions. He expressed understanding and agreement. Discharge Plan Departure Patient Disposition: Home Clinical Impression: Weakness, Alzheimer's disease Instructions: Exercises to Help Prevent Falls Activity Restrictions/Additional Instructions: Recommend that you continue all of her medications and try to keep her hydrated as possible. Contact her primary doctor for follow-up. Return to the emergency department for any new or worsening symptoms Prescriptions: No Action CA PANTOTHENATE/FOLIC ACID/VIT (MULTIVITAMIN) 1 tab PO Q DAY Qty: 0 RF: 0 Calcium Carbonate/Vitamin D (#CALCIUM) 1 cap PO QDAY Qty: 0 RF: 0 Fish Oil 1,000 mg PO QDAY Qty: 0 RF: 0 CHOLECALCIFEROL (VITAMIN D) 2,000 units PO QDAY Qty: 0 RF: 0 ginkgo biloba 60 MG capsule 60 mg PO BID Qty: 0 RF: 0 tolterodine [Detrol LA] 4 mg capsule,extended release 24hr 4 mg PO DAILY Qty: 30 RF: 11 atorvastatin 20 mg tablet 20 mg PO BEDTIME Qty: 90 RF: 3 memantine [Namenda] 10 mg tablet 5 mg PO BID Qty: 90 RF: 3 donepezil [Aricept] 10 mg tablet 10 mg PO QDAY Qty: 90 RF: 3 estradiol 10 mcg tablet See Rx Instructions .ROUTE .COMPLEX Qty: 36 RF: 2 citalopram 40 mg tablet 40 mg PO Q DAY MDD 40MG Qty: 90 RF: 3 Referrals: Kolby Ayala, [Primary Care Provider] -
[2021-03-24 00:35] VITALS: BP 153/67; PULSE 72; RESP 16; O2SAT 95
== END 2021-03-24 00:35 | disposition home or self-care (01) ==
PROVIDERS: Emergency Provider Emergency Medicine; PCP Family Medicine
DX: R53.1 Weakness (principal); G30.9 Alzheimer's disease, unspecified; R07.9 Chest pain, unspecified; R41.82 Altered mental status, unspecified
CPT/HCPCS: 36415; 70450; 71045; 80053; 82550; 82553; 83690; 84484; 85025; 99284

== ENCOUNTER 2021-07-03 12:00 | Outpatient (RCR) | payer MEDICARE, OTHER, SELFPAY ==
[2020-11-28 10:50] VITALS: BMI 31.1
--- NOTE | 2021-06-23 17:44 | PT.OIE ---
Current Diagnoses Dementia in other diseases classified elsewhere without behavioral disturbance (06/23/21) Alzheimer's disease with late onset (06/23/21) Ataxic gait (06/23/21) Other abnormalities of gait and mobility (06/23/21) Ataxia, unspecified (06/23/21) Unspecified lack of coordination (06/23/21) Past Medical History (Last Reviewed 03/24/21 @ 04:24 by Deven Alan DO) Alzheimer's type dementia (2013) Closed fracture of left distal radius (03/15/14) Cognitive dysfunction (2009) Colon polyps Depression Gastritis Heart murmur History of bilateral salpingo-oophorectomy History of surgery on arm (03/16/14) Hyperlipidemia IBS (irritable bowel syndrome) Meniere's disease Status post appendectomy (2003) Status post epidural steroid injection (03/06/10) Urinary incontinence, mixed Past Surgical History (Last Reviewed 11/28/20 @ 06:49 by Sania Tesfaye MD) History of bilateral salpingo-oophorectomy History of surgery on arm (03/16/14) Normal colonoscopy (2012) Status post appendectomy (2003) Status post colectomy (2003) Status post epidural steroid injection (03/06/10) Visit Care Team Role Provider Type Kolby Ayala DO Family Provider Physician Primary Care Provider Specialty: Family Practice Address: [address] [place] [address], [id number] Email: [email or web address] Attending Provider Non-Staff Referring Provider Specialty: Neurology Address: [address] [place] [address], [phone] Email: Physical Therapy Initial Evaluation PT-OP-A Visit Information Start: 06/23/21 14:13 Freq: Status: Active Protocol: Document 06/23/21 12:00 DCW (Rec: 06/23/21 14:25 DCW [id number]) Out-Patient Physical Therapy Visit Information Visit Information Visit Type Initial Evaluation Visit Start Time 12:00 Visit Stop Time 12:45 Total Visit Minutes 45 Visit Number 1 Number of CRYOLITE RECOVERY OPERATOR Visits 0 Evaluation Information Evaluation Date 06/23/21 PT-OP-B Current Condition Start: 06/23/21 14:13 Freq: Status: Active Protocol: Document 06/23/21 12:00 DCW (Rec: 06/23/21 14:25 DCW [id number]) Current Condition History of Current Condition Onset Date ~14 month history Current Complaints Difficulty with gait, balance History of Current Condition Pt attends todays evaluation with her . Pt has fairly severe Alzheimer's disease, and her is the main historian. Pt presents with concerns regarding her gait and balance , and her is curious about different assistive devices. notes that there has been a slow, gradual decline in pt's function over the past 14 months, and her cognition has declined in that time as well. has been resistant thus far to using a walker, he feels that if you use it for two days, then you're stuck with it the rest of your life. Notes she has not had an actual fall, but feels her strange gait is due to a fear of falling. notes that he has tried a cane, but she just carries it at her side. PT-OP-C Subjective Start: 06/23/21 14:13 Freq: Status: Active Protocol: Document 06/23/21 12:00 DCW (Rec: 06/23/21 14:25 DCW [id number]) OP-PT Subjective Patient Comments Patient Comments Pt notes that just trying different assistive devices sounds like way too much work. Patient Reported Progress Worse Patient Questionnaires Lower Extremity Functional Scale LEFS Score 20/80 = 25% LEFS Impairment 60 to 79% Impaired (Score 17- 31) OP-PT Pain Assessment Pain Assessment Grid Paper Pain Assessment Grid Completed Yes: No pain PT-OP-G Mobility & Gait Start: 06/23/21 14:13 Freq: Status: Active Protocol: Document 06/23/21 12:00 DCW (Rec: 06/23/21 14:28 DCW [id number]) OP Gait Assessment Gait Gait Assistance Required: Minimum Assistance Distance (Feet) 100 Assistive Devices Assistive Device None,Gait Belt,Straight Cane, Front Wheeled Walker,4 Wheeled Walker Gait Deviations General Gait Pattern Ataxic,Decreased Stride Length ,Decreased Feet Clearance, Flexed Trunk,Narrow Based Gait ,Step-to Gait Factors Limiting Gait Function Factors Limiting Gait Function Abnormal Tonal Influences, Decreased Activity Tolerance, Difficulty Following Directions,Incoordination, Limited Range of Motion,Poor Balance,Poor Safety Awareness Comments Gait Comments Pt requires supporting herself on her to ambulate any distance, taking very small, shuffling steps, despite 's verbal cues for longer steps. Pt ambulates with both a forward trunk flexion and knee flexion. Pt unable to follow direction using SPC, carries it at her side, will only place it down once in a while even with verbal cues, fatigued quickly. FWW and 4WW resulted in immediate improved stride length, stability, confidence, and pt's tolerance to activity, as well as improved knee extension in standing. PT-OP-M Strength Start: 06/23/21 14:13 Freq: Status: Active Protocol: Document 06/23/21 12:00 DCW (Rec: 06/23/21 17:27 [facility] [id number]) Hip Strength Hip Manual Muscle Testing Bilateral Flexion (L2) 4- Good- Abduction 4- Good- Adduction 4- Good- Comments At least 4-/5, pt had difficulty following instructions Knee Strength Knee Manual Muscle Testing Bilateral Flexion (S2) 4- Good- Extension (L3) 4- Good- Comments At least 4-/5, pt had difficulty following instructions PT-OP-Q Treatments Start: 06/23/21 14:13 Freq: Status: Active Protocol: Document 06/23/21 12:00 DCW (Rec: 06/23/21 17:27 [facility] [id number]) Gait Training Gait Activity 1 Description Trial of assistive devices Device Used Cane, FWW, 4WW Level of Assistance SBA -> Min A PT-OP-T Assessment and Plan Start: 06/23/21 14:13 Freq: Status: Active Protocol: Document 06/23/21 12:00 DCW (Rec: 06/23/21 17:44 [facility] [id number]) Physical Therapy Assessment Rehab Potential Rehabilitation Potential Fair Evaluation Complexity Number of Personal Factors/Comorbidities 3 or More Number of Body Systems Impaired 4 or More Clinical Presentation at Evaluation Unstable Impairments Impairments Balance,Gait,Transfers Goals One Impairment Pt amb with shuffling gait, poor balance, and decreased safety awareness Short Term Goal (STG) Pt to ambulate 80% of the time using a FWW to improve gait pattern and decrease burden of care STG Duration 07/23/21 Assessment Summary Assessment Pt presents with a very poor, unsafe gait pattern, causing her to rely on holding on to her at any time she is up and walking. Pt takes short, shuffling steps, walks with a forward flexed trunk, walks with her knees flexed, has minimal foot clearance, and displays an ataxic gait. Trial with a cane went very poorly, pt unable to sequence or even keep cane on the floor secondary to Alzheimer's. Pt actually looked much better when using either the FWW or 4WW, even verbalized this is easy. Pt immediately increased stride length, decreased sway and trunk flexion, and improved gait tolerance. Pt's went from reporting he was hesitant about getting a walker, because she'll rely on it too much, to I'm sold, I 'm going to check and see if [facility] has one. There was some confusion about what pt's expected from skilled therapy. Discussed if they just wanted AD recommendations , or if they wanted more intensive balance and gait training. unsure if pt would be able to participate in actual therapy. Pt fell asleep sitting EOB almost immediately every single time she was not being directly spoken to. agrees that getting her up and around and driving in and walking into the clinic wears her out a lot , and any additional workout would likely be too much at this point. Decision for now is that pt's is going to try to obtain a walker, and they will then attend one more appointment to make sure everything is sized correctly and pt can use appropriately, and then may discharge following that appointment. Therapist did recommend that if getting to the clinic was too much work, pt may benefit from home health PT, which may also be beneficial to allow pt to remain in a familiar location in order to decrease confusion. will consider this. Physical Therapy Plan Frequency and Duration Frequency of Treatment 1x/Week Duration of Treatment One month Plan of Care Start Date 06/23/21 Plan of Care End Date 07/23/21 Therapeutic Interventions Therapeutic Interventions Balance Training,Coordination Training,Gait Training,Home Exercise Program,Patient/ Caregiver Education,Self-Care/ Home Management,Therapeutic Exercises Next Visit Focus/Plan Next Note Type Treatment Note Next Visit Plan Walker management
--- NOTE | 2021-06-23 17:44 | PT.OPPOC ---
Physical, Occupational & Speech Therapy At [facility] Current Diagnoses Dementia in other diseases classified elsewhere without behavioral disturbance (06/23/21) Alzheimer's disease with late onset (06/23/21) Ataxic gait (06/23/21) Other abnormalities of gait and mobility (06/23/21) Ataxia, unspecified (06/23/21) Unspecified lack of coordination (06/23/21) Visit Care Team Role Provider Type Kolby Ayala DO Family Provider Physician Primary Care Provider Specialty: Family Practice Address: [address] [place] [address], [id number] Email: [email or web address] Attending Provider Non-Staff Referring Provider Specialty: Neurology Address: [address] [place] [address], [phone] Email: Plan Of Care PT-OP-T Assessment and Plan Start: 06/23/21 14:13 Freq: Status: Active Protocol: Document 06/23/21 12:00 DCW (Rec: 06/23/21 17:44 DCW [id number]) Physical Therapy Assessment Rehab Potential Rehabilitation Potential Fair Evaluation Complexity Number of Personal Factors/Comorbidities 3 or More Number of Body Systems Impaired 4 or More Clinical Presentation at Evaluation Unstable Impairments Impairments Balance,Gait,Transfers Goals One Impairment Pt amb with shuffling gait, poor balance, and decreased safety awareness Short Term Goal (STG) Pt to ambulate 80% of the time using a FWW to improve gait pattern and decrease burden of care STG Duration 07/23/21 Assessment Summary Assessment Pt presents with a very poor, unsafe gait pattern, causing her to rely on holding on to her at any time she is up and walking. Pt takes short, shuffling steps, walks with a forward flexed trunk, walks with her knees flexed, has minimal foot clearance, and displays an ataxic gait. Trial with a cane went very poorly, pt unable to sequence or even keep cane on the floor secondary to Alzheimers. Pt actually looked much better when using either the FWW or 4WW, even verbalized this is easy. Pt immediately increased stride length, decreased sway and trunk flexion, and improved gait tolerance. Pt's went from reporting he was hesitant about getting a walker, because she'll rely on it too much, to I'm sold, I 'm going to check and see if [facility] has one. There was some confusion about what pt's expected from skilled therapy. Discussed if they just wanted AD recommendations , or if they wanted more intensive balance and gait training. unsure if pt would be able to participate in actual therapy. Pt fell asleep sitting EOB almost immediately every single time she was not being directly spoken to. agrees that getting her up and around and driving in and walking into the clinic wears her out a lot , and any additional workout would likely be too much at this point. Decision for now is that pt's is going to try to obtain a walker, and they will then attend one more appointment to make sure everything is sized correctly and pt can use appropriately, and then may discharge following that appointment. Therapist did recommend that if getting to the clinic was too much work, pt may benefit from home health PT, which may also be beneficial to allow pt to remain in a familiar location in order to decrease confusion. will consider this. Physical Therapy Plan Frequency and Duration Frequency of Treatment 1x/Week Duration of Treatment One month Plan of Care Start Date 06/23/21 Plan of Care End Date 07/23/21 Therapeutic Interventions Therapeutic Interventions Balance Training,Coordination Training,Gait Training,Home Exercise Program,Patient/ Caregiver Education,Self-Care/ Home Management,Therapeutic Exercises Next Visit Focus/Plan Next Note Type Treatment Note Next Visit Plan Walker management Plan of Care Dates Plan of Care Start Date 06/23/21 Plan of Care End Date 07/23/21 Electronically Signed by: William Ojeda, PT 06/23/21 [id number] Please Sign and Return: I have reviewed this Plan of Care and certify that the skilled therapy services above are required to meet the patient?s needs. Physician Signature Date Printed Name and Credentials Clinical Instructor Signature Printed Name and Credentials
--- NOTE | 2021-07-03 12:22 | PT.OTN ---
Current Diagnoses Dementia in other diseases classified elsewhere without behavioral disturbance (07/03/21) Alzheimer's disease with late onset (07/03/21) Ataxic gait (07/03/21) Other abnormalities of gait and mobility (07/03/21) Ataxia, unspecified (07/03/21) Unspecified lack of coordination (07/03/21) Physical Therapy Treatment Note PT-OP-A Visit Information Start: 06/23/21 14:13 Freq: Status: Active Protocol: Document 07/03/21 12:00 DCW (Rec: 07/03/21 12:22 DCW [id number]) Out-Patient Physical Therapy Visit Information Visit Information Visit Type Discharge Summary Visit Start Time 12:00 Visit Stop Time 12:15 Total Visit Minutes 15 Visit Number 2 Number of RAP ARTIST Visits 0 PT-OP-B Current Condition Start: 06/23/21 14:13 Freq: Status: Active Protocol: Document 06/23/21 12:00 DCW (Rec: 06/23/21 14:25 DCW [id number]) Current Condition History of Current Condition Onset Date ~14 month history Current Complaints Difficulty with gait, balance History of Current Condition Pt attends todays evaluation with her . Pt has fairly severe Alzheimer's disease, and her is the main historian. Pt presents with concerns regarding her gait and balance , and her is curious about different assistive devices. notes that there has been a slow, gradual decline in pt's function over the past 14 months, and her cognition has declined in that time as well. has been resistant thus far to using a walker, he feels that if you use it for two days, then you're stuck with it the rest of your life. Notes she has not had an actual fall, but feels her strange gait is due to a fear of falling. notes that he has tried a cane, but she just carries it at her side. PT-OP-C Subjective Start: 06/23/21 14:13 Freq: Status: Active Protocol: Document 07/03/21 12:00 DCW (Rec: 07/03/21 12:22 DCW [id number]) OP-PT Subjective Patient Comments Patient Comments Per : The walker has been great, it's really met our expectations. PT-OP-G Mobility & Gait Start: 06/23/21 14:13 Freq: Status: Active Protocol: Document 06/23/21 12:00 DCW (Rec: 06/23/21 14:28 DCW [id number]) OP Gait Assessment Gait Gait Assistance Required: Minimum Assistance Distance (Feet) 100 Assistive Devices Assistive Device None,Gait Belt,Straight Cane, Front Wheeled Walker,4 Wheeled Walker Gait Deviations General Gait Pattern Ataxic,Decreased Stride Length ,Decreased Feet Clearance, Flexed Trunk,Narrow Based Gait ,Step-to Gait Factors Limiting Gait Function Factors Limiting Gait Function Abnormal Tonal Influences, Decreased Activity Tolerance, Difficulty Following Directions,Incoordination, Limited Range of Motion,Poor Balance,Poor Safety Awareness Comments Gait Comments Pt requires supporting herself on her to ambulate any distance, taking very small, shuffling steps, despite 's verbal cues for longer steps. Pt ambulates with both a forward trunk flexion and knee flexion. Pt unable to follow direction using SPC, carries it at her side, will only place it down once in a while even with verbal cues, fatigued quickly. FWW and 4WW resulted in immediate improved stride length, stability, confidence, and pt's tolerance to activity, as well as improved knee extension in standing. PT-OP-M Strength Start: 06/23/21 14:13 Freq: Status: Active Protocol: Document 06/23/21 12:00 DCW (Rec: 06/23/21 17:27 DCW [id number]) Hip Strength Hip Manual Muscle Testing Bilateral Flexion (L2) 4- Good- Abduction 4- Good- Adduction 4- Good- Comments At least 4-/5, pt had difficulty following instructions Knee Strength Knee Manual Muscle Testing Bilateral Flexion (S2) 4- Good- Extension (L3) 4- Good- Comments At least 4-/5, pt had difficulty following instructions PT-OP-Q Treatments Start: 06/23/21 14:13 Freq: Status: Active Protocol: Document 07/03/21 12:00 DCW (Rec: 07/03/21 12:22 DCW [id number]) Self-Care/Home Management Treatment Activities Self-Care/Home Management Activities Adjustment of walker, walker training, gait evaluation with walker PT-OP-T Assessment and Plan Start: 06/23/21 14:13 Freq: Status: Active Protocol: Document 07/03/21 12:00 DCW (Rec: 07/03/21 12:22 DCW [id number]) Physical Therapy Assessment Goals One Impairment Pt amb with shuffling gait, poor balance, and decreased safety awareness Short Term Goal (STG) Pt to ambulate 80% of the time using a FWW to improve gait pattern and decrease burden of care STG Duration Met Assessment Summary Assessment Pt ambulates substantially better using new FWW. Both pt and are very happy with her increased independence, have no questions or concerns. Pt will be discharged from out patient PT at this time. Physical Therapy Plan Frequency and Duration Frequency of Treatment 1x/Week Duration of Treatment One month Plan of Care Start Date 06/23/21 Plan of Care End Date 07/23/21 Therapeutic Interventions Therapeutic Interventions Balance Training,Coordination Training,Gait Training,Home Exercise Program,Patient/ Caregiver Education,Self-Care/ Home Management,Therapeutic Exercises Discharge Physical Therapy Discharge Reasons No Longer Attending PT Next Visit Focus/Plan Next Note Type Discharge Summary
== END 2021-07-14 10:35 ==
LOC: PHYS 12:00
PROVIDERS: Family Provider Family Medicine; PCP Family Medicine; Referring Provider Psychiatry & Neurology Neurology; Visit Provider Psychiatry & Neurology Neurology
DX: G30.1 Alzheimer's disease with late onset (principal); F02.80 Dementia in other diseases classified elsewhere, unspecified severity, without behavioral disturbance, psychotic disturbance, mood disturbance, and anxiety; R26.0 Ataxic gait; R26.89 Other abnormalities of gait and mobility
CPT/HCPCS: 97116; 97163; 97535

== ENCOUNTER 2021-12-24 08:19 | Observation (INO) | payer MEDICARE, OTHER, SELFPAY ==
[2020-11-28 10:50] VITALS: BMI 31.1
[2021-12-24] VITALS (19 sets, daily range): BP systolic 129–211; BP diastolic 59–89; PULSE 60–70; RESP 10–30; TEMP 36.2–37.2; O2SAT 93–99; BMI 24.1
--- NOTE | 2021-12-24 08:30 | DI.CT.S_ITS ---
PROCEDURE: CT ANGIO HEAD AND NECK INDICATIONS: dizzy/vomiting TECHNIQUE: Pre-contrast 4.5 mm thick sections acquired from the foramen magnum to the vertex. After the administration of intravenous contrast, 1 mm thick sections acquired from the aortic arch through the [place]. Post-contrast 4.5 mm thick sections then re-acquired from the foramen magnum to the vertex. 3-dimensional nofkgmw-jrifzdiyx-wfsxridmmh (MIP) and/or volume rendering reformats were acquired of the central intracranial vasculature and neck separately. COMPARISON: [facility], CT, CT CHEST ABD PEL W CON, 12/24/2021, 8:54. [facility], MR, MR HEAD/BRAIN WO CON, 05/19/2020, 9:31. [facility], CT, CT HEAD/BRAIN WO CON, 11/28/2020, 9:16. [facility], CT, CT HEAD/BRAIN WO CON, 03/23/2021, 23:12. FINDINGS: Image quality: Excellent. BRAIN: CSF spaces: Ventricles are normal in size and shape. Basal cisterns are patent. No extra-axial fluid collections. Brain: No midline shift. No intracranial bleeds or masses. Brown-white matter interface appears intact. Note is made of age-appropriate brain parenchymal volume loss and chronic small vessel ischemic changes. Skull and face: Calvarium and facial bones appear intact, without suspicious lesions. Orbits appear normal. Sinuses: Sinuses and mastoids are clear. HEAD CT ANGIOGRAPHY: Anterior circulation: Intracranial internal carotid arteries are normal in size and flow. There is a diminutive right A1 segment, with a corresponding robust left A1 segment. This is considered to be a normal developmental variant of the [place], of typically no clinical consequence. The flow within the paired anterior cerebral arteries is otherwise normal and symmetric. The flow within the middle cerebral arteries is normal and symmetric. The anterior communicating artery is seen. No aneurysms are seen. Posterior circulation: Note is made of bilateral type origins of the posterior cerebral arteries, with an associated diminutive basilar artery. The flow within the posterior cerebral arteries is normal and symmetric. The distal vertebral arteries are overall small in size, yet otherwise unremarkable. No aneurysms are seen. NECK CT ANGIOGRAPHY: Carotid system: The great vessels demonstrate a conventional anatomy as they arise from the aortic arch. The origins of the common carotid arteries appear patent. The common carotid arteries demonstrate normal caliber and courses. The bifurcation regions demonstrate atherosclerotic irregularity and calcification. There is 40-50% narrowing seen on the right and approximately 20% narrowing seen on left. The more distal internal carotid arteries demonstrate normal course and caliber. Posterior circulation: Focal calcification can be seen at the origin of the right vertebral artery, with approximately 50% narrowing. The left vertebral artery origin is unremarkable. The more superior extracranial portions of both vertebral arteries also demonstrate normal courses and calibers. The right vertebral artery is dominant to the left. Soft tissues: Visualized neck soft tissues demonstrate no suspicious abnormalities. Thyroid irregularity can be seen. Bones: No suspicious bony lesions. Visualized cervical spine appears normally aligned. Generalized bony degenerative changes are seen, which are worst involving the C1-C2 interface anteriorly and the C6-C7 level. IMPRESSION: No imaging explanation is found for this patient's presenting symptoms. There is 40-50% narrowing seen involving the right proximal internal carotid artery. There is approximately 50% narrowing seen involving the origin of the right vertebral artery. Incidental note is made of: Naterz-hc-Pjehvc developmental anomalies Bony degenerative change Any quantitative measurements of stenosis were performed using NASCET criteria. Dictated by: Franki Logan M.D. on 12/24/2021 at 8:43 Approved by: Franki Logan M.D. on 12/24/2021 at 8:48
--- NOTE | 2021-12-24 08:31 | ED_ITS ---
HPI - General Adult General Chief complaint: Dizziness Stated complaint: Vertigo Time Seen by Provider: 12/24/21 08:28 History of Present Illness HPI narrative: Patient brought in by ambulance from home. Lives with . Patient has advance Alzheimer's. Only able to state her name and date of . Patient at baseline according to . As far as cognition. Patient uses a walker to ambulate. Patient according to has had a lot of belching and vomiting in the past 2 nights. Was dizzy yesterday and fell on her bed. No known injuries. states she has not expressed any chest pain back pain. No changes in urination. Has a home health care that comes to house in the mornings. Blood pressure noted here. Patient did express abdominal discomfort during transport by EMS. No known sick contacts. states she has not been herself in the past 3 days. Not her usual behavior. Related Data Home Medications Medication Instructions Recorded Confirmed CA PANTOTHENATE/FOLIC ACID/VIT 1 tab PO Q DAY #0 05/11/11 10/19/21 (MULTIVITAMIN) Calcium Carbonate/Vitamin D 1 cap PO QDAY #0 05/11/11 10/19/21 (#CALCIUM) Fish Oil 1,000 mg PO QDAY #0 10/24/12 10/19/21 CHOLECALCIFEROL (VITAMIN D) 2,000 units PO QDAY #0 tab 06/13/13 10/19/21 Previous Rx's Medication Instructions Recorded atorvastatin 20 mg tablet 20 mg PO BEDTIME #90 tab 10/19/21 donepezil 10 mg tablet (Aricept) 10 mg PO QDAY #90 tab 10/19/21 estradiol 10 mcg vaginal tablet See Rx Instructions .ROUTE 10/19/21 .COMPLEX #36 tab memantine 5 mg tablet 5 mg PO BID #180 tab 10/19/21 sertraline 100 mg tablet 100 mg PO DAILY #90 tab 10/19/21 tolterodine 4 mg capsule,extended 4 mg PO DAILY #90 cap 10/19/21 release 24 hr (Detrol [place]) Allergies Allergy/AdvReac Type Severity Reaction Status Date / Time No Known Drug Allergies Allergy Verified 10/19/21 14:15 Review of Systems Review of Systems Narrative: GENERAL: Denies chills, fatigue, malaise, fever, sweats. HEENT: Denies sinus pain, ear pain, sore throat RESPIRATORY: Denies dyspnea, cough CARDIOVASCULAR: Denies chest pain, palpitations GASTROINTESTINAL: Positive for nausea, vomiting, abdominal pain : Denies dysuria, frequency, hematuria MUSCULOSKELETAL: denies muscle or bony pain SKIN: Denies rash, skin lesions NEUROLOGIC: Denies weakness, numbness ROS Unobtainable: All systems reviewed & are unremarkable except as noted in HPI and below Patient History Medical History (Updated 12/24/21 @ 12:17 by Jamie Romo MD) Alzheimer's type dementia (2013) Closed fracture of left distal radius (03/15/14) Cognitive dysfunction (2009) Colon polyps Depression Gastritis Heart murmur Hyperlipidemia IBS (irritable bowel syndrome) Meniere's disease Urinary incontinence, mixed Surgical History History of bilateral salpingo-oophorectomy History of surgery on arm (03/16/14) Normal colonoscopy (2012) Status post appendectomy (2003) Status post colectomy (2003) Status post epidural steroid injection (03/06/10) Family History Father Colorectal cancer Mother Dementia Social History household members: spouse Smoking Status: Never smoker alcohol intake: never Smoking Status: Never smoker Substance Use Type: does not use Exam Narrative Exam Narrative: GENERAL: in no distress, not toxic not dyspneic HEAD: Normocephalic. EYES: Pupils equal round No scleral icterus. ENT: Mucous membranes moist. NECK: Trachea midline. CARDIOVASCULAR: Regular rate and rhythm without murmurs RESPIRATORY: Clear to auscultation. Breath sounds equal bilaterally. No wheezes, rales, or rhonchi. GASTROINTESTINAL: Abdomen soft, non-tender, no peritoneal signs, bowel sounds present. EXTREMITIES: No gross deformities. BACK: No flank tenderness. NEURO: Patient is clear speech no facial droop light touch intact to bilateral face hands and feet strong equal rubber down. Elevate each leg off the bed independently. Actively. Denies any dizziness at this time. SKIN: Warm and dry PSYCH: Not anxious, is cooperative Initial Vital Signs Initial Vital Signs: Vital Signs Temperature 97.2 F L 12/24/21 08:30 Pulse Rate 61 03/31/22 08:30 Respiratory Rate 10 L 12/24/21 08:30 Blood Pressure 181/79 H 12/24/21 08:30 Pulse Oximetry 93 12/24/21 08:30 Course Course Course Narrative: No new issues during course of stay Decision to Admit Date: 12/24/21 Decision to Admit time: 12:11 Orders Ordered: ED Orders 12/24/21 08:24 Complete Blood Count AUTO DIFF Stat Comprehensive Metabolic Panel Stat Lipase Stat Troponin & CK Cardiac Panel Stat 12/24/21 08:30 CT angio head and neck Stat 12/24/21 08:35 EKG-12 Lead Stat 12/24/21 09:31 CT chest abd pel w con Stat 12/24/21 12:42 COVID19 -Nasal swab/Pre-Proc Stat Discontinued Medications Sodium Chloride (Normal Saline 0.9%) 500 mls @ 1,000 mls/hr IV BOLUS ONE Stop: 12/24/21 08:57 Last Admin: 12/24/21 09:23 Dose: Not Given Documented by: KUMAR Sodium Chloride (Normal Saline 0.9%) 1,000 mls @ 1,000 mls/hr IV BOLUS ONE Stop: 12/24/21 10:21 Last Infusion: 12/24/21 10:50 Dose: 0 mls/hr Documented by: Admin: 12/24/21 09:23 Dose: 1,000 mls/hr Documented by: KUMAR Memantine (Memantine Hcl 5 Mg Tablet) 5 mg PO NOW ONE Stop: 12/24/21 12:11 Last Admin: 12/24/21 12:24 Dose: 5 mg Documented by: MADI Ondansetron HCl (Ondansetron 4 Mg/2 Ml Inj) 4 mg IV NOW ONE Stop: 12/24/21 08:29 Last Admin: 12/24/21 09:22 Dose: 4 mg Documented by: KUMAR Reevaluation(s) Reevaluation #1: Patient required staff for movement, needs total care in assisting patient in and out of bed. This is not her baseline. Did have a bowel movement here. Reviewed results with , agrees for admit. May need custodial placement for [facility] facility or rehabilitation Time: 12:11 Consultations Consultation #1: Spoke with hospitalist, dr weaver, we will admit and get PT OT possible MRI. May need placement for rehabilitation Time: 12:12 Vital Signs Vital signs: Vital Signs - 8 hr 12/24/21 08:30 12/24/21 09:37 12/24/21 10:00 Temperature 97.2 F L Pulse Rate 61 60 65 Respiratory Rate 10 L 23 24 Blood Pressure 181/79 H 146/89 H Pulse Oximetry 93 99 97 12/24/21 10:30 12/24/21 10:31 12/24/21 11:00 Temperature Pulse Rate 62 61 62 Respiratory Rate 25 H 30 H 20 Blood Pressure 139/62 150/68 H Pulse Oximetry 96 96 97 12/24/21 11:30 12/24/21 11:32 12/24/21 12:00 Temperature Pulse Rate 66 67 69 Respiratory Rate 17 14 24 Blood Pressure 211/84 H Pulse Oximetry 97 97 97 12/24/21 12:01 12/24/21 12:30 Temperature Pulse Rate 67 60 Respiratory Rate 19 25 H Blood Pressure 168/73 H Pulse Oximetry 97 95 Medical Decision Making Differential Diagnosis Differential Diagnosis: NM/non-STEMI/angina/pancreatitis/abdominal pain/gastritis/pancreatitis/UTI/ Lab Data Result diagrams: 12/24/21 08:24 12/24/21 08:24 Labs: Lab Results 12/24/21 12/24/21 12/24/21 Range/Units 08:24 08:24 12:42 WBC 6.0 (4.5-11.0) X10^3/uL RBC 4.62 (4.0-5.2) X10^6/uL Hgb 14.0 (12.0-16.0) g/dL Hct 41.8 (36-46) % MCV 90.5 (80-100) fL MCH 30.3 (26-34) PG MCHC 33.4 (30-36) % RDW 14.3 (11.6-14.8) % Plt Count 189 (150-400) X10^3/uL Neut % (Auto) 47.4 L (50-75) % Lymph % (Auto) 42.5 H (25-40) % [place] % (Auto) 8.2 (3-14) % Eos % (Auto) 1.1 L (2-4) % Baso % (Auto) 0.8 (0-2) % Neut # (Auto) 2900 (1777-6008) /uL Lymph # (Auto) 2600 (9690-4257) /uL [place] # (Auto) 500 (0-900) /uL Eos # (Auto) 100 (0-450) /uL Baso # (Auto) 0 (0-100) /uL Sodium 137 (137-145) mmol/L Potassium 3.6 (3.4-5.1) mmol/L Chloride 103 (98-107) mmol/L Carbon Dioxide 26 (22-32) mmol/L BUN 20 H (7-17) mg/dL Creatinine 0.83 (0.52-1.04) mg/dL Estimated GFR > 60.0 (>60) mL/min BUN/Creatinine Ratio 24.1 H (6-22) Glucose 138 H (80-110) mg/dL Calcium 9.6 (8.4-10.2) mg/dL Total Bilirubin 0.5 (0.2-1.3) mg/dL AST 35 (14-36) IU/L ALT 23 (<35) IU/L Alkaline Phosphatase 77 (38-126) U/L Total Creatine Kinase 63 (30-135) U/L CK-MB (CK-2) TNP CK-MB (CK-2) Rel Index TNP Troponin I < 0.012 (0.01-0.034) ng/mL Total Protein 7.8 (6.3-8.2) g/dL Albumin 4.5 (3.5-5.0) g/dL Globulin 3.3 (1.7-4.1) g/dL Albumin/Globulin Ratio 1.4 (1.0-2.8) Lipase 107 (23-300) U/L SARS-CoV-2 (PCR) Negative (Negative) Urine Dip Bedside Urine Glucose Negative Bedside Urine Bilirubin - Negative Bedside Urine Ketone - Negative Urine Specific [place] 1.010 Bedside Urine Occult Blood - Negative Bedside Urine pH 7.0 Bedside Urine Protein - Negative Bedside Urine Urobilinogen - Negative Bedside Urine Nitrite - Negative Bedside Urine Leukocytes - Negative Esterase Point of care testing: Urine Dip Bedside Urine Glucose Negative Bedside Urine Bilirubin - Negative Bedside Urine Ketone - Negative Urine Specific [place] 1.010 Bedside Urine Occult Blood - Negative Bedside Urine pH 7.0 Bedside Urine Protein - Negative Bedside Urine Urobilinogen - Negative Bedside Urine Nitrite - Negative Bedside Urine Leukocytes - Negative Esterase Imaging Data CTA - brain/neck: Radiologist's Impression: [address] [id number] [address] Scan Report Signed Patient: Tae Izaguirre MR#: [id number] : 1935 Acct:[id number] Age/Sex: 86 / F Date of Service: 12/24/21 Loc: ED Accession Number: [id number] ?? Procedure: CT angio head and neck Ordering Provider: Jamie Romo MD PROCEDURE:? CT ANGIO HEAD AND NECK ? INDICATIONS:? dizzy/vomiting ? TECHNIQUE:? Pre-contrast 4.5 mm thick sections acquired from the foramen magnum to the vertex.? After the administration of intravenous contrast, 1 mm thick sections acquired from the aortic arch through the [place] of [place].? Post-contrast 4.5 mm thick sections then re- acquired from the foramen magnum to the vertex.? 3-dimensional fodyhqk-hirgdqeil-yuacuw tion (MIP) and/or volume rendering reformats were acquired of the central intracranial vasculature and neck separately. ? COMPARISON:? [facility], CT, CT CHEST ABD PEL W CON, 12/24/2021, 8:54.? [facility], MR, MR HEAD/BRAIN WO CON, 05/19/2020, 9:31.? [facility], CT, CT HEAD/BRAIN WO CON, 11/28/2020, 9:16.? [facility], CT, CT HEAD/BRAIN WO CON, 03/23/2021, 23:12. ? FINDINGS:? Image quality:? Excellent.? ? BRAIN:? CSF spaces:? Ventricles are normal in size and shape.? Basal cisterns are patent.? No extra-axial fluid collections.? ? Brain:? No midline shift.? No intracranial bleeds or masses.? Brown-white matter interface appears intact.? Note is made of age-appropriate brain parenchymal volume loss and chronic small vessel ischemic changes. ? Skull and face:? Calvarium and facial bones appear intact, without suspicious lesions.? Orbits appear normal.? ? Sinuses:? Sinuses and mastoids are clear.? ? HEAD CT ANGIOGRAPHY:? Anterior circulation:? Intracranial internal carotid arteries are normal in size and flow.? There is a diminutive right A1 segment, with a corresponding robust left A1 segment.? This is considered to be a normal developmental variant of the [place] of [place], of typically no clinical consequence.? The flow within the paired anterior cerebral arteries is otherwise normal and symmetric.? The flow within the middle cerebral arteries is normal and symmetric.? The anterior communicating artery is seen.? No aneurysms are seen.? ? Posterior circulation:? Note is made of bilateral type origins of the posterior cerebral arteries, with an associated diminutive basilar artery.? The flow within the posterior cerebral arteries is normal and symmetric.? The distal vertebral arteries are overall small in size, yet otherwise unremarkable.? No aneurysms are seen.? ? NECK CT ANGIOGRAPHY:? Carotid system:? The great vessels demonstrate a conventional anatomy as they arise from the aortic arch.? The origins of the common carotid arteries appear patent.? The common carotid arteries demonstrate normal caliber and courses.? The bifurcation regions demonstrate atherosclerotic irregularity and calcification.? There is 40-50% narrowing seen on the right and approximately 20% narrowing seen on left. The more distal internal carotid arteries demonstrate normal course and caliber.? ? Posterior circulation:? Focal calcification can be seen at the origin of the right vertebral artery, with approximately 50% narrowing.? The left vertebral artery origin is unremarkable.? The more superior extracranial portions of both vertebral arteries also demonstrate normal courses and calibers.? The right vertebral artery is dominant to the left. ? Soft tissues:? Visualized neck soft tissues demonstrate no suspicious abnormalities.? Thyroid irregularity can be seen. ? Bones:? No suspicious bony lesions.? Visualized cervical spine appears normally aligned.? Generalized bony degenerative changes are seen, which are worst involving the C1-C2 interface anteriorly and the C6-C7 level. ? ? IMPRESSION:? ? No imaging explanation is found for this patient's presenting symptoms.? ? There is 40-50% narrowing seen involving the right proximal internal carotid artery. ? There is approximately 50% narrowing seen involving the origin of the right vertebral artery. ? Incidental note is made of: Csgymc-te-Dqfnzr developmental anomalies Bony degenerative change ? Any quantitative measurements of stenosis were performed using NASCET criteria.? ? ? Dictated by: Franki Logan M.D. on 12/24/2021 at 8:43 ? ? Approved by: Franki Logan M.D. on 12/24/2021 at 8:48 ? CT chest abdomen pelvis: Radiologist's Impression: [place] [id number] CT Scan Report Signed Patient: Tae Izaguirre MR#: [id number] : 1935 Acct:[id number] Age/Sex: 86 / F Date of Service: 12/24/21 Loc: ED Accession Number: [id number] ?? Procedure: CT chest abd pel w con Ordering Provider: Jamie Romo MD PROCEDURE:? CT CHEST ABD PEL W CON ? INDICATIONS:? Chest pain abdominal pain vomiting ? TECHNIQUE:? After the administration of intravenous contrast, 5 mm thick sections acquired from the lung apices to the symphysis.? 5 mm coronal and sagittal reformats were performed, with additional 7 mm MIP reformats through the lungs.? For radiation dose reduction, the following was used:? automated exposure control, adjustment of mA and/or kV according to patient size.? ? COMPARISON:? None. ? FINDINGS:? Image quality:? Excellent.? ? CHEST:? Lungs and pleura:? Scattered scarring/atelectasis in periphery of bilateral lung madsen more prominent in posterior lateral aspect of left lower lobe and lingular segment near left lung base.? No pleural effusions or pneumothorax.? Central and peripheral airways appear patent and normal in caliber.? ? Mediastinum:? Heart size is normal.? No pericardial effusion.? No mediastinal or hilar adenopathy by size criteria.? Mild ascending thoracic aortic aneurysm is seen measures up to 4.1 cm in largest AP diameter.? No thoracic aortic dissection.? Pulmonary arteries are normal in size.? No gross filling defects are seen in pulmonary arteries to suggest pulmonary emboli.? Esophagus is normal in caliber.? No hiatal hernia.? ? Chest wall:? No axillary or supraclavicular adenopathy by size criteria.? Thyroid gland is mildly enlarged with multiple hypodense nodule seen in bilateral thyroid lobes measures up to 5 mm in size series 4, image 9. ? ? ABDOMEN:? Solid organs:? Liver is normal in size.? Tiny hypodensities are seen scattered in liver parenchyma measures up to 3 mm in size, and are too small to adequately characterize.? Tiny stones are seen in dependent portion of gallbladder lumen without gallbladder wall thickening or pericholecystic fluid.? Biliary system is non dilated.? Pancreas enhances normally.? Spleen is normal in size and enhancement.? Mildly thickened bilateral adrenal glands is seen without discrete adrenal nodule.? Kidneys demonstrate normal size and enhancement, without hydronephrosis.? ? Peritoneum and bowel:? There is significant fecal stasis throughout the colon.? Postsurgical changes in right colon are seen with grossly intact surgical anastomosis.? Extensive colonic diverticulosis is seen without colonic wall thickening or pericolonic fat stranding.? No evidence of bowel obstruction.? No gastric or small bowel wall thickening.? No abscess collection.? No free fluid or free air. ? Nodes and vessels:? No retroperitoneal or mesenteric adenopathy by size criteria.? Aorta and inferior vena cava are normal in size.? Cqmf-[id number] atherosclerotic disease in abdominal aorta is seen. ? Miscellaneous:? No ventral hernias.? ? ? PELVIS:? Genitourinary:? Bladder wall thickness is normal.? Small calcified uterine fibroids are seen. ? Miscellaneous:? No inguinal hernias or adenopathy.? ? Bones:? No suspicious bony lesions.? No vertebral body compression fractures.? There is scoliosis of lumbar spine centered at L3-4 level.? Degenerative disc disease throughout thoracic and lumbar spine is seen.? ? IMPRESSION:? 1. Scattered scarring/atelectasis in bilateral lung madsen more prominent at left lung base.? No definite focal infiltrate.? No pleural effusion or pneumothorax.? Airway is patent. 2. Mild ascending thoracic aortic aneurysm measures up to 4.1 cm in largest AP diameter.? No thoracic or abdominal aortic dissection.? No abdominal aortic aneurysm.? Cahh-pq-ckfvkyhx atherosclerotic disease.? No gross pulmonary emboli. 3. Moderate constipation.? No abnormal bowel wall thickening.? No free fluid or free air. ?Postsurgical changes in right colon.? Colonic diverticulosis without CT evidence of acute diverticulitis.? 4. Numerous tiny hypodensities scattered in liver parenchyma and are too small to characterize likely represent tiny hepatic cysts. 5. Mild thickening of bilateral adrenal gland without discrete adrenal nodule seen. 6. Mildly enlarged thyroid gland with subcentimeter hypodense thyroid nodules which may indicate thyroid goiter. 7. Cholelithiasis without CT evidence of acute cholecystitis.? ? Dictated by: Erick Colin M.D. on 12/24/2021 at 9:42 ? ? Approved by: Erick Colin M.D. on 12/24/2021 at 9:51 ? ECG Data Interpretation: Normal sinus rhythm rate [address] elevation or depression. MDM Narrative Medical decision making narrative: Appropriate for admission. Patient will need PT OT evaluation/MRI. Possible custodial placement. Discharge Plan Departure Patient Disposition: Admitted As Inpatient Clinical Impression: Altered mental status Admit Date/Time: 12/24/21 12:59 Admit Provider: Rey Weaver
[2021-12-24 08:35] LABS: Add Manual Diff / Slide Review NO; Basophils Absolute Auto 0 /uL (0-100); Basophils Percent Auto 0.8 % (0-2); Eosinophils Absolute Auto 100 /uL (0-450); Eosinophils Percent Auto 1.1 % (2-4); Hematocrit 41.8 % (36-46); Lymphocytes Absolute Auto 2600 /uL (1100-4500); Lymphocytes Percent Auto 42.5 % (25-40); Mean Corpuscular HGB Conc 33.4 % (30-36); Mean Corpuscular Hemoglobin 30.3 PG (26-34); Mean Corpuscular Volume 90.5 fL (80-100); Monocytes Absolute Auto 500 /uL (0-900); Monocytes Percent Auto 8.2 % (3-14); Neutrophils Absolute Auto 2900 /uL (1500-7000); Neutrophils Percent Auto 47.4 % (50-75); Platelet Count 189 X10^3/uL (150-400); Red Blood Cell Count 4.62 X10^6/uL (4.0-5.2); Red Cell Distribution Width 14.3 % (11.6-14.8)
[2021-12-24 08:45] LABS: Alanine Aminotransferase 23 IU/L (<35); Albumin 4.5 g/dL (3.5-5.0); Albumin Globulin Ratio 1.4 (1.0-2.8); Alkaline Phosphatase 77 U/L (38-126); Aspartate Aminotransferase 35 IU/L (14-36); BUN Creatinine Ratio 24.1 (6-22); Bilirubin Total 0.5 mg/dL (0.2-1.3); Blood Urea Nitrogen 20 mg/dL (7-17); Calcium 9.6 mg/dL (8.4-10.2); Carbon Dioxide 26 mmol/L (22-32); Chloride 103 mmol/L (98-107); Creatine Kinase 63 U/L (30-135); Estimated Glomerular Filt Rate > 60.0 mL/min (>60); Globulin 3.3 g/dL (1.7-4.1); Glucose 138 mg/dL (80-110); HEMOLYSIS 45 (0-50); Lipase 107 U/L (23-300); Potassium 3.6 mmol/L (3.4-5.1); Sodium 137 mmol/L (137-145); Total Protein 7.8 g/dL (6.3-8.2)
[2021-12-24 08:57] LABS: Troponin I < 0.012 ng/mL (0.01-0.034)
[2021-12-24] MEDS: ONDANSETRON 4 MG/2 ML INJ IV (09:22)
[2021-12-24] MEDS: SODIUM CHLORIDE 0.9% 1,000 ML 1000 ML IV (09:23)
--- NOTE | 2021-12-24 09:31 | DI.CT.S_ITS ---
PROCEDURE: CT CHEST ABD PEL W CON INDICATIONS: Chest pain abdominal pain vomiting TECHNIQUE: After the administration of intravenous contrast, 5 mm thick sections acquired from the lung apices to the symphysis. 5 mm coronal and sagittal reformats were performed, with additional 7 mm MIP reformats through the lungs. For radiation dose reduction, the following was used: automated exposure control, adjustment of mA and/or kV according to patient size. COMPARISON: None. FINDINGS: Image quality: Excellent. CHEST: Lungs and pleura: Scattered scarring/atelectasis in periphery of bilateral lung madsen more prominent in posterior lateral aspect of left lower lobe and lingular segment near left lung base. No pleural effusions or pneumothorax. Central and peripheral airways appear patent and normal in caliber. Mediastinum: Heart size is normal. No pericardial effusion. No mediastinal or hilar adenopathy by size criteria. Mild ascending thoracic aortic aneurysm is seen measures up to 4.1 cm in largest AP diameter. No thoracic aortic dissection. Pulmonary arteries are normal in size. No gross filling defects are seen in pulmonary arteries to suggest pulmonary emboli. Esophagus is normal in caliber. No hiatal hernia. Chest wall: No axillary or supraclavicular adenopathy by size criteria. Thyroid gland is mildly enlarged with multiple hypodense nodule seen in bilateral thyroid lobes measures up to 5 mm in size series 4, image 9. ABDOMEN: Solid organs: Liver is normal in size. Tiny hypodensities are seen scattered in liver parenchyma measures up to 3 mm in size, and are too small to adequately characterize. Tiny stones are seen in dependent portion of gallbladder lumen without gallbladder wall thickening or pericholecystic fluid. Biliary system is non dilated. Pancreas enhances normally. Spleen is normal in size and enhancement. Mildly thickened bilateral adrenal glands is seen without discrete adrenal nodule. Kidneys demonstrate normal size and enhancement, without hydronephrosis. Peritoneum and bowel: There is significant fecal stasis throughout the colon. Postsurgical changes in right colon are seen with grossly intact surgical anastomosis. Extensive colonic diverticulosis is seen without colonic wall thickening or pericolonic fat stranding. No evidence of bowel obstruction. No gastric or small bowel wall thickening. No abscess collection. No free fluid or free air. Nodes and vessels: No retroperitoneal or mesenteric adenopathy by size criteria. Aorta and inferior vena cava are normal in size. Ivil-jy-ppybafvh atherosclerotic disease in abdominal aorta is seen. Miscellaneous: No ventral hernias. PELVIS: Genitourinary: Bladder wall thickness is normal. Small calcified uterine fibroids are seen. Miscellaneous: No inguinal hernias or adenopathy. Bones: No suspicious bony lesions. No vertebral body compression fractures. There is scoliosis of lumbar spine centered at L3-4 level. Degenerative disc disease throughout thoracic and lumbar spine is seen. IMPRESSION: 1. Scattered scarring/atelectasis in bilateral lung madsen more prominent at left lung base. No definite focal infiltrate. No pleural effusion or pneumothorax. Airway is patent. 2. Mild ascending thoracic aortic aneurysm measures up to 4.1 cm in largest AP diameter. No thoracic or abdominal aortic dissection. No abdominal aortic aneurysm. Ytrx-ex-xawoklkt atherosclerotic disease. No gross pulmonary emboli. 3. Moderate constipation. No abnormal bowel wall thickening. No free fluid or free air. Postsurgical changes in right colon. Colonic diverticulosis without CT evidence of acute diverticulitis. 4. Numerous tiny hypodensities scattered in liver parenchyma and are too small to characterize likely represent tiny hepatic cysts. 5. Mild thickening of bilateral adrenal gland without discrete adrenal nodule seen. 6. Mildly enlarged thyroid gland with subcentimeter hypodense thyroid nodules which may indicate thyroid goiter. 7. Cholelithiasis without CT evidence of acute cholecystitis. Dictated by: Erick Colin M.D. on 12/24/2021 at 9:42 Approved by: Erick Colin M.D. on 12/24/2021 at 9:51
[2021-12-24] MEDS: MEMANTINE HCL 5 MG TABLET PO ×2 (12:24→21:37)
[2021-12-24 13:04] LABS: COVID19 -Nasal RAPID Negative (Negative)
--- NOTE | 2021-12-24 14:52 | PC.NURSE ---
Pt arrived at 1420, AxO to self and birthday, reminded of location, date and reason for being in the hospital. Pt agitated but re-directable when reminded that her will be returning to her bedside after feeding the dogs. ED nurse placed IV at bedside, pt tolerated moderately well. BP elevated but vital signs otherwise stable. No c/o nausea, no c/o pain. CMS intact throughout. Lungs CTA. Pt oriented to call light, bed alarm set on most sensitive setting. Will continue to monitor closely.
--- NOTE | 2021-12-24 15:32 | PM.HP.1 ---
History of Present Illness History of Present Illness Chief complaint: Vertigo Narrative: 86yo female with a hx of depression and Alzheimer's dementia for at least 8 years that presents with dizziness and belching. The patient has advanced dementia, and is unable to meaningfully participate in history acquisition. Therefore, history acquired mostly from at bedside. He reports that last night, patient was having belching that concerned him. He states it sounded like a roar. The patient has never had this before. He denies that she ate anything different that might've caused this. He endorses that she has a hx of part of her colon being surgically removed years ago but he cannot recall the reason why. The belching appears to have self-resolved. He was also concerned about dizziness. He states the patient described it as more of a vertigo type sensation. That has self-resolved without intervention, too. The denies that he's having difficulty caring for the patient at home. He states it's sometimes hard, but he's able to manage. He denies any recent sick contacts, travel, URI sxs, fever/chills, SOB, CP, that the patient's expressed. The patient is a never smoker. 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 PSH includes appendectomy. Family history is unremarkable. Patient History Medical History (Updated 12/24/21 @ 12:17 by Jamie Romo MD) Alzheimer's type dementia (2013) Closed fracture of left distal radius (03/15/14) Cognitive dysfunction (2009) Colon polyps Depression Gastritis Heart murmur Hyperlipidemia IBS (irritable bowel syndrome) Meniere's disease Urinary incontinence, mixed Surgical History History of bilateral salpingo-oophorectomy History of surgery on arm (03/16/14) Normal colonoscopy (2012) Status post appendectomy (2003) Status post colectomy (2003) Status post epidural steroid injection (03/06/10) Family & Social History Family History Father Colorectal cancer Mother Dementia Social History: household members spouse Safety & Behavioral: Feels Safe in Current Yes Environment Been Physically Hurt or No Threatened By a Person Tobacco & Substance use: Smoking Status Never smoker alcohol intake never Substance Use Type does not use Meds Home Medications and Allergies Home Medications Medication Instructions Recorded Confirmed Type CA PANTOTHENATE/FOLIC ACID/VIT 1 tab PO Q DAY #0 05/11/11 10/19/21 History (MULTIVITAMIN) Calcium Carbonate/Vitamin D 1 cap PO QDAY #0 05/11/11 10/19/21 History (#CALCIUM) Fish Oil 1,000 mg PO QDAY #0 10/24/12 10/19/21 History CHOLECALCIFEROL (VITAMIN D) 2,000 units PO QDAY #0 tab 06/13/13 10/19/21 History atorvastatin 20 mg tablet 20 mg PO BEDTIME #90 tab 10/19/21 10/19/21 Rx donepezil 10 mg tablet (Aricept) 10 mg PO QDAY #90 tab 10/19/21 10/19/21 Rx estradiol 10 mcg vaginal tablet See Rx Instructions .ROUTE 10/19/21 10/19/21 Rx .COMPLEX #36 tab memantine 5 mg tablet 5 mg PO BID #180 tab 10/19/21 10/19/21 Rx sertraline 100 mg tablet 100 mg PO DAILY #90 tab 10/19/21 10/19/21 Rx tolterodine 4 mg capsule,extended 4 mg PO DAILY #90 cap 10/19/21 10/19/21 Rx release 24 hr (Detrol LA) Allergies Allergy/AdvReac Type Severity Reaction Status Date / Time No Known Drug Allergies Allergy Verified 10/19/21 14:15 Review of Systems Review of Systems Narrative: Unable to obtain ROS secondary to advanced Alzheimer's dementia. Exam Vital Signs (past 8 hours): - 12/24/21 08:30 12/24/21 09:37 12/24/21 10:00 Temperature 97.2 F L Pulse Rate 61 60 65 Respiratory Rate 10 L 23 24 Blood Pressure 181/79 H 146/89 H Pulse Oximetry 93 99 97 12/24/21 10:30 12/24/21 10:31 12/24/21 11:00 Temperature Pulse Rate 62 61 62 Respiratory Rate 25 H 30 H 20 Blood Pressure 139/62 150/68 H Pulse Oximetry 96 96 97 12/24/21 11:30 12/24/21 11:32 12/24/21 12:00 Temperature Pulse Rate 66 67 69 Respiratory Rate 17 14 24 Blood Pressure 211/84 H Pulse Oximetry 97 97 97 12/24/21 12:01 12/24/21 12:30 12/24/21 13:00 Temperature Pulse Rate 67 60 61 Respiratory Rate 19 25 H 27 H Blood Pressure 168/73 H Pulse Oximetry 97 95 96 12/24/21 13:01 12/24/21 13:30 12/24/21 14:00 Temperature Pulse Rate 60 62 67 Respiratory Rate 24 25 H 24 Blood Pressure 129/72 Pulse Oximetry 97 96 96 12/24/21 14:51 Temperature 98.7 F Pulse Rate 65 Respiratory Rate 16 Blood Pressure 165/71 H Pulse Oximetry 98 Oxygen Delivery Method Room Air Const Other: The patient is sitting in bed comfortably upon my entering the room, in no apparent acute distress Eyes Other: No scleral icterus appreciated Neck Other: No carotid bruits noted Resp Other: Lungs clear to auscultation bilaterally Cardio Other: RRR, S1 and S2 heart sounds normal, with no extra heart sounds auscultated, and grade III/ systolic ejection murmur heard best over the left upper sternal border GI Other: Soft, non-distended, non-tender, bowel sounds present Skin Other: No grossly abnormal skin lesions noted Extrem Other: Palpable dorsalis pedis pulses Psych Other: Oriented to person, but not to place, time or situation Objective Labs Result Diagrams: 12/24/21 08:24 12/24/21 08:24 Labs: Laboratory Results - last 24 hr 12/24/21 12/24/21 12/24/21 08:24 08:24 12:42 WBC 6.0 RBC 4.62 Hgb 14.0 Hct 41.8 MCV 90.5 MCH 30.3 MCHC 33.4 RDW 14.3 Plt Count 189 Neut % (Auto) 47.4 L Lymph % (Auto) 42.5 H [place] % (Auto) 8.2 Eos % (Auto) 1.1 L Baso % (Auto) 0.8 Neut # (Auto) 2900 Lymph # (Auto) 2600 [place] # (Auto) 500 Eos # (Auto) 100 Baso # (Auto) 0 Sodium 137 Potassium 3.6 Chloride 103 Carbon Dioxide 26 BUN 20 H Creatinine 0.83 Estimated GFR > 60.0 BUN/Creatinine Ratio 24.1 H Glucose 138 H Calcium 9.6 Total Bilirubin 0.5 AST 35 ALT 23 Alkaline Phosphatase 77 Total Creatine Kinase 63 CK-MB (CK-2) TNP CK-MB (CK-2) Rel Index TNP Troponin I < 0.012 Total Protein 7.8 Albumin 4.5 Globulin 3.3 Albumin/Globulin Ratio 1.4 Lipase 107 SARS-CoV-2 (PCR) Negative Assessment & Plan Assessment & Plan narrative: Assessment: 1. Belching, unclear etiology, self-resolved 2. Alzheimer's dementia, advanced 3. Hx of Meniere's disease 4. Depression 5. Hyperlipidemia 6. Urinary incontinence Plan: 1. Has not recurred inpatient. Exam unremarkable, with abd imaging unremarkable, too. If occurs here, can attempt simethicone or sucralfate for relief. 2. Naturally progressing, with some component likely attributable to presentation. Will continue home memantine 5 mg bid and donepezil 10 mg daily. 3. This could explain that patient's dizziness/vertigo at home, that the pt's described, along with the 1 episode of emesis that followed. Has not recurred inpatient. 4. Will continue home sertraline 100 mg daily. 5. Will continue home atorvastatin 20 mg daily. 6. Will hold home tolterodine for now, given patient has adult briefs on. VTE prophylaxis: Heparin 5000 units bid Code: DNR Proxy: , Mr. Izaguirre I have utilized all available, immediate resources to obtain, update, or review the patient's current medications. Time Spent With Patient Critical Care time: I spent a total of [] minutes of critical care time on this patient's care today; this time is exclusive of procedural time. Quality MIPS - Admit I confirm the patient?s Advance Care Plan is present, Code status is documented, Surrogate decision maker is in patient?s record [If Yes, STOP here]: Yes
--- NOTE | 2021-12-24 16:00 | PT.IIE ---
Surgical History (Last Reviewed 12/24/21 @ 08:33 by Jamie Romo MD) Normal colonoscopy (2012) Status post colectomy (2003) Medical History (Last Reviewed 12/24/21 @ 08:33 by Jamie Romo MD) Alzheimer's type dementia (2013) Closed fracture of left distal radius (03/15/14) Cognitive dysfunction (2009) Colon polyps Depression Gastritis Heart murmur Hyperlipidemia IBS (irritable bowel syndrome) Meniere's disease Urinary incontinence, mixed Physical Therapy Inpatient Evaluation/Re-Eval M1 PT/OT-IP Prior Functional Status Start: 12/24/21 16:35 Freq: NEEDED Status: Active Protocol: Document 12/24/21 16:00 AB (Rec: 12/24/21 16:58 AB [email or web address]) Medical Review Prior Functional Status Medical History Reviewed Yes Communication able to respond to questions and make needs known but with memory issues/confusion Mobility and Gait spouse in room and provided information stated that pt is modified independent bed mobility, able to ambulate from the bed to the toilet without AD; stated that he has pt use a FWW when she has to get from one room the another and outdoors but able to ambulate short distance in room without AD; stated that he provides SBA when pt has to do the stairs Activities of Daily Living and IADL's stated that caregivers assists pt with dressing, shower needs and meals Prior Functional Level (Other details) spouse stated that pt fell this morning when she got up from the bed and fell backwards Social History Household Members spouse Living Arrangements House Number of Floors (Floors) 3 or More Floors Number of Stairs To Enter/Railing? no steps to enter 14 steps R rail ascending to bedroom level Home Environment Standard Height Toilet,Walk in Shower Home Equipment Front Wheel Walker Additional Social History Comment has caregiver assistance Mon thru Fri in the morning for 3 hours M2 PT-IP Current Condition Start: 12/24/21 16:35 Freq: NEEDED Status: Active Protocol: Document 12/24/21 16:00 AB (Rec: 12/24/21 16:58 AB [email or web address]) Physical Therapy Current Condition Current Condition Evaluation Date 12/24/21 Treatment Diagnosis vertigo; difficulty in walking Onset Date 12/24/21 M3 PT-IP Subjective Start: 12/24/21 16:35 Freq: NEEDED Status: Active Protocol: Document 12/24/21 16:00 AB (Rec: 12/24/21 16:58 AB [id number]) Subjective Physical Therapy Visit Type Type Initial Evaluation Visit Start Time 16:00 Visit Stop Time 16:33 Total Visit Minutes 33 Number of SMOKING PIPES CLEANER Visits 0 Physical Therapy Visit Comments Patient Comments requested to use the toilet Therapy Pain Assessment Pain Present Pain Present Denied Pain M4 PT-IP Mobility and Gait Start: 12/24/21 16:35 Freq: NEEDED Status: Active Protocol: Document 12/24/21 16:00 AB (Rec: 12/24/21 16:58 [id number]) PT-Bed Mobility Assessment Supine to Sit Supine to Sit Standby Assistance,Head of Bed Elevated Sit to Supine Sit to Supine Standby Assistance PT-Transfer Assessment Sit to and From Stand Sit to and from Stand Minimal Assistance,Moderate Assistance,1 Person Assistance ,Use of Upper Extremities Equipment Transfer Assistive Device Gait Belt,Front Wheeled Walker Orthotic/Prosthetic Devices or Brace: No Transfers Transfer Destination Toilet Transfer Technique ambulated Transfer Ability Level of Assist Minimal Assistance,Moderate Assistance,1 Person Assistance ,Use of Upper Extremities Comments Mobility Comments BP: 177/71 IA 69 O2 sat 98%. completed supine to sit SBA with HOB elevated. able to sit on EOB SBA. requested to use the toilet. c/o not feeling too well in sitting. pt has dx Alzheimer's dse and unable to stated what she is feeling but when asked if she is dizzy, stated that she is. attempted to obtain BP but unable due to pt moving her arm and stated that she really needs to use the toilet. completed sit to stand min to mod A and cues. min A for standing balance using FWW. ambulated to the toilet using FWW min to mod with shuffling gait and lean to the L. pt max cues for safety. requires cues to manage brief and for hygiene care. completed sit to stand from the toilet min A and ambulated back to the bed using FWW min A and cues. pt pushed FWW away when she was closer to the bed and took some steps without AD towards the bed min A. completed sit to supine SBA. positioned in bed. call light and table placed within reach. bed alarm on. Left pt with spouse in room. Gait Assessment Gait Gait Assistance Required: Minimum Assistance,Moderate Assistance Distance (Feet) 10 Able to Maintain Weight Bearing Status Yes During Gait Assistive Devices Assistive Device Gait Belt,Front Wheeled Walker Orthotic/Prosthetic Devices or Brace: No Gait Deviations General Gait Pattern Ataxic,Decreased Stride Length ,Decreased Feet Clearance, Lateral Trunk Lean,Step-to Gait Factors Limiting Gait Function Factors Limiting Gait Function Decreased Activity Tolerance, Decreased Strength,Poor Balance,Poor Safety Awareness PT-Balance Assessment Sitting Balance and Reactions Static Sitting Balance Ability Good Dynamic Sitting Balance Ability Fair Standing Balance and Reactions Static Standing Balance Ability Fair Dynamic Standing Balance Ability Poor Device Used FWW M5 PT-IP Objective Assessments Start: 12/24/21 16:35 Freq: NEEDED Status: Active Protocol: Document 12/24/21 16:00 AB (Rec: 12/24/21 16:58 AB [email or web address]) Orientation Orientation/Cognition Level of Alertness Confusional State Orientation Name Language Function Ability Hard of Hearing Safety Awareness Decreased Safety Awareness Memory Description Short Term Impaired,Visiting Professor Impaired Gross Range of Motion Lower Extremity ROM Assessment Within Functional Limits Strength Lower Extremity Strength Assessment Within Functional Limits Muscle Tone Muscle Tone WNL Yes M6 PT-IP Treatment Start: 12/24/21 16:35 Freq: NEEDED Status: Active Protocol: Document 12/24/21 16:00 AB (Rec: 12/24/21 16:58 AB [id number]) Physical Therapy Treatment Education Education Provided Safety M7 PT-IP Assessment and Plan Start: 12/24/21 16:35 Freq: NEEDED Status: Active Protocol: Document 12/24/21 16:00 AB (Rec: 12/24/21 16:58 AB [email or web address]) PT Summary Assessment and Plan Potential Rehabilitation Potential Fair Status of Condition at Evaluation Evolving Summary Impairments Pain,ROM,Strength,Balance, Coordination,Sensation,Tone, Cognition,Bed Mobility, Transfers,Gait,Activity Tolerance Assessment Summary pt requiring min to mod A with transfers and ambulation using FWW. pt with dx of Alzheimer's dementia and also has meniere's dse affecting mobility and steadiness. pt lives with spouse and will assist pt at home. will continue to assess progress. will conduct caregiver training when appropriate and stair climbing training. Goals Bed Mobility Goal Independent Transfer Goal Independent,Front Wheeled Walker Gait Goal Independent,Front Wheel Walker Gait Distance 100 Other Goals ambulation without AD 40 ft SBA up/down 14 step R rail SBA Days to Meet Goals 10 Frequency of Treatment Frequency Of Treatment Once a Day Treatment Plan Physical Therapy Treatment Plan Bed Mobility Training,Transfer Training,Gait Training, Therapeutic Exercise,Balance Retraining,Discharge Planning, Hot or Cold Pack,Neuromuscular Re-ed,Coordination Retraining Precautions Other Precautions falls Recommendations To Nursing Amount of Assist Needed 1 Person Assist Discharge Recommendations PT Discharge Recommendations Home with 24/ Assist Available,Home Health Transportation Needs at Discharge Private Vehicle
--- NOTE | 2021-12-24 17:44 | PC.NURSE ---
Patient's assisted with feeding
[2021-12-24] MEDS: HEPARIN 5,000 UNIT/ML VIAL 5000 UNIT SUBCUT (21:37)
[2021-12-24] MEDS: ATORVASTATIN 20 MG TABLET PO (21:37)
--- NOTE | 2021-12-25 06:17 | PC.NURSE ---
patient was awake all NOC, alternatively calling out help and hey and staff getting her OOB to walk around hallway and sitting in w/c at nurses station to ensure safety. patient is pleasant, however a few times thru the NOC became agitated if left alone for too long. would bang on the bedrail and shake it, and yell and scream. not easily redirected at these times. no s/sx of pain, continent of b/b. bed alarm on.
[2021-12-25 08:30] VITALS: BP 144/73; PULSE 66; RESP 16; TEMP 37; O2SAT 95
[2021-12-25] MEDS: MEMANTINE HCL 5 MG TABLET PO (09:28)
[2021-12-25] MEDS: MULTIVITAMIN 1 TABLET 1 TAB PO (09:28)
[2021-12-25] MEDS: SERTRALINE 50 MG TABLET 100 MG PO (09:28)
[2021-12-25] MEDS: HEPARIN 5,000 UNIT/ML VIAL 5000 UNIT SUBCUT (09:28)
[2021-12-25] MEDS: CHOLECALCIFEROL (VITAMIN D3) 1,000 UNIT TABLET 2000 UNIT PO (09:28)
[2021-12-25] MEDS: DONEPEZIL 5 MG TABLET 10 MG PO (09:28)
[2021-12-25 10:12] VITALS: O2SAT 96
--- NOTE | 2021-12-25 10:56 | CM.DANOTE ---
Addendum entered by TRUNG [place] 12/25/21 14:21: ADD: Pt was medically stable to d/c home today via spouse POV and tolerated PT well and discharge instructions given and spouse transported pt home without any concerns or needs. BF Original Note: Patient is an 86 yo female who was admitted on 12/24/21 for Vertigo. Pt has [employer] and [employer] for insurance and her PCP is Dr. Kolby Ayala. EMR was reviewed. Per MD, pt with his of advanced dementia and admitted for Vertigo type symptoms and gastric upset. Per Rn, pt was awake most of the night with some agitation due to her dementia and new surrounds. Per PT, recommending safe d/c home with spouse assist and HH and will complete stairs and CG training today. SW met bedside with pt and spouse and explained role and pt pleasantly confused and not able to participate in discharge planning. Spouse confirms they live in [place] and he is pt's primary CG and assists her with ADL's and showering, chores and meds. Pt no longer drives. Spouse confirms they have [employer] [employer] CG for the past few years that assist M-F about 3-4 hours a day. Son and DIL also live close by and assist as needed. Pt typically ambulates SBA in the house and uses a walker for longer distances and spouse is pt's DPOA. Pt fully COVID vaccinated. SW inquired about HH and spouse declines at this time as he states our CG is very trained and skilled and helps my with remaining strong and exercises. Spouse feels a new person in the home would be too confusing and not helpful and spouse feels pt has returned to baseline and agreeable with d/c to home today after further PT. SW updated OT on spouse declining HH. Plan: SW to follow for plan of d/c to home later today after further CG/Stairs training with PT and spouse to transport and continue [employer] [employer] hours. TRUNG [place] Discharge Planning/Care Management CM Discharge Assessment Start: 12/25/21 10:52 Freq: Status: Active Protocol: Document 12/25/21 10:52 BF (Rec: 12/25/21 10:56 BF [id number]) Discharge Planning Assessment Assigned Firewall Security Engineer TRUNG Jorgensen DPOA/Assigned Designee Name spouse Josue Contact Information [phone] Advance Directives? Yes Advance Directives on File Yes History Provided By Family Member,Significant Other,Medical Record Has Patient been admitted in last 30 No days? Prior Living Arrangements House Household Members spouse Type of transporation used prior to Relies on Others admit Independent with ADL's No Is patient alert and oriented? No Needs Assistance With Eating,Meal Prep,Managing Medications,Home Chores / Shopping Caregiver for Another No DME Already Rented / Owned FWW / Walker Barriers to Discharge No Discharge Plan Home Transportation Arrangement Spouse bedside and can transport Referrals Initiated None needed Whiteboard Updated in Patient Room with Yes name and ext. # of Firewall Security Engineer Review Status In Process Please Provide Date Initial DC 12/25/21 Assessment Was Performed Next Review Type Continued Stay Review
[2021-12-25 11:23] VITALS: O2SAT 94
--- NOTE | 2021-12-25 12:15 | PT.IPTN ---
Physical Therapy Treatment Note M2 PT-IP Current Condition Start: 12/24/21 16:35 Freq: NEEDED Status: Discharge Protocol: Document 12/25/21 11:20 SP (Rec: 12/25/21 18:20 SP [id number]) Physical Therapy Current Condition Current Condition Evaluation Date 12/24/21 Treatment Diagnosis vertigo; difficulty in walking Onset Date 12/24/21 M3 PT-IP Subjective Start: 12/24/21 16:35 Freq: NEEDED Status: Discharge Protocol: Document 12/25/21 11:20 SP (Rec: 12/25/21 18:20 SP [id number]) Subjective Physical Therapy Visit Type Type Treatment Note Visit Start Time 11:20 Visit Stop Time 12:15 Total Visit Minutes 55 Notes in room when arrived. Completed caregiver training, donned gait belt and provided physical assist required throughout tx. Vitals taken during tx: supine: BP 118/ 58 HR 66, SaO2 96% on RA Seated EOB: 147/77 HR 76 stand w/ FWW: 159/63 HR 71 Pt denied dizziness/ lightheadeness throughout tx. Number of WOOD SAWYER Visits 1 Physical Therapy Visit Comments Patient Comments Pt agreeable to working with therapy. Pt confused, requires 1 step cues, responds appropriate to inquiries. Therapy Pain Assessment Pain Present Pain Present Denied Pain M4 PT-IP Mobility and Gait Start: 12/24/21 16:35 Freq: NEEDED Status: Discharge Protocol: Document 12/25/21 11:20 SP (Rec: 12/25/21 18:20 SP [id number]) PT-Bed Mobility Assessment Supine to Sit Supine to Sit Contact Guard Assistance, Minimal Assistance Scooting Scooting to Edge of Bed Standby Assistance PT-Transfer Assessment Sit to and From Stand Sit to and from Stand Contact Guard Assistance, Minimal Assistance,1 Person Assistance,Use of Upper Extremities Equipment Transfer Assistive Device Gait Belt,Front Wheeled Walker Orthotic/Prosthetic Devices or Brace: No Transfers Transfer Destination Chair,Wheelchair Transfer Technique ambulated using FWW Transfer Ability Level of Assist Contact Guard Assistance, Minimal Assistance,1 Person Assistance,Use of Upper Extremities Comments Mobility Comments Completed supine>sit Min A to pull from for trunk righting due to no bed rail on bed and not adjustable, scoot to EOB self CGA scoot until BLE on floor cues by WOOD SAWYER. donned gait belt, he states she has one all the time at home with him and caregivers for support. Sit> stand CGA- MIn A, cues push from bed and stand tall in FWW for BP assessment, little trunk sway but self recovery, WOOD SAWYER instructed tohusband continue to have CGA on gait belt for safety. Progressed gait to hallway w/c 20 ft w/ FWW, cued body closer to FWW and increase step length and foot clearance by cues . Mod cues step back fully to w/c and reach back to sit CGA inw/c. Wheeled pt to stairs. reported has 1 PF step to enter garage that she usually doesn't use anything to hold onto then most things on main level she uses FWW then 12 stairs to bedroom with RHR only. Pt unable to complete PF step without AD, required [employer] x2 Min A for trunk stability ascend/descend PF step. Educated safest to use FWW, Pt complete ascend/descend 1 PF step w/ FWW Min A for trunk stability and assist for FWW placement on/ off step by WOOD SAWYER instructing . Pt completed 12 stairs R HR with BUE with cues for redirecting LUE on R HR for self support ascend/ descend step to patterning, cued positioning behind ascend and front descend, good use gait belt hand placement and cuing pt LE placement. Pt was able to walk back to room w/ FWW CGA-5%A, cues by WOOD SAWYER and for body closer to FWW and improved stepping foot clearance. Pt returned to chair when back in room, CGA cues for back step full and FWW fully back completed support by . WOOD SAWYER elevated chair leg rests and provided call light and all needs in reach before left. WOOD SAWYER discussed with progress, stated they have a caregiver 8-11 daily and son comes in tomorrow later day to help them, caregiver helps with pt and house work and meal prep for them and pt is back to baseline and is able to assist her tonight himself until caregiver comes tomorrow. Gait Assessment Gait Gait Assistance Required: Minimum Assistance,Moderate Assistance Distance (Feet) 80 Able to Maintain Weight Bearing Status Yes During Gait Assistive Devices Assistive Device Gait Belt,Front Wheeled Walker Orthotic/Prosthetic Devices or Brace: No Gait Deviations General Gait Pattern Antalgic,Decreased Stride Length,Decreased Feet Clearance,Step-to Gait Factors Limiting Gait Function Factors Limiting Gait Function Decreased Activity Tolerance, Decreased Strength,Difficulty Following Directions,Poor Balance,Poor Safety Awareness Comments Gait Comments step to patterning initially, progressed to step over step and foot clearance with body closer to FWW with cues and on straight distance in hallway. Stair Climbing Assessment Evaluation Level of Assist On Stairs Contact Guard Assistance, Minimal Assistance,1 Person Assistance Devices Stair Climbing Assistive Devices Front Wheel Walker,Right Railing Technique/Endurance Stair Climbing Direction Ascend and Descend Stair Climbing Technique Step to Step Number of Steps Climbed 3 Stair Climbing Set # Repetitions (reps) 4 Comments Stair Climbing Comments see mobiltiy details: 12 stairs RHR Min A x1 person max cues for sequencing B UE and BLE cued tall posture, 1st PF step [employer] x2 persons Min- Mod A , 2nd set usign FWW education improved pt self stability support, Min A x1. PT-Balance Assessment Sitting Balance and Reactions Static Sitting Balance Ability Good Dynamic Sitting Balance Ability Fair Standing Balance and Reactions Static Standing Balance Ability Fair Dynamic Standing Balance Ability Fair Device Used FWW M5 PT-IP Objective Assessments Start: 12/24/21 16:35 Freq: NEEDED Status: Discharge Protocol: Document 12/24/21 16:00 AB (Rec: 12/24/21 16:58 AB [id number]) Orientation Orientation/Cognition Level of Alertness Confusional State Orientation Name Language Function Ability Hard of Hearing Safety Awareness Decreased Safety Awareness Memory Description Short Term Impaired,Retirement Impaired Gross Range of Motion Lower Extremity ROM Assessment Within Functional Limits Strength Lower Extremity Strength Assessment Within Functional Limits Muscle Tone Muscle Tone WNL Yes M6 PT-IP Treatment Start: 12/24/21 16:35 Freq: NEEDED Status: Discharge Protocol: Document 12/25/21 11:20 SP (Rec: 12/25/21 18:20 SP [id number]) Physical Therapy Treatment Education Education Provided Safety M7 PT-IP Assessment and Plan Start: 12/24/21 16:35 Freq: NEEDED Status: Discharge Protocol: Document 12/25/21 11:20 SP (Rec: 12/25/21 18:20 SP [id number]) PT Summary Assessment and Plan Potential Rehabilitation Potential Fair Status of Condition at Evaluation Evolving Summary Impairments Pain,ROM,Strength,Balance, Coordination,Sensation,Tone, Cognition,Bed Mobility, Transfers,Gait,Activity Tolerance Progress Towards Goals Progressing Toward Goals,Slow Progress due to Activity Tolerance,Slow Progress - Other Assessment Summary Pt pleasant but confused requires 1 step cues throughout tx using FWW CG-Min A. requires education safe PF mgt using FWW her new baseline entering home, Min A and mod cues for 12 stairs R HR but recommended if available to stay on main level for safety, not have to use stairs but stated no where to sleep. stated has a hired caregiver to assist pt and help with house tasks and son coming in tomorrow. Pt is ok to return home with , caregiver and son to assist pt when medically cleared. WOOD SAWYER recommends HHPT to assist pt progress in strength, balance and functional independence in mobility. Goals Bed Mobility Goal Independent Transfer Goal Independent,Front Wheeled Walker Gait Goal Independent,Front Wheel Walker Gait Distance 100 Other Goals ambulation without AD 40 ft SBA up/down 14 step R rail SBA Days to Meet Goals 10 Frequency of Treatment Frequency Of Treatment Once a Day Treatment Plan Physical Therapy Treatment Plan Bed Mobility Training,Transfer Training,Gait Training, Therapeutic Exercise,Balance Retraining,Discharge Planning, Hot or Cold Pack,Neuromuscular Re-ed,Coordination Retraining Other Recommendations and Next Treatment bed mob, transfers with safety Focus education techniques using FWW, balance activities . Precautions Other Precautions falls Recommendations To Nursing Amount of Assist Needed 1 Person Assist Discharge Recommendations PT Discharge Recommendations Home with 18/04 Assist Available,Home Health Transportation Needs at Discharge Private Vehicle
--- NOTE | 2021-12-25 13:03 | OT.IPNOTE ---
Pt discharged already.
--- NOTE | 2021-12-25 13:04 | PC.NURSE ---
Day shift: Paperwork signed and all questions answered. Discharge done by KRISTA Crow. Pt has all personal belongings. No new MD scripts. Pt did well with OT this afternoon. Taken to car via WC by SHRIMP BOAT CAPTAIN at approx 1300. Pt's spouse in room for teachings and he was present when Pt worked w/ OT.
--- NOTE | 2021-12-25 15:32 | PM.DS.1 ---
History of Present Illness History of Present Illness Chief complaint: Vertigo Narrative: 86yo female with a hx of depression and Alzheimer's dementia for at least 8 years that presents with dizziness and belching. The patient has advanced dementia, and is unable to meaningfully participate in history acquisition. Therefore, history acquired mostly from at bedside. He reports that last night, patient was having belching that concerned him. He states it sounded like a roar. The patient has never had this before. He denies that she ate anything different that might've caused this. He endorses that she has a hx of part of her colon being surgically removed years ago but he cannot recall the reason why. The belching appears to have self-resolved. He was also concerned about dizziness. He states the patient described it as more of a vertigo type sensation. That has self-resolved without intervention, too. The denies that he's having difficulty caring for the patient at home. He states it's sometimes hard, but he's able to manage. He denies any recent sick contacts, travel, URI sxs, fever/chills, SOB, CP, that the patient's expressed. The patient is a never smoker. 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 PSH includes appendectomy. Family history is unremarkable. Discharge Providers Provider Date of admission: 12/24/21 12:59 Discharge Date: 12/25/21 Primary care physician: oKlby Ayala DO Consults: 12/24/21 15:30 Consult to Discharge Planning Routine Comment: Consult to Occupational Therapy Evaluate & Treat Comment: Physician Instructions: Evaluate and treat Consult to Physical Therapy Evaluate & Treat Comment: Physician Instructions: Evaluate and Treat Discharge provider: Bernardo Cast MD Summary Hospital Course Discharge Diagnosis: 1. Acute vertigo 2. Acute eructation 3. Alzheimer's dementia 4. History of Meniere's disease Hospital Course: Patient admitted for overnight observation. Symptoms of vertigo and uncontrolled belching had resolved. There was nothing significant on workup and she is able to return home with spouse. She was evaluated with OT and noted to be able to adequately use her walker and negotiate stairs. Status at Discharge Cognitive/behavioral status at discharge: at baseline, confused Functional status at discharge: uses cane/walker Overall status at discharge: patient is back to baseline Exam Vital Signs (past 8 hours): - 12/25/21 08:30 12/25/21 10:12 12/25/21 11:23 Temperature 98.6 F Pulse Rate 66 Respiratory Rate 16 Blood Pressure 144/73 H Pulse Oximetry 95 96 94 Oxygen Delivery Method Room Air Oxygen Flow Rate 0 Narrative Exam Narrative: General: Alert, NAD Neurological: Baseline confused, no dysarthria Objective Labs Result Diagrams: 12/24/21 08:24 12/24/21 08:24 [facility] Medical History (Updated 12/24/21 @ 12:17 by Jamie Romo MD) Alzheimer's type dementia (2013) Closed fracture of left distal radius (03/15/14) Cognitive dysfunction (2009) Colon polyps Depression Gastritis Heart murmur Hyperlipidemia IBS (irritable bowel syndrome) Meniere's disease Urinary incontinence, mixed Surgical History History of bilateral salpingo-oophorectomy History of surgery on arm (03/16/14) Normal colonoscopy (2012) Status post appendectomy (2003) Status post colectomy (2003) Status post epidural steroid injection (03/06/10) Family History Father Colorectal cancer Mother Dementia Social History household members: spouse Smoking Status: Never smoker alcohol intake: never Discharge Plan Discharge Plan Patient Disposition: Home Provider Discharge Comment: Mrs Izaguirre was admitted for observation due to symptoms of dizziness and belching. There were no serious findings on our evaluation. Follow up with PCP. Discharge orders & Medications Prescriptions: Continued CA PANTOTHENATE/FOLIC ACID/VIT (MULTIVITAMIN) 1 tab PO Q DAY Qty: 0 0RF Calcium Carbonate/Vitamin D (#CALCIUM) 1 cap PO QAM AND QHS Qty: 0 0RF Fish Oil 1,000 mg PO QDAY Qty: 0 0RF CHOLECALCIFEROL (VITAMIN D) 2,000 units PO QDAY Qty: 0 0RF atorvastatin 20 mg tablet 20 mg PO BEDTIME Qty: 90 3RF donepezil [Aricept] 10 mg tablet 10 mg PO QDAY Qty: 90 3RF estradiol 10 mcg tablet See Rx Instructions .ROUTE .COMPLEX Qty: 36 0RF Dose Instruction: INSERT 1 TABLET VAGINALLY 3 NIGHTS PER WEEK Rx Instructions: INSERT 1 TABLET VAGINALLY 2 NIGHTS PER WEEK memantine 5 mg tablet 5 mg PO BID Qty: 180 3RF sertraline 100 mg tablet 100 mg PO DAILY Qty: 90 3RF Rx Instructions: take 1.5 tabs q am tolterodine [Detrol LA] 4 mg capsule,extended release 24hr 4 mg PO DAILY Qty: 90 3RF Rx Instructions: APPOINTMENT DUE FOR FURTHER REFILLS. THANK YOU! atorvastatin 20 mg tablet 20 mg PO BEDTIME 0RF Label Comments: TAKE 1 TABLET BY MOUTH AT BEDTIME Adult Aspirin 81 mg PO DAILY 0RF Follow up/Referrals: Kolby Ayala, [Primary Care Provider] - Diet/Activity/Treatments Diet: Regular Visit Report/Discharge Packet Instructions: How to Prevent Falls, DI for Dizziness-Nonvertigo Discharge Data Primary Care Provider: Kolby Ayala
== END 2021-12-25 13:06 | disposition home or self-care (01) ==
LOC: ED 12:41 → AC 15:30
PROVIDERS: Admitting Provider Student in an Organized Health Care Education/Training Program; Emergency Provider Emergency Medicine; Family Provider Family Medicine; PCP Family Medicine; Referring Provider Emergency Medicine; Visit Provider Student in an Organized Health Care Education/Training Program
DX: R42 Dizziness and giddiness (principal); G30.9 Alzheimer's disease, unspecified; F02.80 Dementia in other diseases classified elsewhere, unspecified severity, without behavioral disturbance, psychotic disturbance, mood disturbance, and anxiety; R14.2 Eructation; Z20.822 Contact with and (suspected) exposure to COVID-19; R32 Unspecified urinary incontinence; E78.5 Hyperlipidemia, unspecified; F32.9 Major depressive disorder, single episode, unspecified; W19.XXXA Unspecified fall, initial encounter; Y92.003 Bedroom of unspecified non-institutional (private) residence as the place of occurrence of the external cause
CPT/HCPCS: 70496; 70498; 71260; 74177; 80053; 81003; 82550; 83690; 84484; 85025; 87635; 93005; 94760; 96372; 96374; 97116; 97162; 97530; 99284; C9803; G0378; J1644; J2405

== ENCOUNTER 2022-03-05 12:01 | Inpatient (IN) | payer MEDICARE, OTHER, SELFPAY ==
[2021-12-24 15:53] VITALS: BMI 24.1
[2022-03-05] VITALS (23 sets, daily range): BP systolic 129–174; BP diastolic 60–88; PULSE 57–76; RESP 16–27; TEMP 36.1–36.6; O2SAT 95–99; BMI 23.4
--- NOTE | 2022-03-05 12:30 | DI.CT.S_ITS ---
PROCEDURE: CT HEAD/BRAIN WO CON INDICATIONS: dizzy TECHNIQUE: Noncontrast 4.5 mm thick angled axial sections acquired from the foramen magnum to the vertex, with coronal and sagittal reformats. For radiation dose reduction, the following was used: automated exposure control, adjustment of mA and/or kV according to patient size. COMPARISON: [facility], CT, CT HEAD/BRAIN WO CON, 11/28/2020, 9:16. [facility], CT, CT HEAD/BRAIN WO CON, 03/23/2021, 23:12. FINDINGS: Image quality: Excellent. CSF spaces: Basal cisterns are patent. No extra-axial fluid collections. The ventricles are symmetric in size and shape. Brain: No intracranial bleeds or masses. There is moderate-to faint severe cerebral volume loss for age, with resultant ventricular and sulcal prominence. There are periventricular and deep white matter chronic small vessel ischemic changes. There is intracranial internal carotid artery atherosclerosis. Skull and face: Calvarium and visualized facial bones appear intact, without suspicious lesions. Sinuses: Visualized sinuses and mastoids are clear. IMPRESSION: 1. No acute intracranial abnormalities. 2. Cerebral volume loss and chronic microvascular ischemic changes. Dictated by: Esthela See M.D. on 03/05/2022 at 12:49 Approved by: Esthela See M.D. on 03/05/2022 at 12:51
--- NOTE | 2022-03-05 12:30 | DI.RAD.S_ITS ---
PROCEDURE: XR CHEST 1V INDICATIONS: dizzy TECHNIQUE: One view of the chest was acquired. COMPARISON: [facility], CR, XR CHEST 1V, 11/28/2020, 6:58. [facility], CT, CT HEAD/BRAIN WO CON, 03/05/2022, 12:36. [facility], CR, XR CHEST 1V, 03/23/2021, 22:51. FINDINGS: Surgical changes and devices: None. Lungs and pleura: Basilar scars and atelectasis. No pleural effusions or pneumothorax. Mediastinum: Mediastinal contours appear normal. Heart size is normal. Bones and chest wall: No suspicious bony lesions. Overlying soft tissues appear unremarkable. IMPRESSION: No acute cardiopulmonary disease. Dictated by: Esthela See M.D. on 03/05/2022 at 12:51 Approved by: Esthela See M.D. on 03/05/2022 at 12:52
--- NOTE | 2022-03-05 12:46 | ED.NAVMDI ---
HPI - Nausea/Vomiting/Diarrhea General Chief complaint: Nausea/Vomiting/Diarrhea Stated complaint: Vomiting Time Seen by Provider: 03/05/22 12:11 Source: family and EMS Mode of arrival: EMS History of Present Illness HPI Narrative: Patient is a 86-year-old female who has history of Alzheimer's dementia, hyperlipidemia, presenting today with dizziness. She apparently has a history of vertigo and dizziness previously. Has been states that this has happened off and on was much worse in November. Today she woke up and was her normal self caregiver took her for breakfast. And then she started vomiting and complaining of dizziness. He says that she was in her normal state of health yesterday. Patient received Phenergan by EMS and is currently arousable but not able to answer questions or follow commands Related Data Home Medications Medication Instructions Recorded Confirmed CA PANTOTHENATE/FOLIC ACID/VIT 1 tab PO Q DAY ##0 05/11/11 03/05/22 (MULTIVITAMIN) Calcium Carbonate/Vitamin D 1 cap PO QAM AND QHS ##0 05/11/11 03/05/22 (#CALCIUM) Fish Oil 1,000 mg PO QDAY ##0 10/24/12 03/05/22 CHOLECALCIFEROL (VITAMIN D) 2,000 units PO QDAY #0 tabs 06/13/13 03/05/22 Adult Aspirin 81 mg PO DAILY 12/24/21 03/05/22 atorvastatin 20 mg tablet 10 mg PO BEDTIME 01/05/22 03/05/22 sertraline 100 mg tablet 150 mg PO DAILY 03/05/22 03/05/22 Previous Rx's Medication Instructions Recorded donepezil 10 mg tablet (Aricept) 10 mg PO QDAY #90 tabs 10/19/21 estradiol 10 mcg vaginal tablet See Rx Instructions .Route 10/19/21 .COMPLEX #36 tabs memantine 5 mg tablet 5 mg PO BID #180 tabs 10/19/21 tolterodine 4 mg capsule,extended 4 mg PO DAILY #90 caps 10/19/21 release 24 hr (Detrol LA) risperidone 0.5 mg tablet 0.5 mg PO BID PRN burping/nausea 01/22/22 (Risperdal) #90 tabs Allergies Allergy/AdvReac Type Severity Reaction Status Date / Time No Known Drug Allergies Allergy Verified 03/05/22 12:23 Review of Systems Review of Systems ROS Unobtainable: Unobtainable due to medical condition Patient History Medical History (Updated 03/05/22 @ 17:23 by Lucía Strong DO) Alzheimer's type dementia (2013) Closed fracture of left distal radius (03/15/14) Cognitive dysfunction (2009) Colon polyps Depression Gastritis Heart murmur Hyperlipidemia IBS (irritable bowel syndrome) Meniere's disease Urinary incontinence, mixed Surgical History History of bilateral salpingo-oophorectomy History of surgery on arm (03/16/14) Normal colonoscopy (2012) Status post appendectomy (2003) Status post colectomy (2003) Status post epidural steroid injection (03/06/10) Family History Father Colorectal cancer Mother Dementia Social History household members: spouse Smoking Status: Never smoker alcohol intake: never Smoking Status: Never smoker Substance Use Type: does not use Exam Initial Vital Signs Initial Vital Signs: Vital Signs Pulse Rate 63 03/05/22 12:07 Blood Pressure 173/88 H 03/05/22 12:07 Pulse Oximetry 96 03/05/22 12:07 GENERAL: Sleepy but arousable 86-year-old female HEENT: Head atraumatic,EOMI, pupils reactive, face symmetric, [moist] mucous membranes CARDIOVASCULAR: Regular rate and rhythm without murmurs, rubs or gallops. RESPIRATORY: Breath sounds equal bilaterally, no wheezes rales or rhonchi. ABDOMEN: Soft, moans in pain with palpation EXTREMITIES: Normal range of motion, no clubbing or edema. Neurovascularly intact NEUROLOGICAL: Moves all extremities SKIN: Warm, dry, no laceration, no petechiae, no rashes or lesions. Course Orders Ordered: ED Orders 03/05/22 12:30 CT head/brain wo con Stat XR chest 1V Stat EKG-12 Lead Stat 03/05/22 14:14 Complete Blood Count AUTO DIFF Stat Comprehensive Metabolic Panel Stat Lipase Stat Troponin & CK Cardiac Panel Stat 03/05/22 15:16 CT abdomen pelvis w con Stat 03/05/22 16:14 COVID19 -Nasal RAPID/Pre-Proc Stat Sodium Chloride (Normal Saline 0.9%) 1,000 mls @ 150 mls/hr IV CONT SUMAYA Last Infusion: 03/05/22 18:18 Dose: 0 mls/hr Documented By: Infusion: 03/05/22 16:07 Dose: 0 mls/hr Documented By: Admin: 03/05/22 13:04 Dose: 150 mls/hr Documented By: AT Discontinued Medications Sodium Chloride (Normal Saline 0.9%) 1,000 mls @ 1,000 mls/hr IV BOLUS ONE Stop: 03/05/22 16:15 Last Infusion: 03/05/22 18:17 Dose: 0 mls/hr Documented By: Admin: 03/05/22 16:08 Dose: 1,000 mls/hr Documented By: AT Vital Signs Vital signs: Vital Signs - 8 hr 03/05/22 12:10 03/05/22 12:07 03/05/22 12:07 Temperature 97.0 F L Pulse Rate 61 63 Respiratory Rate 18 Blood Pressure 173/88 H 173/88 H Pulse Oximetry 96 96 Oxygen Delivery Method Room Air 03/05/22 12:30 03/05/22 12:31 03/05/22 12:31 Temperature Pulse Rate 58 L 58 L Respiratory Rate Blood Pressure 165/67 H Pulse Oximetry 97 97 Oxygen Delivery Method 03/05/22 12:47 03/05/22 12:47 03/05/22 13:00 Temperature Pulse Rate 57 L Respiratory Rate Blood Pressure 138/60 129/62 Pulse Oximetry 99 Oxygen Delivery Method 03/05/22 13:00 03/05/22 13:30 03/05/22 13:31 Temperature Pulse Rate 58 L 57 L Respiratory Rate 21 Blood Pressure 140/65 Pulse Oximetry 96 Oxygen Delivery Method 03/05/22 13:31 03/05/22 14:00 03/05/22 14:30 Temperature Pulse Rate 57 L 57 L 59 L Respiratory Rate 23 20 16 Blood Pressure Pulse Oximetry 97 98 95 Oxygen Delivery Method Room Air 03/05/22 15:00 03/05/22 15:13 03/05/22 15:13 Temperature Pulse Rate 60 63 Respiratory Rate 27 H Blood Pressure 138/82 Pulse Oximetry 97 Oxygen Delivery Method Room Air 03/05/22 15:37 03/05/22 15:38 03/05/22 15:38 Temperature Pulse Rate 68 65 Respiratory Rate 18 Blood Pressure 143/78 H Pulse Oximetry Oxygen Delivery Method 03/05/22 16:00 03/05/22 16:30 03/05/22 16:31 Temperature Pulse Rate 62 64 64 Respiratory Rate 16 27 H 19 Blood Pressure Pulse Oximetry 98 97 98 Oxygen Delivery Method Room Air Room Air 03/05/22 16:31 03/05/22 17:00 Temperature Pulse Rate 61 Respiratory Rate Blood Pressure 139/64 Pulse Oximetry 97 Oxygen Delivery Method Room Air MDM - Nausea/Vomiting/Diarrhea Lab Data Result diagrams: 03/05/22 14:14 03/05/22 14:14 Labs: Lab Results 03/05/22 03/05/22 03/05/22 Range/Units 14:14 14:14 16:14 WBC 6.2 (4.5-11.0) X10^3/uL RBC 4.49 (4.0-5.2) X10^6/uL Hgb 13.6 (12.0-16.0) g/dL Hct 40.8 (36-46) % MCV 90.8 (80-100) fL MCH 30.2 (26-34) PG MCHC 33.3 (30-36) % RDW 14.5 (11.6-14.8) % Plt Count 114 L (150-400) X10^3/uL Neut % (Auto) 76.8 H (50-75) % Lymph % (Auto) 13.6 L (25-40) % Long % (Auto) 8.5 (3-14) % Eos % (Auto) 0.4 L (2-4) % Baso % (Auto) 0.7 (0-2) % Neut # (Auto) 4800 (5476-4230) /uL Lymph # (Auto) 800 L (4720-7606) /uL Long # (Auto) 500 (0-900) /uL Eos # (Auto) 0 (0-450) /uL Baso # (Auto) 0 (0-100) /uL Sodium 138 (137-145) mmol/L Potassium 4.5 (3.4-5.1) mmol/L Chloride 105 (98-107) mmol/L Carbon Dioxide 26 (22-32) mmol/L BUN 20 H (7-17) mg/dL Creatinine 0.85 (0.52-1.04) mg/dL Estimated GFR > 60 (>60) mL/min BUN/Creatinine Ratio 23.5 H (6-22) Glucose 102 (80-110) mg/dL Calcium 9.2 (8.4-10.2) mg/dL Total Bilirubin 0.8 (0.2-1.3) mg/dL AST TNP ALT 22 (<35) IU/L Alkaline Phosphatase 80 (38-126) U/L Total Creatine Kinase 72 (30-135) U/L CK-MB (CK-2) TNP CK-MB (CK-2) Rel Index TNP Troponin I 0.015 (0.01-0.034) ng/mL Total Protein 7.7 (6.3-8.2) g/dL Albumin 4.1 (3.5-5.0) g/dL Globulin 3.6 (1.7-4.1) g/dL Albumin/Globulin Ratio 1.1 (1.0-2.8) Lipase 1281 H (23-300) U/L SARS-CoV-2 (PCR) Negative (Negative) Urine Dip Bedside Urine Glucose Negative Bedside Urine Bilirubin - Negative Bedside Urine Ketone - Negative Urine Specific [place] 1.010 Bedside Urine Occult Blood - Negative Bedside Urine pH 7.0 Bedside Urine Protein - Negative Bedside Urine Urobilinogen - Negative Bedside Urine Nitrite - Negative Bedside Urine Leukocytes - Negative Esterase Imaging Data CT scan - head: Radiologist's Impression: CT Scan Report Signed Patient: Tae Izaguirre MR#: [id number] : 1935 Acct:[id number] Age/Sex: 86 / F Date of Service: 03/05/22 Loc: ED Accession Number: [id number] ?? Procedure: CT head/brain wo con Ordering Provider: Lucía Strong D.O. PROCEDURE:? CT HEAD/BRAIN WO CON ? INDICATIONS:? dizzy ? TECHNIQUE:? Noncontrast 4.5 mm thick angled axial sections acquired from the foramen magnum to the vertex, with coronal and sagittal reformats.? For radiation dose reduction, the following was used:? automated exposure control, adjustment of mA and/or kV according to patient size.? ? COMPARISON:? [facility], CT, CT HEAD/BRAIN WO CON, 11/28/2020, 9:16.? [facility], CT, CT HEAD/BRAIN WO CON, 03/23/2021, 23:12. ? FINDINGS:? Image quality:? Excellent.? ? CSF spaces:? Basal cisterns are patent.? No extra-axial fluid collections.? The ventricles are symmetric in size and shape.? ? Brain:? No intracranial bleeds or masses.? There is moderate-to faint severe cerebral volume loss for age, with resultant ventricular and sulcal prominence.? There are periventricular and deep white matter chronic small vessel ischemic changes.? There is intracranial internal carotid artery atherosclerosis.? ? Skull and face:? Calvarium and visualized facial bones appear intact, without suspicious lesions.? ? Sinuses:? Visualized sinuses and mastoids are clear.? ? IMPRESSION:? ? 1. No acute intracranial abnormalities. ? 2. Cerebral volume loss and chronic microvascular ischemic changes. ? ? ? Dictated by: Esthela See M.D. on 03/05/2022 at 12:49 ? ? Chest x-ray: Radiologist's Impression: XRay Report Signed Patient: Tae Izaguirre MR#: [id number] : 1935 Acct:[id number] Age/Sex: 86 / F Date of Service: 03/05/22 Loc: ED Accession Number: [id number] ?? Procedure: XR chest 1V Ordering Provider: Lucía Strong D.O. PROCEDURE:? XR CHEST 1V ? INDICATIONS:? dizzy ? TECHNIQUE:? One view of the chest was acquired.? ? COMPARISON:? [facility], CR, XR CHEST 1V, 11/28/2020, 6:58.? [facility], CT, CT HEAD/BRAIN WO CON, 03/05/2022, 12:36.? [facility], CR, XR CHEST 1V, 03/23/2021, 22:51. ? FINDINGS:? ? Surgical changes and devices:? None.? ? Lungs and pleura:? Basilar scars and atelectasis.? No pleural effusions or pneumothorax.? ? ? Mediastinum:? Mediastinal contours appear normal.? Heart size is normal.? ? Bones and chest wall:? No suspicious bony lesions.? Overlying soft tissues appear unremarkable.? ? IMPRESSION:? No acute cardiopulmonary disease. ? ? Dictated by: Esthela See M.D. on 03/05/2022 at 12:51 ? ? CT scan - abdomen/pelvis: Radiologist's Impression: CT Scan Report Signed Patient: Tae Izaguirre MR#: [id number] : 1935 Acct:[id number] Age/Sex: 86 / F Date of Service: 03/05/22 Loc: ED Accession Number: [id number] ?? Procedure: CT abdomen pelvis w con Ordering Provider: Lucía Strong D.O. PROCEDURE:? CT ABDOMEN PELVIS W CON ? INDICATIONS:? high lipase ab pain ? TECHNIQUE:? After the administration of intravenous contrast, axial sections acquired from the lung bases to the pubic symphysis.? Coronal and sagittal reformats were performed.? For radiation dose reduction, the following was used:? automated exposure control, adjustment of mA and/or kV according to patient size.? ? COMPARISON:? [facility], CT, CT CHEST ABD PEL W CON, 12/24/2021, 8:54.? [facility], CT, ABDOMEN/PELVIS WITH CONTRAST, 05/06/2017, 0:46. ? FINDINGS:? Image quality:? Excellent.? ? Lung bases:? Bibasilar dependent atelectasis is seen.? No pleural effusion or pneumothorax. Heart:? No significant findings. ? ABDOMEN: Liver:? Liver is normal in size.? Tiny hypodensities are again seen scattered in liver parenchyma unchanged from previous studies and is suggestive of benign process..? ? Gallbladder:? Calcified stones are again seen in dependent portion of gallbladder lumen near fundus without gallbladder wall thickening or pericholecystic fluid. Biliary ducts:? Unremarkable.? ? Pancreas:? No discrete pancreatic lesion.? No gross pancreatic ductal dilatation.? 4 mm cystic structure involving pancreatic body is seen series 2, image 31 and may represent small IPMN.? Spleen:? Unremarkable.? ? Adrenal Glands:? Mild thickening of bilateral adrenal gland is again seen, no discrete adrenal nodule. Kidneys and Ureters:? No stones or hydronephrosis.? Bilateral kidneys are normal in size. ?Tiny left renal cortical cyst is again seen..? ? ? Stomach and Bowel:? There is no bowel obstruction or abnormal bowel wall thickening.? Postsurgical changes in right colon are again seen unchanged from prior study.? Surgical anastomosis is intact.? Fecal stasis throughout the colon is seen.? Extensive colonic diverticulosis is again noted without colonic wall thickening or pericolonic fat stranding.? No abscess collection.? Peritoneum:? No abnormal intraperitoneal fluid.? No free air.? ? Ventral Wall: ? No hernias.? Abdominal Nodes:? No retroperitoneal or mesenteric adenopathy by size criteria.? Vessels:? Aorta and inferior vena cava are normal in size.? ? PELVIS: Pelvic Organs:? Unremarkable.? ? Bladder:? Unremarkable.? ? Pelvic Nodes: No enlarged lymph nodes.? Miscellaneous: No hernias are seen. ? ? ? Bones:? No suspicious bony lesion.? No acute vertebral body compression fracture.? Degenerative endplate changes throughout lower thoracic and lumbar spine is seen. ? ? IMPRESSION:? 1. No discrete pancreatic lesion or peripancreatic inflammatory changes.? No gross pancreatic ductal dilatation.? Tiny 4 mm cystic area involving body of pancreas which could represent a tiny IPMN. 2. Cholelithiasis without CT evidence of acute cholecystitis. 3. Constipation.? Stable postsurgical changes in right abdomen.? No bowel obstruction or abnormal bowel wall thickening.? Colonic diverticulosis without evidence of acute diverticulitis.? No free fluid or free air. 4.? Numerous hypodensities again seen scattered in liver parenchyma unchanged from prior studies likely represent benign process such as hepatic cysts. ? ? Dictated by: Erick Colin M.D. on 03/05/2022 at 15:58 ? ECG Data Interpretation: Sinus rhythm rate 58 CA interval [address] changes MDM Narrative Medical decision making narrative: Patient is sleepy your having altered mental status. Possibly from Phenergan. says that she is complaining of pain whenever she is touch but difficult to tell where. Lipase is elevated at 1200 abdomen seems to be mildly tender consistent with pancreatitis. CT does show cholelithiasis. Attempted to get ultrasound but patient was not cooperating and not able to be redirected. Normal bilirubin and liver enzymes no sign of common bile duct obstruction. Dr. Gomez updated patient's symptoms test results and happily accepted Discharge Plan Departure Patient Disposition: Admitted As Inpatient Clinical Impression: Acute pancreatitis Admit Date/Time: 03/05/22 17:23 Admit Provider: Krysta Gomez
[2022-03-05] MEDS: SODIUM CHLORIDE 0.9% 1,000 ML 150 ML IV (13:04)
--- NOTE | 2022-03-05 13:45 | PC.NURSE ---
Lab attempted blood without success, RN attempted x2, another flower shop laborer/designer called. Dr. Strong updated on delay.
[2022-03-05 14:36] LABS: Add Manual Diff / Slide Review NO; Basophils Absolute Auto 0 /uL (0-100); Basophils Percent Auto 0.7 % (0-2); Eosinophils Absolute Auto 0 /uL (0-450); Eosinophils Percent Auto 0.4 % (2-4); Hematocrit 40.8 % (36-46); Hemoglobin 13.6 g/dL (12.0-16.0); Lymphocytes Absolute Auto 800 /uL (1100-4500); Lymphocytes Percent Auto 13.6 % (25-40); Mean Corpuscular HGB Conc 33.3 % (30-36); Mean Corpuscular Hemoglobin 30.2 PG (26-34); Mean Corpuscular Volume 90.8 fL (80-100); Monocytes Absolute Auto 500 /uL (0-900); Monocytes Percent Auto 8.5 % (3-14); Neutrophils Absolute Auto 4800 /uL (1500-7000); Neutrophils Percent Auto 76.8 % (50-75); Platelet Count 114 X10^3/uL (150-400); Red Blood Cell Count 4.49 X10^6/uL (4.0-5.2); Red Cell Distribution Width 14.5 % (11.6-14.8); White Blood Cell Count 6.2 X10^3/uL (4.5-11.0)
[2022-03-05 14:48] LABS: Alanine Aminotransferase 22 IU/L (<35); Albumin 4.1 g/dL (3.5-5.0); Albumin Globulin Ratio 1.1 (1.0-2.8); Alkaline Phosphatase 80 U/L (38-126); BUN Creatinine Ratio 23.5 (6-22); Bilirubin Total 0.8 mg/dL (0.2-1.3); Blood Urea Nitrogen 20 mg/dL (7-17); Calcium 9.2 mg/dL (8.4-10.2); Carbon Dioxide 26 mmol/L (22-32); Chloride 105 mmol/L (98-107); Creatine Kinase 72 U/L (30-135); Estimated Glomerular Filt Rate > 60 mL/min (>60); Globulin 3.6 g/dL (1.7-4.1); Glucose 102 mg/dL (80-110); Lipase 1281 U/L (23-300); Sodium 138 mmol/L (137-145); Total Protein 7.7 g/dL (6.3-8.2)
[2022-03-05 14:53] LABS: HEMOLYSIS 120 (0-50)
[2022-03-05 14:55] LABS: Potassium 4.5 mmol/L (3.4-5.1)
[2022-03-05 15:00] LABS: Troponin I 0.015 ng/mL (0.01-0.034)
--- NOTE | 2022-03-05 15:09 | PC.NURSE ---
Pt easily arousable, reports some dizziness, denies nausea, does not elaborate.
--- NOTE | 2022-03-05 15:16 | DI.CT.S_ITS ---
PROCEDURE: CT ABDOMEN PELVIS W CON INDICATIONS: high lipase ab pain TECHNIQUE: After the administration of intravenous contrast, axial sections acquired from the lung bases to the pubic symphysis. Coronal and sagittal reformats were performed. For radiation dose reduction, the following was used: automated exposure control, adjustment of mA and/or kV according to patient size. COMPARISON: [facility], CT, CT CHEST ABD PEL W CON, 12/24/2021, 8:54. [facility], CT, ABDOMEN/PELVIS WITH CONTRAST, 05/06/2017, 0:46. FINDINGS: Image quality: Excellent. Lung bases: Bibasilar dependent atelectasis is seen. No pleural effusion or pneumothorax. Heart: No significant findings. ABDOMEN: Liver: Liver is normal in size. Tiny hypodensities are again seen scattered in liver parenchyma unchanged from previous studies and is suggestive of benign process.. Gallbladder: Calcified stones are again seen in dependent portion of gallbladder lumen near fundus without gallbladder wall thickening or pericholecystic fluid. Biliary ducts: Unremarkable. Pancreas: No discrete pancreatic lesion. No gross pancreatic ductal dilatation. 4 mm cystic structure involving pancreatic body is seen series 2, image 31 and may represent small IPMN. Spleen: Unremarkable. Adrenal Glands: Mild thickening of bilateral adrenal gland is again seen, no discrete adrenal nodule. Kidneys and Ureters: No stones or hydronephrosis. Bilateral kidneys are normal in size. Tiny left renal cortical cyst is again seen.. Stomach and Bowel: There is no bowel obstruction or abnormal bowel wall thickening. Postsurgical changes in right colon are again seen unchanged from prior study. Surgical anastomosis is intact. Fecal stasis throughout the colon is seen. Extensive colonic diverticulosis is again noted without colonic wall thickening or pericolonic fat stranding. No abscess collection. Peritoneum: No abnormal intraperitoneal fluid. No free air. Ventral Wall: No hernias. Abdominal Nodes: No retroperitoneal or mesenteric adenopathy by size criteria. Vessels: Aorta and inferior vena cava are normal in size. PELVIS: Pelvic Organs: Unremarkable. Bladder: Unremarkable. Pelvic Nodes: No enlarged lymph nodes. Miscellaneous: No hernias are seen. Bones: No suspicious bony lesion. No acute vertebral body compression fracture. Degenerative endplate changes throughout lower thoracic and lumbar spine is seen. IMPRESSION: 1. No discrete pancreatic lesion or peripancreatic inflammatory changes. No gross pancreatic ductal dilatation. Tiny 4 mm cystic area involving body of pancreas which could represent a tiny IPMN. 2. Cholelithiasis without CT evidence of acute cholecystitis. 3. Constipation. Stable postsurgical changes in right abdomen. No bowel obstruction or abnormal bowel wall thickening. Colonic diverticulosis without evidence of acute diverticulitis. No free fluid or free air. 4. Numerous hypodensities again seen scattered in liver parenchyma unchanged from prior studies likely represent benign process such as hepatic cysts. Dictated by: Erick Colin M.D. on 03/05/2022 at 15:58 Approved by: Erick Colin M.D. on 03/05/2022 at 16:04
[2022-03-05] MEDS: SODIUM CHLORIDE 0.9% 1,000 ML 1000 ML IV (16:08)
[2022-03-05 16:35] LABS: COVID19 -Nasal RAPID Negative (Negative)
--- NOTE | 2022-03-05 18:53 | PC.NURSE ---
Addendum entered by Eugenie Bartlett R.N. 03/05/22 19:02: Notified hospitalist MD Gomez of Pt's arrival and of elevated BP Original Note: Pt arrived from ED this evening at 1815, she is A&O 1, denies pain. SBP elevated in 170's. Changed out of soiled clothes and settled with warm blankets in to bed. Endorsed to oncoming shift, admission assessment. Pt unable to recall any medical information. Her is currently not at patient's bedside.
--- NOTE | 2022-03-05 19:33 | P.HP_ITS ---
History of Present Illness History of Present Illness Date Patient Seen: 03/05/22 Chief complaint: Nausea, Vomiting Narrative: 86-year-old female with significant dementia, hyperlipidemia started having nausea and vomiting this morning during her breakfast. Most of the history obtained from existing medical record. Patient unable to make any reasonable conversation. I tried to call her , unable to reach him, left a voicemail. Discussed with nursing staff at bedside. Further information obtained from ER physician noted the time of admission. She apparently has a history of vertigo and dizziness previously.? Has been states that this has happened off and on was much worse in November.? Today she woke up and was her normal self caregiver took her for breakfast.? And then she started vomiting and complaining of dizziness.? He says that she was in her normal state of health yesterday.? Patient received Phenergan by EMS and improved. On further evaluation patient noted to have increased lipase, admitted for further monitoring for acute pancreatitis as a suspected diagnosis. Patient History Medical History (Updated 03/05/22 @ 20:09 by Leonard Malcolm MD) Alzheimer's type dementia (2013) Closed fracture of left distal radius (03/15/14) Cognitive dysfunction (2009) Colon polyps Depression Gastritis Heart murmur Hyperlipidemia IBS (irritable bowel syndrome) Meniere's disease Urinary incontinence, mixed Surgical History History of bilateral salpingo-oophorectomy History of surgery on arm (03/16/14) Normal colonoscopy (2012) Status post appendectomy (2003) Status post colectomy (2003) Status post epidural steroid injection (03/06/10) Family & Social History Family History Father Colorectal cancer Mother Dementia Social History: household members spouse Prior Living Arrangements House Safety & Behavioral: Feels Safe in Current Unwilling to Answer Environment Been Physically Hurt or Unwilling to Answer Threatened By a Person Tobacco & Substance use: Smoking Status Never smoker alcohol intake never Substance Use Type does not use Meds Home Medications and Allergies Home Medications Medication Instructions Recorded Confirmed Type CA PANTOTHENATE/FOLIC ACID/VIT 1 tab PO Q DAY ##0 05/11/11 03/05/22 History (MULTIVITAMIN) Calcium Carbonate/Vitamin D 1 cap PO QAM AND QHS ##0 05/11/11 03/05/22 History (#CALCIUM) Fish Oil 1,000 mg PO QDAY ##0 10/24/12 03/05/22 History CHOLECALCIFEROL (VITAMIN D) 2,000 units PO QDAY #0 tabs 06/13/13 03/05/22 History donepezil 10 mg tablet (Aricept) 10 mg PO QDAY #90 tabs 10/19/21 03/05/22 Rx estradiol 10 mcg vaginal tablet See Rx Instructions .Route 10/19/21 03/05/22 Rx .COMPLEX #36 tabs memantine 5 mg tablet 5 mg PO BID #180 tabs 10/19/21 03/05/22 Rx tolterodine 4 mg capsule,extended 4 mg PO DAILY #90 caps 10/19/21 03/05/22 Rx release 24 hr ([facility] [place]) Adult Aspirin 81 mg PO DAILY 12/24/21 03/05/22 History atorvastatin 20 mg tablet 10 mg PO BEDTIME 01/05/22 03/05/22 History risperidone 0.5 mg tablet 0.5 mg PO BID PRN burping/nausea 01/22/22 03/05/22 Rx (Risperdal) #90 tabs sertraline 100 mg tablet 150 mg PO DAILY 03/05/22 03/05/22 History Allergies Allergy/AdvReac Type Severity Reaction Status Date / Time No Known Drug Allergies Allergy Verified 03/05/22 12:23 Review of Systems Review of Systems Narrative: Patient denies any pain. Other review of system is not reliable at this time given patient overall status. She does seem to be sleepy. Easily arousable. Did not complain any pain on abdominal palpation. Other details are unreliable because her answer to most of the questions he is a straight NO. All other sys tems reviewed. Exam Vital Signs (past 8 hours): - 03/05/22 12:10 03/05/22 12:07 03/05/22 12:07 Temperature 97.0 F L Pulse Rate 61 63 Respiratory Rate 18 Blood Pressure 173/88 H 173/88 H Pulse Oximetry 96 96 Oxygen Delivery Method Room Air Oxygen Flow Rate 03/05/22 12:30 03/05/22 12:31 03/05/22 12:31 Temperature Pulse Rate 58 L 58 L Respiratory Rate Blood Pressure 165/67 H Pulse Oximetry 97 97 Oxygen Delivery Method Oxygen Flow Rate 03/05/22 12:47 03/05/22 12:47 03/05/22 13:00 Temperature Pulse Rate 57 L Respiratory Rate Blood Pressure 138/60 129/62 Pulse Oximetry 99 Oxygen Delivery Method Oxygen Flow Rate 03/05/22 13:00 03/05/22 13:30 03/05/22 13:31 Temperature Pulse Rate 58 L 57 L Respiratory Rate 21 Blood Pressure 140/65 Pulse Oximetry 96 Oxygen Delivery Method Oxygen Flow Rate 03/05/22 13:31 03/05/22 14:00 03/05/22 14:30 Temperature Pulse Rate 57 L 57 L 59 L Respiratory Rate 23 20 16 Blood Pressure Pulse Oximetry 97 98 95 Oxygen Delivery Method Room Air Oxygen Flow Rate 03/05/22 15:00 03/05/22 15:13 03/05/22 15:13 Temperature Pulse Rate 60 63 Respiratory Rate 27 H Blood Pressure 138/82 Pulse Oximetry 97 Oxygen Delivery Method Room Air Oxygen Flow Rate 03/05/22 15:37 03/05/22 15:38 03/05/22 15:38 Temperature Pulse Rate 68 65 Respiratory Rate 18 Blood Pressure 143/78 H Pulse Oximetry Oxygen Delivery Method Oxygen Flow Rate 03/05/22 16:00 03/05/22 16:30 03/05/22 16:31 Temperature Pulse Rate 62 64 64 Respiratory Rate 16 27 H 19 Blood Pressure Pulse Oximetry 98 97 98 Oxygen Delivery Method Room Air Room Air Oxygen Flow Rate 03/05/22 16:31 03/05/22 17:00 03/05/22 17:30 Temperature Pulse Rate 61 Respiratory Rate Blood Pressure 139/64 144/81 H Pulse Oximetry 97 Oxygen Delivery Method Room Air Oxygen Flow Rate 03/05/22 17:30 03/05/22 18:00 03/05/22 18:13 Temperature 97.8 F Pulse Rate 61 71 63 Respiratory Rate 23 16 16 Blood Pressure 172/71 H Pulse Oximetry 97 97 Oxygen Delivery Method Room Air Oxygen Flow Rate 0 Oxygen Delivery Method Room Air Oxygen Flow Rate 0 Narrative Exam Narrative: Patient lying in the bed. Trying to follow commands nicely. Does not seem to be in distress. Patient does seem to be mildly uncomfortable when I did the deep palpation in epigastric area. Constitutional, eyes, ENT, cardiovascular, respiratory, GI, skin, neuro, psych examination negative other than as mentioned above. She does have significant memory deficits. She is oriented to x1. She is pleasant., following commands nicely. Generalized weakness noted. She is th in built. Objective Labs Result Diagrams: 03/05/22 14:14 03/05/22 14:14 Labs: Laboratory Results - last 24 hr 03/05/22 03/05/22 03/05/22 14:14 14:14 16:14 WBC 6.2 RBC 4.49 Hgb 13.6 Hct 40.8 MCV 90.8 MCH 30.2 MCHC 33.3 RDW 14.5 Plt Count 114 L Neut % (Auto) 76.8 H Lymph % (Auto) 13.6 L Blount % (Auto) 8.5 Eos % (Auto) 0.4 L Baso % (Auto) 0.7 Neut # (Auto) 4800 Lymph # (Auto) 800 L Blount # (Auto) 500 Eos # (Auto) 0 Baso # (Auto) 0 Sodium 138 Potassium 4.5 Chloride 105 Carbon Dioxide 26 BUN 20 H Creatinine 0.85 Estimated GFR > 60 BUN/Creatinine Ratio 23.5 H Glucose 102 Calcium 9.2 Total Bilirubin 0.8 AST TNP ALT 22 Alkaline Phosphatase 80 Total Creatine Kinase 72 CK-MB (CK-2) TNP CK-MB (CK-2) Rel Index TNP Troponin I 0.015 Total Protein 7.7 Albumin 4.1 Globulin 3.6 Albumin/Globulin Ratio 1.1 Lipase 1281 H SARS-CoV-2 (PCR) Negative Assessment & Plan Assessment and plan (1) Acute pancreatitis: Qualifiers: Acute pancreatitis complication: unspecified Pancreatitis type: unspecified pancreatitis type Qualified Code(s): K85.90 - Acute pancreatitis without necrosis or infection, unspecified Status: Acute (2) Hypertensive urgency: Status: Acute (3) Alzheimer's disease: Status: Chronic (4) Mixed hyperlipidemia: Status: Chronic (5) Stress incontinence in female: Status: Chronic (6) Chronic abdominal pain: Status: Chronic Plan Admit patient under observation status for pain control and IV fluids Patient does meet acute pancreatitis criteria for abdominal discomfort, nausea, elevated lipase greater than 3 times from baseline even though no evidence of pancreatitis on imaging study at this time. Continue IV fluids, NPO, appropriate pain control Advanced diet as tolerated starting from morning if patient seems to be comfortable and nausea improved As needed IV hydralazine for blood pressure greater than 160 after pain appropriately controlled Other chronic medical conditions seems to be stable DVT, GI prophylaxis reviewed. I am unable to confirm the code status with the family member at this time. I am unable to discuss the care plan with the , left a voicemail. Will reach out to the family member in case of emergency, son listed as the emergency contact. Overnight note: Patient has difficult IV access, started having some agitation at around 11:00 p.m., added Haldol. If patient continues to have further mental status change or deterioration, we will call her son to update. Time Spent With Patient Critical Care time: I spent a total of [] minutes of critical care time on this patient's care today; this time is exclusive of procedural time. Quality VTE Deep Vein Thrombosis/Pulmonary Embolism Present on Admission: No
[2022-03-05] MEDS: HALOPERIDOL 5 MG/ML VIAL 2.5 MG IM (23:31)
[2022-03-06] VITALS (9 sets, daily range): BP systolic 128–193; BP diastolic 56–90; PULSE 66–78; RESP 17–18; TEMP 36.4–37.3; O2SAT 95–98
[2022-03-06] MEDS: HALOPERIDOL 5 MG/ML VIAL 2.5 MG IM (02:45)
--- NOTE | 2022-03-06 04:25 | PM.EVENT ---
Event Note Event Note (Rapid Response, Code, or fall): Patient lost initial IV access and had difficulty in securing an IV access. I got a call from RN at 4:00 a.m. to evaluate the patient for hematoma formed secondary to complication of midline placement procedure (incomplete placement). Patient moved her arm abruptly during the procedure as per the nursing staff caused the damage probably to the artery - significant swelling noted in the left upper arm (4X5 in cubital area). Band-Aid and compression on the area applied, stopped bleeding. Recommended ice pack and frequent pulse check. When I checked the radial pulse is she is having a good pulse. Peripheral circulation left upper extremity seems to be normal. Swelling and Discoloration of the skin surrounding the area of the IV line placement site noted. I requested nurse to perla the swelling to keep a close eye and monitor it. As of now, patient seems to be hemodynamically stable and comfortable. RN is able to secure a small IV line in right upper extremity (hand) and we will continue IV fluids using that line. We will call family in the morning to update the event. Day team to follow closely the area of swelling and if necessary involve surgery for further recommendations.
[2022-03-06] MEDS: DEXTROSE 5%-0.9% NS 1,000 ML 100 ML IV ×2 (04:34→17:20)
[2022-03-06] MEDS: MORPHINE 2 MG/ML INJ IV (04:54)
--- NOTE | 2022-03-06 05:04 | PC.NURSE ---
IV nurse came to place midline, had a failed attempt when patient jerked her arm and nicked artery in left upper arm, noted significant swelling. Pressure dressing applied for approximately 10 minutes, Dr. Malcolm called to assess. Compression wrap removed and arm marked around swollen area. Ice pack applied and arm elevated. Received order to check pulse every hour. Prior to leaving IV nurse placed IV in right hand. Radial pulses good and equal bilaterally, IV fluids started.
[2022-03-06 05:54] LABS: Hematocrit 39.3 % (36-46); Hemoglobin 13.2 g/dL (12.0-16.0); Mean Corpuscular HGB Conc 33.5 % (30-36); Mean Corpuscular Hemoglobin 30.3 PG (26-34); Mean Corpuscular Volume 90.3 fL (80-100); Platelet Count 166 X10^3/uL (150-400); Red Blood Cell Count 4.35 X10^6/uL (4.0-5.2); Red Cell Distribution Width 14.4 % (11.6-14.8); White Blood Cell Count 5.4 X10^3/uL (4.5-11.0)
[2022-03-06 06:08] LABS: BUN Creatinine Ratio 22.2 (6-22); Blood Urea Nitrogen 16 mg/dL (7-17); Calcium 9.3 mg/dL (8.4-10.2); Carbon Dioxide 28 mmol/L (22-32); Chloride 107 mmol/L (98-107); Estimated Glomerular Filt Rate > 60 mL/min (>60); Glucose 120 mg/dL (80-110); HEMOLYSIS 25 (0-50); Potassium 3.7 mmol/L (3.4-5.1); Sodium 139 mmol/L (137-145)
--- NOTE | 2022-03-06 12:16 | CM.DANOTE ---
Initial Discharge Plan Assessment Case received, EMR reviewed and met with patient and spouse Josue. Introduced self and role. Was able to obtain information from spouse of patient's baseline activity level and care needs at home prior to hospitalization. DCP assessment completed based information currently available. 86 year old patient admitted yesterday evening to care of hospitalist team. PCP: Dr Kolby Ayala Payer: Medicare, [employer] Patient arrived via ambulance to hospital secondary to dizziness and vomiting. Patient has history of Alzheimer's dementi. Patient was diagnosed with acute pancreatitis. She is NPO. She is here for IV fluids and pain control. Entered room, met with supportive spouse Josue who cares for patient in their private home. Additionally, a private caregiver comes in M-F 8am to 11 am. Son En lives in [place] and comes up to assist when he can. Patient able to ambulate with walker and climbs a few stairs with assist. states in order for patient to return home she will need to be able to navigate the stairs. P: Patient to return home under care of spouse with prior arrangements. Will need PT Eval prior to discharge if continues weak. If needed, consider Home Health PT for strengthening. Will continue to follow. 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 Yes Advance Directives on File Yes History Provided By Family Member,Significant Other,Medical Record Has Patient been admitted in last 30 No days? Prior Living Arrangements House Household Members spouse Type of transporation used prior to Relies on Others admit Independent with ADL's No Is patient alert and oriented? Alert to self Needs Assistance With Bathing,Eating,Grooming,Meal Prep,Toileting,Managing Medications,Home Chores / Shopping Comment Spouse assists; private cg M-F 8am to 11am. Caregiver for Another No DME Already Rented / Owned FWW / Walker,Cane Barriers to Discharge No Comment Patient has good supportive spouse and son in [place]. Discharge Plan Home Transportation Arrangement Spouse bedside and can transport Referrals Initiated Other Additional Comment Patient does not currently have PT orders but may need to pursue to be sure she can navigate stairs at home. Whiteboard Updated in Patient Room with Yes name and ext. # of Brushing Machine Operator Review Status In Process Next Review Type Continued Stay Review
[2022-03-06] MEDS: SODIUM CHLORIDE 0.9% 1,000 ML 150 ML IV (13:07)
--- NOTE | 2022-03-06 16:13 | PM.PN.1 ---
Subjective Subjective Date Patient Seen: 03/06/22 Interval history: The patient is an 86-year-old female with severe dementia admitted to the hospital with acute gallstone pancreatitis. Patient did have abdominal pelvic CT, which confirmed cholelithiasis but no evidence of cholecystitis. Her lipase was elevated at 1200 on admission. She is essentially unresponsive today, she is unable to provide any history, she does appear comfortable and does not appear to be in any pain. Exam Vital Signs (past 8 hours): - 03/06/22 09:10 03/06/22 12:00 Temperature 97.5 F L 97.7 F Pulse Rate 67 66 Respiratory Rate 18 18 Blood Pressure 143/58 H 161/85 H Pulse Oximetry 98 96 Oxygen Flow Rate 0 0 Oxygen Delivery Method Room Air Oxygen Flow Rate 0 Narrative Exam Narrative: Ill-appearing non communicative female lying in bed Resp Other: Lungs clear to auscultation Cardio Other: Cardiac exam: Regular rate and rhythm normal S1-S2 GI Other: Abdomen: Soft nontender Extrem Other: Extremities: No edema Objective Labs Result Diagrams: 03/06/22 05:38 03/06/22 05:38 Labs: Laboratory Results - last 24 hr 03/05/22 03/06/22 03/06/22 16:14 05:38 05:38 WBC 5.4 RBC 4.35 Hgb 13.2 Hct 39.3 MCV 90.3 MCH 30.3 MCHC 33.5 RDW 14.4 Plt Count 166 Sodium 139 Potassium 3.7 Chloride 107 Carbon Dioxide 28 BUN 16 Creatinine 0.72 Estimated GFR > 60 BUN/Creatinine Ratio 22.2 H Glucose 120 H Calcium 9.3 SARS-CoV-2 (PCR) Negative [facility] Medical History (Updated 03/05/22 @ 20:09 by Leonard Malcolm MD) Alzheimer's type dementia (2013) Closed fracture of left distal radius (03/15/14) Cognitive dysfunction (2009) Colon polyps Depression Gastritis Heart murmur Hyperlipidemia IBS (irritable bowel syndrome) Meniere's disease Urinary incontinence, mixed Surgical History History of bilateral salpingo-oophorectomy History of surgery on arm (03/16/14) Normal colonoscopy (2012) Status post appendectomy (2003) Status post colectomy (2003) Status post epidural steroid injection (03/06/10) Family History Father Colorectal cancer Mother Dementia Social History household members: spouse Smoking Status: Never smoker alcohol intake: never Assessment & Plan Assessment & Plan narrative: Impression 1. 86-year-old female admitted to the hospital with acute gallstone pancreatitis. She has significant dementia, she does appear to be comfortable. -given her advanced dementia would for surgical treatment at this time, I attempted to discuss with her , he is unclear whether he would want to pursue definitive surgery -at this point would continue IV hydration, pain medications as appropriate, Morales her diet as tolerated -will repeat LFTs and labs in the morning, at this point no evidence of acute cholangitis, or choledocholithiasis -will obtain abdominal ultrasound to characterize her gallbladder further Dementia, severe -no intervention needed -continue memantine, continue risperidone, continue Zoloft, continue donepezil Hyperlipidemia -will resume her statin Will paste patient on DVT prophylaxis I discussed code status with her , her surrogate decision maker, he indicates the patient is a full code, this is been noted in the record. Time Spent With Patient Critical Care time: I spent a total of [] minutes of critical care time on this patient's care today; this time is exclusive of procedural time. Quality VTE Deep Vein Thrombosis/Pulmonary Embolism Present on Admission: No
--- NOTE | 2022-03-06 17:28 | PC.NURSE ---
pt lying comfortable in bed and answers questions appropriately, pt alert to self only, pt needs 1-1 feeding, breifs dry and lung sounds clear, pt refused tylenol denies pain throughout shift.
[2022-03-06] MEDS: SERTRALINE 50 MG TABLET 150 MG PO (21:00)
[2022-03-06] MEDS: ATORVASTATIN 20 MG TABLET PO (21:01)
[2022-03-06] MEDS: DONEPEZIL 5 MG TABLET 10 MG PO (21:01)
[2022-03-06] MEDS: MEMANTINE HCL 5 MG TABLET PO (21:01)
[2022-03-06] MEDS: HYDRALAZINE 20 MG/ML VIAL 10 MG IV (21:45)
[2022-03-07] VITALS (8 sets, daily range): BP systolic 136–212; BP diastolic 70–106; PULSE 74–94; RESP 14–20; TEMP 36.2–37.1; O2SAT 95–97
[2022-03-07] MEDS: DEXTROSE 5%-0.9% NS 1,000 ML 100 ML IV (02:41)
[2022-03-07 06:55] LABS: Add Manual Diff / Slide Review NO; Basophils Absolute Auto 0 /uL (0-100); Basophils Percent Auto 0.9 % (0-2); Eosinophils Absolute Auto 0 /uL (0-450); Eosinophils Percent Auto 0.7 % (2-4); Hematocrit 35.2 % (36-46); Hemoglobin 11.7 g/dL (12.0-16.0); Lymphocytes Absolute Auto 1100 /uL (1100-4500); Lymphocytes Percent Auto 18.7 % (25-40); Mean Corpuscular HGB Conc 33.2 % (30-36); Mean Corpuscular Hemoglobin 30.4 PG (26-34); Mean Corpuscular Volume 91.5 fL (80-100); Monocytes Absolute Auto 400 /uL (0-900); Monocytes Percent Auto 7.6 % (3-14); Neutrophils Absolute Auto 4100 /uL (1500-7000); Neutrophils Percent Auto 72.1 % (50-75); Platelet Count 161 X10^3/uL (150-400); Red Blood Cell Count 3.85 X10^6/uL (4.0-5.2); Red Cell Distribution Width 14.8 % (11.6-14.8); White Blood Cell Count 5.7 X10^3/uL (4.5-11.0)
[2022-03-07 07:29] LABS: Alanine Aminotransferase 16 IU/L (<35); Albumin 3.1 g/dL (3.5-5.0); Albumin Globulin Ratio 1.2 (1.0-2.8); Alkaline Phosphatase 68 U/L (38-126); Aspartate Aminotransferase 27 IU/L (14-36); Bilirubin Total 0.3 mg/dL (0.2-1.3); Blood Urea Nitrogen 11 mg/dL (7-17); Calcium 7.7 mg/dL (8.4-10.2); Carbon Dioxide 23 mmol/L (22-32); Chloride 114 mmol/L (98-107); Estimated Glomerular Filt Rate > 60 mL/min (>60); Globulin 2.5 g/dL (1.7-4.1); Glucose 383 mg/dL (80-110); HEMOLYSIS < 15 (0-50); Potassium 3.2 mmol/L (3.4-5.1); Sodium 140 mmol/L (137-145); Total Protein 5.6 g/dL (6.3-8.2)
[2022-03-07] MEDS: ENOXAPARIN 40 MG/0.4 ML SYRINGE SUBCUT (09:12)
[2022-03-07] MEDS: MEMANTINE HCL 5 MG TABLET PO ×2 (09:12→21:09)
[2022-03-07] MEDS: POTASSIUM CHLORIDE 20 MEQ TAB 40 MEQ PO (12:27)
--- NOTE | 2022-03-07 13:22 | CM.DPC ---
Discharge Planning Note: Met with patient and spouse in her room. Patient has dementia and is not able to engage in conversation and currently she is becoming agitated trying to get out of bed. Spouse Josue is in room reading and had met with him yesterday. Patient lives in their home and he is primary caregiver, additionally they have a private cg M-F 8am to 11am who assists with personal care, meals, chores, etc. Patient is able to ambulate with walker and SBA at home and there are a few stairs to navigate. Had spoken with spouse yesterday regarding requesting physical therapy to make sure she is strong enough to do the stairs. If she is not able to do the stairs, this becomes a barrier to discharge. Day nurse states is tolerating her general diet without abdominal discomfort. Physical therapy order placed. P: Will follow up tomorrow with PT eval results and continue discharge planning. Bianca Herrera RN/DCP
--- NOTE | 2022-03-07 15:23 | PT.IIE ---
Current Diagnoses Mixed hyperlipidemia (03/05/22) Dementia in other diseases classified elsewhere without behavioral disturbance (03/05/22) Alzheimer's disease, unspecified (03/05/22) Other chronic pain (03/05/22) Hypertensive urgency (03/05/22) Acute pancreatitis without necrosis or infection, unspecified (03/05/22) Stress incontinence (female) (male) (03/05/22) Unspecified abdominal pain (03/05/22) Surgical History (Last Reviewed 03/05/22 @ 19:56 by Leonard Malcolm MD) History of bilateral salpingo-oophorectomy History of surgery on arm (03/16/14) Normal colonoscopy (2012) Status post appendectomy (2003) Status post colectomy (2003) Status post epidural steroid injection (03/06/10) Medical History (Last Reviewed 03/05/22 @ 19:56 by Leonard Malcolm MD) Alzheimer's type dementia (2013) Closed fracture of left distal radius (03/15/14) Cognitive dysfunction (2009) Colon polyps Depression Gastritis Heart murmur Hyperlipidemia IBS (irritable bowel syndrome) Meniere's disease Urinary incontinence, mixed Physical Therapy Inpatient Evaluation/Re-Eval M1 PT/OT-IP Prior Functional Status Start: 03/07/22 14:28 Freq: NEEDED Status: Active Protocol: Document 03/07/22 15:23 AW (Rec: 03/07/22 15:49 AW [id number]) Medical Review Prior Functional Status Medical History Reviewed Yes Communication Pt is able to make her needs known but with a great deal of confusion. She is [place]. Mobility and Gait Pt is able to ambulate SBA with FWW. She is able to walk from bed to toilet without AD. Spouse assists with transfers and stairs. Activities of Daily Living and IADL's Caregivers assist with dressing and bathing tasks as well as provide some meals. Pt has private caregivers M-F [phone]. Social History Household Members spouse Living Arrangements House Number of Floors (Floors) 3 or More Floors Number of Stairs To Enter/Railing? Platform step to enter, no rail. 14 steps with R rail ascending to bedroom level. Pt has no need to access basement. Home Environment Standard Height Toilet,Walk in Shower Home Equipment Front Wheel Walker Additional Social History Comment Pt lives with her spouse, Josue, who is her primary caregiver. She has private caregivers M- [phone]. M2 PT-IP Current Condition Start: 03/07/22 14:28 Freq: NEEDED Status: Active Protocol: Document 03/07/22 15:23 AW (Rec: 03/07/22 15:49 AW [id number]) Physical Therapy Current Condition Current Condition Evaluation Date 03/07/22 Treatment Diagnosis acute pancreatitis, generalized weakness, impaired mobility and gait Onset Date 03/05/22 M3 PT-IP Subjective Start: 03/07/22 14:28 Freq: NEEDED Status: Active Protocol: Document 03/07/22 15:23 AW (Rec: 03/07/22 15:49 AW [id number]) Subjective Physical Therapy Visit Type Type Initial Evaluation Visit Start Time 14:48 Visit Stop Time 15:23 Total Visit Minutes 35 Notes Pt's spouse was present. He contributed heavily to history and participated in caregiver training. Number of POLITICAL SCIENCE CHAIR Visits 0 Physical Therapy Visit Comments Patient Comments Pt agrees to get up with physical therapist. Patient Goals Pt's spouse would like pt to return home with him. Therapy Pain Assessment Pain When Pain Assessed During Mobility Pain Present Pain Present Denied Pain M4 PT-IP Mobility and Gait Start: 03/07/22 14:28 Freq: NEEDED Status: Active Protocol: Document 03/07/22 15:23 AW (Rec: 03/07/22 16:06 AW [id number]) PT-Bed Mobility Assessment Supine to Sit Supine to Sit Minimal Assistance,1 Person Assistance Scooting Scooting to Edge of Bed Standby Assistance PT-Transfer Assessment Sit to and From Stand Sit to and from Stand Contact Guard Assistance, Minimal Assistance,1 Person Assistance,Use of Upper Extremities Equipment Transfer Assistive Device Gait Belt,Front Wheeled Walker Orthotic/Prosthetic Devices or Brace: No Transfers Transfer Destination Chair,Toilet,Wheelchair Transfer Technique pt ambulated with FWW Transfer Ability Level of Assist Minimal Assistance,1 Person Assistance,Use of Upper Extremities Comments Mobility Comments Pt was lying in bed as PT arrived. She completed supine to sit with HOB flat min A. She scooted herself toward EOB but could not get her feet flat on the floor due to her short stature. Her spouse donned the gait belt, needing min cues. Pt stood CGA and transferred to the chair without AD CGA/min A. She agreed to ambulate with the FWW, standing from the chair CGA and using FWW to ambulate 20 feet min A to the w/c. Pt needed frequent cues for obstacle navigation and direction of movement. She transferred to the w/c min A and was propelled to the stairs. She stood min A and used FWW to approach the stairs. She was able to ascend with R HR and L DRY CLEANING ATTENDANT min A which her spouse stated was consistent with her baseline. She descended in similar fashion and then ambulated 110 feet back to her room with FWW min/mod A at all times for balance, obstacle clearance, safe use of FWW, and orientation to task. On return to the room, pt sat on the chair and then stated she needed to use the toilet. She stood from the chair CGA and used FWW to walk to the bathroom min/mod A and min A to transfer. Cues were required for briefs management and pericare. Pt needed min A to stand from the toilet and used FWW to walk back to the chair where she agreed to sit up. PT provided warm blankets, call light and tray table were in reach. Pt's spouse agreed to use call light for all mobility needs. Gait Assessment Gait Gait Assistance Required: Minimum Assistance,Moderate Assistance,1 Person Assist Distance (Feet) 110 Assistive Devices Assistive Device Gait Belt,Front Wheeled Walker Orthotic/Prosthetic Devices or Brace: No Gait Deviations General Gait Pattern Decreased Stride Length, Decreased Feet Clearance, Flexed Trunk,Narrow Based Gait Factors Limiting Gait Function Factors Limiting Gait Function Decreased Activity Tolerance, Decreased Strength,Difficulty Following Directions,Poor Balance,Poor Safety Awareness Comments Gait Comments See mobility comments for details. Stair Climbing Assessment Evaluation Level of Assist On Stairs Minimal Assistance,1 Person Assistance Devices Stair Climbing Assistive Devices Right Railing Technique/Endurance Stair Climbing Direction Ascend and Descend Stair Climbing Technique Step Over Step,Step to Step Number of Steps Climbed 3 Query Text: Stair Climbing Set # Repetitions (reps) 1 Comments Stair Climbing Comments Pt ascended step over step and descended step-to with min A left side and handrail right side. PT-Balance Assessment Sitting Balance and Reactions Static Sitting Balance Ability Good Dynamic Sitting Balance Ability Fair Standing Balance and Reactions Static Standing Balance Ability Fair Dynamic Standing Balance Ability Poor Device Used FWW M5 PT-IP Objective Assessments Start: 03/07/22 14:28 Freq: NEEDED Status: Active Protocol: Document 03/07/22 15:23 AW (Rec: 03/07/22 16:06 AW [id number]) Orientation Orientation/Cognition Level of Alertness Confusional State Orientation Name Language Function Ability Hard of Hearing Safety Awareness Decreased Safety Awareness Memory Description Short Term Impaired Gross Range of Motion Lower Extremity ROM Assessment Within Functional Limits Strength Lower Extremity Strength Assessment Within Functional Limits Muscle Tone Muscle Tone WNL Yes M6 PT-IP Treatment Start: 03/07/22 14:28 Freq: NEEDED Status: Active Protocol: Document 03/07/22 15:23 AW (Rec: 03/07/22 16:06 AW [id number]) Physical Therapy Treatment Education Education Provided Safety M7 PT-IP Assessment and Plan Start: 03/07/22 14:28 Freq: NEEDED Status: Active Protocol: Document 03/07/22 15:23 AW (Rec: 03/07/22 16:06 AW [id number]) PT Summary Assessment and Plan Potential Rehabilitation Potential Fair Status of Condition at Evaluation Evolving Summary Impairments Balance,Cognition,Bed Mobility ,Transfers,Gait Assessment Summary Tae Gatica is an 86 yo woman with Alzheimer's dementia admitted with acute pancreatitis. She requires mobility assist at baseline for ambulation with FWW and stairs with handrails. She required min to mod assist with all mobilities at this encounter. Her spouse was able to provide appropriate level of assist and cues for safe mobility with FWW. Pt will be safe to discharge home with spouse and caregivers providing 24/7 assist once medically stable. Goals Bed Mobility Goal Standby Assistance Transfer Goal Standby Assistance,Front Wheeled Walker Gait Goal Standby Assistance,Front Wheel Walker Gait Distance 100 Other Goals - up/down 14 steps with R hand rail CGA Days to Meet Goals 10 Frequency of Treatment Frequency Of Treatment Once a Day Treatment Plan Physical Therapy Treatment Plan Bed Mobility Training,Transfer Training,Gait Training, Therapeutic Exercise,Balance Retraining,Discharge Planning, Hot or Cold Pack,Neuromuscular Re-ed Precautions Other Precautions falls risk Recommendations To Nursing Amount of Assist Needed 1 Person Assist Discharge Recommendations PT Discharge Recommendations Home with 24/7 Assist Available,Home Health Transportation Needs at Discharge Private Vehicle
--- NOTE | 2022-03-07 16:56 | PM.PN.1 ---
Subjective Subjective Date Patient Seen: 03/07/22 Interval history: The patient is an 86-year-old female with severe dementia admitted to the hospital with acute gallstone pancreatitis. She is much improved today, she has intermittent episodes of paranoia. She denies pain today and did eat breakfast without issue. patient did not want me to examine her today Exam Vital Signs (past 8 hours): - 03/07/22 16:00 Temperature 97.9 F Pulse Rate 81 Respiratory Rate 14 Blood Pressure 157/78 H Pulse Oximetry 97 Oxygen Flow Rate 0 Oxygen Delivery Method Room Air Oxygen Flow Rate 0 Narrative Exam Narrative: General:? Confused, anxious, scared appearing elderly female, hiding under blanket cover Lungs:? patient refused Cardio:?patient refused Abdomen: patient refused Objective Labs Result Diagrams: 03/07/22 06:10 03/07/22 06:10 Labs: Laboratory Results - last 24 hr 03/07/22 03/07/22 06:10 06:10 WBC 5.7 RBC 3.85 L Hgb 11.7 L Hct 35.2 L MCV 91.5 MCH 30.4 MCHC 33.2 RDW 14.8 Plt Count 161 Neut % (Auto) 72.1 Lymph % (Auto) 18.7 L [place] % (Auto) 7.6 Eos % (Auto) 0.7 L Baso % (Auto) 0.9 Neut # (Auto) 4100 Lymph # (Auto) 1100 [place] # (Auto) 400 Eos # (Auto) 0 Baso # (Auto) 0 Sodium 140 Potassium 3.2 L Chloride 114 H Carbon Dioxide 23 BUN 11 Creatinine 0.61 Estimated GFR > 60 BUN/Creatinine Ratio 18.0 Glucose 383 H D Calcium 7.7 L Total Bilirubin 0.3 AST 27 ALT 16 Alkaline Phosphatase 68 Total Protein 5.6 L Albumin 3.1 L Globulin 2.5 Albumin/Globulin Ratio 1.2 [facility] Medical History (Updated 03/05/22 @ 20:09 by Leonard Malcolm MD) Alzheimer's type dementia (2013) Closed fracture of left distal radius (03/15/14) Cognitive dysfunction (2009) Colon polyps Depression Gastritis Heart murmur Hyperlipidemia IBS (irritable bowel syndrome) Meniere's disease Urinary incontinence, mixed Surgical History History of bilateral salpingo-oophorectomy History of surgery on arm (03/16/14) Normal colonoscopy (2012) Status post appendectomy (2003) Status post colectomy (2003) Status post epidural steroid injection (03/06/10) Family History Father Colorectal cancer Mother Dementia Social History household members: spouse Smoking Status: Never smoker alcohol intake: never Assessment & Plan Assessment & Plan narrative: Impression 1. 86-year-old female admitted to the hospital with acute gallstone pancreatitis. She has significant dementia, she does appear to be comfortable. -given her advanced dementia would for surgical treatment at this time, I attempted to discuss with her , he is unclear whether he would want to pursue definitive surgery -at this point would continue IV hydration, pain medications as appropriate, advance her diet as tolerated. She is currently tolerating a diet at this time. -will obtain abdominal ultrasound to characterize her gallbladder further, still pending. Dementia, severe -no intervention needed -continue memantine, continue risperidone, continue Zoloft, continue donepezil Hyperlipidemia -will resume her statin Will paste patient on DVT prophylaxis I discussed code status with her , her surrogate decision maker, he indicates the patient is a full code, this is been noted in the record. Will evaluate with PT/OT given improvement for possible discharge home tomorrow. Time Spent With Patient Critical Care time: I spent a total of [] minutes of critical care time on this patient's care today; this time is exclusive of procedural time. Quality VTE Deep Vein Thrombosis/Pulmonary Embolism Present on Admission: No
[2022-03-07] MEDS: DONEPEZIL 5 MG TABLET 10 MG PO (21:08)
[2022-03-07] MEDS: METOPROLOL ER 25 MG TABLET PO (21:08)
[2022-03-07] MEDS: ATORVASTATIN 20 MG TABLET PO (21:09)
[2022-03-07] MEDS: SERTRALINE 50 MG TABLET 150 MG PO (21:09)
[2022-03-07] MEDS: HYDRALAZINE 25 MG TABLET PO (21:10)
[2022-03-07] MEDS: PROMETHAZINE 25 MG TABLET 12.5 MG PO (22:35)
[2022-03-08 00:32] VITALS: BP 164/80; PULSE 74; RESP 19; TEMP 36.3; O2SAT 96
[2022-03-08 06:10] VITALS: BP 149/74; PULSE 64; RESP 19; TEMP 36.3; O2SAT 95
[2022-03-08 06:31] LABS: Add Manual Diff / Slide Review NO; Basophils Absolute Auto 100 /uL (0-100); Basophils Percent Auto 0.8 % (0-2); Eosinophils Absolute Auto 0 /uL (0-450); Eosinophils Percent Auto 0.4 % (2-4); Hematocrit 34.2 % (36-46); Hemoglobin 11.5 g/dL (12.0-16.0); Lymphocytes Absolute Auto 1400 /uL (1100-4500); Lymphocytes Percent Auto 22.5 % (25-40); Mean Corpuscular HGB Conc 33.8 % (30-36); Mean Corpuscular Hemoglobin 30.4 PG (26-34); Monocytes Absolute Auto 400 /uL (0-900); Monocytes Percent Auto 7.4 % (3-14); Neutrophils Absolute Auto 4200 /uL (1500-7000); Neutrophils Percent Auto 68.9 % (50-75); Platelet Count 175 X10^3/uL (150-400); Red Cell Distribution Width 14.3 % (11.6-14.8); White Blood Cell Count 6.1 X10^3/uL (4.5-11.0)
[2022-03-08 06:50] LABS: BUN Creatinine Ratio 16.2 (6-22); Blood Urea Nitrogen 11 mg/dL (7-17); Calcium 8.7 mg/dL (8.4-10.2); Carbon Dioxide 27 mmol/L (22-32); Chloride 109 mmol/L (98-107); Estimated Glomerular Filt Rate > 60 mL/min (>60); Glucose 101 mg/dL (80-110); HEMOLYSIS < 15 (0-50); Potassium 3.7 mmol/L (3.4-5.1); Sodium 141 mmol/L (137-145)
[2022-03-08 08:00] VITALS: BP 123/60; PULSE 57; RESP 17; TEMP 36.4; O2SAT 98
[2022-03-08 08:50] VITALS: BP 123/60; PULSE 60
[2022-03-08] MEDS: METOPROLOL ER 25 MG TABLET PO (08:50)
[2022-03-08] MEDS: MEMANTINE HCL 5 MG TABLET PO (08:50)
[2022-03-08] MEDS: ENOXAPARIN 40 MG/0.4 ML SYRINGE SUBCUT (08:50)
[2022-03-08 10:04] VITALS: BP 131/58; PULSE 65
--- NOTE | 2022-03-08 10:27 | PM.DS.1 ---
History of Present Illness History of Present Illness Date Patient Seen: 03/08/22 Chief complaint: Nausea, Vomiting Narrative: Per Dr. Malcolm, 86-year-old female with significant dementia, hyperlipidemia started having nausea and vomiting this morning during her breakfast. Most of the history obtained from existing medical record. Patient unable to make any reasonable conversation. I tried to call her , unable to reach him, left a voicemail. Discussed with nursing staff at bedside. Further information obtained from ER physician noted the time of admission. She apparently has a history of vertigo and dizziness previously.? Has been states that this has happened off and on was much worse in November.? Today she woke up and was her normal self caregiver took her for breakfast.? And then she started vomiting and complaining of dizziness.? He says that she was in her normal state of health yesterday.? Patient received Phenergan by EMS and improved. On further evaluation patient noted to have increased lipase, admitted for further monitoring for acute pancreatitis as a suspected diagnosis. Discharge Providers Provider Date of admission: 03/05/22 17:23 Discharge Date: 03/08/22 Primary care physician: Kolby Ayala DO Consults: 03/07/22 13:20 Consult to Physical Therapy Evaluate & Treat Comment: Physician Instructions: Evaluate and Treat Discharge provider: Crow Buchanan DO Summary Hospital Course Discharge Diagnosis: acute gallstone pancreatitis.? Dementia, severe Hyperlipidemia Hospital Course: This is an 86-year-old female with a past medical history of hyperlipidemia dementia who was admitted with gallstone pancreatitis. After management discussions with the surrogate decision maker, nonsurgical management was performed. They did not want to seek a cholecystectomy at this time. The patient continued to improve with eventual resumption of a regular diet after a few days. Patient did have paranoid ideations, and would not allow abdominal exam, however she was tolerating a diet at the time of discharge, and had no complaints of pain. Time Spent with Patient Time spent: Less than 30 minutes Exam Vital Signs (past 8 hours): - 03/08/22 06:10 03/08/22 08:50 03/08/22 08:00 Temperature 97.4 F L 97.5 F L Pulse Rate 64 60 57 L Respiratory Rate 19 17 Blood Pressure 149/74 H 123/60 123/60 Pulse Oximetry 95 98 Oxygen Flow Rate 0 03/08/22 10:04 Temperature Pulse Rate 65 Respiratory Rate Blood Pressure 131/58 L Pulse Oximetry Oxygen Flow Rate Oxygen Delivery Method Room Air Oxygen Flow Rate 0 Narrative Exam Narrative: General:? Confused, anxious, slightly paranoid elderly female, though less so than yesterday. Lungs:?CTA b/l without wheezing, rhonchi, or rales Cardio:? Regular rate and rhythm with a 2/6 systolic murmur, no rubs or gallops. Abdomen: patient refused Objective Labs Result Diagrams: 03/08/22 05:40 03/08/22 05:10 Labs: Laboratory Results - last 24 hr 03/08/22 03/08/22 05:10 05:40 WBC 6.1 RBC 3.80 L Hgb 11.5 L Hct 34.2 L MCV 90.0 MCH 30.4 MCHC 33.8 RDW 14.3 Plt Count 175 Neut % (Auto) 68.9 Lymph % (Auto) 22.5 L [place] % (Auto) 7.4 Eos % (Auto) 0.4 L Baso % (Auto) 0.8 Neut # (Auto) 4200 Lymph # (Auto) 1400 [place] # (Auto) 400 Eos # (Auto) 0 Baso # (Auto) 100 Sodium 141 Potassium 3.7 Chloride 109 H Carbon Dioxide 27 BUN 11 Creatinine 0.68 Estimated GFR > 60 BUN/Creatinine Ratio 16.2 Glucose 101 D Calcium 8.7 PFSH Medical History (Updated 03/05/22 @ 20:09 by Leonard Malcolm MD) Alzheimer's type dementia (2013) Closed fracture of left distal radius (03/15/14) Cognitive dysfunction (2009) Colon polyps Depression Gastritis Heart murmur Hyperlipidemia IBS (irritable bowel syndrome) Meniere's disease Urinary incontinence, mixed Surgical History History of bilateral salpingo-oophorectomy History of surgery on arm (03/16/14) Normal colonoscopy (2012) Status post appendectomy (2003) Status post colectomy (2003) Status post epidural steroid injection (03/06/10) Family History Father Colorectal cancer Mother Dementia Social History household members: spouse Smoking Status: Never smoker alcohol intake: never Discharge Plan Discharge Plan Patient Disposition: Home Provider Discharge Comment: Patient was admitted for pancreatitis. Improved with conservative management. Should symptoms recur consider taking out gallbladder though this may be a risky procedure. Would recommend a low fat diet to try and avoid gallbladder stimulation if able. Discharge orders & Medications Prescriptions: Continued CA PANTOTHENATE/FOLIC ACID/VIT (MULTIVITAMIN) 1 tab PO Q DAY Qty: 0 Calcium Carbonate/Vitamin D (#CALCIUM) 1 cap PO QAM AND QHS Qty: 0 Fish Oil 1,000 mg PO QDAY Qty: 0 CHOLECALCIFEROL (VITAMIN D) 2,000 units PO QDAY Qty: 0 risperidone [Risperdal] 0.5 mg tablet 0.5 mg PO BID PRN (Reason: burping/nausea) Qty: 90 1RF donepezil [Aricept] 10 mg tablet 10 mg PO QDAY Qty: 90 3RF estradiol 10 mcg tablet See Rx Instructions .ROUTE .COMPLEX Qty: 36 0RF Dose Instruction: INSERT 1 TABLET VAGINALLY 3 NIGHTS PER WEEK Rx Instructions: INSERT 1 TABLET VAGINALLY 2 NIGHTS PER WEEK THUR AND SUN memantine 5 mg tablet 5 mg PO BID Qty: 180 3RF tolterodine [Detrol LA] 4 mg capsule,extended release 24hr 4 mg PO DAILY Qty: 90 3RF Rx Instructions: APPOINTMENT DUE FOR FURTHER REFILLS. THANK YOU! Adult Aspirin 81 mg PO DAILY atorvastatin 20 mg tablet 10 mg PO BEDTIME Label Comments: TAKE 1 TABLET BY MOUTH AT BEDTIME sertraline 100 mg tablet 150 mg PO DAILY Rx Instructions: take 1.5 tabs q am Follow up/Referrals: Kolby Ayala DO [Primary Care Provider] - Diet/Activity/Treatments Diet: Diet as Tolerated and Low-fat Activity: As tolerated Visit Report/Discharge Packet Instructions: Dementia, DI for Pancreatitis, DI for Malignant Hypertension, How to Prevent Falls Discharge Data Primary Care Provider: Kolby Ayala Quality VTE Deep Vein Thrombosis/Pulmonary Embolism Present on Admission: No
--- NOTE | 2022-03-08 10:44 | CM.DPC ---
Addendum entered by Gladys Herrera R.N. 03/08/22 13:02: Patient has discharge orders and will be transported home by spouse with previous caregiving arrangements. Had spoken with this morning regarding Home Health PT. Spouse is not interested because he states she cannot do much and so does not feel it would benefit. Patient has been able to ambulate and do stairs with PT. SARKIS Original Note: Discharge Planning Note: Met with patient and spouse Josue in room today. Patient is pleasant, non-verbal. Josue is asking if he can walk his in the hallway and checked with nurse. PT will be in today to ambulate and work with patient. Patient medically stable and to discharge today per hospitalist. Bianca Herrera RN/DCP
[2022-03-08 12:00] VITALS: BP 149/68; PULSE 61; RESP 16; TEMP 36.6; O2SAT 97
--- NOTE | 2022-03-08 13:07 | PT.IPTN ---
Current Diagnoses Mixed hyperlipidemia (03/05/22) Dementia in other diseases classified elsewhere without behavioral disturbance (03/05/22) Alzheimer's disease, unspecified (03/05/22) Other chronic pain (03/05/22) Hypertensive urgency (03/05/22) Acute pancreatitis without necrosis or infection, unspecified (03/05/22) Stress incontinence (female) (male) (03/05/22) Unspecified abdominal pain (03/05/22) Physical Therapy Treatment Note M2 PT-IP Current Condition Start: 03/07/22 14:28 Freq: NEEDED Status: Active Protocol: Document 03/07/22 15:23 AW (Rec: 03/07/22 15:49 AW [id number]) Physical Therapy Current Condition Current Condition Evaluation Date 03/07/22 Treatment Diagnosis acute pancreatitis, generalized weakness, impaired mobility and gait Onset Date 03/05/22 M3 PT-IP Subjective Start: 03/07/22 14:28 Freq: NEEDED Status: Active Protocol: Document 03/08/22 13:07 AW (Rec: 03/08/22 13:37 AW [id number]) Subjective Physical Therapy Visit Type Type Treatment Note Visit Start Time 12:42 Visit Stop Time 13:07 Total Visit Minutes 25 Notes Pt's spouse was present. Number of COMMUNITY PROGRAM ASSISTANT Visits 0 Physical Therapy Visit Comments Patient Comments Pt agrees to get up with spouse to assist Patient Goals Pt discharging today with spouse assist Therapy Pain Assessment Pain When Pain Assessed During Mobility Pain Present Pain Present Denied Pain M4 PT-IP Mobility and Gait Start: 03/07/22 14:28 Freq: NEEDED Status: Active Protocol: Document 03/08/22 13:07 AW (Rec: 03/08/22 13:37 AW [id number]) PT-Bed Mobility Assessment Supine to Sit Supine to Sit Minimal Assistance,1 Person Assistance Sit to Supine Sit to Supine Minimal Assistance,1 Person Assistance Scooting Scooting to Edge of Bed Minimal Assistance PT-Transfer Assessment Sit to and From Stand Sit to and from Stand Contact Guard Assistance, Minimal Assistance,1 Person Assistance,Use of Upper Extremities Equipment Transfer Assistive Device Gait Belt,Front Wheeled Walker Orthotic/Prosthetic Devices or Brace: No Transfers Transfer Destination Bed Transfer Technique pt ambulated with FWW Transfer Ability Level of Assist Minimal Assistance,1 Person Assistance,Use of Upper Extremities Comments Mobility Comments Pt was lying in bed as PT arrived. She needed min A and max cues to sit up on the right side of the bed. Her spouse donned the gait belt and pt stood CGA. She ambulated 200 feet with FWW min/mod A with her spouse providing all assist and cues. PT suggested cues for keeping walker closer to trunk, increased step length, and upright posture to improve pt' s navigation. On return to the room, pt needed min A to return to supine. Pt was left with call light in reach and bed alarm on. Gait Assessment Gait Gait Assistance Required: Minimum Assistance,Moderate Assistance,1 Person Assist Distance (Feet) 200 Assistive Devices Assistive Device Gait Belt,Front Wheeled Walker Orthotic/Prosthetic Devices or Brace: No Gait Deviations General Gait Pattern Decreased Stride Length, Decreased Feet Clearance, Flexed Trunk,Narrow Based Gait Factors Limiting Gait Function Factors Limiting Gait Function Decreased Activity Tolerance, Decreased Strength,Difficulty Following Directions,Poor Balance,Poor Safety Awareness Comments Gait Comments See mobility comments for details. M5 PT-IP Objective Assessments Start: 03/07/22 14:28 Freq: NEEDED Status: Active Protocol: Document 03/07/22 15:23 AW (Rec: 03/07/22 16:06 AW [id number]) Orientation Orientation/Cognition Level of Alertness Confusional State Orientation Name Language Function Ability Hard of Hearing Safety Awareness Decreased Safety Awareness Memory Description Short Term Impaired Gross Range of Motion Lower Extremity ROM Assessment Within Functional Limits Strength Lower Extremity Strength Assessment Within Functional Limits Muscle Tone Muscle Tone WNL Yes M6 PT-IP Treatment Start: 03/07/22 14:28 Freq: NEEDED Status: Active Protocol: Document 03/08/22 13:07 AW (Rec: 03/08/22 13:37 AW [id number]) Physical Therapy Treatment Education Education Provided Safety M7 PT-IP Assessment and Plan Start: 03/07/22 14:28 Freq: NEEDED Status: Active Protocol: Document 03/08/22 13:07 AW (Rec: 03/08/22 13:37 AW [id number]) PT Summary Assessment and Plan Summary Assessment Summary Tae Gatica is preparing for discharge with her spouse and caregivers to assist at home. She walked 200 feet today with FWW. Pt's spouse is able to provide appropriate assist and cues to improve safety of pt' s mobility. She is safe to discharge home with / assist and home health PT. Goals Bed Mobility Goal Standby Assistance Transfer Goal Standby Assistance,Front Wheeled Walker Gait Goal Standby Assistance,Front Wheel Walker Gait Distance 100 Other Goals - up/down 14 steps with R hand rail CGA Days to Meet Goals 10 Frequency of Treatment Frequency Of Treatment Once a Day Treatment Plan Physical Therapy Treatment Plan Bed Mobility Training,Transfer Training,Gait Training, Therapeutic Exercise,Balance Retraining,Discharge Planning, Hot or Cold Pack,Neuromuscular Re-ed Precautions Other Precautions falls risk Recommendations To Nursing Amount of Assist Needed 1 Person Assist Discharge Recommendations PT Discharge Recommendations Home with 18/04 Assist Available,Home Health Transportation Needs at Discharge Private Vehicle
--- NOTE | 2022-03-08 14:33 | PC.NURSE ---
Addendum entered by Katherine Renteria R.N. 03/08/22 14:45: 1340 Pt dressed and ready for d/c home with spouse to be transported via pov. No IV and no tele. Discussed d/c instructions and answered questions with pt and pt spouse. Provided education about pancreatitis, medications, stroke signs and symptoms, and fall prevention. Pt had no items in the safe or pharmacy. Pt and spouse sent with all pt belongings, pt taken out by USER ACCEPTANCE TESTER via wheelchair. Original Note: 1140 Pt dressed and ready for d/c home with spouse to be transported via pov. No IV and no tele. Discussed d/c instructions and answered questions with pt and pt spouse. Provided education about pancreatitis, medications, stroke signs and symptoms, and fall prevention. Pt had no items in the safe or pharmacy. Pt and spouse sent with all pt belongings, pt taken out by USER ACCEPTANCE TESTER via wheelchair.
== END 2022-03-08 14:46 | disposition home or self-care (01) | DRG 439 ==
LOC: ED 17:23 → AC 17:24
PROVIDERS: Family Medicine; Internal Medicine; Admitting Provider Internal Medicine; Emergency Provider Emergency Medicine; Family Provider Family Medicine; PCP Family Medicine; Referring Provider Emergency Medicine; Visit Provider Internal Medicine
DX: K85.10 Biliary acute pancreatitis without necrosis or infection (principal); L76.32 Postprocedural hematoma of skin and subcutaneous tissue following other procedure; F02.81 Dementia in other diseases classified elsewhere, unspecified severity, with behavioral disturbance; E78.2 Mixed hyperlipidemia; R32 Unspecified urinary incontinence; R42 Dizziness and giddiness; F32.A Depression, unspecified; G30.9 Alzheimer's disease, unspecified; Z20.822 Contact with and (suspected) exposure to COVID-19
CPT/HCPCS: 36415; 70450; 71045; 74177; 80048; 80053; 81003; 82550; 82962; 83690; 84484; 85025; 85027; 87635; 93005; 93010; 97116; 97162; 97530; 99284; C9803; J0360; J1630; J1650; J2270; Q9967

== ENCOUNTER → 2022-05-03 10:04 | Outpatient (CLI) | payer MEDICARE, OTHER, SELFPAY ==
[2022-03-05 18:15] VITALS: BMI 23.4
[2022-05-03 11:46] LABS: COVID19 -Nasal RAPID Negative (Negative)
== END ==
PROVIDERS: Family Provider Family Medicine; PCP Family Medicine; Visit Provider Surgery
DX: Z20.822 Contact with and (suspected) exposure to COVID-19 (principal); Z01.812 Encounter for preprocedural laboratory examination
CPT/HCPCS: 87635; C9803

== ENCOUNTER 2022-05-05 15:45 | Observation (INO) | payer MEDICARE, OTHER, SELFPAY ==
[2022-03-05 18:15] VITALS: BMI 23.4
[2022-05-03 08:01] VITALS: BMI 23.0
[2022-05-04] VITALS (14 sets, daily range): BP systolic 125–169; BP diastolic 66–97; PULSE 58–76; RESP 12–26; TEMP 35.6–37.3; O2SAT 92–100; BMI 23.0
--- NOTE | 2022-05-04 | PATH_ITS ---
[facility] Accession Number: [id number] . 01 Material submitted: . gallbladder - GALLBLADDER AND CONTENTS . 01 Clinical history: . LAP RUSTY W/LOC . 01 Diagnosis: Gallbladder, Cholecystectomy: Chronic cholecystitis and cholelithiasis. Negative for dysplasia and malignancy. [facility] 05/06/2022 1636 Local . 01 Electronically signed: . Mechelle Hsu MD, Pathologist NPI- [id number] . 01 Gross description: . Received in formalin, labeled with the patient's name and gallbladder and contents, and consists of an intact gallbladder measuring 7.2 x 2.8 x 2.5 cm. The serosa is green and wrinkled. The hepatic surface is rough and unremarkable. The cystic duct is received closed with a clamp, is inked blue, and no pericystic lymph node is identified. Opening the specimen reveals the lumen to be filled with dark green viscous bile. A few black, faceted calculi are identified measuring up to 0.3 cm in greatest dimension. The mucosa is green and velvety with no areas of discoloration, polyps, or lesions identified. The denny average 0.1 cm thick. Director Of Software Engineering sections to include the cystic duct margin and full-thickness sections are submitted in cassette A1. ([id number]) /FRR 05/05/2022 1849 Local . 01 Pathologist provided ICD-10: K85.10 . 01 CPT . 564665 Specimen Comment: A courtesy copy of this report has been sent to [phone] Performed at: 01 [facility] [address] [place] [address] Suite [facility], [place], [place] [id number] MD Duncan Maldonado MD Phone: [phone]
--- NOTE | 2022-05-04 12:09 | PM.PREOP ---
Pre-operative Note COVID-19 COVID-19 status: Negative Result date/Date tested (Pos, Neg/Pending): 05/03/22 Interval Note History & Physical reviewed/Exam performed by Physician: Yes Changes to H&P: No H&P completed within 30 days and has changed as indicated here:: The patient is demented and is unable to provide review of systems. Has been reports no changes since her last visit. ASA Class (for procedural sedation): III
[2022-05-04] MEDS: LACTATED RINGERS 1,000 ML 42 ML IV (12:17)
[2022-05-04] MEDS: LIDOCAINE 1% W/EPI 20 ML INJ (13:13)
[2022-05-04] MEDS: NACL 0.9% IV (13:13)
[2022-05-04] MEDS: BUPIVACAINE 0.5% (PF) VIAL 30 ML INJ (13:13)
[2022-05-04] MEDS: CEFAZOLIN IV (13:13)
--- NOTE | 2022-05-04 13:21 | SUR.OPER ---
Supine on padded OR bed, head on pillow, arms secured on padded arm boards at <90 degrees abduction, legs uncrossed, safety belt at thigh, tape over blanket over lower legs. FOOT BOARD SECURE TO END OF BED AGAINST FEET WITH TOWELS AT HEELS. POSITION APPROVED BY SURGEON AND ANESTHESIA
[2022-05-04] MEDS: IOPAMIDOL 50 ML VIAL INJ (13:40)
--- NOTE | 2022-05-04 14:15 | DI.RAD.S_ITS ---
PROCEDURE: XR CHOLANGIOGRAM OPERATIVE INDICATIONS: OPERATIVE CHOLANGIOGRAM COMPARISON: [facility], CT, CT ABDOMEN PELVIS W CON, 03/05/2022, 15:26. FINDINGS: Biliary ducts: The surgeon injected contrast into the biliary ducts after cannulation of the cystic duct stump. Visualized intra- and extrahepatic bile ducts are normal in caliber, without strictures. No intraluminal filling defects to suggest retained ductal stones or sludge. There is lucent focus of gas in the cystic duct which passes on the subsequent cine. No evidence for iatrogenic ductal injury. Duodenum: Contrast flows promptly through the sphincter of Oddi into the duodenum, which appears normal in caliber. IMPRESSION: Expected appearance of the intraoperative cholangiogram. Dictated by: Chadwick Ortega M.D. on 05/04/2022 at 16:26 Approved by: Chadwick Ortega M.D. on 05/04/2022 at 16:29
--- NOTE | 2022-05-04 14:54 | P.OP_ITS ---
Operative Date/Time/Diagnoses Date of procedure: 05/04/22 Time of procedure: 14:55 Pre-op diagnosis: Gallstone pancreatitis Post-op diagnosis: same Procedure & Clinicians Procedure: Laparoscopic cholecystectomy with intraoperative cholangiogram Same procedure as scheduled: Yes Surgeon: Doyle Emmanuel Anesthesia Type: General Operative Notes Procedure in detail: The patient was given preoperative antibiotic. The patient was brought to the operating room, placed on the table in the supine position. General endotracheal anesthesia was induced. The abdomen was prepped and draped. A time-out was performed. We made a 1 cm infraumbilical incision. We dissected down to the base of the umbilical stalk using cautery. We grasped the umbilical stalk with a Yenifer clamp to elevate the abdominal wall. We scored the fascia in the midline with cautery 1 cm. We pierced the peritoneum with a Peon clamp. The Dayana port was placed and the abdomen was insufflated to 15 mmHg. A 5 mm 30 degree laparoscopic was inserted. There was no evidence of any injury from the entry. Next, we placed 5 mm ports in the subxiphoid position and right upper quadrant at the midclavicular line and anterior axillary line. Patient was then positioned in reverse Trendelenburg and the table was tilted to the left. The gallbladder was grasped at the dome and retracted cephalad. The gallbladder was unusually floppy and elongated. We grasped the dome of the gallbladder and retracted it cephalad and grasped the infundibulum and retracted it laterally and inferiorly. We then dissected the cystic structures with a combination of hook cautery and blunt dissection. We obtained a critical view. Next, a cholangiogram was performed using the 6 Lithuanian ureteral catheter. There was good flow of contrast into the duodenum and liver with no obvious filling defects. The cystic duct common duct junction was well visualized. We then placed hemoclips on the cystic duct and artery and divided the cystic duct and artery sharply between the clips. The gallbladder was then dissected off the liver and placed in a specimen retrieval bag. We irrigated the right upper quadrant and all the aspirate returned clear. We then removed the 5 mm ports under direct vision we removed the Dayana port. We then injected some local into the fascia and closed the fascia with 2 interrupted 0 Vicryl sutures. The skin incisions were closed with 4 Monocryl and Steri-Strips were applied. Band- Aids were applied over the Steri-Strips. EBL: 10 mL Specimen: Gallbladder Post-operative Condition: stable Disposition: PACU
--- NOTE | 2022-05-04 15:27 | SUR.PHASEI ---
report called to Pollo Arauz and opportunity for questions given. Pt being transferred to room 224.
[2022-05-04] MEDS: SODIUM CHLORIDE 0.9% FLUSH 10 ML IV (17:52)
[2022-05-04] MEDS: HYDROMORPHONE 0.5 MG INJ IV (22:33)
--- NOTE | 2022-05-04 22:38 | PC.NURSE ---
Called Dr Smith, pt complaining of pain, but unable to take PO meds due to confusion related to dementia. 0.5 mg IV dilaudid prescribed. Medication given with good results, pt resting well, will monitor.
[2022-05-05] VITALS (9 sets, daily range): BP systolic 121–162; BP diastolic 48–83; PULSE 64–86; RESP 16–20; TEMP 36.2–37.4; O2SAT 95–98
[2022-05-05] MEDS: HYDROMORPHONE 0.5 MG INJ IV (05:04)
[2022-05-05 05:08] LABS: Add Manual Diff / Slide Review NO; Alanine Aminotransferase 85 IU/L (<35); Albumin 3.8 g/dL (3.5-5.0); Albumin Globulin Ratio 1.3 (1.0-2.8); Alkaline Phosphatase 84 U/L (38-126); Aspartate Aminotransferase 126 IU/L (14-36); BUN Creatinine Ratio 23.9 (6-22); Basophils Absolute Auto 0 /uL (0-100); Basophils Percent Auto 0.3 % (0-2); Bilirubin Total 0.4 mg/dL (0.2-1.3); Blood Urea Nitrogen 22 mg/dL (7-17); Calcium 8.9 mg/dL (8.4-10.2); Carbon Dioxide 33 mmol/L (22-32); Chloride 102 mmol/L (98-107); Cholesterol 189 mg/dL (140-199); Eosinophils Absolute Auto 0 /uL (0-450); Estimated Glomerular Filt Rate > 60 mL/min (>60); Glucose 123 mg/dL (80-110); HDL Cholesterol 55 mg/dL (40-60); HEMOLYSIS 26 (0-50); Hematocrit 38.1 % (36-46); Hemoglobin 13.1 g/dL (12.0-16.0); LDL Cholesterol Calculated 120 mg/dL (<100); Lymphocytes Absolute Auto 800 /uL (1100-4500); Lymphocytes Percent Auto 8.5 % (25-40); Mean Corpuscular HGB Conc 34.4 % (30-36); Mean Corpuscular Hemoglobin 30.8 PG (26-34); Mean Corpuscular Volume 89.7 fL (80-100); Monocytes Absolute Auto 600 /uL (0-900); Monocytes Percent Auto 6.1 % (3-14); Neutrophils Absolute Auto 8300 /uL (1500-7000); Neutrophils Percent Auto 85.1 % (50-75); Platelet Count 154 X10^3/uL (150-400); Potassium 4.2 mmol/L (3.4-5.1); Red Blood Cell Count 4.24 X10^6/uL (4.0-5.2); Sodium 139 mmol/L (137-145); Total Protein 6.8 g/dL (6.3-8.2); Triglycerides 72 mg/dL (35-150); White Blood Cell Count 9.7 X10^3/uL (4.5-11.0)
[2022-05-05] MEDS: MEMANTINE HCL 5 MG TABLET PO ×2 (08:49→20:53)
[2022-05-05] MEDS: SERTRALINE 50 MG TABLET 150 MG PO (08:50)
[2022-05-05] MEDS: SODIUM CHLORIDE 0.9% FLUSH 10 ML IV ×2 (08:50→21:30)
[2022-05-05] MEDS: CHOLECALCIFEROL (VITAMIN D3) 1,000 UNIT TABLET 2000 UNIT PO (08:50)
[2022-05-05] MEDS: OXYBUTYNIN 5 MG ER TAB 10 MG PO (08:50)
--- NOTE | 2022-05-05 12:40 | CM.DANOTE ---
DCP: Case received, EMR reviewed. spouse Josue was at bedside. Introduced self and role. Was able to obtain information from spouse, regarding patient's baseline activity status at home, and care needs. DCP assessment completed with information currently available. Patient is an 86 year old female who admitted yesterday morning to the care of the surgical team. PCP: Dr. Ayala. Payer: confirmed: Medicare/[employer] Patient came to the hospital via private vehicle for a surgical procedure. Patient had laparoscopic cholecystectmy with intraoperative cholangiogram, secondary to bilary acute pancreatitis. Nursing had indicated that patient had been up to 4liters of oxygen, secondary to some of the pain medications. Met with patient in her room. She was sitting up in bed, oxygen in place. Spouse, Josue, was at bedside. Patient has history of dementia, and is oriented to self. She resides with spouse here in [place]. At her baseline, spouse indicated that she does have a walker, does not always use it. They also have a son named En who resides in [place]. Patient's spouse confirmed that they have a private caregiver in the home that used to work for [employer]. She comes in five days a week from 8-11. She assists patient with showers, meals. P: DCP will continue to monitor closely. Patient as not yet been out of bed, and P.T, has not ordered. Nursing is planning on getting patient up today to see how she does. Spouse has been at bedside assisting patient with meals. Adrianna Hays RN/Iron Setter Discharge Planning/Care Management Advanced directive, confirm from FAMILY Start: 05/04/22 15:57 Freq: Q24H Status: Active Protocol: Document 05/04/22 15:57 AKP (Rec: 05/04/22 15:57 AK [id number]) Advance Directive, confirm on record Time 15:57 Person contacted Spouse Josue Copy received No CM Discharge Assessment Start: 05/05/22 12:31 Freq: Status: Active Protocol: Document 05/05/22 12:31 (Rec: 05/05/22 12:39 [id number]) Discharge Planning Assessment Assigned Head Doffer Adrianna Hays RN/Iron Setter Advance Directives? Yes Advance Directives on File Yes History Provided By Family Member,Significant Other,Medical Record Prior Living Arrangements House Household Members spouse Type of transporation used prior to Relies on Others admit Is patient alert and oriented? No: To self only Needs Assistance With Bathing,Grooming,Meal Prep, Toileting,Managing Medications ,Home Chores / Shopping Caregiver for Another No DME Already Rented / Owned FWW / Walker Comment Patient has not yet been up. Will see how she does as far as mobility. Comment Patient has good supportive spouse and son in [place]. Patient also has a caregiver that used to work for [employer], who comes in 8-11 five days a week. Discharge Plan Home Transportation Arrangement Spouse bedside and can transport Referrals Initiated None needed,Other Additional Comment Patient does not currently have PT orders but may need to pursue to be sure she can navigate stairs at home. Whiteboard Updated in Patient Room with Yes name and ext. # of Head Doffer Review Status In Process Next Review Type Continued Stay Review Pre-Anesthesia Assessment Start: 05/03/22 08:00 Freq: Status: Active Protocol: Document 05/03/22 08:01 [facility] (Rec: 05/03/22 09:40 [facility] [id number]) Pre-Anesthesia Assessment Patient Information Reviewed Via Chart Review Comment COVID screen @ 05/03/22 Primary Care Provider Kolby Ayala Seen Specialist in Last 12 Months Yes Specialist Seen Engine Repairer,Emergency,ENT, General surgeon,Other Comment Neurology Primary Language Angolan Preferred Language Angolan Height 5 ft Weight 118 lb Body Mass Index (BMI) 23.0 Visual Assist Glasses Barriers to Learning Cognitive impairment Comment Hx of Alzheimers Hx Anesthesia Reactions No Hx Family Anesthesia Reaction No Hx Malignant Hyperthermia No Hx Blood Transfusions No Anesthesia Review Requested Yes: Surgeon requested, reason not provided. Gisselle sent to Anesthesia w/records Additional comment Anesthesia review scanned to record alcohol intake never Smoking Status Never smoker Substance Use Type does not use Prosthesis or Orthotic Device Front Wheel Walker Currently Taking a Beta Tank No Anti-Coagulant Therapy No Cardiac Testing No Hx Pacemaker/ICD No Pacemaker Rep Required? No Cardiac Clearance Received Not Applicable Gastrointestinal Symptoms Reflux Bladder Pattern Incontinent Urinary Catheter Present No Hx Urinary Self Catheterization No Diabetes No Patient No Lactating No Received a COVID vaccine? Yes Marital Status Lives With spouse Patient Discharge Plan Description Return Home Do You Have Any Spiritual Beliefs That No May Affect Your HC Choices? Do You Have Any Cultural Practices That No May Affect Your HC Choices? Emergency Contact Name Josue Izaguirre Emergency Contact Advance Directives? Yes Advance Directives on File Yes Power of Cable Television Access Coordinator Yes Power of Cable Television Access Coordinator Name Josue,
[2022-05-05] MEDS: HYDROCODONE/ACET 5/325 TABLET 1 TAB PO (12:51)
--- NOTE | 2022-05-05 13:07 | P.PN_ITS ---
Subjective Subjective Date Patient Seen: 05/05/22 Time Patient Seen: 13:07 Interval history: Overnight Tae received some Dilaudid and had supplemental oxygen requirements for several hours afterwards. She is refusing to get out of bed and ambulate because of pain. Exam Vital Signs (past 8 hours): - 05/05/22 07:45 05/05/22 11:43 05/05/22 08:15 Temperature 97.2 F L 97.2 F L Pulse Rate 70 64 Respiratory Rate 20 20 Blood Pressure 121/60 127/62 Pulse Oximetry 98 98 96 Oxygen Delivery Method Nasal Cannula Oxygen Flow Rate 4 2 2 05/05/22 08:49 05/05/22 11:39 05/05/22 07:35 Temperature 97.1 F L 97.2 F L Pulse Rate 70 84 Respiratory Rate 20 20 Blood Pressure 121/60 127/62 Pulse Oximetry 98 96 Oxygen Delivery Method Nasal Cannula Oxygen Flow Rate 2 2 Oxygen Delivery Method Nasal Cannula Oxygen Flow Rate 2 Narrative Exam Narrative: She is nonverbal which is her baseline The umbilical and epigastric incisions are clean dry and intact. She will not allow removal of the Band-Aids of the lateral incisions Objective Labs Result Diagrams: 05/05/22 04:39 05/05/22 04:39 Labs: Laboratory Results - last 24 hr 05/05/22 05/05/22 04:39 04:39 WBC 9.7 RBC 4.24 Hgb 13.1 Hct 38.1 MCV 89.7 MCH 30.8 MCHC 34.4 RDW 14.0 Plt Count 154 Neut % (Auto) 85.1 H Lymph % (Auto) 8.5 L Solano % (Auto) 6.1 Eos % (Auto) 0.0 L Baso % (Auto) 0.3 Neut # (Auto) 8300 H Lymph # (Auto) 800 L Solano # (Auto) 600 Eos # (Auto) 0 Baso # (Auto) 0 Sodium 139 Potassium 4.2 Chloride 102 Carbon Dioxide 33 H BUN 22 H Creatinine 0.92 Estimated GFR > 60 BUN/Creatinine Ratio 23.9 H Glucose 123 H Calcium 8.9 Total Bilirubin 0.4 AST 126 H ALT 85 H Alkaline Phosphatase 84 Total Protein 6.8 Albumin 3.8 Globulin 3.0 Albumin/Globulin Ratio 1.3 Triglycerides 72 Cholesterol 189 LDL Cholesterol, Calc 120 H HDL Cholesterol 55 PFSH Medical History (Updated 05/05/22 @ 17:37 by Doyle Emmanuel MD) Alzheimer's type dementia (2013) Anxiety Cholelithiasis Closed fracture of left distal radius (03/15/14) Cognitive dysfunction (2009) Colon polyps Depression Diverticulitis Gastritis Heart murmur Hyperlipidemia IBS (irritable bowel syndrome) Meniere's disease Urinary incontinence, mixed Surgical History History of bilateral salpingo-oophorectomy History of surgery on arm (03/16/14) Normal colonoscopy (2012) Status post appendectomy (2003) Status post colectomy (2003) Status post epidural steroid injection (03/06/10) Family History Father Colorectal cancer Mother Dementia Social History household members: spouse Smoking Status: Never smoker alcohol intake: never Assessment & Plan Assessment and plan (1) Postoperative examination: Status: Acute Plan I had a long discussion with her . As long as she stays in the hospital she may remain confused and uncooperative. I think when she is in a familiar environment she will be more likely to participate in activities of daily living like walking. Given the nature of the laparoscopic surgery she had there is no reason she would be unable to walk or would be in significant pain. He would feel more comfortable bringing her home in the morning when a caregiver is available. We will plan on discharge first thing in the morning. Time Spent With Patient Critical Care time: I spent a total of [] minutes of critical care time on this patient's care today; this time is exclusive of procedural time. Quality VTE Deep Vein Thrombosis/Pulmonary Embolism Present on Admission: No
--- NOTE | 2022-05-05 14:14 | PC.NURSE ---
Addendum entered by Mignon Roe R.N. 05/05/22 17:45: patient belching a lot. ate 25% of her dinner and ambulated to [facility]. Original Note: patient stood up and used the bsc. 1pa with frequent queuing. will have caregiver assist her when she gets back home tomorrow. gave her half of norco since she is very sensitive to pain med, she desat to 91% RA now on 2L 98%. She screams every time we move her, she also screamed when the doctor removed her band aid.
[2022-05-05] MEDS: ATORVASTATIN 20 MG TABLET 10 MG PO (20:52)
[2022-05-05] MEDS: ACETAMINOPHEN 325 MG TABLET 650 MG PO (20:53)
[2022-05-05] MEDS: IBUPROFEN 600 MG TABLET PO (20:54)
[2022-05-05] MEDS: DONEPEZIL 5 MG TABLET 10 MG PO (20:54)
[2022-05-06] VITALS: BP 121/65; PULSE 80; RESP 18; TEMP 36.9; O2SAT 96
[2022-05-06] MEDS: ACETAMINOPHEN 325 MG TABLET 650 MG PO (02:50)
[2022-05-06 04:12] VITALS: BP 132/68; PULSE 68; RESP 17; TEMP 36.5; O2SAT 92
[2022-05-06] MEDS: CHOLECALCIFEROL (VITAMIN D3) 1,000 UNIT TABLET 2000 UNIT PO (08:14)
[2022-05-06] MEDS: SERTRALINE 50 MG TABLET 150 MG PO (08:14)
[2022-05-06] MEDS: SODIUM CHLORIDE 0.9% FLUSH 10 ML IV (08:15)
[2022-05-06] MEDS: MEMANTINE HCL 5 MG TABLET PO (08:36)
[2022-05-06] MEDS: OXYBUTYNIN 5 MG ER TAB 10 MG PO (08:36)
--- NOTE | 2022-05-06 14:29 | CM.DPNOTE ---
DC Note According to discussion in multidisciplinary rounds this morning- patient being discharged by Dr Emmanuel this morning per spouse's request. Patient confused and agitated post operatively and per notes, spouse and surgeon agreed patient would be best served returning home to her familiar environment Spouse had patient's hydraulic auto jack mechanic in place to assist patient upon her arrival home This PHYSIOGNOMIST received call from Dr Whalen, covering for discharging provider Dr Emmanuel- Dr whalen explains that spouse had called the clinic concerned that patient was not ambulating at home and spouse wondering what to do Placed call to spouse Josue. Spouse admits concern, saying that when he got his home, she didn't want to stand on her own or walk. Spouse recalls that during prior visits, patient had been seen by PT/OT before discharge This PHYSIOGNOMIST asks about patient's current mood and functional status and spouse Josue sounds optimistic, states patient has improved since spouse called Dr Emmanuel's nurse in clinic. This PHYSIOGNOMIST suggests HH services and spouse agreeable, no HH agency preference. Completed F2F and HH order with information available. Dr Whalen is the ordering provider on this as he was the covering physician this afternoon MAXWELL Meeks, has kindly agreed to assist in faxing this referral to [facility] (per calendar rotation) Plan: DC home this morning w/spouse and caregivers that are scheduled M- [id number], [facility] HH RN/PT/OT/ENVIRONMENTAL SCIENCE TECHNICIAN BEV
--- NOTE | 2022-05-06 14:38 | CM.DPNOTE ---
Faxed referral to [facility]. Spoke to Geovanny to call pt. clyde for Tuesday05/10/22 visit. Jeanna Dwyer CM Assist.
--- NOTE | 2022-05-07 13:01 | CM.DPNOTE ---
Late entry: Geovanny from [facility] called today to let us know they have accepted the pt., and will be contacting him today. Jeanna Dwyer CM Assist.
== END 2022-05-06 09:45 | disposition home or self-care (01) ==
LOC: OR 05-07 09:05 → AC 05-07 09:05
PROVIDERS: Admitting Provider Surgery; Family Provider Family Medicine; PCP Family Medicine; Referring Provider Surgery; Visit Provider Surgery
PROC: 0FT44ZZ Resection of Gallbladder, Percutaneous Endoscopic Approach (ICD-10-PCS; CPT 47562; principal; 2022-05-04 12:45)
DX: K80.10 Calculus of gallbladder with chronic cholecystitis without obstruction (principal); K85.10 Biliary acute pancreatitis without necrosis or infection; G30.9 Alzheimer's disease, unspecified; F02.80 Dementia in other diseases classified elsewhere, unspecified severity, without behavioral disturbance, psychotic disturbance, mood disturbance, and anxiety
CPT/HCPCS: 47563; 36415; 74300; 80053; 80061; 85025; G0378; J0690; J1100; J1170; J2405; J2704; J3010

== ENCOUNTER 2022-05-08 11:35 | Observation (INO) | payer MEDICARE, OTHER, SELFPAY ==
[2022-05-04 15:47] VITALS: BMI 23.0
[2022-05-08 12:02] VITALS: BP 146/68; PULSE 71; RESP 18; TEMP 36.7; O2SAT 94; BMI 16.7
--- NOTE | 2022-05-08 12:12 | DI.RAD.S_ITS ---
PROCEDURE: XR CHEST 1V INDICATIONS: altered mental status TECHNIQUE: One view of the chest was acquired. COMPARISON: [facility], CT, CT CHEST ABD PEL W CON, 12/24/2021, 8:54. [facility], CR, XR CHEST 1V, 03/23/2021, 22:51. [facility], CT, CT HEAD/BRAIN WO CON, 05/08/2022, 12:26. [facility], CR, XR CHEST 1V, 03/05/2022, 12:22. FINDINGS: Surgical changes and devices: None. Lungs and pleura: Low lung volumes are noted. This causes a crowded appearance to the lung markings and limits evaluation. On this semiupright portable chest examination, no large pneumothorax or large pleural effusions are seen. No focal infiltrates are seen. Mediastinum: Mediastinal contours appear normal. Heart size is normal. Bones and chest wall: No suspicious bony lesions. Age-appropriate bony degenerative changes are seen. Overlying soft tissues appear unremarkable. IMPRESSION: Limited portable chest examination, without a significant cardiopulmonary abnormality identified. Dictated by: Franki Logan M.D. on 05/08/2022 at 12:07 Approved by: Franki Logan M.D. on 05/08/2022 at 12:08
--- NOTE | 2022-05-08 12:17 | DI.CT.S_ITS ---
PROCEDURE: CT HEAD/BRAIN WO CON INDICATIONS: weakness TECHNIQUE: Noncontrast 4.5 mm thick angled axial sections acquired from the foramen magnum to the vertex, with coronal and sagittal reformats. For radiation dose reduction, the following was used: automated exposure control, adjustment of mA and/or kV according to patient size. COMPARISON: [facility], CT, CT ANGIO HEAD AND NECK, 12/24/2021, 8:54. [facility], CR, XR CHEST 1V, 05/08/2022, 12:45. [facility], CT, CT HEAD/BRAIN WO CON, 03/05/2022, 12:36. FINDINGS: Image quality: Excellent. CSF spaces: Basal cisterns are patent. No extra-axial fluid collections. The ventricles are symmetric in size and shape. Brain: No intracranial bleeds or masses. There is cerebral volume loss for age, with resultant ventricular and sulcal prominence. There are periventricular and deep white matter chronic small vessel ischemic changes. There is intracranial internal carotid artery atherosclerosis. Skull and face: Calvarium and visualized facial bones appear intact, without suspicious lesions. Sinuses: Visualized sinuses and mastoids are clear. IMPRESSION: No acute intracranial process is seen. Note is made of age-appropriate brain parenchymal volume loss and chronic small vessel ischemic changes. Dictated by: Franki Logan M.D. on 05/08/2022 at 12:06 Approved by: Franki Logan M.D. on 05/08/2022 at 12:07
--- NOTE | 2022-05-08 12:35 | PC.NURSE ---
Pt has 4 lap sites, CDI, has a small left unbilical indurated area. Otherwise normal.
[2022-05-08 13:38] LABS: Add Manual Diff / Slide Review NO; Basophils Absolute Auto 100 /uL (0-100); Basophils Percent Auto 0.9 % (0-2); Eosinophils Absolute Auto 200 /uL (0-450); Eosinophils Percent Auto 3.5 % (2-4); Hematocrit 38.1 % (36-46); Hemoglobin 12.9 g/dL (12.0-16.0); Lymphocytes Absolute Auto 1000 /uL (1100-4500); Lymphocytes Percent Auto 13.5 % (25-40); Mean Corpuscular HGB Conc 33.7 % (30-36); Mean Corpuscular Hemoglobin 30.4 PG (26-34); Mean Corpuscular Volume 90.2 fL (80-100); Monocytes Absolute Auto 600 /uL (0-900); Monocytes Percent Auto 8.6 % (3-14); Neutrophils Absolute Auto 5200 /uL (1500-7000); Neutrophils Percent Auto 73.5 % (50-75); Platelet Count 160 X10^3/uL (150-400); Red Blood Cell Count 4.23 X10^6/uL (4.0-5.2); Red Cell Distribution Width 14.3 % (11.6-14.8); White Blood Cell Count 7.1 X10^3/uL (4.5-11.0)
[2022-05-08 13:39] LABS: Ur Creatinine Normal (Normal); Ur Specific Gravity Normal (Normal); Urine pH Normal (Normal)
[2022-05-08 13:40] LABS: UR Morphine/Opiate cutoff 300 Negative (Negative); Urine Amphetamines Negative (Negative); Urine Barbiturates Negative (Negative); Urine Benzodiazepines Negative (Negative); Urine Cocaine Negative (Negative); Urine MDMA Negative (Negative); Urine Methadone Negative (Negative); Urine Methamphetamines Negative (Negative); Urine Oxycodone Negative (Negative); Urine Phencyclidine Negative (Negative); Urine Tetrahydrocannabinol Negative (Negative); Urine Tricyclic Antidepressant Negative (Negative)
--- NOTE | 2022-05-08 13:47 | ED_ITS ---
HPI - Weakness General Chief complaint: Weakness Stated complaint: GALLBLADDER SURGERY Time Seen by Provider: 05/08/22 12:17 Source: family Mode of arrival: Wheelchair History of Present Illness HPI Narrative: The patient is an 86-year-old female with recent gallstone pancreatitis with cholecystectomy on 05/04/2022 she was discharged home on 05/06/2022. states that she is overall not doing well at home. She is normally able to walk and get up the stairs to the bedroom. However she has been sleeping on the couch. She is unable to ambulate and get to the restroom by herself. She is generally weak and confused. No fever or chills. She overall is extremely poor historian most of the history is from the chart and . Apparently she was confused and uncooperative while in the emergency department was thought to be delirium and she was discharged home. She has not had fever no persistent vomiting. Related Data Home Medications Medication Instructions Recorded Confirmed Calcium Carbonate/Vitamin D 1 cap PO QAM AND QHS ##0 05/11/11 05/08/22 (#CALCIUM) multivitamin 1 tab PO DAILY ##0 05/11/11 05/08/22 Fish Oil 1,000 mg PO QDAY ##0 10/24/12 05/08/22 cholecalciferol (vitamin D3) 50 50 mcg PO DAILY #0 tabs 06/13/13 05/08/22 mcg (2,000 unit) capsule (Vitamin D3) aspirin 81 mg tablet,delayed 81 mg PO DAILY ##0 12/24/21 05/08/22 release atorvastatin 20 mg tablet 10 mg PO BEDTIME 01/05/22 05/08/22 sertraline 100 mg tablet 150 mg PO DAILY 03/05/22 05/08/22 Previous Rx's Medication Instructions Recorded donepezil 10 mg tablet (Aricept) 10 mg PO QDAY #90 tabs 10/19/21 estradiol 10 mcg vaginal tablet See Rx Instructions .Route 10/19/21 .COMPLEX #36 tabs memantine 5 mg tablet 5 mg PO BID #180 tabs 10/19/21 tolterodine 4 mg capsule,extended 4 mg PO DAILY #90 caps 10/19/21 release 24 hr (Detrol LA) acetaminophen 325 mg capsule 650 mg PO QID PRN pain #60 caps 05/06/22 (Tylenol) ibuprofen 200 mg tablet 400 mg PO Q6H #60 tabs 05/06/22 Allergies Allergy/AdvReac Type Severity Reaction Status Date / Time No Known Drug Allergies Allergy Verified 05/08/22 12:02 Review of Systems Review of Systems ROS Unobtainable: Unobtainable due to medical condition Patient History Medical History Alzheimer's type dementia (2013) Anxiety Cholelithiasis Closed fracture of left distal radius (03/15/14) Cognitive dysfunction (2009) Colon polyps Depression Diverticulitis Gastritis Heart murmur Hyperlipidemia IBS (irritable bowel syndrome) Meniere's disease Urinary incontinence, mixed Surgical History History of bilateral salpingo-oophorectomy History of surgery on arm (03/16/14) Normal colonoscopy (2012) Status post appendectomy (2003) Status post colectomy (2003) Status post epidural steroid injection (03/06/10) Family History Father Colorectal cancer Mother Dementia Social History household members: spouse Smoking Status: Never smoker alcohol intake: never Smoking Status: Never smoker Substance Use Type: does not use Exam Initial Vital Signs Initial Vital Signs: Vital Signs Temperature 98.1 F 05/08/22 12:02 Pulse Rate 71 05/08/22 12:02 Respiratory Rate 18 05/08/22 12:02 Blood Pressure 146/68 H 05/08/22 12:02 Pulse Oximetry 94 05/08/22 12:02 Oxygen Delivery Method 05/08/22 12:02 GENERAL: Very weak slightly pale thin 86-year-old female no acute distress HEENT: Head atraumatic,EOMI, pupils reactive, face symmetric, [moist] mucous membranes CARDIOVASCULAR: Regular rate and rhythm without murmurs, rubs or gallops. RESPIRATORY: Breath sounds equal bilaterally, no wheezes rales or rhonchi. ABDOMEN: Soft, postoperative contusions noted incision sites clean and dry no distension normal bowel sounds EXTREMITIES: Normal range of motion, no clubbing or edema. Neurovascularly intact NEUROLOGICAL: Alert and oriented x 2. Upper extremity strength is weak bilaterally. Able to lift each lower extremity off the gurney. She is able to follow some commands but overall extremely poor historian. Patient is SKIN: Warm, dry, no laceration, no petechiae, no rashes or lesions. Course Orders Ordered: ED Orders 05/08/22 12:11 EKG-12 Lead Stat 05/08/22 12:12 XR chest 1V Stat 05/08/22 12:17 CT head/brain wo con Stat 05/08/22 13:25 Urine Drug Screen, Rapid Stat 05/08/22 13:27 Ammonia (NH3) Stat Complete Blood Count AUTO DIFF Stat Comprehensive Metabolic Panel Stat Lactate (Lactic Acid) Stat Lipase Stat Troponin & CK Cardiac Panel Stat 05/08/22 13:48 CT abdomen pelvis w con Stat 05/08/22 16:28 COVID19 -Nasal RAPID/Pre-Proc Stat Acetaminophen (Acetaminophen 325 Mg Tablet) 650 mg PO Q6HR PRN PRN Reason: Fever/Mild Pain (1-3) Al Hydrox/Mg Hydrox/Simethicone (Mag Hydrox/Alum/Simeth 30 Ml Udc) 30 ml PO Q6HR PRN PRN Reason: Dyspepsia Aspirin (Aspirin Ec 81 Mg Tablet) 81 mg PO DAILY SUMAYA Atorvastatin Calcium (Atorvastatin 20 Mg Tablet) 10 mg PO BEDTIME SUMAYA Donepezil HCl (Donepezil 5 Mg Tablet) 10 mg PO DAILY SUMAYA Enoxaparin Sodium (Enoxaparin 40 Mg/0.4 Ml Syringe) 40 mg SUBCUT DAILY SUMAYA Hydralazine HCl (Hydralazine 20 Mg/Ml Vial) 10 mg IV Q6HR PRN PRN Reason: Hypertension for sbp>180 Sodium Chloride (Normal Saline 0.9%) 1,000 mls @ 60 mls/hr IV CONT SUMAYA Ibuprofen (Ibuprofen 200 Mg Tablet) 400 mg PO Q6H SUMAYA Memantine (Memantine Hcl 5 Mg Tablet) 5 mg PO BID SUMAYA Sennosides (Sennosides 8.6 Mg Tablet) 17.2 mg PO BEDTIME SUMAYA Sertraline HCl (Sertraline 50 Mg Tablet) 150 mg PO DAILY SUMAYA Vital Signs Vital signs: Vital Signs - 8 hr 05/08/22 12:02 Temperature 98.1 F Pulse Rate 71 Respiratory Rate 18 Blood Pressure 146/68 H Pulse Oximetry 94 Oxygen Delivery Method Room Air MDM - Weakness Lab Data Result diagrams: 05/08/22 13:27 05/08/22 13:27 Labs: Lab Results 05/08/22 05/08/22 05/08/22 Range/Units 13:25 13:27 13:27 WBC 7.1 (4.5-11.0) X10^3/uL RBC 4.23 (4.0-5.2) X10^6/uL Hgb 12.9 (12.0-16.0) g/dL Hct 38.1 (36-46) % MCV 90.2 (80-100) fL MCH 30.4 (26-34) PG MCHC 33.7 (30-36) % RDW 14.3 (11.6-14.8) % Plt Count 160 (150-400) X10^3/uL Neut % (Auto) 73.5 (50-75) % Lymph % (Auto) 13.5 L (25-40) % [place] % (Auto) 8.6 (3-14) % Eos % (Auto) 3.5 (2-4) % Baso % (Auto) 0.9 (0-2) % Neut # (Auto) 5200 (5405-7930) /uL Lymph # (Auto) 1000 L (0994-0132) /uL [place] # (Auto) 600 (0-900) /uL Eos # (Auto) 200 (0-450) /uL Baso # (Auto) 100 (0-100) /uL Sodium 139 (137-145) mmol/L Potassium 3.7 (3.4-5.1) mmol/L Chloride 105 (98-107) mmol/L Carbon Dioxide 27 (22-32) mmol/L BUN 23 H (7-17) mg/dL Creatinine 0.77 (0.52-1.04) mg/dL Estimated GFR > 60 (>60) mL/min BUN/Creatinine Ratio 29.9 H (6-22) Glucose 90 (80-110) mg/dL Lactate (0.7-2.1) mmol/L Calcium 9.4 (8.4-10.2) mg/dL Total Bilirubin 0.5 (0.2-1.3) mg/dL AST 49 H (14-36) IU/L ALT 45 H (<35) IU/L Alkaline Phosphatase 107 (38-126) U/L Ammonia Total Creatine Kinase (30-135) U/L CK-MB (CK-2) (<2.37) ng/mL CK-MB (CK-2) Rel Index (1.5-5.0) % Troponin I (0.01-0.034) ng/mL NT-Pro-B Natriuret Pep (<450) pg/mL Total Protein 8.0 (6.3-8.2) g/dL Albumin 4.2 (3.5-5.0) g/dL Globulin 3.8 (1.7-4.1) g/dL Albumin/Globulin Ratio 1.1 (1.0-2.8) Lipase 70 (23-300) U/L U Opiates 300ng/mL cut Negative (Negative) Ur Oxycodone Screen Negative (Negative) Urine Methadone Screen Negative (Negative) Ur Barbiturates Screen Negative (Negative) U Tricyclic Antidepress Negative (Negative) Ur Phencyclidine Scrn Negative (Negative) Ur Amphetamines Screen Negative (Negative) U Methamphetamines Scrn Negative (Negative) Ur MDMA Scrn (Ecstasy) Negative (Negative) U Benzodiazepines Scrn Negative (Negative) Urine Cocaine Screen Negative (Negative) U Marijuana (THC) Screen Negative (Negative) SARS-CoV-2 (PCR) (Negative) 05/08/22 05/08/22 05/08/22 Range/Units 13:27 13:27 13:27 WBC (4.5-11.0) X10^3/uL RBC (4.0-5.2) X10^6/uL Hgb (12.0-16.0) g/dL Hct (36-46) % MCV (80-100) fL MCH (26-34) PG MCHC (30-36) % RDW (11.6-14.8) % Plt Count (150-400) X10^3/uL Neut % (Auto) (50-75) % Lymph % (Auto) (25-40) % [place] % (Auto) (3-14) % Eos % (Auto) (2-4) % Baso % (Auto) (0-2) % Neut # (Auto) (1594-7037) /uL Lymph # (Auto) (2425-5800) /uL [place] # (Auto) (0-900) /uL Eos # (Auto) (0-450) /uL Baso # (Auto) (0-100) /uL Sodium (137-145) mmol/L Potassium (3.4-5.1) mmol/L Chloride (98-107) mmol/L Carbon Dioxide (22-32) mmol/L BUN (7-17) mg/dL Creatinine (0.52-1.04) mg/dL Estimated GFR (>60) mL/min BUN/Creatinine Ratio (6-22) Glucose (80-110) mg/dL Lactate 1.2 (0.7-2.1) mmol/L Calcium (8.4-10.2) mg/dL Total Bilirubin (0.2-1.3) mg/dL AST (14-36) IU/L ALT (<35) IU/L Alkaline Phosphatase (38-126) U/L Ammonia Cancelled Total Creatine Kinase 377 H (30-135) U/L CK-MB (CK-2) 1.02 (<2.37) ng/mL CK-MB (CK-2) Rel Index 0.3 L (1.5-5.0) % Troponin I < 0.012 (0.01-0.034) ng/mL NT-Pro-B Natriuret Pep (<450) pg/mL Total Protein (6.3-8.2) g/dL Albumin (3.5-5.0) g/dL Globulin (1.7-4.1) g/dL Albumin/Globulin Ratio (1.0-2.8) Lipase (23-300) U/L U Opiates 300ng/mL cut (Negative) Ur Oxycodone Screen (Negative) Urine Methadone Screen (Negative) Ur Barbiturates Screen (Negative) U Tricyclic Antidepress (Negative) Ur Phencyclidine Scrn (Negative) Ur Amphetamines Screen (Negative) U Methamphetamines Scrn (Negative) Ur MDMA Scrn (Ecstasy) (Negative) U Benzodiazepines Scrn (Negative) Urine Cocaine Screen (Negative) U Marijuana (THC) Screen (Negative) SARS-CoV-2 (PCR) (Negative) 05/08/22 05/08/22 05/08/22 Range/Units 13:27 16:28 16:30 WBC (4.5-11.0) X10^3/uL RBC (4.0-5.2) X10^6/uL Hgb (12.0-16.0) g/dL Hct (36-46) % MCV (80-100) fL MCH (26-34) PG MCHC (30-36) % RDW (11.6-14.8) % Plt Count (150-400) X10^3/uL Neut % (Auto) (50-75) % Lymph % (Auto) (25-40) % [place] % (Auto) (3-14) % Eos % (Auto) (2-4) % Baso % (Auto) (0-2) % Neut # (Auto) (3520-5808) /uL Lymph # (Auto) (0459-3983) /uL [place] # (Auto) (0-900) /uL Eos # (Auto) (0-450) /uL Baso # (Auto) (0-100) /uL Sodium (137-145) mmol/L Potassium (3.4-5.1) mmol/L Chloride (98-107) mmol/L Carbon Dioxide (22-32) mmol/L BUN (7-17) mg/dL Creatinine (0.52-1.04) mg/dL Estimated GFR (>60) mL/min BUN/Creatinine Ratio (6-22) Glucose (80-110) mg/dL Lactate (0.7-2.1) mmol/L Calcium (8.4-10.2) mg/dL Total Bilirubin (0.2-1.3) mg/dL AST (14-36) IU/L ALT (<35) IU/L Alkaline Phosphatase (38-126) U/L Ammonia < 9 L Total Creatine Kinase (30-135) U/L CK-MB (CK-2) (<2.37) ng/mL CK-MB (CK-2) Rel Index (1.5-5.0) % Troponin I (0.01-0.034) ng/mL NT-Pro-B Natriuret Pep 445 (<450) pg/mL Total Protein (6.3-8.2) g/dL Albumin (3.5-5.0) g/dL Globulin (1.7-4.1) g/dL Albumin/Globulin Ratio (1.0-2.8) Lipase (23-300) U/L U Opiates 300ng/mL cut (Negative) Ur Oxycodone Screen (Negative) Urine Methadone Screen (Negative) Ur Barbiturates Screen (Negative) U Tricyclic Antidepress (Negative) Ur Phencyclidine Scrn (Negative) Ur Amphetamines Screen (Negative) U Methamphetamines Scrn (Negative) Ur MDMA Scrn (Ecstasy) (Negative) U Benzodiazepines Scrn (Negative) Urine Cocaine Screen (Negative) U Marijuana (THC) Screen (Negative) SARS-CoV-2 (PCR) Negative (Negative) Point of Care Testing Glucose POC 95 Urine Dip Bedside Urine Glucose Negative Bedside Urine Bilirubin - Negative Bedside Urine Ketone - Negative Urine Specific [place] 1.010 Bedside Urine Occult Blood - Negative Bedside Urine pH 6.0 Bedside Urine Protein - Negative Bedside Urine Urobilinogen - Negative Bedside Urine Nitrite - Negative Bedside Urine Leukocytes - Negative Esterase Imaging Data CT scan - abdomen/pelvis: Radiologist Impression: CT Scan Report Signed Patient: Tae Izaguirre MR#: [id number] : 1935 Acct:[id number] Age/Sex: 86 / F Date of Service: 05/08/22 Loc: ED Accession Number: [id number] ?? Procedure: CT abdomen pelvis w con Ordering Provider: Lucía Strong D.O. PROCEDURE:? CT ABDOMEN PELVIS W CON ? INDICATIONS:? pain recent alexander ? TECHNIQUE:? After the administration of oral and IV contrast, axial sections were acquired from the lung bases to the pubic symphysis.? Coronal and sagittal reformats were performed.? For radiation dose reduction, the following was used:? automated exposure control, adjustment of mA and/or kV according to patient size. ? COMPARISON:? [facility], CR, XR CHEST 1V, 05/08/2022, 12:45.? [facility], CT, CT HEAD/BRAIN WO CON, 05/08/2022, 12:26.? [facility], CT, CT ABDOMEN PELVIS W CON, 03/05/2022, 15:26.? [facility], CT, CT CHEST ABD PEL W CON, 12/24/2021, 8:54. ? FINDINGS:? Image quality:? This evaluation is limited, secondary to the patient's inability to fully cooperate with the examination.? ? Lung bases:? Mild dependent atelectasis is seen.? The visualized ascending aorta measures at the upper limits of normal. Heart:? No significant findings. ? ? ABDOMEN: Liver:? Benign calcification can be seen within the central liver, as on series 2, image 23. Likely tiny liver cysts are seen.? The liver is normal in size and demonstrates no suspicious lesions.? Gallbladder:? Removed.? No significant abnormality can be seen within the cholecystectomy bed.? ? Biliary ducts:? Unremarkable.? ? Pancreas:? 4 mm cystic lesion is again seen involving the tail of the pancreas.? No pancreatic ductal dilatation is seen. Spleen:? Unremarkable.? ? Adrenal Glands:? Unremarkable.? ? Kidneys and Ureters:? Unremarkable.? ? ? Stomach and Bowel:? There is prominent distal colonic diverticulosis, without alfreda active diverticulitis.? There is an anastomotic staple line seen involving the cecum and the ascending colon.? A moderate volume of dense stool is seen within the distal colon. No dilated loops of small bowel are seen. The stomach is decompressed Peritoneum:? No abnormal intraperitoneal fluid.? No free air.? ? Ventral Wall: ? No hernia.? Abdominal Nodes:? No retroperitoneal or mesenteric adenopathy by size criteria.? Vessels:? Aorta and inferior vena cava are normal in size.? Atherosclerotic calcification is noted.? ? PELVIS: Pelvic Organs:? A small calcified uterine fibroid is seen.? No adnexal masses are seen on either side.? Bladder:? Unremarkable.? ? Pelvic Nodes: No enlarged lymph nodes.? Miscellaneous: No inguinal hernias are seen. ? ? ? Bones:? Moderate dextroconvex lumbar scoliosis is seen.? Generalized degenerative changes are seen, which are worst involving the lumbar spine. ? ? IMPRESSION:? ? Cholecystectomy, without significant abnormality seen involving the cholecystectomy bed.? ? ? There is a moderate volume of dense stool seen within the distal colon.? Please consider mild fecal impaction. ? ? ? Incidental note is made of: Benign liver calcification Likely liver cysts Likely pancreatic tail IPMN Moderate dextroconvex scoliosis Right colon anastomotic staple lines Lumbar spine degenerative change Calcified uterine fibroid ? Dictated by: Franki Logan M.D. on 05/08/2022 at 14:44 CT scan - head: Radiologist Impression: CT Scan Report Signed Patient: Tae Izaguirre MR#: [id number] : 1935 Acct:[id number] Age/Sex: 86 / F Date of Service: 05/08/22 Loc: ED Accession Number: [id number] ?? Procedure: CT head/brain wo con Ordering Provider: Lucía Strong D.O. PROCEDURE:? CT HEAD/BRAIN WO CON ? INDICATIONS:? weakness ? TECHNIQUE:? Noncontrast 4.5 mm thick angled axial sections acquired from the foramen magnum to the vertex, with coronal and sagittal reformats.? For radiation dose reduction, the following was used:? automated exposure control, adjustment of mA and/or kV according to patient size.? ? COMPARISON:? [facility], CT, CT ANGIO HEAD AND NECK, 12/24/2021, 8:54.? [facility], CR, XR CHEST 1V, 05/08/2022, 12:45.? [facility], CT, CT HEAD/BRAIN WO CON, 03/05/2022, 12:36. ? FINDINGS:? Image quality:? Excellent.? ? CSF spaces:? Basal cisterns are patent.? No extra-axial fluid collections.? The ventricles are symmetric in size and shape.? ? Brain:? No intracranial bleeds or masses.? There is cerebral volume loss for age, with resultant ventricular and sulcal prominence.? There are periventricular and deep white matter chronic small vessel ischemic changes.? There is intracranial internal carotid artery atherosclerosis.? ? Skull and face:? Calvarium and visualized facial bones appear intact, without suspicious lesions.? ? Sinuses:? Visualized sinuses and mastoids are clear.? ? IMPRESSION:? ? No acute intracranial process is seen.? ? Note is made of age-appropriate brain parenchymal volume loss and chronic small vessel ischemic changes. ? ? Dictated by: Franki Logan M.D. on 05/08/2022 at 12:06 ?? Chest x-ray: Radiologist Impression: XRay Report Signed Patient: Tae Izaguirre MR#: [id number] : 1935 Acct:[id number] Age/Sex: 86 / F Date of Service: 05/08/22 Loc: ED Accession Number: [id number] ?? Procedure: XR chest 1V Ordering Provider: Lucía Strong D.O. PROCEDURE:? XR CHEST 1V ? INDICATIONS:? altered mental status ? TECHNIQUE:? One view of the chest was acquired.? ? COMPARISON:? [facility], CT, CT CHEST ABD PEL W CON, 12/24/2021, 8:54.? [facility], CR, XR CHEST 1V, 03/23/2021, 22:51.? [facility], CT, CT HEAD/BRAIN WO CON, 05/08/2022, 12:26.? [facility], CR, XR CHEST 1V, 03/05/2022, 12:22. ? FINDINGS:? ? Surgical changes and devices:? None.? ? Lungs and pleura:? Low lung volumes are noted. This causes a crowded appearance to the lung markings and limits evaluation.? On this semiupright portable chest e xamination, no large pneumothorax or large pleural effusions are seen.? No focal infiltrates are seen.? ? Mediastinum:? Mediastinal contours appear normal.? Heart size is normal.? ? Bones and chest wall:? No suspicious bony lesions.? Age-appropriate bony degenerative changes are seen.? Overlying soft tissues appear unremarkable.? ? ? IMPRESSION:? ? Limited portable chest examination, without a significant cardiopulmonary abnormality identified.? ? ? Dictated by: Franki Logan M.D. on 05/08/2022 at 12:07 ? ? Approved by: Franki Logan M.D. on 05/08/2022 at 12:08 ? ECG Data Interpretation: Normal sinus rhythm rate 69 OK interval 144 QRS [address] changes T-wave inversion noted in lead 3, similar to previous EKG MDM Narrative Medical decision making narrative: Patient is status post cholecystectomy day 2. Presenting with increasing weakness. Chart reports that she was weak at discharge thought to be due to a hospital and environment. However she is failing at home. Unable to get herself to the bathroom. reports that she was able to walk up a full flight of stairs and go to bed prior to her surgery. She is no longer able to do so. He is waking himself up every 90 minutes to check on her while she sleeps on the couch. She is diffusely weak. Head CT is negative for any postoperative stroke. Does not appear that she has any infection. Blood work is overall reassuring. However not doing well at home. Dr. Langley updated on patient's symptoms test results and kindly accepts patient to observation. Discharge Plan Departure Patient Disposition: Admitted as Observation Clinical Impression: Weakness Admit Date/Time: 05/08/22 17:06 Admit Provider: Aura Langley
--- NOTE | 2022-05-08 13:48 | DI.CT.S_ITS ---
PROCEDURE: CT ABDOMEN PELVIS W CON INDICATIONS: pain recent alexander TECHNIQUE: After the administration of oral and IV contrast, axial sections were acquired from the lung bases to the pubic symphysis. Coronal and sagittal reformats were performed. For radiation dose reduction, the following was used: automated exposure control, adjustment of mA and/or kV according to patient size. COMPARISON: [facility], CR, XR CHEST 1V, 05/08/2022, 12:45. [facility], CT, CT HEAD/BRAIN WO CON, 05/08/2022, 12:26. [facility], CT, CT ABDOMEN PELVIS W CON, 03/05/2022, 15:26. [facility], CT, CT CHEST ABD PEL W CON, 12/24/2021, 8:54. FINDINGS: Image quality: This evaluation is limited, secondary to the patient's inability to fully cooperate with the examination. Lung bases: Mild dependent atelectasis is seen. The visualized ascending aorta measures at the upper limits of normal. Heart: No significant findings. ABDOMEN: Liver: Benign calcification can be seen within the central liver, as on series 2, image 23. Likely tiny liver cysts are seen. The liver is normal in size and demonstrates no suspicious lesions. Gallbladder: Removed. No significant abnormality can be seen within the cholecystectomy bed. Biliary ducts: Unremarkable. Pancreas: 4 mm cystic lesion is again seen involving the tail of the pancreas. No pancreatic ductal dilatation is seen. Spleen: Unremarkable. Adrenal Glands: Unremarkable. Kidneys and Ureters: Unremarkable. Stomach and Bowel: There is prominent distal colonic diverticulosis, without alfreda active diverticulitis. There is an anastomotic staple line seen involving the cecum and the ascending colon. A moderate volume of dense stool is seen within the distal colon. No dilated loops of small bowel are seen. The stomach is decompressed Peritoneum: No abnormal intraperitoneal fluid. No free air. Ventral Wall: No hernia. Abdominal Nodes: No retroperitoneal or mesenteric adenopathy by size criteria. Vessels: Aorta and inferior vena cava are normal in size. Atherosclerotic calcification is noted. PELVIS: Pelvic Organs: A small calcified uterine fibroid is seen. No adnexal masses are seen on either side. Bladder: Unremarkable. Pelvic Nodes: No enlarged lymph nodes. Miscellaneous: No inguinal hernias are seen. Bones: Moderate dextroconvex lumbar scoliosis is seen. Generalized degenerative changes are seen, which are worst involving the lumbar spine. IMPRESSION: Cholecystectomy, without significant abnormality seen involving the cholecystectomy bed. There is a moderate volume of dense stool seen within the distal colon. Please consider mild fecal impaction. Incidental note is made of: Benign liver calcification Likely liver cysts Likely pancreatic tail IPMN Moderate dextroconvex scoliosis Right colon anastomotic staple lines Lumbar spine degenerative change Calcified uterine fibroid Dictated by: Franki Logan M.D. on 05/08/2022 at 14:44 Approved by: Franki Logan M.D. on 05/08/2022 at 14:49
[2022-05-08 13:50] LABS: Ammonia (NH3) < 9 umol/L (9-30)
[2022-05-08 13:51] LABS: Lactate (Lactic Acid) 1.2 mmol/L (0.7-2.1)
[2022-05-08 13:53] LABS: Alanine Aminotransferase 45 IU/L (<35); Albumin 4.2 g/dL (3.5-5.0); Albumin Globulin Ratio 1.1 (1.0-2.8); Alkaline Phosphatase 107 U/L (38-126); Aspartate Aminotransferase 49 IU/L (14-36); BUN Creatinine Ratio 29.9 (6-22); Bilirubin Total 0.5 mg/dL (0.2-1.3); Blood Urea Nitrogen 23 mg/dL (7-17); Calcium 9.4 mg/dL (8.4-10.2); Carbon Dioxide 27 mmol/L (22-32); Chloride 105 mmol/L (98-107); Estimated Glomerular Filt Rate > 60 mL/min (>60); Globulin 3.8 g/dL (1.7-4.1); Glucose 90 mg/dL (80-110); HEMOLYSIS < 15 (0-50); Lipase 70 U/L (23-300); Potassium 3.7 mmol/L (3.4-5.1); Sodium 139 mmol/L (137-145)
[2022-05-08 14:14] LABS: Creatine Kinase 377 U/L (30-135)
[2022-05-08 14:27] LABS: Troponin I < 0.012 ng/mL (0.01-0.034)
[2022-05-08 14:49] LABS: CKMB % Relative Index 0.3 % (1.5-5.0); Creatine Kinase MB 1.02 ng/mL (<2.37)
[2022-05-08 16:54] LABS: COVID19 -Nasal RAPID Negative (Negative)
[2022-05-08 17:27] VITALS: BP 202/87; PULSE 65; RESP 16; O2SAT 99
[2022-05-08 17:40] VITALS: BMI 16.2
[2022-05-08 18:02] VITALS: BMI 16.2
[2022-05-08 19:58] VITALS: BP 141/88; PULSE 73; RESP 16; TEMP 36.4; O2SAT 97
[2022-05-08 20:31] LABS: NT-proBNP (BNP-Adult 18+) 445 pg/mL (<450)
[2022-05-08] MEDS: SODIUM CHLORIDE 0.9% 1,000 ML 60 ML IV (22:00)
[2022-05-08] MEDS: ATORVASTATIN 20 MG TABLET 10 MG PO (22:05)
[2022-05-08] MEDS: MEMANTINE HCL 5 MG TABLET PO (22:06)
[2022-05-08] MEDS: SENNOSIDES 8.6 MG TABLET 17.2 MG PO (22:06)
[2022-05-08] MEDS: IBUPROFEN 200 MG TABLET 400 MG PO (22:09)
[2022-05-08 22:39] VITALS: BP 183/84; PULSE 64; RESP 16; TEMP 36.4; O2SAT 95
[2022-05-08 23:41] VITALS: O2SAT 95
--- NOTE | 2022-05-08 23:56 | P.HP_ITS ---
History of Present Illness History of Present Illness Date Patient Seen: 05/08/22 Time Patient Seen: 19:52 Chief complaint: GALLBLADDER SURGERY TUESDAY, Narrative: Tae Izaguirre is an 86-year-old female with a significant history of Alzheimer's dementia, mixed hyperlipidemia, stress incontinence, abdominal pain, malnutrition with a recent gallstone pancreatitis with cholecystectomy on 05/04/2022 she was discharged home on 05/06/2022.?In the ED reported that she is overall not doing well at home.? She is normally able to walk and get up the stairs to the bedroom.? However she has been sleeping on the couch.? She is unable to ambulate and get to the restroom by herself.? She is generally weak and confused.? He denied fever, vomiting, falls, or chills.? Patient is an extremely poor historian due to the advanced Alzheimer's dementia, unable to participate in HPI, ROS or family history all documentation and history I have collected from the patient's chart most of the history is from the chart and .? Apparently she was confused and uncooperative while in the emergency department was thought to be delirium. Upon admit to the floor, patient is arousable denies pain but is unable to converse or interact with any greater depth. Patient is afebrile temp 98.1?, hypertensive urgency upon admit to O2 over 87, HR 65, RR 12 with an O2 saturation of 99% on room air. Patient's laboratory findings are predominantly unremarkable with a noted BUN of 23, lactate, ammonia, troponin, lipase, and tox screen are all unremarkable. Patient total creatinine kinase is 377. Patient is resting comfortably, hemodynamically stable, sleeping, and appears to be in no distress. Abdomen pelvis CT demonstrates cholecystectomy, without significant abnormality seen involving the cholecystectomy bed, with a moderate volume of dense stool seen within the distal colon.? suggestive of mild fecal impaction. Patient's head CT demonstrates no acute intracranial processes, patient's chest x-ray is limited but demonstrates no acute processes at this time. Patient's EKG sinus rhythm [address] changes there is a inverted T-wave in lead 3 this is unchanged from previous EKGs. Patient admitted for acute weakness encephalopathy status post cholecystectomy with hypertensive urgency. Patient History Medical History Alzheimer's type dementia (2013) Anxiety Cholelithiasis Closed fracture of left distal radius (03/15/14) Cognitive dysfunction (2009) Colon polyps Depression Diverticulitis Gastritis Heart murmur Hyperlipidemia IBS (irritable bowel syndrome) Meniere's disease Urinary incontinence, mixed Surgical History History of bilateral salpingo-oophorectomy History of surgery on arm (03/16/14) Normal colonoscopy (2012) Status post appendectomy (2003) Status post colectomy (2003) Status post epidural steroid injection (03/06/10) Family & Social History Family History Father Colorectal cancer Mother Dementia Social History: household members spouse Safety & Behavioral: Feels Safe in Current Yes Environment Been Physically Hurt or No Threatened By a Person Tobacco & Substance use: Smoking Status Never smoker alcohol intake never Substance Use Type does not use Meds Home Medications and Allergies Home Medications Medication Instructions Recorded Confirmed Type Calcium Carbonate/Vitamin D 1 cap PO QAM AND QHS ##0 05/11/11 05/08/22 History (#CALCIUM) multivitamin 1 tab PO DAILY ##0 05/11/11 05/08/22 History Fish Oil 1,000 mg PO QDAY ##0 10/24/12 05/08/22 History cholecalciferol (vitamin D3) 50 50 mcg PO DAILY #0 tabs 06/13/13 05/08/22 History mcg (2,000 unit) capsule (Vitamin D3) donepezil 10 mg tablet (Aricept) 10 mg PO QDAY #90 tabs 10/19/21 05/08/22 Rx estradiol 10 mcg vaginal tablet See Rx Instructions .Route 10/19/21 05/08/22 Rx .COMPLEX #36 tabs memantine 5 mg tablet 5 mg PO BID #180 tabs 10/19/21 05/08/22 Rx tolterodine 4 mg capsule,extended 4 mg PO DAILY #90 caps 10/19/21 05/08/22 Rx release 24 hr (Detrol [place]) aspirin 81 mg tablet,delayed 81 mg PO DAILY ##0 12/24/21 05/08/22 History release atorvastatin 20 mg tablet 10 mg PO BEDTIME 01/05/22 05/08/22 History sertraline 100 mg tablet 150 mg PO DAILY 03/05/22 05/08/22 History acetaminophen 325 mg capsule 650 mg PO QID PRN pain #60 caps 05/06/22 05/08/22 Rx (Tylenol) ibuprofen 200 mg tablet 400 mg PO Q6H #60 tabs 05/06/22 05/08/22 Rx Allergies Allergy/AdvReac Type Severity Reaction Status Date / Time No Known Drug Allergies Allergy Verified 05/08/22 12:02 Review of Systems Review of Systems Narrative: Unable to obtain an accurate ROS due to patient's Alzheimer's dementia, though patient denies any pain or discomfort and demonstrates no distress at this time. Exam Vital Signs (past 8 hours): - 05/08/22 17:27 05/08/22 19:58 05/08/22 22:39 Temperature 97.6 F 97.6 F Pulse Rate 65 73 64 Respiratory Rate 16 16 16 Blood Pressure 202/87 H 141/88 H 183/84 H Pulse Oximetry 99 97 95 Oxygen Delivery Method Room Air 05/08/22 19:00 Temperature Pulse Rate Respiratory Rate Blood Pressure Pulse Oximetry Oxygen Delivery Method Room Air Oxygen Delivery Method Room Air Narrative Exam Narrative: General: Patient is a thin, pale, frail appearing, very drowsy elderly female in no distress at this time. HEENT: Normocephalic, atraumatic, extraocular muscles intact, oral pharynx is clear and mucous membranes are dry. Neck is supple and symmetric, trachea is midline, no adenopathy, no thyroid enlargement, nontender, no masses palpated. Negative for JVD Chest: Normal AP diameter and contour without kyphoscoliosis, no nasal flaring, retractions, or tachypneic labored Lungs: Auscultation of all lung madsen are clear without adventitious sounds, wheezes, rhonchi, or rales. Cardio: regular rate and rhythm without murmur, rubs, or gallops, no carotid bruit, no cardiac pulsations present. Abdomen: Soft nontender, negative for organomegaly, or masses. Bowel sounds are present in all 4 quadrants without guarding or rebound, no CVA tenderness. Musculoskeletal: Muscle strength weak and decreased tone to all extremities, no no obvious deformity, crepitus, effusions, cyanosis, clubbing or edema present. intact radial and pedal pulses are normal. Skin: Cool, pale, dry and intact without rashes, ulcerations or petechiae. Neuro: Patient is rousable and answers some questions regarding pain or needs, sensation to touch intact, no obvious gross deficits noted of cranial nerves. Psych: Patient has a weakened frail appearance, confused. Objective Labs Result Diagrams: 05/08/22 13:27 05/08/22 13:27 Labs: Laboratory Results - last 24 hr 05/08/22 05/08/22 05/08/22 13:25 13:27 13:27 WBC 7.1 RBC 4.23 Hgb 12.9 Hct 38.1 MCV 90.2 MCH 30.4 MCHC 33.7 RDW 14.3 Plt Count 160 Neut % (Auto) 73.5 Lymph % (Auto) 13.5 L Gray % (Auto) 8.6 Eos % (Auto) 3.5 Baso % (Auto) 0.9 Neut # (Auto) 5200 Lymph # (Auto) 1000 L Gray # (Auto) 600 Eos # (Auto) 200 Baso # (Auto) 100 Sodium 139 Potassium 3.7 Chloride 105 Carbon Dioxide 27 BUN 23 H Creatinine 0.77 Estimated GFR > 60 BUN/Creatinine Ratio 29.9 H Glucose 90 Lactate Calcium 9.4 Total Bilirubin 0.5 AST 49 H ALT 45 H Alkaline Phosphatase 107 Ammonia Total Creatine Kinase CK-MB (CK-2) CK-MB (CK-2) Rel Index Troponin I NT-Pro-B Natriuret Pep Total Protein 8.0 Albumin 4.2 Globulin 3.8 Albumin/Globulin Ratio 1.1 Lipase 70 U Opiates 300ng/mL cut Negative Ur Oxycodone Screen Negative Urine Methadone Screen Negative Ur Barbiturates Screen Negative U Tricyclic Antidepress Negative Ur Phencyclidine Scrn Negative Ur Amphetamines Screen Negative U Methamphetamines Scrn Negative Ur MDMA Scrn (Ecstasy) Negative U Benzodiazepines Scrn Negative Urine Cocaine Screen Negative U Marijuana (THC) Screen Negative SARS-CoV-2 (PCR) 05/08/22 05/08/22 05/08/22 13:27 13:27 13:27 WBC RBC Hgb Hct MCV MCH MCHC RDW Plt Count Neut % (Auto) Lymph % (Auto) Gray % (Auto) Eos % (Auto) Baso % (Auto) Neut # (Auto) Lymph # (Auto) Gray # (Auto) Eos # (Auto) Baso # (Auto) Sodium Potassium Chloride Carbon Dioxide BUN Creatinine Estimated GFR BUN/Creatinine Ratio Glucose Lactate 1.2 Calcium Total Bilirubin AST ALT Alkaline Phosphatase Ammonia Cancelled Total Creatine Kinase 377 H CK-MB (CK-2) 1.02 CK-MB (CK-2) Rel Index 0.3 L Troponin I < 0.012 NT-Pro-B Natriuret Pep Total Protein Albumin Globulin Albumin/Globulin Ratio Lipase U Opiates 300ng/mL cut Ur Oxycodone Screen Urine Methadone Screen Ur Barbiturates Screen U Tricyclic Antidepress Ur Phencyclidine Scrn Ur Amphetamines Screen U Methamphetamines Scrn Ur MDMA Scrn (Ecstasy) U Benzodiazepines Scrn Urine Cocaine Screen U Marijuana (THC) Screen SARS-CoV-2 (PCR) 05/08/22 05/08/22 05/08/22 13:27 16:28 16:30 WBC RBC Hgb Hct MCV MCH MCHC RDW Plt Count Neut % (Auto) Lymph % (Auto) Gray % (Auto) Eos % (Auto) Baso % (Auto) Neut # (Auto) Lymph # (Auto) Gray # (Auto) Eos # (Auto) Baso # (Auto) Sodium Potassium Chloride Carbon Dioxide BUN Creatinine Estimated GFR BUN/Creatinine Ratio Glucose Lactate Calcium Total Bilirubin AST ALT Alkaline Phosphatase Ammonia < 9 L Total Creatine Kinase CK-MB (CK-2) CK-MB (CK-2) Rel Index Troponin I NT-Pro-B Natriuret Pep 445 Total Protein Albumin Globulin Albumin/Globulin Ratio Lipase U Opiates 300ng/mL cut Ur Oxycodone Screen Urine Methadone Screen Ur Barbiturates Screen U Tricyclic Antidepress Ur Phencyclidine Scrn Ur Amphetamines Screen U Methamphetamines Scrn Ur MDMA Scrn (Ecstasy) U Benzodiazepines Scrn Urine Cocaine Screen U Marijuana (THC) Screen SARS-CoV-2 (PCR) Negative Assessment & Plan Assessment & Plan narrative: Tae Izaguirre is an 86-year-old female with a significant history of Alzheimer's dementia, mixed hyperlipidemia, stress incontinence, abdominal pain, malnutrition with a recent gallstone pancreatitis with cholecystectomy on 05/04/2022 she was discharged home on 05/06/2022. Patient was brought in by her due to increasing confusion greater than baseline, diffuse weakness, renata bility to stand, ambulate or make it to the bathroom following surgery 2 days ago and presenting with HTN urgency. Imaging demonstrates no signs postoperative stroke or acute changes, no signs of infection, laboratory findings are unremarkable, physical exam demonstrates diffuse weakness and confusion with no obvious physical findings. 1.?Encephalopathy and weakness status post cholecystectomy, acute, present on admission -admitted for observation will review labs again in the morning, rule out UTI. -provide gentle IV hydration, minimal pain medications as appropriate, -Bed side swallow first then Normal diet as tolerated ( May need to hold medication and have formal swallow evaluation if pt fails bedside swallow). -U/A -PT/OT/and dietary evaluation -patient on fall precautions. -likely this is deconditioning secondary to surgery, patient will need most likely require rehab/SNIF placement. -If cleared by PT & strong enough- ortho stats ordered. 2. Hypertensive urgency without the diagnosis of hypertension, acute, present on admission -admitting blood pressure 202/87-hypertension may be related to pain that she is unable to verbalize- will try toradol to see it improves her b/p, -initially allow some permissive hypertension overnight. -hydralazine for SBP>180 3. Alzheimer's Dementia, severe, acute on chronic, present on admission -no intervention needed -continue memantine, continue risperidone, continue Zoloft, continue donepezil 4. Mixed Hyperlipidemia, chronic, present on admission -continue Lipitor 5. Malnutrition as evidence by BMI of 16.2, acute on chronic, present on admission -dietary consult placed for nutritional counseling and evaluation Code status:DNR/DNI- as documented by Dr. Emmanuel in the chart 04/2022 Surrogate decision maker: Spouse En SAWANT PCR:Negative DVT/VTE prophylaxis:Lovenox & SCD's Disposition: Patient admitted for observation due to weakness and encephalopathy, expected length of stay less than 2 midnights I have utilized all available immediate resources to obtain, update, or review the patient's current medications. I confirmed that the patient's advanced care plan is present, Code status is documented and/or surrogate decision maker is listed in the patient's medical record. Time Spent With Patient Critical Care time: I spent a total of [] minutes of critical care time on this patient's care today; this time is exclusive of procedural time. Scores [facility] [place] coma scale eye opening: To sound Bob coma scale verbal response: Confused Bob coma scale motor response: Localising Bob coma scale total score: 12 Quality VTE Deep Vein Thrombosis/Pulmonary Embolism Present on Admission: No
[2022-05-09] VITALS (12 sets, daily range): BP systolic 130–205; BP diastolic 66–96; PULSE 65–85; RESP 16–17; TEMP 35.9–37; O2SAT 94–99
[2022-05-09] MEDS: KETOROLAC 30 MG/ML VIAL 15 MG IV ×2 (03:39→20:03)
[2022-05-09] MEDS: HYDRALAZINE 20 MG/ML VIAL 10 MG IV (03:41)
--- NOTE | 2022-05-09 05:06 | P.PN_ITS ---
Subjective Subjective Date Patient Seen: 05/09/22 Interval history: 86-year-old female with a significant history of Alzheimer's dementia, mixed hyperlipidemia, stress incontinence, abdominal pain, malnutrition with a recent gallstone pancreatitis with cholecystectomy on 05/04/2022 she was discharged home on 05/06/2022. She was doing poorly at home, unable to walk and was admitted last night w/acute metabolic encephalopathy, elevated blood pressures in the absence of a dx of HTN, and constipation. Exam Vital Signs (past 8 hours): - 05/08/22 22:39 05/08/22 23:41 05/09/22 03:41 Temperature 97.6 F Pulse Rate 64 65 Respiratory Rate 16 Blood Pressure 183/84 H 195/79 H Pulse Oximetry 95 95 Oxygen Delivery Method Room Air 05/09/22 03:00 05/09/22 04:29 05/09/22 03:00 Temperature 96.7 F L Pulse Rate 69 Respiratory Rate 16 Blood Pressure 205/87 H 149/67 H Pulse Oximetry 97 94 Oxygen Delivery Method Room Air Oxygen Delivery Method Room Air Objective Labs Result Diagrams: 05/08/22 13:27 05/08/22 13:27 Labs: Laboratory Results - last 24 hr 05/08/22 05/08/22 05/08/22 13:25 13:27 13:27 WBC 7.1 RBC 4.23 Hgb 12.9 Hct 38.1 MCV 90.2 MCH 30.4 MCHC 33.7 RDW 14.3 Plt Count 160 Neut % (Auto) 73.5 Lymph % (Auto) 13.5 L Real % (Auto) 8.6 Eos % (Auto) 3.5 Baso % (Auto) 0.9 Neut # (Auto) 5200 Lymph # (Auto) 1000 L Real # (Auto) 600 Eos # (Auto) 200 Baso # (Auto) 100 Sodium 139 Potassium 3.7 Chloride 105 Carbon Dioxide 27 BUN 23 H Creatinine 0.77 Estimated GFR > 60 BUN/Creatinine Ratio 29.9 H Glucose 90 Lactate Calcium 9.4 Total Bilirubin 0.5 AST 49 H ALT 45 H Alkaline Phosphatase 107 Ammonia Total Creatine Kinase CK-MB (CK-2) CK-MB (CK-2) Rel Index Troponin I NT-Pro-B Natriuret Pep Total Protein 8.0 Albumin 4.2 Globulin 3.8 Albumin/Globulin Ratio 1.1 Lipase 70 U Opiates 300ng/mL cut Negative Ur Oxycodone Screen Negative Urine Methadone Screen Negative Ur Barbiturates Screen Negative U Tricyclic Antidepress Negative Ur Phencyclidine Scrn Negative Ur Amphetamines Screen Negative U Methamphetamines Scrn Negative Ur MDMA Scrn (Ecstasy) Negative U Benzodiazepines Scrn Negative Urine Cocaine Screen Negative U Marijuana (THC) Screen Negative SARS-CoV-2 (PCR) 05/08/22 05/08/22 05/08/22 13:27 13:27 13:27 WBC RBC Hgb Hct MCV MCH MCHC RDW Plt Count Neut % (Auto) Lymph % (Auto) Real % (Auto) Eos % (Auto) Baso % (Auto) Neut # (Auto) Lymph # (Auto) Real # (Auto) Eos # (Auto) Baso # (Auto) Sodium Potassium Chloride Carbon Dioxide BUN Creatinine Estimated GFR BUN/Creatinine Ratio Glucose Lactate 1.2 Calcium Total Bilirubin AST ALT Alkaline Phosphatase Ammonia Cancelled Total Creatine Kinase 377 H CK-MB (CK-2) 1.02 CK-MB (CK-2) Rel Index 0.3 L Troponin I < 0.012 NT-Pro-B Natriuret Pep Total Protein Albumin Globulin Albumin/Globulin Ratio Lipase U Opiates 300ng/mL cut Ur Oxycodone Screen Urine Methadone Screen Ur Barbiturates Screen U Tricyclic Antidepress Ur Phencyclidine Scrn Ur Amphetamines Screen U Methamphetamines Scrn Ur MDMA Scrn (Ecstasy) U Benzodiazepines Scrn Urine Cocaine Screen U Marijuana (THC) Screen SARS-CoV-2 (PCR) 05/08/22 05/08/22 05/08/22 13:27 16:28 16:30 WBC RBC Hgb Hct MCV MCH MCHC RDW Plt Count Neut % (Auto) Lymph % (Auto) Real % (Auto) Eos % (Auto) Baso % (Auto) Neut # (Auto) Lymph # (Auto) Real # (Auto) Eos # (Auto) Baso # (Auto) Sodium Potassium Chloride Carbon Dioxide BUN Creatinine Estimated GFR BUN/Creatinine Ratio Glucose Lactate Calcium Total Bilirubin AST ALT Alkaline Phosphatase Ammonia < 9 L Total Creatine Kinase CK-MB (CK-2) CK-MB (CK-2) Rel Index Troponin I NT-Pro-B Natriuret Pep 445 Total Protein Albumin Globulin Albumin/Globulin Ratio Lipase U Opiates 300ng/mL cut Ur Oxycodone Screen Urine Methadone Screen Ur Barbiturates Screen U Tricyclic Antidepress Ur Phencyclidine Scrn Ur Amphetamines Screen U Methamphetamines Scrn Ur MDMA Scrn (Ecstasy) U Benzodiazepines Scrn Urine Cocaine Screen U Marijuana (THC) Screen SARS-CoV-2 (PCR) Negative [facility] Medical History Alzheimer's type dementia (2013) Anxiety Cholelithiasis Closed fracture of left distal radius (03/15/14) Cognitive dysfunction (2009) Colon polyps Depression Diverticulitis Gastritis Heart murmur Hyperlipidemia IBS (irritable bowel syndrome) Meniere's disease Urinary incontinence, mixed Surgical History History of bilateral salpingo-oophorectomy History of surgery on arm (03/16/14) Normal colonoscopy (2012) Status post appendectomy (2003) Status post colectomy (2003) Status post epidural steroid injection (03/06/10) Family History Father Colorectal cancer Mother Dementia Social History household members: spouse Smoking Status: Never smoker alcohol intake: never Assessment & Plan Assessment & Plan narrative: 1. Acute metabolic encephalopathy in the setting of dementia No evidence of infection. CT negative on admission. Likely multifactorial from recent surgery in the setting of advanced dementia. 2. Elevated BP Significantly elevated blood pressures on admission. Does raise the possibility of CHEMICAL TESTER insult (such as CVA), especially in the absence of known HTN. As noted CT negative. Consider f/u imaging if she is not improving. 3. Constipation Significant fecal load seen on CT Abd/pelvis. Will give dulcolax today. Continue senna. 4. Alzheimer's dementia, advanced 5. Chronic PCM BMI 16.2. Dietitian consult. 6. POD #5 from lap alexander NO evidence of infection. Continue routine care. 7. Transaminitis Likely related to recent cholelithisis w/likely stone as she also had gallstone pancreatitis. Will follow. Code status DNR/DNI Prophy Dispo Likely will need placement Time Spent With Patient Critical Care time: I spent a total of [] minutes of critical care time on this patient's care today; this time is exclusive of procedural time. Quality VTE Deep Vein Thrombosis/Pulmonary Embolism Present on Admission: No
[2022-05-09] MEDS: ENOXAPARIN 40 MG/0.4 ML SYRINGE SUBCUT (09:47)
--- NOTE | 2022-05-09 11:47 | P.PN_ITS ---
Subjective Subjective Date Patient Seen: 05/09/22 Time Patient Seen: 10:00 Interval history: CC: I'm tired weak confused severely malnourished labile BPs admitted for bounceback after emergent lap alexander 05/04. Exam Vital Signs (past 8 hours): - 05/09/22 04:29 05/09/22 04:29 05/09/22 07:37 Temperature 97.3 F L Pulse Rate 71 68 Pulse Rate [Orthostatic Lying] Pulse Rate [Orthostatic Sitting] Respiratory Rate 16 Blood Pressure 149/67 H 149/67 H 162/79 H Blood Pressure [Orthostatic Lying] Blood Pressure [Orthostatic Sitting] Pulse Oximetry 99 Oxygen Flow Rate 0 05/09/22 07:00 05/09/22 11:00 Temperature Pulse Rate Pulse Rate [Orthostatic Lying] 68 79 Pulse Rate [Orthostatic Sitting] 85 Respiratory Rate Blood Pressure Blood Pressure [Orthostatic Lying] 162/79 H 138/66 Blood Pressure [Orthostatic Sitting] 146/72 H Pulse Oximetry Oxygen Flow Rate Oxygen Delivery Method Room Air Oxygen Flow Rate 0 Narrative Exam Narrative: frail elderly female curled up in position Const Nutritional Appearance: malnourished HENPR Head: normocephalic and atraumatic Resp Auscultation: clear to auscultation bilaterally Cardio Rate: regular rate GI Other: laparoscopic incisions under clean dry bandages. active bowel sounds mild ttp Neuro General: patient alert, patient awake and moves all extremities Extrem General: full ROM and no pedal edema Psych Appearance: disheveled Speech and Movement: speech and movement normal Objective Labs Result Diagrams: 05/08/22 13:27 05/08/22 13:27 Labs: Laboratory Results - last 24 hr 05/08/22 05/08/22 05/08/22 13:25 13:27 13:27 WBC 7.1 RBC 4.23 Hgb 12.9 Hct 38.1 MCV 90.2 MCH 30.4 MCHC 33.7 RDW 14.3 Plt Count 160 Neut % (Auto) 73.5 Lymph % (Auto) 13.5 L Owsley % (Auto) 8.6 Eos % (Auto) 3.5 Baso % (Auto) 0.9 Neut # (Auto) 5200 Lymph # (Auto) 1000 L Owsley # (Auto) 600 Eos # (Auto) 200 Baso # (Auto) 100 Sodium 139 Potassium 3.7 Chloride 105 Carbon Dioxide 27 BUN 23 H Creatinine 0.77 Estimated GFR > 60 BUN/Creatinine Ratio 29.9 H Glucose 90 Lactate Calcium 9.4 Total Bilirubin 0.5 AST 49 H ALT 45 H Alkaline Phosphatase 107 Ammonia Total Creatine Kinase CK-MB (CK-2) CK-MB (CK-2) Rel Index Troponin I NT-Pro-B Natriuret Pep Total Protein 8.0 Albumin 4.2 Globulin 3.8 Albumin/Globulin Ratio 1.1 Lipase 70 U Opiates 300ng/mL cut Negative Ur Oxycodone Screen Negative Urine Methadone Screen Negative Ur Barbiturates Screen Negative U Tricyclic Antidepress Negative Ur Phencyclidine Scrn Negative Ur Amphetamines Screen Negative U Methamphetamines Scrn Negative Ur MDMA Scrn (Ecstasy) Negative U Benzodiazepines Scrn Negative Urine Cocaine Screen Negative U Marijuana (THC) Screen Negative SARS-CoV-2 (PCR) 05/08/22 05/08/22 05/08/22 13:27 13:27 13:27 WBC RBC Hgb Hct MCV MCH MCHC RDW Plt Count Neut % (Auto) Lymph % (Auto) Ows[place] % (Auto) Eos % (Auto) Baso % (Auto) Neut # (Auto) Lymph # (Auto) Owsley # (Auto) Eos # (Auto) Baso # (Auto) Sodium Potassium Chloride Carbon Dioxide BUN Creatinine Estimated GFR BUN/Creatinine Ratio Glucose Lactate 1.2 Calcium Total Bilirubin AST ALT Alkaline Phosphatase Ammonia Cancelled Total Creatine Kinase 377 H CK-MB (CK-2) 1.02 CK-MB (CK-2) Rel Index 0.3 L Troponin I < 0.012 NT-Pro-B Natriuret Pep Total Protein Albumin Globulin Albumin/Globulin Ratio Lipase U Opiates 300ng/mL cut Ur Oxycodone Screen Urine Methadone Screen Ur Barbiturates Screen U Tricyclic Antidepress Ur Phencyclidine Scrn Ur Amphetamines Screen U Methamphetamines Scrn Ur MDMA Scrn (Ecstasy) U Benzodiazepines Scrn Urine Cocaine Screen U Marijuana (THC) Screen SARS-CoV-2 (PCR) 05/08/22 05/08/22 05/08/22 13:27 16:28 16:30 WBC RBC Hgb Hct MCV MCH MCHC RDW Plt Count Neut % (Auto) Lymph % (Auto) Ows[place] % (Auto) Eos % (Auto) Baso % (Auto) Neut # (Auto) Lymph # (Auto) Owsley # (Auto) Eos # (Auto) Baso # (Auto) Sodium Potassium Chloride Carbon Dioxide BUN Creatinine Estimated GFR BUN/Creatinine Ratio Glucose Lactate Calcium Total Bilirubin AST ALT Alkaline Phosphatase Ammonia < 9 L Total Creatine Kinase CK-MB (CK-2) CK-MB (CK-2) Rel Index Troponin I NT-Pro-B Natriuret Pep 445 Total Protein Albumin Globulin Albumin/Globulin Ratio Lipase U Opiates 300ng/mL cut Ur Oxycodone Screen Urine Methadone Screen Ur Barbiturates Screen U Tricyclic Antidepress Ur Phencyclidine Scrn Ur Amphetamines Screen U Methamphetamines Scrn Ur MDMA Scrn (Ecstasy) U Benzodiazepines Scrn Urine Cocaine Screen U Marijuana (THC) Screen SARS-CoV-2 (PCR) Negative [facility] Medical History Alzheimer's type dementia (2013) Anxiety Cholelithiasis Closed fracture of left distal radius (03/15/14) Cognitive dysfunction (2009) Colon polyps Depression Diverticulitis Gastritis Heart murmur Hyperlipidemia IBS (irritable bowel syndrome) Meniere's disease Urinary incontinence, mixed Surgical History History of bilateral salpingo-oophorectomy History of surgery on arm (03/16/14) Normal colonoscopy (2012) Status post appendectomy (2003) Status post colectomy (2003) Status post epidural steroid injection (03/06/10) Family History Father Colorectal cancer Mother Dementia Social History household members: spouse Smoking Status: Never smoker alcohol intake: never Assessment & Plan Assessment & Plan narrative: Tae Izaguirre is an 86-year-old female with a significant history of Alzheimer's dementia, mixed hyperlipidemia, stress incontinence, abdominal pain, malnutrition with a recent gallstone pancreatitis with cholecystectomy on 05/04/2022 she was discharged home on 05/06/2022.? Patient was brought in by her due to increasing confusion greater than baseline, diffuse weakness, inability to stand, ambulate or make it to the bathroom following surgery 2 days ago and presenting with HTN urgency.?Clear imaging no sign of postop infection or abscess. #Encephalopathy and weakness status post cholecystectomy, acute, present on admission Lives at home with who has some health issues and is not able to help her move around physically Some swallowing issues noted with water however no trouble with breakfast - swallow eval pending ok to eat until then therapy evals pending, pending orthostatics patient on fall precautions. likely this is deconditioning secondary to surgery, patient will need most likely require rehab/SNIF placement. #Hypertensive urgency without the diagnosis of hypertension, acute, present on admission on admission, monitoring, improved now, monitor, pain control ? #Alzheimer's Dementia, severe, acute on chronic, present on admission stable continue home memantine, continue risperidone, continue Zoloft, continue donepezil. #Mixed Hyperlipidemia, chronic, present on admission stable continue Lipitor 5. Malnutrition as evidence by BMI of 16.2, acute on chronic, present on admission Dietary consult placed for nutritional counseling and evaluation - encourage eating Code status:DNR/DNI- as documented by Dr. mEmanuel in the chart 04/2022 Surrogate decision maker: Spouse - En Izaguirre SAVANA PCR:Negative DVT/VTE prophylaxis:Lovenox & SCD's Disposition:? Pt is not safe to discharge home as she lacks the resources there to properly care for herself postop and agrees. Discussed placement options with CM they will explore. Time Spent With Patient Critical Care time: I spent a total of [] minutes of critical care time on this patient's care today; this time is exclusive of procedural time. Quality VTE Deep Vein Thrombosis/Pulmonary Embolism Present on Admission: No
--- NOTE | 2022-05-09 11:57 | PC.NURSE ---
Addendum entered by Radha Alvarez R.N. 05/09/22 17:40: pt confused with no short term memory. calls out and then tries to get up without calling-pt is in view room with bed alarmed and staff near. she is easily redirected, coop and calm. hums and sings. no choking this shift and encouraging liquids. Original Note: pt has been sleeping alot and wakes to touch-she is extremely [place]. confused with hx of dementia . here for bf and helped feed her with no choking noted, Dr. Figueroa here to see pt and felt it safe for her to con't eating. Pt up to bsc with 1 max assist. sm bm after doculax supp given. Bed alarmed and call light within reach, at BS
--- NOTE | 2022-05-09 14:24 | PT.IIE ---
Surgical History (Last Reviewed 05/09/22 @ 00:09 by Karli Barriga [facility]) History of bilateral salpingo-oophorectomy History of surgery on arm (03/16/14) Normal colonoscopy (2012) Status post appendectomy (2003) Status post colectomy (2003) Status post epidural steroid injection (03/06/10) Medical History (Last Reviewed 05/09/22 @ 00:09 by Karli Barriga [facility]) Alzheimer's type dementia (2013) Anxiety Cholelithiasis Closed fracture of left distal radius (03/15/14) Cognitive dysfunction (2009) Colon polyps Depression Diverticulitis Gastritis Heart murmur Hyperlipidemia IBS (irritable bowel syndrome) Meniere's disease Urinary incontinence, mixed Physical Therapy Inpatient Evaluation/Re-Eval M1 PT/OT-IP Prior Functional Status Start: 05/09/22 14:04 Freq: Status: Active Protocol: Document 05/09/22 14:04 (Rec: 05/09/22 14:24 [id number]) Medical Review Prior Functional Status Medical History Reviewed Yes Mobility and Gait 24hr assist/supervision for mobility due to Alzheimers. Occasionally used a walker for long distances but not in the home. Activities of Daily Living and IADL's Spouse and hired caregiver provided assist for ADLs Social History Household Members spouse Living Arrangements House Number of Floors (Floors) Two Floors Number of Stairs To Enter/Railing? 1 step to enter home; 14 steps up to top floor bed/bath. Bathroom downstairs. Home Environment Tub/Shower Home Equipment Front Wheel Walker M2 PT-IP Current Condition Start: 05/09/22 14:04 Freq: Status: Active Protocol: Document 05/09/22 14:04 (Rec: 05/09/22 14:24 [id number]) Physical Therapy Current Condition Current Condition Evaluation Date 05/09/22 Treatment Diagnosis abnormality of gait; muscle weakness Onset Date 05/06/22 M3 PT-IP Subjective Start: 05/09/22 14:04 Freq: Status: Active Protocol: Document 05/09/22 14:04 (Rec: 05/09/22 14:24 [id number]) Subjective Physical Therapy Visit Type Type Initial Evaluation Visit Start Time 12:50 Visit Stop Time 13:20 Total Visit Minutes 29 Physical Therapy Visit Comments Patient Comments Spouse providing hx and PLOF info. Pt states she wants to sleep and endorses abdominal pain. M4 PT-IP Mobility and Gait Start: 05/09/22 14:04 Freq: Status: Active Protocol: Document 05/09/22 14:04 (Rec: 05/09/22 14:24 BC [id number]) PT-Bed Mobility Assessment Rolling Type of Rolling Roll to Left Level of Assist Minimal Assistance Supine to Sit Supine to Sit Minimal Assistance,Moderate Assistance Sit to Supine Sit to Supine Minimal Assistance Scooting Scooting to Edge of Bed Minimal Assistance PT-Transfer Assessment Sit to and From Stand Sit to and from Stand Contact Guard Assistance, Minimal Assistance Equipment Transfer Assistive Device Gait Belt,Front Wheeled Walker Transfers Transfer Destination Bed Transfer Technique Stand Step Pivot Transfer Ability Level of Assist Minimal Assistance Comments Mobility Comments Pt completed stand pivot transfer x2 reps, each time letting go of walker and holding PT hand. States she prefers to hold onto people. Repetitive cues throughout mobility to use FWW. Gait Assessment Gait Gait Assistance Required: Contact Guard Assist,Minimum Assistance Distance (Feet) 75 Assistive Devices Assistive Device Gait Belt,Front Wheeled Walker Gait Deviations General Gait Pattern Decreased Stride Length, Decreased Feet Clearance, Festinating,Narrow Based Gait Factors Limiting Gait Function Factors Limiting Gait Function Decreased Activity Tolerance, Difficulty Following Directions,Pain,Poor Balance, Poor Safety Awareness Comments Gait Comments Gait assessment 25' in room initially. Pt states she needs to sit and rest. Reports pain with walking and points to abdominal area. Spouse aware of her reports of pain and this was likely a reason for lack of mobility at home when she returned after surgery. She was able to ambulate a second time for 75' but needing min A for balance, walker mgmt and re-direction. Stair Climbing Assessment Comments Stair Climbing Comments Unable to assess stairs today due to fatigue. Spouse agrees that it is not safe for her to do this yet. PT-Balance Assessment Sitting Balance and Reactions Static Sitting Balance Ability Normal Dynamic Sitting Balance Ability Good Standing Balance and Reactions Static Standing Balance Ability Fair Dynamic Standing Balance Ability Fair Device Used FWW - needs cues Comments Other Balance Tests/Deviations/Treatment Pt's fall risk is in part : affected by safety awareness. Often lets go of walker or walks outside of walker. M5 PT-IP Objective Assessments Start: 05/09/22 14:04 Freq: Status: Active Protocol: Document 05/09/22 14:04 BC (Rec: 05/09/22 14:24 [id number]) Orientation Orientation/Cognition Level of Alertness Confusional State Comments Did not initially recognize spouse. Did not recall situation (recent sx) or time/ place. Gross Range of Motion Upper Extremity ROM Assessment Within Functional Limits Lower Extremity ROM Assessment Within Functional Limits Strength Lower Extremity Strength Assessment Bilaterally Impaired Comments Strength Comments BLE grossly 4/5 on testing Sensation Assessment Sensation Gross Sensation WNL M6 PT-IP Treatment Start: 05/09/22 14:04 Freq: Status: Active Protocol: Document 05/09/22 14:04 BC (Rec: 05/09/22 14:24 [id number]) Physical Therapy Treatment Education Education Provided Safety M7 PT-IP Assessment and Plan Start: 05/09/22 14:04 Freq: Status: Active Protocol: Document 05/09/22 14:04 BC (Rec: 05/09/22 14:24 [id number]) PT Summary Assessment and Plan Potential Rehabilitation Potential Good Status of Condition at Evaluation Evolving Summary Impairments Pain,Strength,Balance, Cognition,Bed Mobility, Transfers,Gait,Activity Tolerance Progress Towards Goals Slow Progress due to Pain,Slow Progress due to Activity Tolerance Assessment Summary Pt and spouse present in room. Pt needing re-direction by spouse to understand purpose of PT. Pt agreeable. Recent admission and d/c following cholecystectomy. She returned to hospital due to inability to mobilize at home. Spouse reports he got her to the couch on first floor of home and she was unable to get off couch for ADLs/needs. She returned to ED. She has a hx of alzheimers and is not a good historian. Spouse present to provide this information. States her PLOF was ambulatory without a.d. and assist for ADLs due to cognition. Denies falls. She was able to go up/ down 14 steps at home to her bedroom at night. Caregiver assistance 3-4 hrs daily. Currently Pt is requiring min to mod assist for bed mobility , transfers and ambulation. She is not safe to manage stairs at this time. She fatigues rapidly and asks to sit suddenly when she begins to have abdominal pain. Recommend SNF for daily therapy to regain PLOF and safe mobility in her home. High risk of falls and continued sedentary behavior/ inability to mobilize if d/c home. Goals Bed Mobility Goal Standby Assistance Transfer Goal Standby Assistance Gait Goal Standby Assistance Gait Distance 150 Other Goals Ascend/descend 14 steps with CGA per PLOF Days to Meet Goals 5 Frequency of Treatment Frequency Of Treatment Once a Day Treatment Plan Physical Therapy Treatment Plan Bed Mobility Training,Transfer Training,Gait Training, Therapeutic Exercise,Balance Retraining,Discharge Planning, Neuromuscular Re-ed, Coordination Retraining Recommendations To Nursing Amount of Assist Needed 1 Person Assist Discharge Recommendations PT Discharge Recommendations SNF Rehab Transportation Needs at Discharge Wheelchair/Cabulance
--- NOTE | 2022-05-09 14:53 | CM.DANOTE ---
Initial Discharge Assessment Note: Case received, EMR reviewed. Met with spouse. Payer: Medicare and [employer] PCP: Kolby Ayala 86 year old female admitted yesterday pm. She underwent choleycystectomy on 05/04 and dc on 05/06. She was readmitted for weakness and confusion, encephalopathy with hypertensive urgency, mild fecal impaction. She is chronically malnourished. Spouse and 4-hour daily caregiver care for patient in large 2 story home. Per PT 1 person assist. Spoke with Spouse Josue and explained that she is an OBS status and that insurance will not cover her SNF stay. She would benefit from a SNF stay and he will contact [facility] [place] tomorrow morning for private pay stay. This DCP will fax clinicals. Plan: Will follow up with spouse tomorrow am and hopefully dc to [facility] [place] [facility]. [facility] Discharge Planning/Care Management CM Discharge Assessment Start: 05/09/22 14:48 Freq: Status: Active Protocol: Document 05/09/22 14:49 (Rec: 05/09/22 14:53 [id number]) Discharge Planning Assessment Assigned Account Resolution Expert Bianca Herrera RN/DCP Advance Directives? Yes Advance Directives on File Yes History Provided By Family Member,Significant Other,Medical Record Prior Living Arrangements House Comment 2 story Household Members spouse Comment caregiver 4 hours a day. Type of transporation used prior to Relies on Others admit Independent with ADL's No Is patient alert and oriented? No Caregiver for Another No DME Already Rented / Owned FWW / Walker Patient/Family Preference Home with Home Health Comment Pt OBS status. Spouse tomorrow to contact [facility] [place] [facility]. Comment Patient has good supportive spouse and son in [place]. Patient also has a caregiver that used to work for [employer], who comes in - five days a week. Discharge Plan Home Transportation Arrangement Spouse bedside and can transport Referrals Initiated None needed,Other Additional Comment Care Home private pay. Whiteboard Updated in Patient Room with Yes name and ext. # of Account Resolution Expert Review Status In Process Next Review Type Continued Stay Review
[2022-05-09] MEDS: SODIUM CHLORIDE 0.9% 1,000 ML 60 ML IV (15:27)
[2022-05-09] MEDS: ATORVASTATIN 20 MG TABLET 10 MG PO (20:04)
[2022-05-09] MEDS: MEMANTINE HCL 5 MG TABLET PO (20:05)
[2022-05-09] MEDS: SENNOSIDES 8.6 MG TABLET 17.2 MG PO (20:05)
[2022-05-10 01:00] VITALS: O2SAT 97
[2022-05-10] MEDS: SODIUM CHLORIDE 0.9% 1,000 ML 60 ML IV (04:03)
[2022-05-10 04:05] VITALS: BP 199/80; PULSE 68
[2022-05-10] MEDS: HYDRALAZINE 20 MG/ML VIAL 10 MG IV (04:05)
[2022-05-10 04:14] VITALS: BP 199/80; PULSE 62; RESP 16; TEMP 36.2; O2SAT 95
[2022-05-10 05:00] VITALS: BP 177/80; PULSE 65; O2SAT 95
[2022-05-10] MEDS: KETOROLAC 30 MG/ML VIAL 15 MG IV (05:34)
[2022-05-10 06:29] LABS: Add Manual Diff / Slide Review NO; Basophils Absolute Auto 100 /uL (0-100); Basophils Percent Auto 1.3 % (0-2); Eosinophils Absolute Auto 200 /uL (0-450); Eosinophils Percent Auto 4.1 % (2-4); Hematocrit 35.2 % (36-46); Hemoglobin 11.8 g/dL (12.0-16.0); Lymphocytes Absolute Auto 1000 /uL (1100-4500); Lymphocytes Percent Auto 18.2 % (25-40); Mean Corpuscular HGB Conc 33.5 % (30-36); Mean Corpuscular Hemoglobin 30.3 PG (26-34); Mean Corpuscular Volume 90.4 fL (80-100); Monocytes Absolute Auto 500 /uL (0-900); Monocytes Percent Auto 9.2 % (3-14); Neutrophils Absolute Auto 3700 /uL (1500-7000); Neutrophils Percent Auto 67.2 % (50-75); Platelet Count 169 X10^3/uL (150-400); Red Blood Cell Count 3.89 X10^6/uL (4.0-5.2); White Blood Cell Count 5.5 X10^3/uL (4.5-11.0)
[2022-05-10 06:47] LABS: Alanine Aminotransferase 31 IU/L (<35); Albumin 3.5 g/dL (3.5-5.0); Albumin Globulin Ratio 1.1 (1.0-2.8); Alkaline Phosphatase 85 U/L (38-126); Aspartate Aminotransferase 35 IU/L (14-36); BUN Creatinine Ratio 34.5 (6-22); Bilirubin Total 0.3 mg/dL (0.2-1.3); Blood Urea Nitrogen 20 mg/dL (7-17); Calcium 8.3 mg/dL (8.4-10.2); Carbon Dioxide 23 mmol/L (22-32); Chloride 109 mmol/L (98-107); Estimated Glomerular Filt Rate > 60 mL/min (>60); Globulin 3.1 g/dL (1.7-4.1); Glucose 92 mg/dL (80-110); HEMOLYSIS < 15 (0-50); Potassium 3.2 mmol/L (3.4-5.1); Sodium 140 mmol/L (137-145); Total Protein 6.6 g/dL (6.3-8.2)
[2022-05-10] MEDS: DONEPEZIL 5 MG TABLET 10 MG PO (09:08)
[2022-05-10] MEDS: SERTRALINE 50 MG TABLET 150 MG PO (09:09)
[2022-05-10] MEDS: ENOXAPARIN 40 MG/0.4 ML SYRINGE SUBCUT (09:10)
[2022-05-10] MEDS: ASPIRIN EC 81 MG TABLET PO (09:10)
[2022-05-10] MEDS: MEMANTINE HCL 5 MG TABLET PO (09:11)
[2022-05-10 09:14] VITALS: BP 153/67; PULSE 71; RESP 18; TEMP 36.7; O2SAT 95
--- NOTE | 2022-05-10 10:33 | OT.IP.EVAL ---
Past Medical History (Last Reviewed 05/09/22 @ 00:09 [facility] Alzheimer's type dementia (2013) Anxiety Cholelithiasis Closed fracture of left distal radius (03/15/14) Cognitive dysfunction (2009) Colon polyps Depression Diverticulitis Gastritis Heart murmur Hyperlipidemia IBS (irritable bowel syndrome) Meniere's disease Urinary incontinence, mixed Surgical History (Last Reviewed 05/09/22 @ 00:09 [facility] History of bilateral salpingo-oophorectomy History of surgery on arm (03/16/14) Normal colonoscopy (2012) Status post appendectomy (2003) Status post colectomy (2003) Status post epidural steroid injection (03/06/10) Occupational Therapy Inpatient Evaluation/Re-Eval M1 PT/OT-IP Prior Functional Status Start: 05/09/22 14:04 Freq: Status: Active Protocol: Document 05/10/22 13:12 CGR (Rec: 05/10/22 13:48 CGR [id number]) Medical Review Prior Functional Status Medical History Reviewed Yes Communication Pt is an effective verbal communicator but has advanced dementia. Mobility and Gait 24hr assist/supervision for mobility due to Alzheimers. Occasionally used a walker for long distances but not in the home. Activities of Daily Living and IADL's Spouse and hired caregiver provided assist for ADLs. Caregiver is present M-F from 8am to 11am. Pt is able to don socks but otherwise needs assist with all dressing, bathing, toileting, and at least mod a for simple ADLs. Social History Household Members spouse Living Arrangements House Number of Floors (Floors) Two Floors Number of Stairs To Enter/Railing? 1 step to enter home; 14 steps up to top floor bed/bath. Bathroom downstairs. 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 M1 PT/OT-IP Prior Functional Status Start: 05/10/22 13:12 Freq: NEEDED Status: Active Protocol: Document 05/10/22 13:12 CGR (Rec: 05/10/22 13:48 CGR [id number]) Medical Review Prior Functional Status Medical History Reviewed Yes Communication Pt is an effective verbal communicator but has advanced dementia. Mobility and Gait 24hr assist/supervision for mobility due to Alzheimers. Occasionally used a walker for long distances but not in the home. Activities of Daily Living and IADL's Spouse and hired caregiver provided assist for ADLs. Caregiver is present M-F from 8am to 11am. Pt is able to don socks but otherwise needs assist with all dressing, bathing, toileting, and at least mod a for simple ADLs. Social History Household Members spouse Living Arrangements House Number of Floors (Floors) Two Floors Number of Stairs To Enter/Railing? 1 step to enter home; 14 steps up to top floor bed/bath. Bathroom downstairs. 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 M2 OT-IP Current Condition Start: 05/10/22 13:12 Freq: Status: Active Protocol: Document 05/10/22 13:12 CGR (Rec: 05/10/22 13:48 CGR [id number]) Occupational Therapy Current Condition Current Condition Evaluation Date 05/10/22 Treatment Diagnosis gallbladder sx then difficulty walking. Diagnosis Onset Date 05/08/22 M3 OT- IP Subjective and Pain Start: 05/10/22 13:12 Freq: Status: Active Protocol: Document 05/10/22 13:12 CGR (Rec: 05/10/22 13:48 CGR [id number]) OT- Subjective Occupational Therapy Visit Type Type Initial Evaluation Visit Start Time 09:53 Visit Stop Time 10:33 Total Visit Minutes 40 Notes partial co-treat with P.T. OT Pain Assessment Pain When Pain Assessed At Rest Pain Present Pain Present Denied Pain M4 OT- IP ADL's Start: 05/10/22 13:12 Freq: Status: Active Protocol: Document 05/10/22 13:12 CGR (Rec: 05/10/22 13:48 CGR [id number]) OT [id number] Comments OT Self-Feeding Comments not meal time OT ADL-Grooming General Evaluation Grooming Ability Maximum Assistance Areas Needing Assistance Face Washing Comments OT Grooming Comments seated in chair OT ADL-Oral Care General Eval Oral Care Ability Maximum Assistance Areas of Assistance Brushing Teeth Comments Oral Care Comments for brushing teeth OT ADL-Dressing General Eval Lower Body Dressing Ability Standby Assistance,Maximum Assistance Areas Needing Assistance Underpants/Brief,Socks Comments OT Dressing Comments Pt was able to don socks but needed max a for donning clean briefs. OT ADL-Toileting General Evaluation Toileting Ability Maximum Assistance Areas Needing Assistance Manage Clothing,Perform Perineal Hygiene Comments OT Toileting Comments Pt urinated and had small BM seated on the toilet. Pt needed assist with all pericare and donning clean brief as well as pulling up and pulling down brief. OT ADL-Bathing Comments OT Bathing Comments not performed M5 OT- IP IADL's Start: 05/10/22 13:12 Freq: Status: Active Protocol: Document 05/10/22 13:12 CGR (Rec: 05/10/22 13:48 CGR [id number]) OT-Instrumental Activities of Daily Living Deficits IADL Deficits Identified Deficits Home Safety Awareness Awareness of Need for Assistance at Home Decreased Awareness Ability to Problem Solve Emergency Unable to Problem Solve Situations Medication Management Medication Management Caregiver Administers Money Management Money Management Caregiver Provides Assistance Meal Preparation Meal Preparation Caregiver Provides Assist Special Agent Special Agent Caregiver Provides Assist Driving Driving Comments Pt does not drive M6 OT- IP Functional Cognition Start: 05/10/22 13:12 Freq: Status: Active Protocol: Document 05/10/22 13:12 CGR (Rec: 05/10/22 13:48 CGR [id number]) Cognitive Factors Limiting Selfcare Function Cognitive Ability Level of Alertness Alert,Confusional State Patient Orientation Name Cognitive Comments Cognitive Assessment Comments Pt with advanced dementia. Pt is unable to state her location, time, date, etc. She was able to state her husbands name when asked and her own. OT- Vision and Hearing OT- Hearing Assessment OT- Hearing Assessment Hearing Impaired OT- Vision Assessment Visual Acuity WFL Visual Attentiveness WFL Vision Assessment Comments Pt has reading glasses but pt' s spouse states she no longer reads. M7 OT- IP Mobility and Balance Start: 05/10/22 13:12 Freq: Status: Active Protocol: Document 05/10/22 13:12 CGR (Rec: 05/10/22 13:48 CGR [id number]) OT- Bed Mobility Assessment Supine to Sit Supine to Sit Assist Standby Assistance Scooting Scooting to Edge of Bed Standby Assistance OT-Transfer Assessment Sit to and From Stand Sit to and from Stand Minimal Assistance Transfers Transfer Ability Minimal Assistance Technique Transfer Destination Bed,Chair,Toilet Transfer Technique Stand Step Pivot Devices Transfer Assistive Devices Gait Belt,Front Wheeled Walker Comments Mobility Comments Pt needed min a for use of walker or min a for hand held assist. OT- Balance Assessment Sitting Balance and Reactions Static Sitting Balance Ability Good Dynamic Sitting Balance Ability Fair M8 OT- IP Objective Assessments Start: 05/10/22 13:12 Freq: Status: Active Protocol: Document 05/10/22 13:12 CGR (Rec: 05/10/22 13:48 CGR [id number]) OT Gross Range of Motion Upper Extremity Range of Motion Assessment Within Functional Limits OT Strength Upper Extremity Strength Assessment Within Functional Limits Comments Strength Comments grossly 4/5 OT- Coordination Assessment Upper Extremity Finger to Nose Test Within Functional Limits Finger Tapping Test Within Functional Limits OT-Muscle Tone Assessment Muscle Tone WNL Yes OT Sensation Assessment Edema Edema Absent M9 OT- IP Assessment and Plan Start: 05/10/22 13:12 Freq: Status: Active Protocol: Document 05/10/22 13:12 CGR (Rec: 05/10/22 13:48 CGR [id number]) OT Summary Assessment and Plan Potential Rehabilitation Potential Fair Analytic Complexity at Evaluation Moderate Summary OT Impairments Balance,Coordination, Functional Cognition, Functional Mobility,Grooming, Dressing,Toileting,Bathing, Toilet Transfers,Shower Transfers,Activity Tolerance Progress Towards Goals Slow Progress due to Cognition Assessment Summary Pt presents as a moderate complexity evaluation s/p admit for difficulty walking. Pts cognition is the biggest limitation to the pt's abilities at this time. Pt appears to be at or close to her baseline except her inability to perform stairs. Pt may benefit from SNF, however, most pts with advanced dementia do better when they return to their home environment. Pt's has concerns regarding his ability to care for his specifically at night if she can not climb the stairs to the bedroom. Will discharge from OT services at this time as pt is at her baseline of dependent for all ADLs. Frequency of Treatment Frequency Of Treatment Discharge Discharge Recommendations OT Discharge Recommendations Home vs SNF Transportation Needs at Discharge Private Vehicle
--- NOTE | 2022-05-10 11:13 | SLP.IPNOTE ---
Attempted bedside swallow evaluation with pt at 10:45. She is HOONAH and had difficulty following directions despite visual models and verbal prompts. Pt refused to eat or drink. Will attempt to observed at lunch. Per NSG, pt has been tolerating regular diet with no coughing or choking.
--- NOTE | 2022-05-10 11:40 | PT.IPTN ---
Physical Therapy Treatment Note M2 PT-IP Current Condition Start: 05/09/22 14:04 Freq: Status: Active Protocol: Document 05/09/22 14:04 BC (Rec: 05/09/22 14:24 BC [id number]) Physical Therapy Current Condition Current Condition Evaluation Date 05/09/22 Treatment Diagnosis abnormality of gait; muscle weakness Onset Date 05/06/22 M3 PT-IP Subjective Start: 05/09/22 14:04 Freq: Status: Active Protocol: Document 05/10/22 11:30 BC (Rec: 05/10/22 11:38 [id number]) Subjective Physical Therapy Visit Type Type Treatment Note Visit Start Time 10:15 Visit Stop Time 10:30 Total Visit Minutes 14 Physical Therapy Visit Comments Patient Comments Spouse is still uncertain if he would like to bring Pt home vs SNF. M4 PT-IP Mobility and Gait Start: 05/09/22 14:04 Freq: Status: Active Protocol: Document 05/10/22 11:30 BC (Rec: 05/10/22 11:38 [id number]) PT-Transfer Assessment Sit to and From Stand Sit to and from Stand Contact Guard Assistance Equipment Transfer Assistive Device None Transfers Transfer Destination Chair Transfer Technique Stand Step Pivot Transfer Ability Level of Assist Minimal Assistance Comments Mobility Comments Transfers without a.d. today assessed at min A. Gait Assessment Gait Gait Assistance Required: Minimum Assistance Distance (Feet) 50 Assistive Devices Assistive Device Gait Belt Gait Deviations General Gait Pattern Antalgic,Decreased Stride Length,Decreased Feet Clearance,Festinating,Flexed Trunk Factors Limiting Gait Function Factors Limiting Gait Function Incoordination,Poor Balance, Poor Safety Awareness Comments Gait Comments Attempted ambulation with INDUSTRIAL COMMERCIAL GROUNDSKEEPER (PLOF with spouse). Pt was requiring min A for ambulation . There was a distinct decline in her gait pattern vs yesterday ambulating with FWW, increased festination of gait . Pt needs frequent reminders and cues to use a walker properly or more physical support to ambulate without an a.d. Her PLOF was no a.d. in home. Stair Climbing Assessment Comments Stair Climbing Comments Attempted stair training today with OT and spouse present. Pt became visibly anxious and verbalized that she did not want to attempt this at the stairwell. We attempted verbal discussion of reason for attempting stairs and Pt continued to decline attempt. Her wishes regarding stairs were respected and we assisted her back to her room. At this attempt, her spouse has decided to pursue SNF vs Home due to 14 steps. PT-Balance Assessment Comments Other Balance Tests/Deviations/Treatment Retropulsive upon first : standing up from chair on initial attempt. Second attempt she had improved COG over ELIESER. M5 PT-IP Objective Assessments Start: 05/09/22 14:04 Freq: Status: Active Protocol: Document 05/09/22 14:04 BC (Rec: 05/09/22 14:24 [id number]) Orientation Orientation/Cognition Level of Alertness Confusional State Comments Did not initially recognize spouse. Did not recall situation (recent sx) or time/ place. Gross Range of Motion Upper Extremity ROM Assessment Within Functional Limits Lower Extremity ROM Assessment Within Functional Limits Strength Lower Extremity Strength Assessment Bilaterally Impaired Comments Strength Comments BLE grossly 4/5 on testing Sensation Assessment Sensation Gross Sensation WNL M6 PT-IP Treatment Start: 05/09/22 14:04 Freq: Status: Active Protocol: Document 05/10/22 11:30 BC (Rec: 05/10/22 11:38 [id number]) Physical Therapy Treatment Education Education Provided Safety Other Treatments Other Treatment Performed Educated Pt and spouse on reason for stair attempt. Spouse supportive and wanting to know if she can complete this mobility task for discharge planning. M7 PT-IP Assessment and Plan Start: 05/09/22 14:04 Freq: Status: Active Protocol: Document 05/10/22 11:30 BC (Rec: 05/10/22 11:38 [id number]) PT Summary Assessment and Plan Potential Rehabilitation Potential Good Status of Condition at Evaluation Stable Summary Impairments Pain,Strength,Balance, Cognition,Bed Mobility, Transfers,Gait,Activity Tolerance Progress Towards Goals Slow Progress due to Pain,Slow Progress due to Activity Tolerance Assessment Summary PT arrived with OT in session. Discussed with Pt and spouse plan to attempt stairs for home assessment. As stated above, Pt's gait without a.d. is her PLOF and this was assessed today at needing min A for balance and safety. She was unable to complete stairs safely and this guided spouse in determining to pursue d/c to SNF vs home. Continue to recommend SNF for rehab purposes and attempt to regain PLOF for safe d/c home with spouse. Goals Bed Mobility Goal Standby Assistance Transfer Goal Standby Assistance Gait Goal Standby Assistance Gait Distance 150 Other Goals Ascend/descend 14 steps with CGA per PLOF Days to Meet Goals 5 Frequency of Treatment Frequency Of Treatment Once a Day Treatment Plan Physical Therapy Treatment Plan Bed Mobility Training,Transfer Training,Gait Training, Therapeutic Exercise,Balance Retraining,Discharge Planning, Neuromuscular Re-ed, Coordination Retraining Recommendations To Nursing Amount of Assist Needed 1 Person Assist Discharge Recommendations PT Discharge Recommendations SNF Rehab Equipment Needed for Home Before BSC, shower chair if DC home Discharge Transportation Needs at Discharge Wheelchair/Cabulance
--- NOTE | 2022-05-10 11:51 | PC.NURSE ---
Addendum entered by Berna Ryan R.N. 05/10/22 14:30: Patient has calmed down and is being cooperative but she is yelling out and screaming at times. Ashely here and patient then calms down. Speech and dietary here to see patient. Dietary suggested protein drink, and speech therapist put patient on a general diet with liquids. Original Note: Assess- Patient does have dementia, she was calm and alert this morning but pleasantly confused. Patient all of sudden got out of her chair, and was agitated and trying to push and hit staff. Patient did not want to go back to bed, she did not want to use the bathroom. Her just got here and she has calmed some. She wants to try and take nap now. She is mobile on her feet but unsteady.
--- NOTE | 2022-05-10 12:02 | CM.DPNOTE ---
Discharge Planning Note: Met with spouse earlier this am and he wanted to change his mind and bring patient home and not go to private pay SNF ([facility]) after all. Notified [facility]. Then later this morning, after he witnessed how she did with PT and unable to do stairs, he has changed his mind again and does want her to go to SNF. Spoke with Kamilah again at [facility] and said that spouse is now wanting her to go to SNF. She and DON have to look at her chart more closely because of her dementia and fall risk diagnoses. She will be back in touch. Will attempt another SNF as well, agreeing. Plan: Follow closely, discharge potentially today to SNF. Bianca Herrera RN/DCP
[2022-05-10] MEDS: POTASSIUM CHLORIDE 20 MEQ TAB 40 MEQ PO (12:35)
--- NOTE | 2022-05-10 14:47 | ST.IPCSEOM ---
Visit Care Team Role Provider Type Kolby Ayala DO Family Provider Physician Primary Care Provider Specialty: Family Practice Address: [address] [place] [address], [address] Email: [email or web address] Lucía Strong DO Emergency Provider Physician Referring Provider Specialty: Emergency Medicine Address: [address] [place] [address], [address] Email: [email or web address] Aneudy Bolanos MD Attending Provider Physician Specialty: Family Practice Address: [facility] [place], [address] Email: [email or web address] Aura Langley MD Admit Provider Physician Other Providers Specialty: Internal Medicine Address: [address] [place] [address], [address] Phone: Fax: Email: [email or web address] Past Medical History (Last Reviewed 05/09/22 @ 00:09 by Karli Barriga [facility]) Alzheimer's type dementia (Medical 2013) Anxiety (Medical) Cholelithiasis (Medical) Closed fracture of left distal radius (Medical 03/15/14) Cognitive dysfunction (Medical 2009) Mild 2009; now consistent with Alzheimer's 2013 Colon polyps (Medical) Depression (Medical) Does well with meds; denies hx of bipolar disorder, bulimia, schizophrenia Diverticulitis (Medical) Gastritis (Medical) Heart murmur (Medical) Hyperlipidemia (Medical) Lipitor IBS (irritable bowel syndrome) (Medical) Meniere's disease (Medical) Urinary incontinence, mixed (Medical) Speech-Language Pathology Swallow Evaluation [employer] E[employer]ORCEMENT [employer]ENT Clinical Swallow Evaluation Start: 05/10/22 14:35 Freq: Status: Active Protocol: Document 05/10/22 14:35 ROSALIO (Rec: 05/10/22 14:47 ZS [id number]) Clinical Swallow Evaluation Session Time Visit Start Time 12:30 Visit Stop Time 12:45 Total Visit Minutes 15 Visit Information Visit Number Initial Evaluation Setting Assessment Location Acute Care Visit Type Note Type Initial evaluation Next Note Type Next Note Type Treatment Note Patient Information Identification Type Name,Wristband History Per H&P: Tae Izaguirre is an 86-year-old female with a significant history of Alzheimer's dementia, mixed hyperlipidemia, stress incontinence, abdominal pain, malnutrition with a recent gallstone pancreatitis with cholecystectomy on 05/04/2022 she was discharged home on 07/2022.?In the ED reported that she is overall not doing well at home.? She is normally able to walk and get up the stairs to the bedroom.? However she has been sleeping on the couch.? She is unable to ambulate and get to the restroom by herself.? She is generally weak and confused.? He denied fever, vomiting, falls, or chills.? Patient is an extremely poor historian due to the advanced Alzheimer's dementia, unable to participate in HPI, ROS or family history all documentation and history I have collected from the patient's chart most of the history is from the chart and .? Apparently she was confused and uncooperative while in the emergency department was thought to be delirium. Upon admit to the floor, patient is arousable denies pain but is unable to converse or interact with any greater depth. Patient is afebrile temp 98.1? , hypertensive urgency upon admit to O2 over 87, HR 65, RR 12 with an O2 saturation of 99% on room air. Abdomen pelvis CT demonstrates cholecystectomy, without significant abnormality seen involving the cholecystectomy bed, with a moderate volume of dense stool seen within the distal colon.? suggestive of mild fecal impaction. Patient 's head CT demonstrates no acute intracranial processes, patient's chest x-ray is limited but demonstrates no acute processes at this time. Patient's EKG sinus rhythm [address] changes there is a inverted T-wave in lead 3 this is unchanged from previous EKGs. Patient admitted for acute weakness encephalopathy status post cholecystectomy with hypertensive urgency. Subjective Observations Pt was reclined in bed with at bedside when CASINO ENFORCEMENT AGENT arrived. She was confused, but agreed to participate in swallow evaluation. Observed pt eat noon meal (turkey with gravy, mashed potatoes, steamed carrots, and water). Reported by Patient Current Diet Regular,Thin liquids Baseline Feeding Method Needs some assistance Objective Assessment Mental Status Alert,Responsive,Cooperative, Confused Comment Did not complete oral mechanism as pt was unable to follow directions. External structures appeared symmetrical and structure and function of oral mechanism did not appear to impact speech or swallow function. Food and Liquid Trials Position During Assessment Upright (90 degrees),In bed Liquids Trialed Thin Solids Trialed Puree,Mechanical Soft,Regular Administration Type Tea spoon,Cup single sip,Straw ,Needs some assistance Oral Impairment Within functional limits Oral Phase Comments Pt exhibited confusion when using a straw and attempted to tip cup rather than suck on straw and anterior loss of bolus occurred. When open cup was used, pt exhibited no anterior loss of bolus. Mastication was slow, but effective and pt exhibited no residue following oral trials. Pt exhibited significant confusion during evaluation, asking why are we doing this? x3 during 15 minute evaluation. NSG stated pt chews water and shakes her head before swallowing, but this behavior was not observed during assessment. Pharyngeal Impairment Within normal limits Pharyngeal Phase Comments No overt signs or symptoms of aspiration observed. Pt stated everything tastes terrible, but was willing to eat and cooperated throughout assessment. Fatigue/Endurance Endurance WNL Comment Pt exhibited no fatigue, though limited trials were completed. Findings Swallowing Function Within functional limits Severity of Swallow Impairment Within functional limits Contributing Factors to Swallow Difficulty following Impairment directions Comment The pt presents with swallowing WFL. She exhibited slowed mastication and significant confusion and inability to follow directions , though no oral residue was observed and no overt signs or symptoms of aspiration were present across all trials. Will follow-up x1 due to concerns with holding liquid before swallowing, which NSG reported but was not observed during assessment. Recommend continued regular diet and thin liquids. Impact on Safety and Functioning No limitations Recommendations Instrumental Assessment No Swallowing Treatment Yes Frequency follow-up x1 for concerns with oral holding of liquid, per NSG Recommended Solids Regular Recommended Liquids Thin Safety Precautions/Swallowing Feed only when alert,Reduce Recommendations distractions,Remain upright ( 90 degrees) during all oral intake,Upright position at least 30 minutes after meals, Small bites and sips when eating,Slow rate; swallow between bites,No straw,Set-up assistance Medication Recommendations As Tolerated Education Patient/Caregiver Education Described results of evaluation,Patient expressed understanding of evaluation, Patient expressed agreement with goals & treatment plans, Family/caregivers expressed understanding of evaluation, Family/caregivers expressed agreement with goals & treatment plans,Patient expressed understanding of safety precautions,Patient expressed understanding of feeding recommendations,Family /caregivers expressed understanding of safety precautions,Family/caregivers expressed understanding of feeding recommendations, Patient requires further education/training,Family/ caregivers require further education/training Goals Short-term Goals 1. Family will participate in education/training regarding swallow safety and cognitive decline. Long-term Goals The pt will safely tolerate least restrictive diet to meet her nutrition and hydration needs.
--- NOTE | 2022-05-10 16:24 | P.DS_ITS ---
History of Present Illness History of Present Illness Date Patient Seen: 05/08/22 Time Patient Seen: 19:52 Chief complaint: GALLBLADDER SURGERY TUESDAY, Narrative: Per admitting provider: Tae Izaguirre is an 86-year-old female with a significant history of Alzheimer's dementia, mixed hyperlipidemia, stress incontinence, abdominal pain, malnutrition with a recent gallstone pancreatitis with cholecystectomy on 05/04/2022 she was discharged home on 05/06/2022.?In the ED reported that she is overall not doing well at home.? She is normally able to walk and get up the stairs to the bedroom.? However she has been sleeping on the couch.? She is unable to ambulate and get to the restroom by herself.? She is generally weak and confused.? He denied fever, vomiting, falls, or chills.? Patient is an extremely poor historian due to the advanced Alzheimer's dementia, unable to participate in HPI, ROS or family history all documentation and history I have collected from the patient's chart most of the history is from the chart and .? Apparently she was confused and uncooperative while in the emergency department was thought to be delirium. Upon admit to the floor, patient is arousable denies pain but is unable to converse or interact with any greater depth. Patient is afebrile temp 98.1?, hypertensive urgency upon admit to O2 over 87, HR 65, RR 12 with an O2 saturation of 99% on room air. Patient's laboratory findings are predominantly unremarkable with a noted BUN of 23, lactate, ammonia, troponin, lipase, and tox screen are all unremarkable. Patient total creatinine kinase is 377. Patient is resting comfortably, hemodynamically stable, sleeping, and appears to be in no distress. Abdomen pelvis CT demonstrates cholecystectomy, without significant abnormality seen involving the cholecystectomy bed, with a moderate volume of dense stool seen within the distal colon.? suggestive of mild fecal impaction. Patient's head CT demonstrates no acute intracranial processes, patient's chest x-ray is limited but demonstrates no acute processes at this time. Patient's EKG sinus rhythm [address] changes there is a inverted T-wave in lead 3 this is unchanged from previous EKGs. Patient admitted for acute weakness encephalopathy status post cholecystectomy with hypertensive urgency. Discharge Providers Provider Date of admission: 05/08/22 17:06 Discharge Date: 05/10/22 Primary care physician: Kolby Ayala DO Consults: 05/08/22 19:49 Consult to Dietitian, Adult Routine Comment: Reason For Exam: BMI 16.2 05/08/22 19:50 Consult to Occupational Therapy Evaluate & Treat Comment: weakness Physician Instructions: Evaluate and treat Consult to Physical Therapy Evaluate & Treat Comment: weakness Physician Instructions: Evaluate and Treat 05/09/22 07:07 Consult to Speech Therapy Evaluate & Treat Comment: Physician Instructions: Swallow eval Discharge provider: Hossein Vargas MD Summary Hospital Course Discharge Diagnosis: 1. Encephalopathy, acute 2. Hypertensive urgency 3. Alzheimer's dementia 4. Hyperlipidemia 5. Severe protein calorie malnutrition Hospital Course: Ms. Olivier was readmitted after a recent discharged for a cholecytectomy for a gallstone pancreatitis. She is demented but more confused and diffusely weak. This was likely secondary to delirium and deconditioning after surgery. Workup was reassuring. She has no evidence of urinary, abdominal, or chest infection. She did not have insurance authorization for SNF, but her considered private pay at SNF for her. Ultimately however he decided to take patient home and home health will be referred. Exam Vital Signs (past 8 hours): Oxygen Delivery Method Room Air Oxygen Flow Rate 0 Narrative Exam Narrative: GEN: frail, no acute distress CV: regular rate and rhythm PULM: clear bilaterally Objective Labs Result Diagrams: 05/10/22 06:06 05/10/22 06:06 [facility] Medical History Alzheimer's type dementia (2013) Anxiety Cholelithiasis Closed fracture of left distal radius (03/15/14) Cognitive dysfunction (2009) Colon polyps Depression Diverticulitis Gastritis Heart murmur Hyperlipidemia IBS (irritable bowel syndrome) Meniere's disease Urinary incontinence, mixed Surgical History History of bilateral salpingo-oophorectomy History of surgery on arm (03/16/14) Normal colonoscopy (2012) Status post appendectomy (2003) Status post colectomy (2003) Status post epidural steroid injection (03/06/10) Family History Father Colorectal cancer Mother Dementia Social History household members: spouse Smoking Status: Never smoker alcohol intake: never Discharge Plan Discharge Plan Patient Disposition: Home Provider Discharge Comment: Ms. Izaguirre was admitted after ing after surgery. She was stable and was discharged home. She should follow up with her PCP within one week. Discharge orders & Medications Prescriptions: Continued multivitamin Tablet 1 tab PO DAILY Qty: 0 Calcium Carbonate/Vitamin D (#CALCIUM) 1 cap PO QAM AND QHS Qty: 0 Fish Oil 1,000 mg PO QDAY Qty: 0 cholecalciferol (vitamin D3) [Vitamin D3] 50 mcg (2,000 unit) Capsule 50 mcg PO DAILY Qty: 0 donepezil [Aricept] 10 mg tablet 10 mg PO QDAY Qty: 90 3RF estradiol 10 mcg tablet See Rx Instructions .ROUTE .COMPLEX Qty: 36 0RF Dose Instruction: INSERT 1 TABLET VAGINALLY 3 NIGHTS PER WEEK Rx Instructions: INSERT 1 TABLET VAGINALLY 2 NIGHTS PER WEEK THUR AND SUN memantine 5 mg tablet 5 mg PO BID Qty: 180 3RF tolterodine [Detrol LA] 4 mg capsule,extended release 24hr 4 mg PO DAILY Qty: 90 3RF Rx Instructions: APPOINTMENT DUE FOR FURTHER REFILLS. THANK YOU! aspirin 81 mg Tablet,Delayed Release (Dr/Ec) 81 mg PO DAILY Qty: 0 atorvastatin 20 mg tablet 10 mg PO BEDTIME Label Comments: TAKE 1 TABLET BY MOUTH AT BEDTIME sertraline 100 mg tablet 150 mg PO DAILY Rx Instructions: take 1.5 tabs q am ibuprofen 200 mg tablet 400 mg PO Q6H Qty: 60 0RF acetaminophen [Tylenol] 325 mg capsule 650 mg PO QID PRN (Reason: pain) Qty: 60 0RF Follow up/Referrals: Kolby Ayala DO [Primary Care Provider] - Visit Report/Discharge Packet Instructions: DI for Laparoscopic Cholecystectomy Discharge Data Primary Care Provider: Kolby Ayala Attending Provider: Aneudy Bolanos VTE Deep Vein Thrombosis/Pulmonary Embolism Present on Admission: No
== END 2022-05-10 15:15 | disposition home or self-care (01) ==
LOC: ED 16:33 → AC 17:07
PROVIDERS: Nurse Practitioner Family; Admitting Provider Family Medicine; Emergency Provider Emergency Medicine; Family Provider Family Medicine; PCP Family Medicine; Referring Provider Emergency Medicine; Visit Provider Family Medicine
DX: G93.40 Encephalopathy, unspecified (principal); R53.1 Weakness; I16.0 Hypertensive urgency; G30.9 Alzheimer's disease, unspecified; F02.80 Dementia in other diseases classified elsewhere, unspecified severity, without behavioral disturbance, psychotic disturbance, mood disturbance, and anxiety; E78.2 Mixed hyperlipidemia; E43 Unspecified severe protein-calorie malnutrition; Z68.1 Body mass index [BMI] 19.9 or less, adult; Z66 Do not resuscitate; Z20.822 Contact with and (suspected) exposure to COVID-19
CPT/HCPCS: 36415; 70450; 71045; 74177; 80053; 80305; 81003; 82140; 82550; 82553; 82962; 83605; 83690; 83880; 84484; 85025; 87635; 92610; 93005; 93010; 96361; 96372; 96374; 96375; 96376; 97161; 97166; 97530; 97535; 99284; C9803; G0378; J0360; J1650; J1885; Q9967

== ENCOUNTER 2022-05-28 08:49 | Emergency (ER) | payer MEDICARE, OTHER, SELFPAY ==
[2022-05-28 08:49] VITALS: BP 141/65; PULSE 61; RESP 16; TEMP 36.9; O2SAT 100
--- NOTE | 2022-05-28 09:16 | ED_ITS ---
HPI - Nausea/Vomiting/Diarrhea General Chief complaint: Nausea/Vomiting/Diarrhea Stated complaint: NV Time Seen by Provider: 05/28/22 08:59 Source: patient, EMS and other (Hostage Negotiator) Mode of arrival: EMS Limitations: no limitations History of Present Illness HPI Narrative: Patient is an 86-year-old female. She does have a history of dementia. She is here with her who is deaf and also a technical manager. She is brought in by EMS. The technical manager states that yesterday the patient had several episodes of vomiting at home. This did seem to improve as the day went on. She was able to eat at home. This morning when the technical manager arrived she stated that the patient's came out of the house telling the technical manager to call EMS. The technical manager feels like the patient actually looks somewhat better than what she did yesterday. Today the patient denies any abdominal pain or chest pain or feeling like she wants to throw up. No interventions prior to arrival. She has had a recent history of pancreatitis and cholecystectomy. This is per the . Related Data Home Medications Medication Instructions Recorded Confirmed Calcium Carbonate/Vitamin D 1 cap PO QAM AND QHS ##0 05/11/11 05/26/22 (#CALCIUM) multivitamin 1 tab PO DAILY ##0 05/11/11 05/26/22 Fish Oil 1,000 mg PO QDAY ##0 10/24/12 05/26/22 cholecalciferol (vitamin D3) 50 50 mcg PO DAILY #0 tabs 06/13/13 05/26/22 mcg (2,000 unit) capsule (Vitamin D3) aspirin 81 mg tablet,delayed 81 mg PO DAILY ##0 12/24/21 05/26/22 release atorvastatin 20 mg tablet 10 mg PO BEDTIME 01/05/22 05/26/22 sertraline 100 mg tablet 150 mg PO DAILY 03/05/22 05/26/22 Previous Rx's Medication Instructions Recorded donepezil 10 mg tablet (Aricept) 10 mg PO QDAY #90 tabs 10/19/21 estradiol 10 mcg vaginal tablet See Rx Instructions .Route 10/19/21 .COMPLEX #36 tabs memantine 5 mg tablet 5 mg PO BID #180 tabs 10/19/21 tolterodine 4 mg capsule,extended 4 mg PO DAILY #90 caps 10/19/21 release 24 hr (Detrol LA) acetaminophen 325 mg capsule 650 mg PO QID PRN pain #60 caps 05/06/22 (Tylenol) ibuprofen 200 mg tablet 400 mg PO Q6H #60 tabs 05/06/22 ondansetron 4 mg disintegrating 4 mg PO Q6H PRN nausea and 05/28/22 tablet vomiting #10 tabs Allergies Allergy/AdvReac Type Severity Reaction Status Date / Time No Known Drug Allergies Allergy Verified 05/26/22 11:13 Review of Systems Cardiovascular Comments: Patient denies chest pain Respiratory Comments: Denies shortness of breath Gastrointestinal Comments: Denies abdominal pain or nausea Neurologic Comments: No change in mental status per technical manager at bedside Hematologic/Lymphatic On Anticoagulants: No Patient History Medical History Alzheimer's type dementia (2013) Anxiety Cholelithiasis Closed fracture of left distal radius (03/15/14) Cognitive dysfunction (2009) Colon polyps Depression Diverticulitis Gastritis Heart murmur Hyperlipidemia IBS (irritable bowel syndrome) Meniere's disease Urinary incontinence, mixed Surgical History History of bilateral salpingo-oophorectomy History of surgery on arm (03/16/14) Normal colonoscopy (2012) Status post appendectomy (2003) Status post colectomy (2003) Status post epidural steroid injection (03/06/10) Family History Father Colorectal cancer Mother Dementia Social History household members: spouse Smoking Status: Never smoker alcohol intake: never Smoking Status: Never smoker Substance Use Type: does not use Exam Initial Vital Signs Initial Vital Signs: Vital Signs Temperature 98.4 F 05/28/22 08:49 Pulse Rate 61 05/28/22 08:49 Respiratory Rate 16 05/28/22 08:49 Blood Pressure 141/65 H 05/28/22 08:49 Pulse Oximetry 100 05/28/22 08:49 Oxygen Delivery Method 05/28/22 08:49 HENMT Head: normal to inspection and normocephalic Resp Effort & Inspection: normal respiratory effort Auscultation: clear to auscultation bilaterally Cardio Rate: regular rate Rhythm: regular rhythm GI Inspection: normal to inspection Palpation: soft, No firm, No guarding and No tender Skin General: no rashes or lesions noted Neuro Other: Moves all 4 extremities, alert to person but does not know the year or where she is currently located Extrem General: normal to inspection Scores GCS [place] coma scale eye opening: Spontaneous [place] coma scale verbal response: Confused Bob coma scale motor response: Obey commands Bob coma scale total score: 14 Course Orders Ordered: ED Orders 05/28/22 08:52 Complete Blood Count AUTO DIFF Stat Comprehensive Metabolic Panel Stat Lipase Stat Partial Thromboplastin Time Stat Prothrombin Time INR Stat EKG-12 Lead Stat 05/28/22 09:16 Lactate (Lactic Acid) Stat Vital Signs Vital signs: Vital Signs - 8 hr 05/28/22 08:49 Temperature 98.4 F Pulse Rate 61 Respiratory Rate 16 Blood Pressure 141/65 H Pulse Oximetry 100 Oxygen Delivery Method Room Air MDM - Nausea/Vomiting/Diarrhea Lab Data Attestation: I reviewed the patient's lab results. Result diagrams: 05/28/22 09:48 05/28/22 09:48 Labs: Lab Results 05/28/22 05/28/22 05/28/22 Range/Units 09:48 09:48 09:48 WBC 5.7 (4.5-11.0) X10^3/uL RBC 4.47 (4.0-5.2) X10^6/uL Hgb 13.3 (12.0-16.0) g/dL Hct 40.4 (36-46) % MCV 90.5 (80-100) fL MCH 29.8 (26-34) PG MCHC 32.9 (30-36) % RDW 14.4 (11.6-14.8) % Plt Count 166 (150-400) X10^3/uL Neut % (Auto) 74.5 (50-75) % Lymph % (Auto) 16.6 L (25-40) % [place] % (Auto) 6.9 (3-14) % Eos % (Auto) 1.0 L (2-4) % Baso % (Auto) 1.0 (0-2) % Neut # (Auto) 4200 (8904-3984) /uL Lymph # (Auto) 900 L (6064-3602) /uL [place] # (Auto) 400 (0-900) /uL Eos # (Auto) 100 (0-450) /uL Baso # (Auto) 100 (0-100) /uL Sodium 141 (137-145) mmol/L Potassium 4.2 (3.4-5.1) mmol/L Chloride 105 (98-107) mmol/L Carbon Dioxide 31 (22-32) mmol/L BUN 22 H (7-17) mg/dL Creatinine 0.80 (0.52-1.04) mg/dL Estimated GFR > 60 (>60) mL/min BUN/Creatinine Ratio 27.5 H (6-22) Glucose 97 (80-110) mg/dL Lactate 1.0 (0.7-2.1) mmol/L Calcium 9.0 (8.4-10.2) mg/dL Total Bilirubin 0.5 (0.2-1.3) mg/dL AST 41 H (14-36) IU/L ALT 26 (<35) IU/L Alkaline Phosphatase 84 (38-126) U/L Total Protein 7.8 (6.3-8.2) g/dL Albumin 4.1 (3.5-5.0) g/dL Globulin 3.7 (1.7-4.1) g/dL Albumin/Globulin Ratio 1.1 (1.0-2.8) Lipase 83 (23-300) U/L ECG Data Attestation: I personally reviewed and interpreted this ECG as follows: Interpretation: Sinus rhythm Ventricular rate of 58 Normal axis Normal QRS Normal QTC No ST T wave changes MDM Narrative Medical decision making narrative: Patient does have history of dementia. Her is also deaf. The technical manager is here. Here the patient has no specific complaints. She is not vomited. Her labs are unremarkable. She is no indication of pancreatitis which is what her was concerned about. After this I had a discussion with the . We did write our discussion down so that he could read will we talked about. He stated that he was comfortable taking the patient home. We will hold on further workup for now to include further radiologic studies. Patient's was given return precautions. He expressed understanding and agreement. Discharge Plan Departure Patient Disposition: Home Clinical Impression: Vomiting Instructions: DI for Vomiting -- Adult Activity Restrictions/Additional Instructions: The lab work today looks well. There is no signs of pancreatitis. You were given a prescription for a nausea medication that you can give her as needed for the vomiting. This medication was sent to [facility]. I would recommend a bland diet for the next day and then you can advance this as tolerated. Contact her primary doctor for a follow-up. Return to the emergency department for any new or worsening symptoms. Prescriptions: New ondansetron 4 mg tablet,disintegrating 4 mg PO Q6H PRN (Reason: nausea and vomiting) Qty: 10 0RF No Action multivitamin Tablet 1 tab PO DAILY Qty: 0 Calcium Carbonate/Vitamin D (#CALCIUM) 1 cap PO QAM AND QHS Qty: 0 Fish Oil 1,000 mg PO QDAY Qty: 0 cholecalciferol (vitamin D3) [Vitamin D3] 50 mcg (2,000 unit) Capsule 50 mcg PO DAILY Qty: 0 donepezil [Aricept] 10 mg tablet 10 mg PO QDAY Qty: 90 3RF estradiol 10 mcg tablet See Rx Instructions .ROUTE .COMPLEX Qty: 36 0RF Dose Instruction: INSERT 1 TABLET VAGINALLY 3 NIGHTS PER WEEK Rx Instructions: INSERT 1 TABLET VAGINALLY 2 NIGHTS PER WEEK THUR AND SUN memantine 5 mg tablet 5 mg PO BID Qty: 180 3RF tolterodine [Detrol LA] 4 mg capsule,extended release 24hr 4 mg PO DAILY Qty: 90 3RF Rx Instructions: APPOINTMENT DUE FOR FURTHER REFILLS. THANK YOU! aspirin 81 mg Tablet,Delayed Release (Dr/Ec) 81 mg PO DAILY Qty: 0 atorvastatin 20 mg tablet 10 mg PO BEDTIME Label Comments: TAKE 1 TABLET BY MOUTH AT BEDTIME sertraline 100 mg tablet 150 mg PO DAILY Rx Instructions: take 1.5 tabs q am ibuprofen 200 mg tablet 400 mg PO Q6H Qty: 60 0RF acetaminophen [Tylenol] 325 mg capsule 650 mg PO QID PRN (Reason: pain) Qty: 60 0RF Referrals: Kolby Ayala DO [Primary Care Provider] - Visit Report Forms: Patient Portal/API
[2022-05-28 09:18] VITALS: PULSE 59; O2SAT 98
[2022-05-28 09:30] VITALS: PULSE 58; O2SAT 97
[2022-05-28 10:00] VITALS: PULSE 57; O2SAT 97
[2022-05-28 10:01] LABS: Add Manual Diff / Slide Review NO; Basophils Absolute Auto 100 /uL (0-100); Eosinophils Absolute Auto 100 /uL (0-450); Hematocrit 40.4 % (36-46); Hemoglobin 13.3 g/dL (12.0-16.0); Lymphocytes Absolute Auto 900 /uL (1100-4500); Lymphocytes Percent Auto 16.6 % (25-40); Mean Corpuscular HGB Conc 32.9 % (30-36); Mean Corpuscular Hemoglobin 29.8 PG (26-34); Mean Corpuscular Volume 90.5 fL (80-100); Monocytes Absolute Auto 400 /uL (0-900); Monocytes Percent Auto 6.9 % (3-14); Neutrophils Absolute Auto 4200 /uL (1500-7000); Neutrophils Percent Auto 74.5 % (50-75); Platelet Count 166 X10^3/uL (150-400); Red Blood Cell Count 4.47 X10^6/uL (4.0-5.2); Red Cell Distribution Width 14.4 % (11.6-14.8); White Blood Cell Count 5.7 X10^3/uL (4.5-11.0)
[2022-05-28 10:20] LABS: Alanine Aminotransferase 26 IU/L (<35); Albumin 4.1 g/dL (3.5-5.0); Albumin Globulin Ratio 1.1 (1.0-2.8); Alkaline Phosphatase 84 U/L (38-126); Aspartate Aminotransferase 41 IU/L (14-36); BUN Creatinine Ratio 27.5 (6-22); Bilirubin Total 0.5 mg/dL (0.2-1.3); Blood Urea Nitrogen 22 mg/dL (7-17); Carbon Dioxide 31 mmol/L (22-32); Chloride 105 mmol/L (98-107); Estimated Glomerular Filt Rate > 60 mL/min (>60); Globulin 3.7 g/dL (1.7-4.1); Glucose 97 mg/dL (80-110); Lipase 83 U/L (23-300); Potassium 4.2 mmol/L (3.4-5.1); Sodium 141 mmol/L (137-145); Total Protein 7.8 g/dL (6.3-8.2)
[2022-05-28 10:22] LABS: HEMOLYSIS 69 (0-50)
[2022-05-28 10:30] VITALS: PULSE 58; O2SAT 97
== END 2022-05-28 11:20 | disposition home or self-care (01) ==
PROVIDERS: Emergency Provider Emergency Medicine; Family Provider Family Medicine; PCP Family Medicine
DX: R11.10 Vomiting, unspecified (principal); F03.90 Unspecified dementia, unspecified severity, without behavioral disturbance, psychotic disturbance, mood disturbance, and anxiety; R10.9 Unspecified abdominal pain
CPT/HCPCS: 36415; 80053; 83605; 83690; 85025; 93005; 99283; 99284

== ENCOUNTER 2022-09-10 08:52 | Inpatient (IN) | payer MEDICARE, OTHER, SELFPAY ==
[2022-09-10] VITALS (18 sets, daily range): BP systolic 103–192; BP diastolic 53–83; PULSE 67–109; RESP 10–25; TEMP 36.1–38.6; O2SAT 94–99
--- NOTE | 2022-09-10 09:21 | DI.CT.S_ITS ---
PROCEDURE: CT HEAD/BRAIN WO CON INDICATIONS: altered TECHNIQUE: Noncontrast 4.5 mm thick angled axial sections acquired from the foramen magnum to the vertex, with coronal and sagittal reformats. For radiation dose reduction, the following was used: automated exposure control, adjustment of mA and/or kV according to patient size. COMPARISON: [facility], CT, CT HEAD/BRAIN WO CON, 05/08/2022, 12:26. FINDINGS: Image quality: Excellent. CSF spaces: Basal cisterns are patent. No extra-axial fluid collections. The ventricles are symmetric in size and shape. Brain: Very large right intracranial right frontal and basal ganglia hematoma with marked compression the right lateral ventricle, intraventricular hemorrhage and midline shift measuring approximately 12 mm. There is narrowing of the ambient cistern and fullness of the uncus. On image 12/2, the frontal hematoma measures approximately 5.8 x 4.5 cm. The basal ganglia hematoma measures approximately 2.2 x 4.1 cm. There is cerebral volume loss for age, with resultant ventricular and sulcal prominence. There are periventricular and deep white matter chronic small vessel ischemic changes. There is intracranial internal carotid artery atherosclerosis. Skull and face: Calvarium and visualized facial bones appear intact, without suspicious lesions. Sinuses: Visualized sinuses and mastoids are clear. IMPRESSION: Extensive parenchymal hematoma with significant mass effect on the ipsilateral lateral ventricle, and marked midline shift. Associated intraventricular hemorrhage. Comment: Findings were discussed with Dr. Elise on 09/10/2022 at 0952 hours Dictated by: Gopal Gay M.D. on 09/10/2022 at 9:51 Approved by: Gopal Gay M.D. on 09/10/2022 at 10:01
--- NOTE | 2022-09-10 09:39 | ED_ITS ---
HPI - Altered Mental Status General Chief Complaint: Altered Mental Status Stated Complaint: neuro Time Seen by Provider: 09/10/22 09:21 Source: EMS Mode of arrival: EMS History of Present Illness HPI narrative: 87F nonsmoker DNR with history of alzheimers,, hypertension, hyperlipidemia presents from a [facility] facility by EMS due to nursing concerns for altered mental status. She was reportedly in her normal state of health a few hours ago and is now acting abnormally. She presents from [facility]. Related Data Home Medications Medication Instructions Recorded Confirmed multivitamin 1 tab PO DAILY ##0 05/11/11 07/08/22 Fish Oil 1,000 mg PO QDAY ##0 10/24/12 07/08/22 cholecalciferol (vitamin D3) 50 50 mcg PO DAILY #0 tabs 06/13/13 07/08/22 mcg (2,000 unit) capsule (Vitamin D3) aspirin 81 mg tablet,delayed 81 mg PO DAILY ##0 12/24/21 07/08/22 release atorvastatin 20 mg tablet 10 mg PO BEDTIME 01/05/22 07/08/22 sertraline 100 mg tablet 150 mg PO DAILY 03/05/22 07/08/22 Previous Rx's Medication Instructions Recorded donepezil 10 mg tablet (Aricept) 10 mg PO QDAY #90 tabs 10/19/21 estradiol 10 mcg vaginal tablet See Rx Instructions .Route 10/19/21 .COMPLEX #36 tabs memantine 5 mg tablet 5 mg PO BID #180 tabs 10/19/21 tolterodine 4 mg capsule,extended 4 mg PO DAILY #90 caps 10/19/21 release 24 hr (Detrol LA) ondansetron 4 mg disintegrating 4 mg PO Q6H PRN nausea and 05/28/22 tablet vomiting #10 tabs lorazepam 0.5 mg tablet 0.5 mg PO BID PRN anxiety #60 tabs 07/08/22 Allergies Allergy/AdvReac Type Severity Reaction Status Date / Time No Known Drug Allergies Allergy Verified 09/10/22 09:15 Review of Systems Review of Systems ROS Unobtainable: Unobtainable due to mental status/LOC Patient History Medical History Alzheimer's type dementia (2013) Anxiety Cholelithiasis Closed fracture of left distal radius (03/15/14) Cognitive dysfunction (2009) Colon polyps Depression Diverticulitis Gastritis Heart murmur Hyperlipidemia IBS (irritable bowel syndrome) Meniere's disease Urinary incontinence, mixed Surgical History History of bilateral salpingo-oophorectomy History of surgery on arm (03/16/14) Normal colonoscopy (2012) Status post appendectomy (2003) Status post colectomy (2003) Status post epidural steroid injection (03/06/10) Family History Father Colorectal cancer Mother Dementia Social History household members: spouse Smoking Status: Never smoker alcohol intake: never Smoking Status: Never smoker Substance Use Type: does not use Exam Narrative Exam Narrative: GENERAL: [87] year old patient appears stated age. She responds to some noxious and the occasional verbal stimulus, is not conversive and not following commands which per her nurse and family is a departure from her norm HEAD: Atraumatic. Normocephalic. EYES: Pupils equal round and reactive. Extraocular motions intact. No scleral icterus. No injection or drainage. ENT: Nose without bleeding, purulent drainage. Throat without erythema, tonsillar hypertrophy or exudate. Airway patent. NECK: Trachea midline. Non tender CARDIOVASCULAR: Regular rate and rhythm without murmurs, gallops, or rubs. RESPIRATORY: Clear to auscultation. Breath sounds equal bilaterally. No wheezes, rales, or rhonchi. GASTROINTESTINAL: Abdomen soft, non-tender, nondistended. EXTREMITIES: No edema or joint tenderness. BACK: Nontender without deformity or crepitance. No flank tenderness. NEURO: She is not following commands, has some twitching motion to her right upper extremity SKIN: No rash or erythema of visible areas Initial Vital Signs Initial Vital Signs: Vital Signs Temperature 96.9 F L 09/10/22 09:12 Pulse Rate 69 09/10/22 09:12 Respiratory Rate 16 09/10/22 09:12 Blood Pressure 192/76 H 09/10/22 09:12 Pulse Oximetry 97 09/10/22 09:12 Oxygen Delivery Method 09/10/22 09:12 Course Orders Ordered: ED Orders 09/10/22 09:21 CT head/brain wo con Stat 09/10/22 10:10 Urinalysis and Microscopic Stat Urine Culture Stat 09/10/22 10:11 COVID19 -Nasal RAPID/Pre-Proc Stat 09/10/22 11:40 CMP [Comprehensive Metabolic Panel] Stat Lipid Panel Routine TSH w/ Reflex to FT4 Routine Nicardipine HCl 25 mg/ Sodium (Chloride) 250 mls @ 50 mls/hr IV TITRATE SUMAYA; Protocol Last Titration: 09/10/22 14:18 Dose: 0 mg/hr, 0 mls/hr Documented By: Titration: 09/10/22 11:22 Dose: 2.5 mg/hr, 25 mls/hr Documented By: Admin: 09/10/22 11:21 Dose: 5 mg/hr, 50 mls/hr Documented By: DUSTIN Morphine Sulfate (Morphine 2 Mg/Ml Inj) 2 mg IV Q2HR PRN PRN Reason: Pain, Moderate (4-6) Last Admin: 09/10/22 11:11 Dose: 2 mg Documented By: DUSTIN Discontinued Medications Ondansetron HCl (Ondansetron 4 Mg/2 Ml Inj) 4 mg IV NOW ONE Stop: 09/10/22 11:05 Last Admin: 09/10/22 11:12 Dose: 4 mg Documented By: DUSTIN Consultations Consultation #1: Case discussed with on-call Neurosurgery at [facility]. After discussing patient's history and physical exam as well as reviewing the imaging he did state that if the family wished to pursue surgical intervention it could be considered, however the likelihood of returning to a meaningful quality of life is exceedingly low and that she would likely be in requirement of 247 nursing with PEG tube, trach among other things Vital Signs Vital signs: Vital Signs - 8 hr 09/10/22 09:12 09/10/22 10:00 09/10/22 11:15 Temperature 96.9 F L Pulse Rate 69 89 88 Respiratory Rate 16 20 Blood Pressure 192/76 H 172/73 H 167/70 H Pulse Oximetry 97 98 98 Oxygen Delivery Method Room Air Room Air 09/10/22 10:15 09/10/22 10:30 09/10/22 10:45 Temperature Pulse Rate 86 89 84 Respiratory Rate 20 23 24 Blood Pressure 186/83 H 172/73 H 192/80 H Pulse Oximetry 98 99 99 Oxygen Delivery Method 09/10/22 11:00 09/10/22 11:30 09/10/22 11:48 Temperature Pulse Rate 84 96 H 87 Respiratory Rate 25 H 22 22 Blood Pressure 178/76 H 173/75 H 169/73 H Pulse Oximetry 98 98 99 Oxygen Delivery Method Room Air Room Air Room Air 09/10/22 12:00 09/10/22 12:15 09/10/22 12:30 Temperature Pulse Rate 93 H 95 H 106 H Respiratory Rate 22 22 14 Blood Pressure 164/63 H 166/70 H 138/64 Pulse Oximetry 97 95 95 Oxygen Delivery Method Room Air Room Air 09/10/22 12:30 09/10/22 12:50 09/10/22 13:10 Temperature Pulse Rate 106 H 106 H Respiratory Rate 16 17 18 Blood Pressure 154/67 H 153/67 H 142/62 H Pulse Oximetry 97 97 97 Oxygen Delivery Method Room Air Room Air Room Air 09/10/22 13:30 09/10/22 14:56 Temperature Pulse Rate 109 H 67 Respiratory Rate 16 12 Blood Pressure 152/70 H 103/53 L Pulse Oximetry 97 Oxygen Delivery Method Room Air MDM - Altered Mental Status Lab Data Result diagrams: 09/10/22 11:40 09/10/22 11:40 Labs: Lab Results 09/10/22 09/10/22 09/10/22 Range/Units 10:10 10:11 11:40 WBC Cancelled RBC Cancelled Hgb Cancelled Hct Cancelled MCV Cancelled MCH Cancelled MCHC Cancelled RDW Cancelled Plt Count Cancelled Neut % (Auto) Cancelled Lymph % (Auto) Cancelled [place] % (Auto) Cancelled Eos % (Auto) Cancelled Baso % (Auto) Cancelled Neut # (Auto) Cancelled Lymph # (Auto) Cancelled [place] # (Auto) Cancelled Eos # (Auto) Cancelled Baso # (Auto) Cancelled Sodium (137-145) mmol/L Potassium (3.4-5.1) mmol/L Chloride (98-107) mmol/L Carbon Dioxide (22-32) mmol/L BUN (7-17) mg/dL Creatinine (0.52-1.04) mg/dL Estimated GFR (>60) mL/min BUN/Creatinine Ratio (6-22) Glucose (80-110) mg/dL Calcium (8.4-10.2) mg/dL Total Bilirubin (0.2-1.3) mg/dL AST (14-36) IU/L ALT (<35) IU/L Alkaline Phosphatase (38-126) U/L Total Protein (6.3-8.2) g/dL Albumin (3.5-5.0) g/dL Globulin (1.7-4.1) g/dL Albumin/Globulin Ratio (1.0-2.8) Triglycerides (35-150) mg/dL Cholesterol (140-199) mg/dL LDL Cholesterol, Calc (<100) mg/dL HDL Cholesterol (40-60) mg/dL TSH (0.47-4.68) uIU/mL Urine Color Yellow Urine Appearance Clear Urine pH 5.5 (4.5-8.0) Ur Specific [place] 1.025 (1.000-1.035) Urine Protein Trace H (Negative) Urine Glucose (UA) Negative (Negative) g/dL Urine Ketones Negative (NEGATIVE) Urine Occult Blood Negative (Negative) Urine Nitrate Negative (Negative) Urine Bilirubin Negative (NEGATIVE) Urine Urobilinogen 0.2 (0.2) E.U./dL Ur Leukocyte Esterase Trace H (NEGATIVE) Urine RBC 1-5/hpf (0-5/HPF) Urine WBC 0-1/hpf (0-5/HPF) Ur Squamous Epith Cells None seen (0-5/HPF) Calcium Oxalate Crystal Occasional H Urine Bacteria Occasional (0-1) (None) Urine Mucus 1+ H (Negative) Ur Culture Indicated? Specimen cultured SARS-CoV-2 (PCR) Negative (Negative) 09/10/22 09/10/22 09/10/22 Range/Units 11:40 11:40 11:40 WBC RBC Hgb Hct MCV MCH MCHC RDW Plt Count Neut % (Auto) Lymph % (Auto) [place] % (Auto) Eos % (Auto) Baso % (Auto) Neut # (Auto) Lymph # (Auto) [place] # (Auto) Eos # (Auto) Baso # (Auto) Sodium 142 (137-145) mmol/L Potassium 3.6 (3.4-5.1) mmol/L Chloride 104 (98-107) mmol/L Carbon Dioxide 31 (22-32) mmol/L BUN 20 H (7-17) mg/dL Creatinine 0.69 (0.52-1.04) mg/dL Estimated GFR > 60 (>60) mL/min BUN/Creatinine Ratio 29.0 H (6-22) Glucose 127 H (80-110) mg/dL Calcium 9.3 (8.4-10.2) mg/dL Total Bilirubin 0.3 (0.2-1.3) mg/dL AST 37 H (14-36) IU/L ALT 29 (<35) IU/L Alkaline Phosphatase 137 H (38-126) U/L Total Protein 7.5 (6.3-8.2) g/dL Albumin 4.2 (3.5-5.0) g/dL Globulin 3.3 (1.7-4.1) g/dL Albumin/Globulin Ratio 1.3 (1.0-2.8) Triglycerides 87 (35-150) mg/dL Cholesterol 215 H (140-199) mg/dL LDL Cholesterol, Calc 136 H (<100) mg/dL HDL Cholesterol 62 H (40-60) mg/dL TSH 1.26 (0.47-4.68) uIU/mL Urine Color Urine Appearance Urine pH (4.5-8.0) Ur Specific [place] (1.000-1.035) Urine Protein (Negative) Urine Glucose (UA) (Negative) g/dL Urine Ketones (NEGATIVE) Urine Occult Blood (Negative) Urine Nitrate (Negative) Urine Bilirubin (NEGATIVE) Urine Urobilinogen (0.2) E.U./dL Ur Leukocyte Esterase (NEGATIVE) Urine RBC (0-5/HPF) Urine WBC (0-5/HPF) Ur Squamous Epith Cells (0-5/HPF) Calcium Oxalate Crystal Urine Bacteria (None) Urine Mucus (Negative) Ur Culture Indicated? SARS-CoV-2 (PCR) (Negative) Imaging Data CT scan - head: Radiologist's Impression: Tae Izaguirre??87??F??1935 ? Allergy/Adv: No Known Drug Allergies Close Head CT (Signed) Gopal Gay - 09/10/22 Telemetry Strips 05/09/22 Abdomen/Pelvis CT (Signed) Franki Logan - 05/08/[address] (Signed) Franki Logan - 05/08/22 Chest X-Ray (Signed) Franki Logan - 05/08/22 Cholangiogram,Operative (Signed) Call,Chadwick - 05/04/22 Abdomen/Pelvis CT (Signed) ColinErick - 03/05/[address] (Signed) Teto See - 03/05/22 Chest X-Ray (Signed) Teto See - 03/05/22 EKG Rpt. 12/24/21 Chest/Abdomen/Pelvis CT (Signed) Erick Colin - 12/24/21 Head/Neck CTA (Signed) DesmondFranki - 12/24/[address] (Signed) MayiTeto dooley - 03/23/21 Chest X-Ray (Signed) Teto See - 03/23/[address] (Signed) CristiErick - 11/28/20 Chest X-Ray (Signed) Call,Chadwick - 11/28/20 Echocardiogram Ultrasound (Signed) Nikita Sanchez - 09/22/20 Brain MRI (Signed) Karan Tucker - 05/19/20 Mammogram Screening (Signed) Erwin Bose - 04/16/20 Duplex Scan Lower Extremity Artery (Signed) Gopal Gay - 07/12/19 Bone Densitometry 03/20/19 DEXA Result 03/20/19 Mammogram Screening (Signed) Tara Mancini - 03/20/19 EKG Rpt. 03/08/19 Mammogram Screening (Signed) Duncan Chau - 03/17/18 EKG Rpt. 03/16/18 Launch?[place] [address] CT Scan Report Signed Patient: Tae Izaguirre MR#: [id number] : 1935 Acct:[id number] Age/Sex: 87 / F Date of Service: 09/10/22 Loc: ED Accession Number: [id number] ?? Procedure: CT head/brain wo con Ordering Provider: Syd Elise D.O. PROCEDURE:? CT HEAD/BRAIN WO CON ? INDICATIONS:? altered ? TECHNIQUE:? Noncontrast 4.5 mm thick angled axial sections acquired from the foramen magnum to the vertex, with coronal and sagittal reformats.? For radiation dose reduction, the following was used:? automated exposure control, adjustment of mA and/or kV according to patient size.? ? COMPARISON:? [facility], CT, CT HEAD/BRAIN WO CON, 05/08/2022, 12:26. ? FINDINGS:? Image quality:? Excellent.? ? CSF spaces:? Basal cisterns are patent.? No extra-axial fluid collections.? The ventricles are symmetric in size and shape.? ? Brain:? Very large right intracranial right frontal and basal ganglia hematoma with marked compression the right lateral ventricle, intraventricular hemorrhage and midline shift measuring approximately 12 mm.? There is narrowing of the ambient cistern and fullness of the uncus.? On image /, the frontal hematoma measures approximately 5.8 x 4.5 cm.? The basal ganglia hematoma measures approximately 2.2 x 4.1 cm. There is cerebral volume loss for age, with resultant ventricular and sulcal prominence.? There are periventricular and deep white matter chronic small vessel ischemic changes.? There is intracranial internal carotid artery atherosclerosis.? ? Skull and face:? Calvarium and visualized facial bones appear intact, without suspicious lesions.? ? Sinuses:? Visualized sinuses and mastoids are clear.? ? IMPRESSION:? Extensive parenchymal hematoma with significant mass effect on the ipsilateral lateral ventricle, and marked midline shift.? Associated intraventricular hemorrhage. ? Comment: Findings were discussed with Dr. Elise on? 09/10/2022 at 0952 hours ? ? ? Dictated by: Gopal Gay M.D. on 09/10/2022 at 9:51 ? ? Approved by: Gopal Gay M.D. on 09/10/2022 at 10:01 ? MDM Narrative Medical decision making narrative: 87-year-old female DNR with nontraumatic, spontaneous intraparenchymal hemorrhage resulting in mass effect. I have had extensive discussion with the patient's family as well as our review neuro surgery and the family would prefer not to pursue surgical intervention and would prefer to be admitted, pursue comfort measures and hospice. Critical Care Time Critical Care Time Critical Care Time: Yes Total Critical Care Time: 30 Attestation: The high probability of a clinically significant, sudden or life threatening deterioration of the [NV] system(s) required my full and direct attention, intervention and personal management. The aggregate critical care time was [30] minutes. This time is in addition to time spent performing reported procedures but includes the following: [x] Data Review and interpretation [x] Patient assessment and monitoring of vital signs [x] Documentation []x Medication orders and management Discharge Plan Departure Patient Disposition: Admitted as Observation Clinical Impression: Acute spont intraparenchymal hemorrhage assoc w/ hypertension
[2022-09-10 10:38] LABS: COVID19 -Nasal RAPID Negative (Negative)
[2022-09-10 11:10] LABS: Appearance Urine UA CLEAR; Bilirubin Urine UA NEGATIVE (NEGATIVE); Color Urine UA YELLOW; Glucose Urine UA NEGATIVE (Negative); Ketones Urine UA NEGATIVE (NEGATIVE); Leukocyte Esterase Urine UA TRACE (NEGATIVE); Nitrite Urine UA NEGATIVE (Negative); Occult Blood Urine UA NEGATIVE (Negative); Protein Urine UA TRACE (Negative); Specific Gravity Urine UA 1.025 (1.000-1.035); Urobilinogen Urine UA 0.2 E.U./dL (0.2)
[2022-09-10] MEDS: MORPHINE 2 MG/ML INJ IV ×3 (11:11→21:35)
[2022-09-10 11:12] LABS: pH Urine UA 5.5 (4.5-8.0)
[2022-09-10] MEDS: ONDANSETRON 4 MG/2 ML INJ IV (11:12)
[2022-09-10] MEDS: NICARDIPINE 25 MG in SODIUM CHLORIDE 0.9% 240 ML 50 MG IV (11:21)
[2022-09-10 11:34] LABS: Bacteria Urine Occasional (0-1); Calcium Oxalate Crystals Urine Occasional; Mucus Urine 1+ (Negative); RBC Urine 1-5/HPF (0-5/HPF); Squamous Epithelial Cell Urine None Seen (0-5/HPF); WBC Urine 0-1/HPF (0-5/HPF)
[2022-09-10 11:35] LABS: Culture Indicated Urine Specimen Cultured
[2022-09-10 12:21] LABS: Alanine Aminotransferase 29 IU/L (<35); Albumin 4.2 g/dL (3.5-5.0); Albumin Globulin Ratio 1.3 (1.0-2.8); Alkaline Phosphatase 137 U/L (38-126); Aspartate Aminotransferase 37 IU/L (14-36); Bilirubin Total 0.3 mg/dL (0.2-1.3); Blood Urea Nitrogen 20 mg/dL (7-17); Calcium 9.3 mg/dL (8.4-10.2); Carbon Dioxide 31 mmol/L (22-32); Chloride 104 mmol/L (98-107); Estimated Glomerular Filt Rate > 60 mL/min (>60); Globulin 3.3 g/dL (1.7-4.1); Glucose 127 mg/dL (80-110); HEMOLYSIS 26 (0-50); Potassium 3.6 mmol/L (3.4-5.1); Sodium 142 mmol/L (137-145); Total Protein 7.5 g/dL (6.3-8.2)
[2022-09-10 12:23] LABS: Cholesterol 215 mg/dL (140-199); HDL Cholesterol 62 mg/dL (40-60); LDL Cholesterol Calculated 136 mg/dL (<100); Triglycerides 87 mg/dL (35-150)
[2022-09-10 12:52] LABS: TSH w/ Reflex to FT4 1.26 uIU/mL (0.47-4.68)
--- NOTE | 2022-09-10 18:32 | PM.HP.1 ---
History of Present Illness History of Present Illness Chief complaint: neuro Narrative: 87-year-old female with Alzheimer's dementia, mixed hyperlipidemia, stress incontinence, irritable bowel syndrome, depression, Meniere's disease,, malnutrition, chocystectomy in April of this year who presented to the emergency department from [facility] with altered mental status. Staff noted that she was lethargic this morning. She is normally awake and ambulatory with a walker. On arrival to the emergency department she was noted to have significant hypertension. Labs are done with a fairly unremarkable chemistry panel noted. Cholesterol was 215, LDL 136, HDL 62. TSH was 1.26. UA revealed trace leukocyte esterase and protein but was otherwise negative. COVID testing was negative. Head CT was performed which revealed extensive parenchymal hematoma with significant mass effect on the ipsilateral lateral ventricle and marked midline shift. Associated intraventricular hemorrhage was noted. Patient was initially placed on a nicardipine drip until family arrived and elected comfort care. Son is at bedside along with his . He notes that earlier the patient was a bit more alert but she has been fairly unresponsive over the past couple of hours. He notes some increase in tremors over the course of the afternoon as well. Patient is essentially unresponsive. However she did yell out when we repositioned her in the bed. Patient History Medical History Alzheimer's type dementia (2013) Anxiety Cholelithiasis Closed fracture of left distal radius (03/15/14) Cognitive dysfunction (2009) Colon polyps Depression Diverticulitis Gastritis Heart murmur Hyperlipidemia IBS (irritable bowel syndrome) Meniere's disease Urinary incontinence, mixed Surgical History History of bilateral salpingo-oophorectomy History of surgery on arm (03/16/14) Normal colonoscopy (2012) Status post appendectomy (2003) Status post colectomy (2003) Status post epidural steroid injection (03/06/10) Family & Social History Family History Father Colorectal cancer Mother Dementia Social History: household members spouse Tobacco & Substance use: Smoking Status Never smoker alcohol intake never Substance Use Type does not use Meds Home Medications and Allergies Home Medications Medication Instructions Recorded Confirmed Type multivitamin 1 tab PO DAILY ##0 05/11/11 07/08/22 History Fish Oil 1,000 mg PO QDAY ##0 10/24/12 07/08/22 History cholecalciferol (vitamin D3) 50 50 mcg PO DAILY #0 tabs 06/13/13 07/08/22 History mcg (2,000 unit) capsule (Vitamin D3) donepezil 10 mg tablet (Aricept) 10 mg PO QDAY #90 tabs 10/19/21 07/08/22 Rx estradiol 10 mcg vaginal tablet See Rx Instructions .Route 10/19/21 07/08/22 Rx .COMPLEX #36 tabs memantine 5 mg tablet 5 mg PO BID #180 tabs 10/19/21 07/08/22 Rx tolterodine 4 mg capsule,extended 4 mg PO DAILY #90 caps 10/19/21 07/08/22 Rx release 24 hr (Detrol LA) aspirin 81 mg tablet,delayed 81 mg PO DAILY ##0 12/24/21 07/08/22 History release atorvastatin 20 mg tablet 10 mg PO BEDTIME 01/05/22 07/08/22 History sertraline 100 mg tablet 150 mg PO DAILY 03/05/22 07/08/22 History ondansetron 4 mg disintegrating 4 mg PO Q6H PRN nausea and 05/28/22 07/08/22 Rx tablet vomiting #10 tabs lorazepam 0.5 mg tablet 0.5 mg PO BID PRN anxiety #60 tabs 07/08/22 07/08/22 Rx Allergies Allergy/AdvReac Type Severity Reaction Status Date / Time No Known Drug Allergies Allergy Verified 09/10/22 09:15 Review of Systems Review of Systems Narrative: Unable to obtain secondary to patient's unresponsiveness Exam Vital Signs (past 8 hours): - 09/10/22 11:15 09/10/22 10:45 09/10/22 11:00 Pulse Rate 88 84 84 Respiratory Rate 20 24 25 H Blood Pressure 167/70 H 192/80 H 178/76 H Blood Pressure [Left Arm] Pulse Oximetry 98 99 98 Oxygen Delivery Method Room Air Room Air 09/10/22 11:30 09/10/22 11:48 09/10/22 12:00 Pulse Rate 96 H 87 93 H Respiratory Rate Blood Pressure 173/75 H 169/73 H 164/63 H Blood Pressure [Left Arm] Pulse Oximetry 98 99 97 Oxygen Delivery Method Room Air Room Air Room Air 09/10/22 12:15 09/10/22 12:30 09/10/22 12:30 Pulse Rate 95 H 106 H Respiratory Rate 22 14 16 Blood Pressure 166/70 H 138/64 154/67 H Blood Pressure [Left Arm] Pulse Oximetry 95 95 97 Oxygen Delivery Method Room Air Room Air 09/10/22 12:50 09/10/22 13:10 09/10/22 13:30 Pulse Rate 106 H 106 H 109 H Respiratory Rate 17 18 16 Blood Pressure 153/67 H 142/62 H 152/70 H Blood Pressure [Left Arm] Pulse Oximetry 97 97 97 Oxygen Delivery Method Room Air Room Air Room Air 09/10/22 14:56 09/10/22 16:55 Pulse Rate 67 82 Respiratory Rate 12 20 Blood Pressure 103/53 L Blood Pressure [Left Arm] 139/66 Pulse Oximetry 95 Oxygen Delivery Method Room Air Oxygen Delivery Method Room Air Narrative Exam Narrative: GEN: Elderly female, curled up on her left side, nonverbal, NAD HEENT: Normocephalic, difficult to evaluate for facial symmetry she is lying on her left side and is difficult to move, also difficult to see her oropharynx NECK: Supple, no lymphadenopathy, thyroid without enlargement or nodularity, carotids no bruits CHEST: Respiratory excursions symmetric, clear to auscultation bilaterally CV: Regular rate and rhythm, no murmurs, rubs, gallops, PMI nondisplaced ABD: Soft, nontender, nondistended, bowel sounds present in all 4 quadrants, no organomegaly or masses appreciated EXTR: Warm, well perfused, no clubbing/cyanosis/edema SKIN: Warm and dry, without rash NEURO: Somnolent, non communicative, nonverbal except for yelling out when moved, significant tremors noted when she is touched, most notable to the right hand PSYCH: Unable to assess Objective Labs Result Diagrams: 09/10/22 11:40 09/10/22 11:40 Labs: Laboratory Results - last 24 hr 09/10/22 09/10/22 09/10/22 10:10 10:11 11:40 WBC Cancelled RBC Cancelled Hgb Cancelled Hct Cancelled MCV Cancelled MCH Cancelled MCHC Cancelled RDW Cancelled Plt Count Cancelled Neut % (Auto) Cancelled Lymph % (Auto) Cancelled [place] % (Auto) Cancelled Eos % (Auto) Cancelled Baso % (Auto) Cancelled Neut # (Auto) Cancelled Lymph # (Auto) Cancelled [place] # (Auto) Cancelled Eos # (Auto) Cancelled Baso # (Auto) Cancelled Sodium Potassium Chloride Carbon Dioxide BUN Creatinine Estimated GFR BUN/Creatinine Ratio Glucose Calcium Total Bilirubin AST ALT Alkaline Phosphatase Total Protein Albumin Globulin Albumin/Globulin Ratio Triglycerides Cholesterol LDL Cholesterol, Calc HDL Cholesterol TSH Urine Color Yellow Urine Appearance Clear Urine pH 5.5 Ur Specific [place] 1.025 Urine Protein Trace H Urine Glucose (UA) Negative Urine Ketones Negative Urine Occult Blood Negative Urine Nitrate Negative Urine Bilirubin Negative Urine Urobilinogen 0.2 Ur Leukocyte Esterase Trace H Urine RBC 1-5/hpf Urine WBC 0-1/hpf Ur Squamous Epith Cells None seen Calcium Oxalate Crystal Occasional H Urine Bacteria Occasional (0-1) Urine Mucus 1+ H Ur Culture Indicated? Specimen cultured SARS-CoV-2 (PCR) Negative 09/10/22 09/10/22 09/10/22 11:40 11:40 11:40 WBC RBC Hgb Hct MCV MCH MCHC RDW Plt Count Neut % (Auto) Lymph % (Auto) [place] % (Auto) Eos % (Auto) Baso % (Auto) Neut # (Auto) Lymph # (Auto) [place] # (Auto) Eos # (Auto) Baso # (Auto) Sodium 142 Potassium 3.6 Chloride 104 Carbon Dioxide 31 BUN 20 H Creatinine 0.69 Estimated GFR > 60 BUN/Creatinine Ratio 29.0 H Glucose 127 H Calcium 9.3 Total Bilirubin 0.3 AST 37 H ALT 29 Alkaline Phosphatase 137 H Total Protein 7.5 Albumin 4.2 Globulin 3.3 Albumin/Globulin Ratio 1.3 Triglycerides 87 Cholesterol 215 H LDL Cholesterol, Calc 136 H HDL Cholesterol 62 H TSH 1.26 Urine Color Urine Appearance Urine pH Ur Specific [place] Urine Protein Urine Glucose (UA) Urine Ketones Urine Occult Blood Urine Nitrate Urine Bilirubin Urine Urobilinogen Ur Leukocyte Esterase Urine RBC Urine WBC Ur Squamous Epith Cells Calcium Oxalate Crystal Urine Bacteria Urine Mucus Ur Culture Indicated? SARS-CoV-2 (PCR) Assessment & Plan Assessment & Plan narrative: 1. Extensive spontaneous intra parenchymal hemorrhage with mass effect Patient was initially placed on nicardipine drip for management of blood pressure. After son arrived, he confirmed go for comfort care in light of her advanced age and underlying dementia. We did discuss scheduling morphine as she very likely has significant headache and is unable to communicate that. Typically, hemorrhage does cause significant headache as well as brain irritability. Discussed risk for seizure. Will also place on scheduled lorazepam. Additionally, will have as needed medications available. Son did ask about IV hydration. I advised against it as she is at higher risk for increasing discomfort during the dying process secondary to increased secretions/pulmonary edema. He expresses understanding and agrees. 2. Hypertensive urgency Given goals are comfort care, her TPN was discontinued. No further treatment indicated. 3. Alzheimer's dementia At baseline, patient is on Aricept and Namenda. This has been held given brain hemorrhage and NPO status. 4. Hyperlipidemia Previously on statin therapy. This is held in the setting of comfort care goals 5. Stress incontinence Nova catheter is available as needed 6. Meniere's disease Does not appear to be treated at baseline. Code status DNR DNI Prophylaxis Chemical prophylaxis contraindicated in the setting of intraparenchymal hemorrhage. Mechanical prophylaxis deferred in the setting of comfort care. Disposition Admit under observation status for comfort care, as her memory care unit would be unable to meet her needs tonight. Time Spent With Patient Critical Care time: I spent a total of [] minutes of critical care time on this patient's care today; this time is exclusive of procedural time.
[2022-09-10] MEDS: LORazepam 2 MG/ML INJ 1 MG IV ×2 (19:16→21:35)
--- NOTE | 2022-09-10 19:45 | PC.NURSE ---
Patient on left side, will pillows in place for comfort. Introduced self to patients family and updated on plan of care. Call light given to family and strongly encouraged them to use if they need anything.
[2022-09-10] MEDS: SCOPOLAMINE 1 PATCH TOP (23:09)
[2022-09-11 01:10] VITALS: BP 135/76; PULSE 102; RESP 12; TEMP 37.3; O2SAT 86
[2022-09-11] MEDS: MORPHINE 2 MG/ML INJ IV ×7 (01:23→21:46)
[2022-09-11 01:35] VITALS: BMI 22.6
[2022-09-11] MEDS: LORazepam 2 MG/ML INJ 1 MG IV (01:53)
--- NOTE | 2022-09-11 02:04 | PC.NURSE ---
Pt to room 213 via stretcher from ER. Transferred to bed via slider board. Pt is unresponsive and without speech. Eyes are closed and Pt appears relaxed and comfortable. VS checked. Pt is tachy at 117, O2 sat 83, RR 12, bp 135/76. Warm blanket applied for comfort, pillows padding bony areas. Bed alarm on for safety. No family is present to assist with admission questions. Pt is DNR/Comfort Care.
--- NOTE | 2022-09-11 07:39 | P.PN_ITS ---
Subjective Subjective Date Patient Seen: 09/11/22 Interval history: She remains unresponsive with imminent. She is on comfort care after an intracerebral hemorrhage. No labs are planned for today. The room air saturation varies between 86 and 98% with a heart rate of 102. She is not responsive. Exam Vital Signs (past 8 hours): - 09/11/22 01:10 Temperature 99.2 F Pulse Rate 102 H Respiratory Rate 12 Blood Pressure 135/76 Pulse Oximetry 86 L Oxygen Flow Rate 0 Oxygen Delivery Method Room Air Oxygen Flow Rate 0 Narrative Exam Narrative: Unresponsive. No apparent distress. Heart is regular rate and rhythm without murmur Extremities have no ankle edema Objective Labs Result Diagrams: 09/10/22 11:40 09/10/22 11:40 Labs: Laboratory Results - last 24 hr 09/10/22 09/10/22 09/10/22 10:10 10:11 11:40 WBC Cancelled RBC Cancelled Hgb Cancelled Hct Cancelled MCV Cancelled MCH Cancelled MCHC Cancelled RDW Cancelled Plt Count Cancelled Neut % (Auto) Cancelled Lymph % (Auto) Cancelled Richardson % (Auto) Cancelled Eos % (Auto) Cancelled Baso % (Auto) Cancelled Neut # (Auto) Cancelled Lymph # (Auto) Cancelled Richardson # (Auto) Cancelled Eos # (Auto) Cancelled Baso # (Auto) Cancelled Sodium Potassium Chloride Carbon Dioxide BUN Creatinine Estimated GFR BUN/Creatinine Ratio Glucose Calcium Total Bilirubin AST ALT Alkaline Phosphatase Total Protein Albumin Globulin Albumin/Globulin Ratio Triglycerides Cholesterol LDL Cholesterol, Calc HDL Cholesterol TSH Urine Color Yellow Urine Appearance Clear Urine pH 5.5 Ur Specific Hunter 1.025 Urine Protein Trace H Urine Glucose (UA) Negative Urine Ketones Negative Urine Occult Blood Negative Urine Nitrate Negative Urine Bilirubin Negative Urine Urobilinogen 0.2 Ur Leukocyte Esterase Trace H Urine RBC 1-5/hpf Urine WBC 0-1/hpf Ur Squamous Epith Cells None seen Calcium Oxalate Crystal Occasional H Urine Bacteria Occasional (0-1) Urine Mucus 1+ H Ur Culture Indicated? Specimen cultured SARS-CoV-2 (PCR) Negative 09/10/22 09/10/22 09/10/22 11:40 11:40 11:40 WBC RBC Hgb Hct MCV MCH MCHC RDW Plt Count Neut % (Auto) Lymph % (Auto) Richardson % (Auto) Eos % (Auto) Baso % (Auto) Neut # (Auto) Lymph # (Auto) Richardson # (Auto) Eos # (Auto) Baso # (Auto) Sodium 142 Potassium 3.6 Chloride 104 Carbon Dioxide 31 BUN 20 H Creatinine 0.69 Estimated GFR > 60 BUN/Creatinine Ratio 29.0 H Glucose 127 H Calcium 9.3 Total Bilirubin 0.3 AST 37 H ALT 29 Alkaline Phosphatase 137 H Total Protein 7.5 Albumin 4.2 Globulin 3.3 Albumin/Globulin Ratio 1.3 Triglycerides 87 Cholesterol 215 H LDL Cholesterol, Calc 136 H HDL Cholesterol 62 H TSH 1.26 Urine Color Urine Appearance Urine pH Ur Specific Hunter Urine Protein Urine Glucose (UA) Urine Ketones Urine Occult Blood Urine Nitrate Urine Bilirubin Urine Urobilinogen Ur Leukocyte Esterase Urine RBC Urine WBC Ur Squamous Epith Cells Calcium Oxalate Crystal Urine Bacteria Urine Mucus Ur Culture Indicated? SARS-CoV-2 (PCR) [facility] Medical History Alzheimer's type dementia (2013) Anxiety Cholelithiasis Closed fracture of left distal radius (03/15/14) Cognitive dysfunction (2009) Colon polyps Depression Diverticulitis Gastritis Heart murmur Hyperlipidemia IBS (irritable bowel syndrome) Meniere's disease Urinary incontinence, mixed Surgical History History of bilateral salpingo-oophorectomy History of surgery on arm (03/16/14) Normal colonoscopy (2012) Status post appendectomy (2003) Status post colectomy (2003) Status post epidural steroid injection (03/06/10) Family History Father Colorectal cancer Mother Dementia Social History household members: spouse Smoking Status: Never smoker alcohol intake: never Assessment & Plan Assessment & Plan narrative: 1. 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 After son arrived, he confirmed that she was comfort care in light of her advanced age and underlying dementia.? Discussed scheduling morphine as she very likely has significant headache and is unable to communicate that.? Typically, hemorrhage does cause significant headache as well as brain irritability.? Discussed risk for seizure.? Was placed on scheduled lorazepam.? Additionally, will have as needed medications available.? Son did ask about IV h ydration.? I advised against it as she is at higher risk for increasing discomfort during the dying process secondary to increased secretions/pulmonary edema.? He expresses understanding and agrees. 2. Hypertensive urgency Given goals are comfort care, her TPN was discontinued.? No further treatment indicated. 3. Alzheimer's dementia At baseline, patient is on Aricept and Namenda.? This has been held given brain hemorrhage and NPO status. 4. Hyperlipidemia Previously on statin therapy.? This is held in the setting of comfort care goals 5. Stress incontinence Nova catheter is available as needed 6. Meniere's disease Does not appear to be treated at baseline. Code status DNR DNI Prophylaxis Chemical prophylaxis contraindicated in the setting of intraparenchymal hemorrhage.? Mechanical prophylaxis deferred in the setting of comfort care. Disposition Admit under observation status for comfort care, as her memory care unit would be unable to meet her needs tonight.? Time Spent With Patient Critical Care time: I spent a total of [] minutes of critical care time on this patient's care today; this time is exclusive of procedural time.
[2022-09-11 15:25] VITALS: BP 109/61; PULSE 134; RESP 20; TEMP 37.3; O2SAT 88
--- NOTE | 2022-09-11 15:51 | CM.DPNOTE ---
DCP Note Introduced self and role to patient's spouse and son/DIL at bedside this morning. Patient has lived at [facility] for approx 2 months; family has moved patient out as of this morning, patient's things have been removed and billing has stopped. Spouse is extremely [place], states he cannot take patient home to care for her Explained to family that patient may inevitably pass here, however, requested understanding that if patient stabilizes medically, CM team will plan to discuss alternative options for patient's care, w/hospice services, and family stated understanding CM team will plan to follow closely JW
--- NOTE | 2022-09-11 19:03 | PC.NURSE ---
continues on comfort care. patient is non-responsive to verbal stimuli, stirs slightly w/ turning and repositioning. falls back asleep easily. appears to be comfortable. continues w/ MS IV routine thru the day via LFA PIV. turned and repositioned frequently thru the shift, per family she favors laying on her right side, and supine. low fowlers for intracranial pressure. no facial grimacing or s/sx of pain. family here to see patient several times thru the day. spoke w/ son Josue and En. they are happy w/ the cares and do not have any concerns. asked her son if he would like to take her 3 rings home w/ him, he declined at this time. we will wait til later. comfort cart w/ coffee sent to the room.
[2022-09-12] MEDS: MORPHINE 2 MG/ML INJ IV ×4 (00:25→17:45)
[2022-09-12 06:25] VITALS: PULSE 129; RESP 10; TEMP 37.9; O2SAT 79
[2022-09-12 16:00] VITALS: PULSE 128; RESP 12; O2SAT 86
--- NOTE | 2022-09-12 17:11 | PM.PN.1 ---
Subjective Subjective Date Patient Seen: 09/12/22 Interval history: She remains unresponsive with imminent. She is on comfort care after an intracerebral hemorrhage. Family states she appears a bit more uncomfortable, at least this morning. Exam Vital Signs (past 8 hours): Oxygen Delivery Method Room Air Oxygen Flow Rate 0 Narrative Exam Narrative: Unresponsive. No apparent distress. tachycardic but regular Extremities have no ankle edema Objective Labs Result Diagrams: 09/10/22 11:40 09/10/22 11:40 [facility] Medical History Alzheimer's type dementia (2013) Anxiety Cholelithiasis Closed fracture of left distal radius (03/15/14) Cognitive dysfunction (2009) Colon polyps Depression Diverticulitis Gastritis Heart murmur Hyperlipidemia IBS (irritable bowel syndrome) Meniere's disease Urinary incontinence, mixed Surgical History History of bilateral salpingo-oophorectomy History of surgery on arm (03/16/14) Normal colonoscopy (2012) Status post appendectomy (2003) Status post colectomy (2003) Status post epidural steroid injection (03/06/10) Family History Father Colorectal cancer Mother Dementia Social History household members: spouse Smoking Status: Never smoker alcohol intake: never Assessment & Plan Assessment & Plan narrative: 1. 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 After son arrived, he confirmed that she was comfort care in light of her advanced age and underlying dementia. Continue scheduled morphine and ativan for comfort / seizure prevention. Her passing appears imminent, intermittent hypoxia continues and increased HR today may be indicative of continued decline or worsening pain. Consider increased comfort medications. 2. Hypertensive urgency Given goals are comfort care, her TPN was discontinued.? No further treatment indicated. 3. Alzheimer's dementia At baseline, patient is on Aricept and Namenda.? This has been held given brain hemorrhage and NPO status. 4. Hyperlipidemia Previously on statin therapy.? This is held in the setting of comfort care goals 5. Stress incontinence Nova catheter is available as needed 6. Meniere's disease Does not appear to be treated at baseline. Code status DNR DNI Prophylaxis Chemical prophylaxis contraindicated in the setting of intraparenchymal hemorrhage.? Mechanical prophylaxis deferred in the setting of comfort care. Disposition Remains inpatient, patient appears imminent and her passing is expected at any moment, will continue comfort measures at this time. Time Spent With Patient Critical Care time: I spent a total of [] minutes of critical care time on this patient's care today; this time is exclusive of procedural time.
[2022-09-12 20:00] VITALS: PULSE 115; RESP 18; TEMP 38.6; O2SAT 86
[2022-09-13 00:19] VITALS: BP 126/78
[2022-09-13 08:00] VITALS: BP 145/79; PULSE 129; RESP 16; TEMP 38.2; O2SAT 85
--- NOTE | 2022-09-13 12:23 | CM.DPC ---
Addendum entered by TRUNG Spain 09/13/22 15:50: ADD: [facility] admissions called back and they can accept pt under comfort if needed and pending her stability tomorrow. Do not anticipate any concerns if comfort measures at SNF needed. BF Addendum entered by TRUNG [place] 09/13/22 14:07: ADD: SW called [facility], they are still planning to review but have not been able to yet. SW met bedside with pt, who is non-responsive, and spouse who is very [place] and his hearing aid isn't working well. SW discussed need for plan of transition for comfort measures if pt doesn't today and provided [facility] brochure and discussed comfort care. Spouse states he is not comfortable with pt being moved from the hospital and confirms home with Hospice is not a safe option. SW discussed the difficulty with pt remaining in the hospital for end of life care if she stabilizes. Spouse willing to consider if pt remains and does not . BF Original Note: DCP Cont: Per MD, anticipate pt will today in the hospital. IMTIAZ called [facility] SN[facility] admissions and requested review to see if they could accept pt under Medicare Comfort Measures and then Private Pay if pt stabilizes and does not today. Plan: IMTIAZ to follow closely for [facility] review under Comfort vs here. TRUNG [place]
[2022-09-13] MEDS: MORPHINE 2 MG/ML INJ IV (15:29)
--- NOTE | 2022-09-13 17:26 | P.PN_ITS ---
Subjective Subjective Date Patient Seen: 09/13/22 Interval history: She remains unresponsive with imminent. She is on comfort care after an intracerebral hemorrhage. Exam Vital Signs (past 8 hours): Oxygen Delivery Method Room Air Oxygen Flow Rate 0 Narrative Exam Narrative: Unresponsive. No apparent distress. tachycardic but regular Extremities have no ankle edema Objective Labs Result Diagrams: 09/10/22 11:40 09/10/22 11:40 [facility] Medical History Alzheimer's type dementia (2013) Anxiety Cholelithiasis Closed fracture of left distal radius (03/15/14) Cognitive dysfunction (2009) Colon polyps Depression Diverticulitis Gastritis Heart murmur Hyperlipidemia IBS (irritable bowel syndrome) Meniere's disease Urinary incontinence, mixed Surgical History History of bilateral salpingo-oophorectomy History of surgery on arm (03/16/14) Normal colonoscopy (2012) Status post appendectomy (2003) Status post colectomy (2003) Status post epidural steroid injection (03/06/10) Family History Father Colorectal cancer Mother Dementia Social History household members: spouse Smoking Status: Never smoker alcohol intake: never Assessment & Plan Assessment & Plan narrative: 1. 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 Patient was initially placed on nicardipine drip for management of blood pressure.? After son arrived, he confirmed that she was comfort care in light of her advanced age and underlying dementia. Continue scheduled morphine and ativan for comfort / seizure prevention. Her passing appears imminent, remains tachycardic and hypoxic, more agonal breathing noted this afternoon. 2. Hypertensive urgency Given goals are comfort care medications are held 3. Alzheimer's dementia At baseline, patient is on Aricept and Namenda.? This has been held given brain hemorrhage and NPO status. 4. Hyperlipidemia Previously on statin therapy.? This is held in the setting of comfort care goals 5. Stress incontinence Nova catheter is available as needed for comfort Code status DNR DNI Prophylaxis Chemical prophylaxis contraindicated in the setting of intraparenchymal hemorrhage.? Mechanical prophylaxis deferred in the setting of comfort care. Disposition Remains inpatient, patient appears imminent and her passing is expected at any moment, will continue comfort measures at this time. Time Spent With Patient Critical Care time: I spent a total of [] minutes of critical care time on this patient's care today; this time is exclusive of procedural time.
[2022-09-13 20:16] VITALS: BP 95/62; PULSE 141; RESP 22; TEMP 38.4; O2SAT 99
--- NOTE | 2022-09-13 21:48 | PC.NURSE ---
Pt passed at 21:00 director call center sales was notified and agreed. Family was notified as was the donation line. Daughter uncertain of Father's wishes and son doesn't want to call him at this hour. Daughter states father will be in at 05:00 as he is an early riser. IV and le removed. Pt washed and resettled.
--- NOTE | 2022-09-13 22:47 | PC.NURSE ---
Addendum entered by Da Mclain R.N. 09/13/22 23:03: Home picked up pt at 2301. Original Note: Pt passed around 2100. Coordinator and Hospitalist aware and agreed. Hair brushed, medical equipment removed.
--- NOTE | 2022-09-13 22:52 | PM.DDS.1 ---
Discharge Summary History of Illness Narrative: Tae Izaguirre 87-year-old female with Alzheimer's dementia, mixed hyperlipidemia, stress incontinence, irritable bowel syndrome, depression, Meniere's disease, malnutrition, chocystectomy in April of this year who presented to the emergency department from [facility] with altered mental status.? Staff noted that she was lethargic this morning.? She is normally awake and ambulatory with a walker.? On arrival to the emergency department she was noted to have significant hypertension.? Labs are done with a fairly unremarkable chemistry panel noted.? Cholesterol was 215, LDL 136, HDL 62.? TSH was 1.26.? UA revealed trace leukocyte esterase and protein but was otherwise negative.? COVID testing was negative.? Head CT was performed which revealed extensive parenchymal hematoma with significant mass effect on the ipsilateral lateral ventricle and marked midline shift.? Associated intraventricular hemorrhage was noted.? Patient was initially placed on a nicardipine drip until family arrived and elected comfort care.? Son is at bedside along with his .? He notes that earlier the patient was a bit more alert but she has been fairly unresponsive over the past couple of hours.? He notes some increase in tremors over the course of the afternoon as well. Patient is essentially unresponsive. Patient was placed on comfort care noted impending . Hospital Course Date of Admission: 09/11/22 15:34 Date of : 09/13/22 Primary care provider: Kolby Ayala DO Consults: 09/10/22 16:09 Consult to Discharge Planning Routine Comment: Consult to Hospice Referral Urgent Comment: 09/10/22 22:40 Consult to Discharge Planning Routine Comment: Consult to Hospice Referral Urgent Comment: 09/11/22 01:59 Consult to Research Intern Routine Comment: Discharge provider: Karli So Discharge Diagnosis: Tae Izaguirre at 9:00 p.m. on 09/13/2022 secondary to extensive spontaneous inter parenchymal hemorrhage with mass effect and midline shift and brain compression. 1. 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 Patient was initially placed on nicardipine drip for management of blood pressure.? After son arrived, he confirmed that she was comfort care in light of her advanced age and underlying dementia. Continue scheduled morphine and ativan for comfort / seizure prevention. Her passing appears imminent, remains tachycardic and hypoxic, more agonal breathing noted this afternoon. 2. Hypertensive urgency Given goals are comfort care medications are held 3. Alzheimer's dementia At baseline, patient is on Aricept and Namenda.? This has been held given brain hemorrhage and NPO status. 4. Hyperlipidemia Previously on statin therapy.? This is held in the setting of comfort care goals 5. Stress incontinence Nova catheter is available as needed for comfort Code status DNR DNI Hospital Course: Disposition Remains inpatient, patient appears imminent and her passing is expected at any moment, continuous comfort measures at this time. The patient at 9:00 p.m. on 09/13/2022 secondary to extensive spontaneous inter parenchymal hemorrhage with mass effect and midline shift and brain compression. Objective Labs Result Diagrams: 09/10/22 11:40 09/10/22 11:40
== END 2022-09-13 23:01 | disposition expired | DRG 66 ==
LOC: ED 15:04 → AC 15:27
PROVIDERS: Admitting Provider Family Medicine; Emergency Provider Emergency Medicine; Family Provider Family Medicine; PCP Family Medicine; Referring Provider Emergency Medicine; Visit Provider Family Medicine
DX: I61.8 Other nontraumatic intracerebral hemorrhage (principal); I16.0 Hypertensive urgency; R09.02 Hypoxemia; G30.9 Alzheimer's disease, unspecified; F02.80 Dementia in other diseases classified elsewhere, unspecified severity, without behavioral disturbance, psychotic disturbance, mood disturbance, and anxiety; N39.3 Stress incontinence (female) (male); Z66 Do not resuscitate; Z20.822 Contact with and (suspected) exposure to COVID-19; Z51.5 Encounter for palliative care
CPT/HCPCS: 36415; 51701; 70450; 80053; 80061; 81001; 84443; 87086; 87635; 96365; 96366; 96375; 96376; 99284; 99291; C9803; G0378; J2060; J2270; J2405